=== PATIENT | female | born 1950 | race Caucasian/White ===

== ENCOUNTER → 2018-02-22 10:15 | Outpatient (POV) | payer MEDICARE, BC, SELFPAY | PROVIDERS: Visit Provider Dermatology | DX: Z00.00 Encounter for general adult medical examination without abnormal findings (principal) ==

== ENCOUNTER → 2018-03-22 11:10 | Outpatient (CLI) | payer MEDICARE, BC, SELFPAY ==
--- NOTE | 2018-03-22 11:40 | XR_ITS ---
XR chest 2V HISTORY: ITS.REASON: PRECORDIAL PAIN ORDERING PHYSICIAN: Hernando Garza MD PATIENT AGE: 68 years COMPARISON: None FINDINGS: The cardiomediastinal silhouette and pulmonary vascularity are within normal limits. There is some linear density noted in the right suprahilar region and could be due to an area of atelectasis or fibrosis. There is evidence of old granulomatous disease. The lungs are clear without infiltrates, suspicious nodules, or pleural effusions. No acute bony abnormalities. Mild levoscoliosis IMPRESSION: No acute finding
[2018-03-22 12:21] LABS: CKMB Relative Index 1.7 U/L (0-4.0); Creatine Kinase 59 U/L (26-192); Troponin I < 0.02 ng/ml (0.00-0.06)
== END ==
PROVIDERS: PCP Family Medicine; Visit Provider Family Medicine
DX: R07.2 Precordial pain (principal)
CPT/HCPCS: 36415; 71046; 82550; 82553; 84484; 93005

== ENCOUNTER → 2018-03-27 10:17 | Outpatient (CLI) | payer MEDICARE, BC, SELFPAY ==
--- NOTE | 2018-03-27 10:18 | XR_ITS ---
XR knee LT 4V HISTORY: ITS.REASON: Left knee pain ORDERING PHYSICIAN: Panda Hall MD PATIENT AGE: 68 years COMPARISON: None FINDINGS: There are mild osteoarthritic changes of the medial compartment and patellofemoral joint. No fracture or dislocation. No lytic or blastic change. IMPRESSION: Mild osteoarthritis
--- NOTE | 2018-03-27 10:18 | XR_ITS ---
XR knee RT 4V HISTORY: ITS.REASON: RIGHT knee pain ORDERING PHYSICIAN: Panda Hall MD PATIENT AGE: 68 years COMPARISON: None FINDINGS: Moderate osteoarthritic changes are present at the medial compartment and patellofemoral joint. Small suprapatellar effusion suspected. No fracture or dislocation. No lytic or blastic change. There are several small calcific densities within the soft tissues along the medial and posterior aspect of the tibial region proximally and are questioned clinical significance. They could be due to small calcifications such as synovial osteochondromas within a Machuca's cyst. IMPRESSION: 1. Moderate osteoarthritis. 2. Nonspecific small calcifications over the proximal and medial aspect of the tibia possibly due to synovial osteochondromas within a Machuca cyst
== END ==
PROVIDERS: PCP Family Medicine; Visit Provider Orthopaedic Surgery
DX: M25.561 Pain in right knee (principal); M25.562 Pain in left knee
CPT/HCPCS: 73564

== ENCOUNTER → 2018-05-23 08:25 | Outpatient (CLI) | payer MEDICARE, BC, SELFPAY ==
--- NOTE | 2018-05-23 08:27 | MM_ITS ---
MM Dig screening mamm BI w/CAD CAD Screening COMPARISON: Digital mammograms with CAD 04/28/2017 and 10/28/2016 INDICATION: There is a history of breast cancer in the patient's maternal grandmother TECHNIQUE: Standard CC and MLO images were obtained. R2 CAD reviewed. FINDINGS: Prominent heterogenic fibro glandular densities are seen in the central portions and subareolar regions of both breast. The findings of the lateral and symmetrical. There are benign-appearing calcifications in each breast. There is a stable benign-appearing nodular density outer quadrant right breast. There is no suspicious lesion and no suspicious microcalcifications. IMPRESSION: Moderately dense parenchymal pattern with no suspicious lesion. BI-RADS Category: 2 Benign Finding(s) RECOMMENDED FOLLOW-UP: 1YR - 1 YEAR FOLLOW-UP (A letter has been sent to the patient regarding results of the study.)
== END ==
PROVIDERS: Family Provider Family Medicine; PCP Family Medicine; Visit Provider Obstetrics & Gynecology
DX: Z12.31 Encounter for screening mammogram for malignant neoplasm of breast (principal)
CPT/HCPCS: 77067

== ENCOUNTER → 2019-01-04 11:41 | Outpatient (CLI) | payer MEDICARE, BC, SELFPAY ==
--- NOTE | 2019-01-04 11:47 | NVE_ITS ---
Venous Exam Indications: 729.81 Swelling of limb. IMPRESSIONS 1. There is no evidence of significant Reflux. 2. No evidence of deep or superficial vein thrombosis involving the right lower extremity Right lower extremity venous duplex evaluation. Doppler flow study including spectral analysis, color and padilla scale imaging. Location: Vascular laboratory. Patient status: Outpatient. Tables: Venous flow and imaging: + +-------+ + Location Overall Flow properties + +-------+ + Right common femoral Patent Normal phasicity; spontaneous; normal augmentation; compressible + +-------+ + Right saphenofemoral junction Patent Compressible + +-------+ + Right profunda femoral Patent Compressible + +-------+ + Right femoral Patent Normal phasicity; spontaneous; normal augmentation; compressible + +-------+ + Right greater saphenous Patent Normal phasicity; spontaneous; normal augmentation; compressible + +-------+ + Right popliteal Patent Normal phasicity; spontaneous; normal augmentation; compressible + +-------+ + Right posterior tibial Patent Compressible + +-------+ + Right peroneal Patent Compressible + +-------+ + Right gastrocnemius Patent Compressible + +-------+ + Right soleal Patent Compressible + +-------+ + (Report amended ) Electronically signed by: Edgar Simon [id number]
== END ==
PROVIDERS: PCP Family Medicine; Visit Provider Family Medicine
DX: R60.1 Generalized edema (principal)
CPT/HCPCS: 93971

== ENCOUNTER → 2019-05-28 10:17 | Outpatient (POV) | payer MEDICARE, BC, SELFPAY ==
--- NOTE | 2019-05-28 15:33 | MM_ITS ---
PROCEDURE: MM DIG SCREENING MAMM BI W/CAD CLINICAL INDICATION: screening There is a history of breast cancer in patient's maternal great aunt. COMPARISON: DMDBAV DIG MAMM-DX KINJAL W/AVWS W/CAD from 10/28/2016 DMSB DIG MAMM-SCREEN KINJAL W/CAD from 04/28/2017 [facility] MM Dig screening mamm BI w/CAD from 05/23/2018 TECHNIQUE: Standard CC and MLO images were obtained. R2 CAD reviewed. FINDINGS: There is a diffusely dense and heterogenic parenchymal pattern somewhat lessening the sensitivity of mammography. There is scattered benign-appearing microcalcifications in each breast and there is couple of benign macrocalcifications in each breast as well. There are stable benign appearing small nodular densities outer quadrants of each breast. There is no suspicious lesion and no suspicious microcalcifications. IMPRESSION: Heterogenic dense parenchymal pattern with no suspicious lesions seen BI-RAD Category: 2 Benign Finding(s) FOLLOW-UP: 1YR 1 Year Follow-up (A letter has been sent to the patient regarding results of the study.) Dictated by: Dr. Fran Reed MD 06/02/2019 10:[address] Fran Reed MD in [place] 06/02/2019 10:58
== END ==
PROVIDERS: Visit Provider Dermatology
DX: Z12.31 Encounter for screening mammogram for malignant neoplasm of breast (principal)
CPT/HCPCS: 77067

== ENCOUNTER → 2019-05-28 15:22 | Outpatient (CLI) | payer MEDICARE, BC, SELFPAY | PROVIDERS: PCP Family Medicine; Visit Provider Obstetrics & Gynecology | DX: Z12.31 Encounter for screening mammogram for malignant neoplasm of breast (principal) ==

== ENCOUNTER 2020-04-25 00:40 | Emergency (ER) | payer MEDICARE, BC, SELFPAY ==
--- NOTE | 2020-04-25 00:36 | ECG_ITS ---
APPROVED REPORT Exam: Resting ECG HR:71 bpm ECG Measurements Heart Rate 71 AXES MO 144 P 55 QRSd 74 QRS 76 QT 378 T 66 QTc 410 <Conclusion> Normal sinus rhythm Normal ECG Electronically signed by : Juan Daniel Jules, 04/25/2020 08:25:21
[2020-04-25 00:43] VITALS: BP 154/90; PULSE 77; RESP 18; TEMP 37; O2SAT 96; BMI 24.6
--- NOTE | 2020-04-25 00:51 | XR_ITS ---
PROCEDURE: XR CHEST 2V CLINICAL HISTORY: palpatations COMPARISON: CR CXR2V XR chest 2V from 03/22/2018 FINDINGS: The cardiomediastinal silhouette and pulmonary vascularity are within normal limits. The lungs are clear without infiltrates, suspicious nodules, or pleural effusions. No acute bony abnormalities. IMPRESSION: No acute findings. Dictated b Alek Ballard MD 04/25/2020 07:11 Alek Ballard MD in [place] 04/25/2020 07:11
[2020-04-25 01:02] LABS: Basophils # 0.1 K/mm3 (0-0.2); Basophils % 0.6 % (0.1-2.0); Eosinophils # 0.2 K/mm3 (0.0-0.4); Eosinophils % 1.7 % (0.1-12.0); Hematocrit 42.6 % (37.0-47.0); Hemoglobin 15.1 g/dL (12.2-16.2); Lymphocytes # 2.9 K/mm3 (0.7-4.5); Lymphocytes % 31.8 % (10-50); Mean Corpuscular HGB Conc 35.4 g/dL (31.8-35.4); Mean Corpuscular Hemoglobin 31.6 pg (27.0-31.2); Mean Corpuscular Volume 89.3 fl (81-99); Mean Platelet Volume 8.2 fl (7.4-10.4); Monocytes # 0.4 K/mm3 (0.1-1.0); Monocytes % 4.3 % (1.7-9.3); Neutrophils # 5.7 K/mm3 (1.8-7.8); Neutrophils % 61.6 % (37.0-80.0); Platelet Count 230 K/mm3 (142-424); Red Blood Count 4.77 M/mm3 (4.20-5.40); Red Cell Distribution Width 12.4 % (11.5-17.5); White Blood Count 9.2 K/mm3 (4.8-10.8)
[2020-04-25 01:14] LABS: Anion Gap 13.7 mEq/L (5-15); Blood Urea Nitrogen 20 mg/dl (7-17); Carbon Dioxide 34 mmol/L (22.0-30.0); Chloride 97 mmol/L (98-107); Creatinine Clearance Estimated 55 mL/min (50-200); Estimated Glomerular Filt Rate 83 ml/min (>60); GFR (African American) 100 ML/MIN (>60); Glucose 106 mg/dl (74-100); Potassium 3.7 mmoL/L (3.5-5.1); Sodium 141 mmol/L (136-145)
[2020-04-25 01:29] LABS: Troponin I < 0.01 ng/ml (0.00-0.034)
[2020-04-25 01:33] VITALS: BP 144/83; PULSE 70; O2SAT 94
--- NOTE | 2020-04-25 01:35 | HMH.EDCP ---
ED Disposition Clinical Impression: Palpitations Disposition: Home, Self-Care Condition on Discharge: Good Instructions: DI for Palpitations Additional Instructions: recheck if needed and call pcp for follow up Referrals: PCP,No [Primary Care Provider] - - Critical Care Critical Care Time: No Attestation: On 04/25/20, the high probability of a clinically significant, sudden or life threatening deterioration of the following system(s) required my full and direct attention, intervention and personal management. The time I documented below is in addition to time spent performing reported procedures but includes the following listed in this critical care notation. Medical Decision Making - Medical Records Medical records reviewed: Yes: I reviewed the patient's medical records. - Sylvester Inquiry Pt receiving controlled substance: No Vital Signs: 04/25/20 00:43 04/25/20 01:33 Temperature 98.6 F Temperature Source Oral Pulse Rate [Right] 77 70 Respiratory Rate 18 Blood Pressure [Right Arm] 154/90 H 144/83 H Blood Pressure Mean [Right Arm] 111 103 Blood Pressure Source [Right Arm] Automatic Cuff Blood Pressure Position [Right Arm] Supine 02 Sat by Pulse Oximetry 96 94 L Oxygen Delivery Method Room Air - Lab Data Lab results reviewed: Yes: I reviewed the patient's lab results. Lab Results 04/25/20 00:40: WBC 9.2, RBC 4.77, Hgb 15.1, Hct 42.6, MCV 89.3, MCH 31.6 H, MCHC 35.4, RDW 12.4, Plt Count 230, MPV 8.2, Neut % (Auto) 61.6, Lymph % (Auto) 31.8, [place] % (Auto) 4.3, Eos % (Auto) 1.7, Baso % (Auto) 0.6, Neut # (Auto) 5.7, Lymph # (Auto) 2.9, [place] # (Auto) 0.4, Eos # (Auto) 0.2, Baso # (Auto) 0.1 04/25/20 00:40: Sodium 141, Potassium 3.7, Chloride 97 L, Carbon Dioxide 34 H, Anion Gap 13.7, BUN 20 H, Creatinine 0.70, Estimated Creat Clear 55, Estimated GFR 83, Est GFR ( Amer) 100, Glucose 106 H, Calcium 10.0, Troponin I < 0.01 Result diagrams: 04/25/20 00:40 04/25/20 00:40 Orders (Tests/Meds): ED MEDICATIONS Discontinued Medications Generic Name Dose Route Start Last Admin Trade Name Kristal PRN Reason Stop Dose Admin Sodium Chloride 1,000 mls @ 999 mls/hr 04/25/20 01:00 04/25/20 01:27 Sod Chlor 0.9% 1000ml Bag IV 04/25/20 02:00 Not Given .Q1H1M HIGINIO ORDERS Category Date Time Status XR chest 2V Stat Exams 04/25/20 00:51 Ordered Troponin I Q3H Lab 04/25/20 04:00 Ordered Troponin I Q3H Lab 04/25/20 07:00 Ordered - Radiology Data #1 Image(s): Chest Image Reviewed: Yes I reviewed the patient's radiology image Preliminary Findings: Normal/NAD - ECG Data Tracing #1 Normal Sinus Rhythm: Yes Ischemic changes: non-specific ST-T wave changes Chest Pain HPI - General Chief Complaint: Arrhythmia/Palpitations Stated Complaint: palpitations Time Seen by Provider: 04/25/20 01:00 Mode of Arrival: Ambulatory Source of Information: Patient, Medical Record Limitations: No Limitations Description of Symptoms (Recalled from ER Triage Doc. by RN): Pt states she was woke up this even from palpatations, denies pain or SOA. - History of Present Illness HPI narrative: episodes of inc hr and no def chest pain - hx of mvp complaint: chest pain indicative of cardiac Onset (ago): hour(s) Duration: now resolved Activity at onset: during rest Pain location: substernal Severity: moderate Risk Factors for CAD: Hypertension, Family Hx of CAD Treatments prior to or on arrival for Cardiac Chest Pain: none - LEOLA Score for Non-Stemi Age of Patient: 70-79 years old Heart Rate: 70-89 bpm Systolic Blood Pressure: 140-159 mmHg Serum Creatinine: 0.40-0.79 mg/dl CHF Killip Class: I-No CHF Other Risk Factors: None Non-Stemi Risk Score: 112 - Related Data On Oral Contraceptives: No Home Medications Medication Instructions Recorded Confirmed celecoxib 50 mg capsule 100 mg PO BID 02/23/18 04/25/20 cholecalciferol (vitamin D3) 250 10,000 unit PO ONCE
[2020-04-25 02:08] VITALS: BP 151/93; PULSE 67; RESP 16; TEMP 37; O2SAT 96
== END 2020-04-25 02:11 | disposition home or self-care (01) ==
PROVIDERS: Emergency Provider Emergency Medicine; PCP Family Medicine
DX: R00.2 Palpitations (principal); I34.1 Nonrheumatic mitral (valve) prolapse; I10 Essential (primary) hypertension; Z90.710 Acquired absence of both cervix and uterus; Z79.899 Other long term (current) drug therapy
CPT/HCPCS: 71046; 80048; 84484; 85025; 93005; 99283

== ENCOUNTER → 2020-05-04 15:14 | Outpatient (CLI) | payer MEDICARE, BC, SELFPAY ==
--- NOTE | 2020-05-04 15:18 | CA_ITS ---
APPROVED REPORT EXAM: Comprehensive 2D, Doppler, and color-flow Echocardiogram Client Services Administrator: Soumya Rivas RDCS Ht: 5 ft 5 in Wt: 150lbs BSA: 1.75 BP: 144/83 mmHg Indications: MVP PALPS MR 2D Dimensions LVOT 1.63 cm (M/F) 1.5-2.5 M-Mode Dimensions RVDd 2.77 cm (0.9-2.6) LVDd 4.70 cm (3.5-5.7) LVDs 3.17 cm (3.5-5.7) IVSd 0.72 cm (0.6-1.1) PWd 0.76 cm (0.6-1.1) EF (Teich) 60.90% FS 32.60% EDV (Teich) 102.40 mL ESV (Teich) 40.00 mL LV Diastology E/A Ratio 1.17 Mitral Valve MV A Velocity 73.00 (40-130 cm/s) Left Ventricle Technically difficult study, because of the patient factors and poor acoustic windows. Left atrium is normal size, left ventricle is normal size, visually estimated ejection fraction 55% with no regional wall motion abnormality, diastolic parameters are inconclusive. Right Ventricle Right atrium and right ventricular normal size and contractility. Aortic Valve Aortic valve is minimally thickened and fibrosed, there is no aortic stenosis or aortic insufficiency. Mitral Valve Mitral valve leaflets are minimally thickened, there is no obvious echocardiographic evidence of mitral valve prolapse seen, there is mild to moderate mitral regurgitation seen. Tricuspid Valve Tricuspid valve is grossly normal, there is mild tricuspid regurgitation, tricuspid regurgitation jet velocity is inadequate for calculation of the right ventricular systolic pressure. Pulmonic Valve Pulmonic valve is poorly visualized. Great Vessels Aortic root is normal size. Pericardium No significant pericardial effusion noted. Conclusion 1. Normal left ventricular size, preserved left ventricular systolic function, visually estimated ejection fraction 55% with no regional wall motion abnormality, diastolic parameters are inconclusive. 2. No obvious echocardiographic evidence of mitral valve prolapse seen, there is mild to moderate mitral regurgitation. 3. Mild tricuspid regurgitation. 4. No significant pericardial effusion noted. Electronically signed by : Gordo Banks, 05/04/2020 20:00:25
== END ==
PROVIDERS: PCP Family Medicine; Visit Provider Family Medicine
DX: R00.2 Palpitations (principal); I34.0 Nonrheumatic mitral (valve) insufficiency
CPT/HCPCS: 93306

== ENCOUNTER → 2020-06-01 08:35 | Outpatient (CLI) | payer MEDICARE, BC, SELFPAY ==
--- NOTE | 2020-06-01 08:35 | MM_ITS ---
PROCEDURE: MM DIG SCREENING MAMM BI W/CAD Digital Breast Tomosynthesis Included CLINICAL INDICATION: Routine Screening Mammogram There is a history of breast cancer patient's maternal great aunt. The patient currently is on Premarin and estrogen. COMPARISON: MG DMSB DIG MAMM-SCREEN KINJAL W/CAD from 04/28/2017 [facility] MM Dig screening mamm BI w/CAD from 05/23/2018 MG MM DIG SCREENING MAMM BI W/CAD from 05/28/2019 TECHNIQUE: Standard CC and MLO images and 3D Tomosynthesis was obtained. R2 CAD reviewed. FINDINGS: Prominent diffuse somewhat heterogenic fibroglandular densities are seen throughout both breasts. There are scattered benign-appearing microcalcifications in each breast and there is a stable benign-appearing macro calcification upper-outer quadrant right breast. Small benign-appearing nodular density outer quadrant right breast and there is stable benign-appearing nodular density outer quadrant left breast both lesions best seen on the CC views. There is no suspicious lesion and no suspicious microcalcifications. IMPRESSION: Moderately dense parenchymal pattern with no suspicious lesions seen BI-RAD Category: 2 Benign Finding(s) FOLLOW-UP: 1YR 1 Year Follow-up (A letter has been sent to the patient regarding results of the study.) Dictated by: Dr. Fran Reed MD 06/04/2020 19:26 Dr. Fran Reed MD in [place] 06/04/2020 19:26
== END ==
PROVIDERS: PCP Family Medicine; Visit Provider Obstetrics & Gynecology
DX: Z12.31 Encounter for screening mammogram for malignant neoplasm of breast (principal)
CPT/HCPCS: 77063; 77067

== ENCOUNTER → 2021-05-25 11:01 | Outpatient (POV) | payer MEDICARE, BC, SELFPAY | PROVIDERS: Visit Provider Dermatology | DX: Z00.00 Encounter for general adult medical examination without abnormal findings (principal) ==

== ENCOUNTER → 2021-07-02 07:57 | Outpatient (CLI) | payer MEDICARE, BC, SELFPAY ==
[2021-07-02 08:01] LABS: Microscopic, Urine URINE MICROSCOPIC (MICROSCOPIC)
[2021-07-02 08:22] LABS: Basophils # 0.1 K/mm3 (0-0.2); Basophils % 0.9 % (0.1-2.0); Eosinophils # 0.1 K/mm3 (0.0-0.4); Eosinophils % 1.4 % (0.1-12.0); Hematocrit 42.9 % (37.0-47.0); Hemoglobin 14.4 g/dL (12.2-16.2); Lymphocytes # 2.2 K/mm3 (0.7-4.5); Lymphocytes % 24.1 % (10-50); Mean Corpuscular HGB Conc 33.6 g/dL (31.8-35.4); Mean Corpuscular Hemoglobin 31.1 pg (27.0-31.2); Mean Corpuscular Volume 92.4 fl (81-99); Mean Platelet Volume 8.1 fl (7.4-10.4); Monocytes # 0.4 K/mm3 (0.1-1.0); Monocytes % 4.2 % (1.7-9.3); Neutrophils # 6.5 K/mm3 (1.8-7.8); Neutrophils % 69.5 % (37.0-80.0); Platelet Count 302 K/mm3 (142-424); Red Blood Count 4.64 M/mm3 (4.20-5.40); Red Cell Distribution Width 12.9 % (11.5-17.5); White Blood Count 9.3 K/mm3 (4.8-10.8)
[2021-07-02 08:28] LABS: Appearance,Urine CLEAR (Clear); Bilirubin,Urine Negative (Negative); Blood, Urine TRACE-I (Negative); Color,Urine YELLOW (Yellow); Glucose,Urine (UA) Negative (Negative); Ketones,Urine Negative (Negative); Leukocyte Esterase,Urine Negative (Negative); Nitrate,Urine Negative (Negative); Protein,Urine Negative (Negative); Urobilinogen,Urine 0.2 EU/dl (0.2)
[2021-07-02 08:40] LABS: Hemoglobin A1C 7.1 % (4.0-6.0)
[2021-07-02 08:42] LABS: Activated Partial Thrombo Time 26.2 seconds (22.8-30.6); INR 0.93 (0.9-1.1); Prothrombin Time 10.6 seconds (10.1-12.5)
[2021-07-02 09:25] LABS: Chloride 98 mmol/L (98-107)
[2021-07-02 09:26] LABS: Potassium 4.9 mmoL/L (3.5-5.1); Sodium 139 mmol/L (136-145)
[2021-07-02 09:28] LABS: Alanine Aminotransferase 19 U/L (12-78); Alkaline Phosphatase 75 U/L (38-126); Anion Gap 13.9 mEq/L (5-15); Aspartate Amino Transferase 30 U/L (14-36); Bilirubin,Total 0.4 mg/dl (0.2-1.3); Blood Urea Nitrogen 11 mg/dl (7-17); Carbon Dioxide 32 mmol/L (22.0-30.0); Estimated Glomerular Filt Rate 82 ml/min (>60); GFR (African American) 100 ML/MIN (>60)
[2021-07-02 09:29] LABS: Albumin Level 4.4 g/dl (3.5-5.0); Albumin/Globulin Ratio 1.4 (1.1-1.8); Calcium 9.9 mg/dl (8.4-10.2); Globulin 3.1 g/dL (1.3-3.2); Glucose 92 mg/dl (74-100); Total Protein,Serum 7.5 g/dl (6.3-8.2)
== END ==
PROVIDERS: Visit Provider Family Medicine
DX: Z01.818 Encounter for other preprocedural examination (principal); Z79.899 Other long term (current) drug therapy; Z51.81 Encounter for therapeutic drug level monitoring
CPT/HCPCS: 36415; 80053; 81001; 83036; 85025; 85610; 85730

== ENCOUNTER → 2021-07-19 11:41 | Outpatient (CLI) | payer MEDICARE, BC, SELFPAY ==
--- NOTE | 2021-07-19 11:44 | CA_ITS ---
APPROVED REPORT Left Lower Extremity Venous Study for DVT. Chrome Tanner: Barbara Walker RVT Indications Lower Extremity Pain: Left S/P LT KNEE REPLACEMENT 07/15/21,BRUISING LT THIGH Risk Factors Post OP Medications Aspirin Vein Imaging CFV (L): compressive, spontaneous, phasic, augmentation FEM (L): compressive, spontaneous, phasic, augmentation POP (L): compressive, spontaneous, phasic, augmentation PTV (L): Compressible GSV (L): Compressible Peroneals (L):Compressible GAS (L): Compressible Findings Study suggests no evidence of DVT or SVT of the left lower extremity. Conclusion Study suggests no evidence of DVT or SVT of the left lower extremity. Critical Notification Physician Notified Date: 07/19/2021 Time: 12:09 Physician Name: eDshawn Osuna Electronically signed by : Alek Ballard MD 07/19/2021 16:56:55
== END ==
PROVIDERS: PCP Family Medicine; Visit Provider Family Medicine
DX: M79.605 Pain in left leg (principal)
CPT/HCPCS: 93971

== ENCOUNTER → 2021-08-03 13:24 | Outpatient (POV) | payer MEDICARE, BC, SELFPAY | PROVIDERS: Visit Provider Dermatology | DX: Z00.00 Encounter for general adult medical examination without abnormal findings (principal) ==

== ENCOUNTER → 2022-07-19 08:49 | Outpatient (POV) | payer MEDICARE, BC, SELFPAY | PROVIDERS: Visit Provider Dermatology | DX: Z00.00 Encounter for general adult medical examination without abnormal findings (principal) ==

== ENCOUNTER → 2022-08-04 15:16 | Outpatient (CLI) | payer MEDICARE, BC, SELFPAY ==
--- NOTE | 2022-08-04 15:18 | MM_ITS ---
PROCEDURE INFORMATION: Exam: MG Bilateral Screening 3D Mammography Exam date and time: 08/04/2022 3:24 PM Age: 72 years old Clinical indication: Screening examination TECHNIQUE: Imaging protocol: Bilateral Screening tomosynthesis and 2D mammography including computer-aided detection (CAD) when performed. COMPARISON: 1. MG MM DIG SCREENING MAMM BI W/CAD 06/01/2020 9:05 AM 2. MG MM DIG SCREENING MAMM BI W/CAD 05/28/2019 3:36 PM FINDINGS: MAMMOGRAPHY: Breast composition: The breasts are extremely dense, which lowers the sensitivity of mammography. Mass: None. Architectural distortion: None. Calcifications: No suspicious calcifications. Asymmetric density: None. Skin thickening: None. Axillary adenopathy: None. IMPRESSION: No mammographic evidence of malignancy. Annual screening is recommended unless otherwise clinically indicated. ASSESSMENT: BI-RADS Category 1: Negative
== END ==
PROVIDERS: PCP Family Medicine; Visit Provider Family Medicine
DX: Z12.31 Encounter for screening mammogram for malignant neoplasm of breast (principal)
CPT/HCPCS: 77063; 77067

== ENCOUNTER → 2022-08-17 11:39 | Outpatient (CLI) | payer MEDICARE, BC, SELFPAY ==
--- NOTE | 2022-08-17 11:48 | XR_ITS ---
FINAL REPORT CLINICAL HISTORY: COUGH, COMPARISON: 04/25/2020 FINDINGS: TWO-VIEW CHEST The heart size is normal. The mediastinum is normal. The lungs are clear. There is no pneumothorax. IMPRESSION: No acute cardiopulmonary process. Reviewed, Interpreted and Dictated by Rios Avalos MD Transcribed by Dayanara Cronin Authenticated and [facility]
== END ==
PROVIDERS: PCP Family Medicine; Visit Provider Nurse Practitioner Family
DX: R05.9 Cough, unspecified (principal)
CPT/HCPCS: 71046

== ENCOUNTER → 2022-08-18 11:56 | Outpatient (CLI) | payer MEDICARE, BC, SELFPAY ==
[2022-08-18 12:54] LABS: Coronavirus 19, PCR Not Detected (NotDetected); Influenza B, PCR Not Detected (NotDetected)
[2022-08-18 13:12] LABS: Basophils # 0.1 K/mm3 (0-0.2); Basophils % 1.4 % (0.1-2.0); Eosinophils % 0.2 % (0.1-12.0); Hematocrit 38.5 % (37.0-47.0); Hemoglobin 12.4 g/dL (12.2-16.2); Lymphocytes # 0.9 K/mm3 (0.7-4.5); Lymphocytes % 15.1 % (10-50); Mean Corpuscular HGB Conc 32.3 g/dL (31.8-35.4); Mean Corpuscular Hemoglobin 30.5 pg (27.0-31.2); Mean Corpuscular Volume 94.2 fl (81-99); Mean Platelet Volume 9.4 fl (7.4-10.4); Monocytes # 0.5 K/mm3 (0.1-1.0); Monocytes % 7.9 % (1.7-9.3); Neutrophils # 4.6 K/mm3 (1.8-7.8); Neutrophils % 75.5 % (37.0-80.0); Platelet Count 188 K/mm3 (142-424); Red Blood Count 4.09 M/mm3 (4.20-5.40); Red Cell Distribution Width 12.3 % (11.5-17.5); White Blood Count 6.1 K/mm3 (4.8-10.8)
[2022-08-18 15:33] LABS: Influenza A, PCR Detected (NotDetected)
== END ==
PROVIDERS: PCP Family Medicine; Visit Provider Physician Assistant
DX: Z20.828 Contact with and (suspected) exposure to other viral communicable diseases (principal); J09.X2 Influenza due to identified novel influenza A virus with other respiratory manifestations
CPT/HCPCS: 36415; 85025; C9803; U0003; U0005

== ENCOUNTER → 2023-08-29 09:35 | Outpatient (POV) | payer MEDICARE, BC, SELFPAY | PROVIDERS: PCP Family Medicine; Visit Provider Dermatology | DX: Z00.00 Encounter for general adult medical examination without abnormal findings (principal) ==

== ENCOUNTER 2024-11-19 10:03 | Outpatient (CLI) | payer MEDICARE, BC, SELFPAY ==
--- NOTE | 2024-11-19 10:07 | MM_ITS ---
PROCEDURE INFORMATION: Exam: MG Bilateral Screening 3D Mammography Exam date and time: 11/19/2024 10:08 AM Age: 74 years old Clinical indication: Screening examination TECHNIQUE: Imaging protocol: Bilateral Screening tomosynthesis and 2D mammography including computer-aided detection (CAD) when performed. COMPARISON: 1. MG TROY SCRN MAMMO W/CAD BILAT 08/28/2023 9:54 AM 2. MG MM DIG SCREENING MAMM BI W/CAD 08/04/2022 3:24 PM FINDINGS: MAMMOGRAPHY: Breast composition: The breasts are heterogeneously dense, which may obscure small masses. Mass: None. Architectural distortion: None. Calcifications: No suspicious calcifications. Asymmetric density: None. Skin thickening: None. Axillary adenopathy: None. IMPRESSION: No mammographic evidence of malignancy. Annual screening is recommended unless otherwise clinically indicated. ASSESSMENT: BI-RADS Category 1: Negative.
== END 2024-11-19 23:59 | disposition home or self-care (01) ==
LOC: RAD 10:04
PROVIDERS: PCP Family Medicine; Visit Provider Family Medicine
DX: Z12.31 Encounter for screening mammogram for malignant neoplasm of breast (principal)
CPT/HCPCS: 77063; 77067

== ENCOUNTER 2025-01-08 10:03 | Outpatient (CLI) | payer MEDICARE, BC, SELFPAY ==
--- OUTSIDE RECORDS SUMMARY | 2025-01-08 10:06 | XMS_ITS ---
Author Organization Unknown Allergies, Adverse Reactions and Alerts Date IsAllergic OnsetDate Allergen Reaction Type Severity Raf rgyCode Legacyallergictoid ReactionCode ReactionCodeSystemID 11/28 00:00 :00 1 Lisinopri l cough Side Effec ts [id number] 11/13 00:00 :00 1 Lisinopri l cough Side Effec ts [id number] 11/02 00:00 :00 1 Lisinopri l cough Side Effec ts [id number] 11/01 00:00 :00 1 Lisinopri l cough Side Effec ts [id number] 10/17 00:00 :00 1 Lisinopri l cough Side Effec ts [id number] 10/17 00:00 :00 1 Lisinopri l cough Side Effec ts [id number] 08/30 00:00 :00 1 Lisinopri l cough Side Effec ts [id number] 06/12 00:00 :00 1 Lisinopri l cough Side Effec ts [id number] 05/26 00:00 :00 1 Lisinopri l cough Side Effec ts [id number] 05/25 00:00 :00 1 Lisinopri l cough Side Effec ts [id number] 04/25 00:00 :00 1 Lisinopri l cough Side Effec ts [id number] 04/25 00:00 :00 1 Lisinopri l cough Side Effec ts [id number] 03/27 00:00 :00 1 Lisinopri l cough Side Effec ts [id number] 03/24 00:00 :00 1 Lisinopri l cough Side Effec ts [id number] 02/20 00:00 :00 1 Lisinopri l cough Side Effec ts [id number] 02/18 00:00 :00 1 Lisinopri l cough Side Effec ts [id number] 02/14 00:00 :00 1 lisinopri l cough Side Effec ts [id number] 01/23 00:00 :00 1 lisinopri l cough Side Effec ts [id number] 10/27 00:00 :00 1 lisinopri l cough Side Effec ts [id number] 10/27 00:00 :00 1 lisinopri l cough Side Effec ts [id number] 09/26 00:00 :00 1 lisinopri l cough Side Effec ts [id number] 08/18 00:00 :00 1 lisinopri l cough Side Effec ts [id number] 08/18 00:00 :00 1 lisinopri l cough Side Effec ts [id number] 08/17 00:00 :00 1 lisinopri l cough Side Effec ts [id number] 08/03 00:00 :00 1 lisinopri l cough Side Effec ts [id number] 07/26 00:00 :00 1 lisinopri l cough Side Effec ts [id number] 07/25 00:00 :00 1 lisinopri l cough Side Effec ts [id number] 07/15 00:00 :00 1 lisinopri l cough Side Effec ts [id number] 04/25 00:00 :00 1 lisinopri l cough Side Effec ts [id number] 04/25 00:00 :00 1 lisinopri l cough Side Effec ts [id number] 04/04 00:00 :00 1 lisinopri l cough Side Effec ts [id number] 03/12 00:00 :00 1 lisinopri l cough Side Effec ts [id number] 03/11 00:00 :00 1 lisinopri l cough Side Effec ts [id number] 01/28 00:00 :00 1 lisinopri l cough Side Effec ts [id number]
--- OUTSIDE RECORDS SUMMARY | 2025-01-08 10:06 | XMS_ITS ---
Author Organization [facility] Address [address] [place] [address] Phone Care Team Providers Care Color Artist Name Role Phone Edgardo FALCON, Geo Unavailable [phone] KENNETH REYES Primary Care Provider [phone] Reason for Referral Date Encounter Description Provider Reason for Referral 09/01/21 Post Op Kwame Wilson PA-C Refer ral To Physician - see pcp for bp 07/28/21 Post Op Geo Reynoso MD Referral To Physician - see pcp for bp 07/01/21 Follow Up Geo Reynoso MD Referral To Physician - see pcp for bp 05/27/21 Post Op Geo Reynoso MD Referral To Physician - see pcp for bp 04/28/21 Post Op Geo Reynoso MD Referral To Physician - see pcp for bp 01/26/21 Follow Up Geo Reynoso MD Referral To Physician - see pcp for bp 01/12/21 Follow Up Geo Reynoso MD Referral To Physician - see pcp for bp 01/07/21 Follow Up Geo Reynoso MD Referral To Physician - SEE PCP FOR BP Problems Includes: Active, inactive, and resolved Problems All Visits Onset Date Resolved Date Provider Condition S tatus Joint Pain in Both Knees 02/20/2020 Geo albarado MD Active Last Documented On 0 2:12PM ; [facility] Plan of Treatment Pending Tests Order Diagnosis Results Due Ordering P rovider Radiology - CT Scan Knee 01/21/21 Homer Reynoso MD Last Documented On 1 5:39PM ; [facility], [facility] Radiology - CT Scan Knee 02/09/21 Homer Reynoso MD Last Documented On 1 9:32AM ; [facility] Instructions to patient Instructions for patient SEE PCP FOR BP ANDWT Last Documented On 1 9:05AM ; [facility] Instructions for patient SEE PCP FOR BP ANDWT Last Documented On 1 9:59AM ; [facility] Instructions for patient SEE PCP FOR BP ANDWT Last Documented On 1 9:38AM ; [facility] Instructions for patient SEE PCP FOR BP ANDWT Last Documented On 1 3:16PM ; [facility] Instructions for patient SEE PCP FOR BP ANDWT Last Documented On 0 12:57PM ; [facility] Instructions for patient SEE PCP FOR BP ANDWT Last Documented On 0 2:34PM ; [facility] Assessments Includes: Assessments for all patient encounters No Assessments Recorded Instructions Includes: Instructions for all patient encounters Instructions to patient Instructions for patient SEE PCP FOR BP ANDWT Last Documented On 1 9:05AM ; [facility] Instructions for patient SEE PCP FOR BP ANDWT Last Documented On 1 9:59AM ; [facility] Instructions for patient SEE PCP FOR BP ANDWT Last Documented On 1 9:38AM ; [facility] Instructions for patient SEE PCP FOR BP ANDWT Last Documented On 1 3:16PM ; [facility] Instructions for patient SEE PCP FOR BP ANDWT Last Documented On 0 12:57PM ; [facility] Instructions for patient SEE PCP FOR BP ANDWT Last Documented On 0 2:34PM ; [facility] Medical Equipment - Implanted Devices Includes: Current and historical Devices No Medical Equipment Recorded Medications Includes: Current and historical Medications Current Medications (continue as prescribed) hydroCHLOROthiazide 12.5 MG Oral Tablet 10/24/2022 Sheila oseguerader: Diagnosis: Last Documented On 3 9:33AM By Neeru Kennedy ; [facility] Vitamin D3 25 MCG (1000 UT) Oral Tablet Chewable 0 10/24/2022 Provider: Diagnosis: Last Documented On 3 9:33AM By Neeru Kennedy ; [facility] Past Medications on file Premarin 0.3 MG Oral Tablet 10/24/2022 - 01/22/2023 Pr ovider: Diagnosis: Last Documented On 3 9:32AM By Neeru Kennedy ; [facility] Losartan Potassium 50 MG Oral Tablet 10/24/2022 - 01/22/2023 Provider: TIMI SALAZAR MD Diagnosis: Last Documented On 3 9:32AM By Neeru Kennedy ; [facility] Famotidine 40 MG Oral Tablet 10/24/2022 - 01/22/2023 Sheila mckeon: KENNETH REYES Diagnosis: Last Documented On 3 9:32AM By Neeru Kennedy ; [facility] Rosuvastatin Calcium 10 MG O ral Tablet 10/24/2022 - 01/22/2023 Provider: KENNETH REYES Diagnosis: Last Documented On 3 9:32AM By Neeru Kennedy ; [facility] Diclofenac Sodium 1% External Gel 10/24/2022 - 023 Provider: KENNETH REYES Diagnosis: Last Documented On 3 9:32AM By Neeru Kennedy ; [facility], [facility] Vitamin D3 25 MCG (1000 UT) Oral Tablet Chewable 01/13/2022 - 10/24/2022 Provider: Diagnosis: Last Documented On 3 9:33AM By Neeru Kennedy ; [facility] hydroCHLOROthiazide 12.5 MG Oral Tablet 01/13/2022 - 0 10/24/2022 Provider: Diagnosis: Last Documented On 3 9:33AM By Neeru Kennedy ; [facility] Diclofenac Sodium 1% External Gel 01/07/2022 - 023 Provider: KENNETH REYES Diagnosis: Last Documented On 3 9:32AM By Neeru Kennedy ; [facility] Rosuvastatin Calcium 10 MG O ral Tablet 12/09/2021 - 10/24/2022 Provider: KENNETH REYES Diagnosis: Last Documented On 3 9:32AM By Neeru Kennedy ; [facility] Famotidine 40 MG Oral Tablet 12/07/2021 - 10/24/2022 Sheila mckeon: KENNETH REYES Diagnosis: Last Documented On 3 9:32AM By Neeru Kennedy ; [facility] Premarin 0.3 MG Oral Tablet 10/18/2021 - 10/24/2022 Pr ovider: Diagnosis: Last Documented On 3 9:32AM By Neeru Kennedy ; [facility] Losartan Potassium 50 MG Oral Tablet 10/18/2021 - 10/24/2022 Provider: TIMI SALAZAR MD Diagnosis: Last Documented On 3 9:32AM By Neeru Kennedy ; [facility] Losartan Potassium 100 MG Oral Tablet 09/01/2021 - Provider: Diagnosis: Last Documented On 2 10:45AM By Danette Wilson ; [facility] Premarin 0.3 MG Oral Tablet 09/01/2021 - 01/13/2022 Pr ovider: Diagnosis: Last Documented On 2 10:45AM By Danette Wilson ; [facility] hydroCHLOROthiazide 12.5 MG Oral Tablet 09/01/2021 - 0 01/13/2022 Provider: Diagnosis: Last Documented On 2 10:45AM By Danette Wilson ; [facility] Ultram 50 MG Oral Tablet 07/14/2021 - 08/13/2021 Provi cezar: Geo Reynoso MD Diagnosis: 1-2 p o q 6-8h take 1-2 tabl ets every 6-8 hours for breakthrough post op pain Last Documented On 1 10:24AM By Geo Reynoos ; [facility] Acetaminophen 500 MG Oral Tablet 07/14/2021 - 08/13/20 Provider: Geo Reynoso MD Diagnosis: take 2 tablets 3 times daily, AFTER SURGERY Last Documented On 1 10:25AM By Geo Reynoso ; [facility] oxyCODONE HCl 5 MG Oral Tablet 07/14/2021 - 07/19/2021 Provider: Geo Reynoso MD Diagnosis: take 1-2 tablets every 4-6hrs for post op pain Last Documented On 1 10:40AM By Geo King [facility] Zofran 4 MG Oral Tablet 07/14/2021 - 08/13/2021 Provid er: Geo Reynoso MD Diagnosis: 1 po q 6 to 8 hrs prn pain t naveed 1 tablet every 6-8hrs for nausea, AFTER SURGERY Last Documented On 1 10:26AM By Geo King [facility] Aspirin Adult Low Strength 8 1 MG Oral Tablet Delayed Release 07/14/2021 - 08/28/2021 Provider: Geo Reynoso MD Diagnosis: twice a day Last Documented On 10:26AM By Geo King [facility] Cefadroxil 500 MG Oral Capsule 07/14/2021 - 07/17/2021 Provider: Geo Reynoso MD Diagnosis: twice a day Last Documented On 1 10:26AM By Geo King [facility] Mobic 15 MG Oral Tablet 07/14/2021 - 08/13/2021 Provid er: Geo Reynoso MD Diagnosis: once a day 1 tablet daily Last Documented On 1 10:25AM By Geo King [facility] Colace 100 MG Oral Capsule 07/14/2021 - 08/13/2021 Pro vider: Geo Reynoso MD Diagnosis: 1-2 tablets daily, as needed, AFTER SURGERY Last Documented On 1 10:25AM By Geo King [facility] Ultram 50 MG Oral Tablet 04/23/2021 - 05/03/2021 Provi cezar: Geo Reynoso MD Diagnosis: 1 every 6 hours Last Documented On 1 10:02AM By Geo Reynoso ; [facility] oxyCODONE HCl 5 MG Oral Tablet 04/23/2021 - 05/23/2021 Provider: Geo Reynoso MD Diagnosis: 1-2 po q 4-6h take 1-2 table ts every 4-6hrs for post op pain Last Documented On 1 10:02AM By Geo Reynoso ; [facility] oxyCODONE HCl 5 MG Oral Tablet 04/23/2021 - 04/28/2021 Provider: Geo Reynoso MD Diagnosis: 1 every 6 hours Last Documented On 1 10:04AM By Gela Baker ; [facility] Aspirin Adult Low Strength 8 1 MG Oral Tablet Delayed Release 04/13/2021 - 05/28/2021 Provider: Geo Reynoso MD Diagnosis: twice a day Last Documented On 1 9:34AM By Geo Reynoso ; [facility] Acetaminophen 500 MG Oral Tablet 04/13/2021 - 05/13/20 Provider: Geo Reynoso MD Diagnosis: 2 three times a day take 2 t ablets 3 times daily, AFTER SURGERY Last Documented On 1 9:33AM By Geo Reynoso ; [facility] Mobic 15 MG Oral Tablet 04/13/2021 - 05/13/2021 Provid er: Geo Reynoso MD Diagnosis: once a day 1 tablet daily Last Documented On 1 9:35AM By Geo Reynoso ; [facility] oxyCODONE HCl 5 MG Oral Tablet 04/13/2021 - 04/28/2021 Provider: Geo Reynoso MD Diagnosis: 1-2 po q 4-6h take 1-2 table ts every 4-6hrs for post op pain Last Documented On 1 10:04AM By Gela Baker ; [facility] Cefadroxil 500 MG Oral Capsule 04/13/2021 - 04/28/2021 Provider: Geo Reynoso MD Diagnosis: twice a day Last Documented On 1 10:04AM By Gela Baker ; [facility] Colace 100 MG Oral Capsule 04/13/2021 - 04/28/2021 Pro vider: Geo Reynoso MD Diagnosis: 1-2 tabs daily 1-2 tablets daily, as needed, AFT ER SURGERY Last Documented On 1 10:04AM By Gela Baker ; [facility] Ultram 50 MG Oral Tablet 04/13/2021 - 04/28/2021 Provi cezar: Geo Reynoso MD Diagnosis: 1-2 p o q 6-8h take 1-2 tabl ets every 6-8 hours for breakthrough post op pain Last Documented On 1 10:04AM By Gela Baker ; [facility] Zofran 4 MG Oral Tablet 04/13/2021 - 04/28/2021 Provid er: Geo Reynoso MD Diagnosis: take 1 tablet every 6-8hrs for nausea, AFTER PRATIK IVANA Last Documented On 1 10:04AM By Gela Baker ; [facility] Mupirocin 2% External Ointment 01/13/2021 - 09/01/2021 Provider: Geo Reynoso MD Diagnosis: twice a day - apply under ea ch nostril 2 x day 5days prior to surgery with a q-tip Last Documented On 1 1:08PM By Sharon Acuña ; [facility] Premarin 0.625 MG Oral Tablet 01/07/2021 - 09/01/2021 Provider: Diagnosis: Last Documented On 1 1:07PM By Sharon Acuña ; [facility] Valtrex 1 GM Oral Tablet 01/07/2021 - 01/13/2022 Provi cezar: Diagnosis: Last Documented On 2 10:45AM By Danette Wilson ; [facility] Losartan Potassium 50 MG Oral Tablet 01/07/2021 - 08/18 Provider: Diagnosis: Last Documented On 1 1:05PM By Sharon Acuña ; [facility] Diclofenac 3% Gel Topical 01/07/2021 - 09/01/2021 Prov ider: Diagnosis: Last Documented On 1 1:08PM By Sharon Acuña ; [facility] Doxycycline Hyclate 50 MG Oral Tablet 01/07/2021 - Provider: Diagnosis: Last Documented On 1 1:07PM By Sharon Acuña ; [facility] Crestor 10 MG Oral Tablet 01/07/2021 - 01/13/2022 Prov ider: Diagnosis: Last Documented On 2 10:45AM By Danette Wilson ; [facility] Medrol 4 MG Oral Tablet Ther apy Pack 09/29/2020 - 04/28/2021 Provider: Geo Reynoso MD Diagnosis: take as directed Last Documented On 10:03AM By Gela Baker ; [facility] Losartan Potassium 50 MG Oral Tablet 02/20/2020 - 12/18 Provider: Diagnosis: Last Documented On 9:41AM By Sofia Panchal ; [facility] Doxycycline Hyclate 50 MG Oral Tablet 02/20/2020 - Provider: Diagnosis: Last Documented On 9:41AM By Sofia Panchal ; [facility] Crestor 10 MG Oral Tablet 02/20/2020 - 01/07/2021 Prov ider: Diagnosis: Last Documented On 9:41AM By Sofia Panchal ; [facility] Premarin 0.9 MG Oral Tablet 02/20/2020 - 01/07/2021 Pr ovider: Diagnosis: Last Documented On 1 9:42AM By Sofia Panchal ; [facility] CeleBREX 200 MG Oral Capsule 02/20/2020 - 01/07/2021 P rovider: Diagnosis: Last Documented On 9:41AM By Sofia Panchal ; [facility] Diclofenac 3% Gel Topical 02/20/2020 - 01/07/2021 Prov ider: Diagnosis: Last Documented On 9:41AM By Sofia Panchal ; [facility] Triamcinolone (oint)-Silicon e 0.1% External Therapy Pack 02/20/2020 - 01/07/2021 Provider: Diagnosis: Last Documented On 9:42AM By Sofia Panchal ; [facility] Valtrex 1 GM Oral Tablet 02/20/2020 - 01/07/2021 Provi cezar: Diagnosis: Last Documented On 9:42AM By Sofia Panchal ; [facility] Medications Administered Includes: Administered Medications in patient's chart No Administered Medications Recorded Results Includes: Results from 01/09/2024 through 01/08/2025 No Results Recorded For Specified Dates History of Present Illness History of Present Illness not supported for this document type No History of Present Illness Recorded Social History Description Last Updated Tobacco non-user 10/24/2022 Last Documented On 3 11:28AM ; [facility] No recent change in diet 10/24/2022 Last Documented On 3 11:28AM ; [facility] Not a current smoker. 10/24/2022 Last Documented On 3 11:28AM ; [facility] Exercising regularly 10/24/2022 Last Documented On 3 11:28AM ; [facility] Non-smoker 04/28/2021 Last Documented On 2 10:57AM ; [facility] Caffeine use 02/20/2020 Last Documented On 0 3:04PM ; [facility] No tobacco use 02/20/2020 Last Documented On 0 3:04PM ; [facility] Smoking status : Never smoker 02/20/2020 Last Documented On 0 3:04PM ; [facility] No recent change in diet 02/20/2020 Last Documented On 0 3:04PM ; [facility] Not a current smoker 02/20/2020 Last Documented On 0 3:04PM ; [facility] Not using alcohol 02/20/2020 Last Documented On 0 3:04PM ; [facility] Not using drugs 02/20/2020 Last Documented On 0 3:04PM ; [facility] Procedures and Surgical History Surgical History Last Updated History of hysterectomy 02/20/2020 Last Documented On 0 3:04PM ; [facility] History of total knee arthroplasty 02/19 Last Documented On 0 3:04PM ; [facility] Medical History Includes: Medical History in patient's chart Description Last Updated History of Heartburn / Acid Reflux 10/24 Last Documented On 3 11:28AM ; [facility] History of Irregular Heartbeat 3 Last Documented On 3 11:28AM ; [facility] No recent immunization for pneumococcal pneumonia 01/13/2022 Last Documented On 2 6:49AM ; [facility] Recent immunization for flu 05/19/2021 Last Documented On 2 6:49AM ; [facility] PVC's/ Mitral valve regurgation 05/27/20 21 Last Documented On 2 2:57PM ; [facility] Arthritis 05/27/2021 Last Documented On 2 2:57PM ; [facility] Hypertension 05/27/2021 Last Documented On 2 2:57PM ; [facility] Hysterectomy 05/27/2021 Last Documented On 2 2:57PM ; [facility] Total knee arthroplasty 05/27/2021 Last Documented On 2 2:57PM ; [facility] A previous fracture (R) wrist 02/20/2020 Last Documented On 0 3:04PM ; [facility] Arthritic joint problems 02/20/2020 Last Documented On 0 3:04PM ; [facility] A recent injection 02/20/2020 Last Documented On 0 3:04PM ; [facility] Family History Includes: Family History in patient's chart Description Last Updated Diabetes mellitus 05/27/2021 Last Documented On 2 2:57PM ; [facility] Stroke / Seizures 05/27/2021 Last Documented On 2 2:57PM ; [facility] Family history of cancer 02/20/2020 Last Documented On 0 3:04PM ; [facility] Family history of diabetes mellitus 12/2019 Last Documented On 0 3:04PM ; [facility] Family history of heart disease 02/20/20 20 Last Documented On 0 3:04PM ; [facility] Family history of hypertension 0 Last Documented On 0 3:04PM ; [facility] Family history of osteoporosis 0 Last Documented On 0 3:04PM ; [facility] Family history of rheumatoid arthritis 0 02/20/2020 Last Documented On 0 3:04PM ; [facility] Review of Systems Review of Systems not supported for this document type No Review of Systems Recorded Mental Status No Mental Status Recorded Functional Status No Functional Status Recorded Physical Exam Physical Exam not supported for this document type No Physical Exam Recorded Immunizations Includes: Immunizations in patient's chart Vaccine Dose # Date Site Reaction(s) Status Source Influenza 1 06/30/2020 Complete (Reported) Patient Last Documented On 1 9:44AM ; [facility], [facility] Influenza 2 05/19/2021 Complete (Reported) Patient Last Documented On 2 10:47AM ; [facility] PCV (Pneumovax 23) 1 01/07/2021 Complete (Refused - Patient objection) [facility] Last Documented On 1 9:44AM ; [facility], [facility] Td 1 01/07/2021 Complete (Refused - Patient objection) [facility] Last Documented On 1 9:44AM ; [facility], [facility] Allergies Includes: Active, inactive, and resolved Allergies No Known Allergies Insurance Includes: Active Insurance Policies Plan Name Member ID Group # Subscriber Relationship Effect lawson Dates 1 - Medicare Part B [facility] [id number] Megan White Self 01/16/2015 - Unknown 2 - [employer] [id number] Megan Ramirez 09/18/2015 - Unknown Clinical Notes Includes: Signed Clinical Notes starting from 09/01/2022 No Clinical Notes Recorded
--- OUTSIDE RECORDS SUMMARY | 2025-01-08 10:06 | XMS_ITS | Clinical Summary ---
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 Name Role Phone Edgardo FALCON, Geo Unavailable [phone] KENNETH REYES Primary Care Provider [phone] Reason for Referral Date Encounter Description Provider Reason for Referral 07/28/21 Post Op Geo Reynoso MD Referral To Physician - see pcp for bp Reason for Visit and Chief Complaint The Chief Complaint is: right knee pain Problems Includes: Problems addressed during this encounter and other active Problems All Visits Onset Date Resolved Date Provider Condition S tatus Joint Pain in Both Knees 02/20/2020 Geo albarado MD Active Last Documented On 0 2:12PM ; [facility] Plan of Treatment Patient will continue physical therapy exercises including completing her exercises at home. She will see us back to clinic in 4-6 weeks. - Last Documented On 09/16/2021 2:49PM ; [facility] Pending Tests Order Diagnosis Results Due Ordering P rovider Radiology - CT Scan Knee 01/21/21 Homer Reynoso MD Last Documented On 1 5:39PM ; [facility] Radiology - CT Scan Knee 02/09/21 Homer Reynoso MD Last Documented On 1 9:32AM ; [facility] Assessments Includes: Assessments from this encounter Findings Status post left TKA - Last Documented On 09/16/2021 2:49PM ; [facility] Medical Equipment - Implanted Devices Includes: Current Devices No Medical Equipment Recorded Medications Includes: Medications discussed during this encounter and other current Medications Current Medications (continue as prescribed) hydroCHLOROthiazide 12.5 MG Oral Tablet 10/24/2022 P rovider: Diagnosis: Last Documented On 3 9:33AM By Neeru Kennedy ; [facility], [facility] Vitamin D3 25 MCG (1000 UT) Oral Tablet Chewable 0 10/24/2022 Provider: Diagnosis: Last Documented On 3 9:33AM By Neeru Kennedy ; [facility], [facility] Past Medications on file Premarin 0.3 MG Oral Tablet 10/24/2022 - 01/22/2023 Pr ovider: Diagnosis: Last Documented On 3 9:32AM By Neeru Kennedy ; [facility] Losartan Potassium 50 MG Oral Tablet 10/24/2022 - 01/22/2023 Provider: TIMI SALAZAR MD Diagnosis: Last Documented On 3 9:32AM By Neeru Kennedy ; [facility] Famotidine 40 MG Oral Tablet 10/24/2022 - 01/22/2023 P rovider: KENNETH REYES Diagnosis: Last Documented On 3 9:32AM By Neeru Kennedy ; [facility], [facility] Rosuvastatin Calcium 10 MG O ral Tablet 10/24/2022 - 01/22/2023 Provider: KENNETH REYES Diagnosis: Last Documented On 3 9:32AM By Neeru Kennedy ; [facility], [facility] Diclofenac Sodium 1% External Gel 10/24/2022 - 023 Provider: KENNETH REYES Diagnosis: Last Documented On 3 9:32AM By Neeru Kennedy ; [facility], [facility] Ultram 50 MG Oral Tablet 07/14/2021 - 08/13/2021 Provi cezar: Geo Reynoso MD Diagnosis: 1-2 p o q 6-8h take 1-2 tabl ets every 6-8 hours for breakthrough post op pain Last Documented On 1 10:24AM By Geo Reynoso ; [facility] Acetaminophen 500 MG Oral Tablet 07/14/2021 - 08/13/20 Provider: Geo Reynoso MD Diagnosis: take 2 tablets 3 times daily, AFTER SURGERY Last Documented On 10:25AM By Geo Reynoso ; [facility], [facility] oxyCODONE HCl 5 MG Oral Tablet 07/14/2021 - 07/19/2021 Provider: Geo Reynoso MD Diagnosis: take 1-2 tablets every 4-6hrs for post op pain Last Documented On 10:40AM By Geo Reynoso ; [facility], [facility] Zofran 4 MG Oral Tablet 07/14/2021 - 08/13/2021 Provid er: Geo Reynoso MD Diagnosis: 1 po q 6 to 8 hrs prn pain t naveed 1 tablet every 6-8hrs for nausea, AFTER SURGERY Last Documented On 10:26AM By Geo Reynoso ; [facility] Aspirin Adult Low Strength 8 1 MG Oral Tablet Delayed Release 07/14/2021 - 08/28/2021 Provider: Geo Reynoso MD Diagnosis: twice a day Last Documented On 10:26AM By Geo Reynoso ; [facility] Cefadroxil 500 MG Oral Capsule 07/14/2021 - 07/17/2021 Provider: Geo Reynoso MD Diagnosis: twice a day Last Documented On 10:26AM By Geo Reynoso ; [facility] Mobic 15 MG Oral Tablet 07/14/2021 - 08/13/2021 Provid er: Geo Reynoso MD Diagnosis: once a day 1 tablet daily Last Documented On 10:25AM By Geo Reynoso ; [facility] Colace 100 MG Oral Capsule 07/14/2021 - 08/13/2021 Pro vider: Geo Reynoso MD Diagnosis: 1-2 tablets daily, as needed, AFTER SURGERY Last Documented On 10:25AM By Geo Reynoso ; [facility] Ultram 50 MG Oral Tablet 04/23/2021 - 05/03/2021 Provi cezar: Geo Reynoso MD Diagnosis: 1 every 6 hours Last Documented On 10:02AM By Geo Reynoso ; [facility], [facility] oxyCODONE HCl 5 MG Oral Tablet 04/23/2021 - 05/23/2021 Provider: Geo Reynoso MD Diagnosis: 1-2 po q 4-6h take 1-2 table ts every 4-6hrs for post op pain Last Documented On 10:02AM By Geo CARLOS, [facility] Aspirin Adult Low Strength 8 1 MG Oral Tablet Delayed Release 04/13/2021 - 05/28/2021 Provider: Geo Reynoso MD Diagnosis: twice a day Last Documented On 9:34AM By Geo CARLOS, [facility] Acetaminophen 500 MG Oral Tablet 04/13/2021 - 05/13/20 21 Provider: Geo Reynoso MD Diagnosis: 2 three times a day take 2 t ablets 3 times daily, AFTER SURGERY Last Documented On 9:33AM By Geo CARLOS, [facility] Mobic 15 MG Oral Tablet 04/13/2021 - 05/13/2021 Provid er: Geo Reynoso MD Diagnosis: once a day 1 tablet daily Last Documented On 9:35AM By Geo CARLOS, [facility] Medications Administered Includes: Administered Medications from this encounter No Administered Medications Recorded Vital Signs Includes: Vital Signs from this encounter Vital Name 07/28/2021 09:07A Blood Pressure Sitting (mmHg) 150/85 Pulse Rate-Sitting (bpm) 81 Height (in) 64.5 Weight (lb) 149 Body Mass Index (kg/m2) 25.2 Body Surface Area (m2) 1.7 Note: [facility] Last Documented: On 07/28/2021 9:17AM ; KERRI CARLOS, [facility] Results Includes: Results discussed during this encounter No Results Recorded For Specified Dates History of Present Illness Includes: History of Present Illness from this encounter HPI Megan White is a 71 year old female. - Allergy list reviewed - Problem list reviewed - Medication reconciliation performed Patient is seen for first postop status post left TKA. She is doing well at this time. She does complain of slight pain on the medial aspect of her knee with numbness on the lateral aspect. She states she had her right total knee done previously and says she is doing much better with this knee. She is progressing well in physical therapy. She denies any fever, dehiscence of the wound, drainage from the wound. Social History Description Last Updated Not exercising regularly 10/24/2022 Last Documented On 1 9:07AM ; [facility] Non-smoker 04/28/2021 Last Documented On 1 9:07AM ; [facility] Caffeine use 02/20/2020 Last Documented On 1 9:07AM ; [facility], [facility] No tobacco use 02/20/2020 Last Documented On 1 9:07AM ; [facility], [facility] Smoking status : Never smoker 02/20/2020 Last Documented On 1 9:07AM ; [facility], [facility] No recent change in diet 02/20/2020 Last Documented On 1 9:07AM ; [facility], [facility] Not a current smoker 02/20/2020 Last Documented On 1 9:07AM ; [facility], [facility] Not using alcohol 02/20/2020 Last Documented On 1 9:07AM ; [facility], [facility] Not using drugs 02/20/2020 Last Documented On 1 9:07AM ; [facility], [facility] Procedures and Surgical History Includes: Procedures from this encounter Procedures Code Diagnosis Performing Provider Service L ocation Service Date use of tobacco assessment performed 1000F Last Documented On 1 9:07AM ; [facility], [facility] referral to physician see pcp for bp Last Documented On 1 9:07AM ; [facility], [facility] Pt received screening for fall risk G8270 Last Documented On 1 9:07AM ; [facility] an X-ray was performed 02191 Last Documented On 1 9:07AM ; [facility] a CT scan was performed 41969 Last Documented On 1 9:07AM ; [facility], [facility] Surgical History Last Updated History of hysterectomy 02/20/2020 Last Documented On 1 9:07AM ; [facility] History of total knee arthroplasty 02/19 Last Documented On 1 9:07AM ; [facility], [facility] Medical History Includes: Medical History addressed during this encounter Description Last Updated No recent immunization for pneumococcal pneumonia 01/13/2022 Last Documented On 1 9:07AM ; [facility], [facility] No recent immunization for flu 2 Last Documented On 1 9:07AM ; [facility], [facility] PVC's/ Mitral valve regurgation 05/27/20 21 Last Documented On 1 9:07AM ; [facility], [facility] Arthritis 05/27/2021 Last Documented On 1 9:07AM ; [facility], [facility] Hypertension 05/27/2021 Last Documented On 1 9:07AM ; [facility], [facility] Hysterectomy 05/27/2021 Last Documented On 1 9:07AM ; [facility], [facility] Total knee arthroplasty 05/27/2021 Last Documented On 1 9:07AM ; [facility], [facility] A previous fracture (R) wrist 02/20/2020 Last Documented On 1 9:07AM ; [facility], [facility] Arthritic joint problems 02/20/2020 Last Documented On 1 9:07AM ; [facility], [facility] A recent injection 02/20/2020 Last Documented On 1 9:07AM ; [facility], [facility] Family History Includes: Family History addressed during this encounter Description Last Updated Diabetes mellitus 05/27/2021 Last Documented On 1 9:07AM ; [facility], [facility] Stroke / Seizures 05/27/2021 Last Documented On 1 9:07AM ; [facility], [facility] Family history of cancer 02/20/2020 Last Documented On 1 9:07AM ; [facility], [facility] Family history of diabetes mellitus 12/2019 Last Documented On 1 9:07AM ; [facility], [facility] Family history of heart disease 02/20/20 20 Last Documented On 1 9:07AM ; [facility], [facility] Family history of hypertension 0 Last Documented On 1 9:07AM ; [facility], [facility] Family history of osteoporosis 0 Last Documented On 1 9:07AM ; [facility] Family history of rheumatoid arthritis 0 02/20/2020 Last Documented On 1 9:07AM ; [facility] Review of Systems Includes: Review of Systems from this encounter Systemic: Not feeling tired, no recent weight loss, and no recent weight gain. Head: No headache and no sinus pain. Eyes: No vision problems and no Cataracts. Glasses/Contacts. No Glaucoma. Otolaryngeal: No hearing loss and no tinnitus. Cardiovascular: No chest pain or discomfort. Palpitations and Hypertension. No High Cholesterol. Pulmonary: No daytime asthma symptoms and no chronic cough. No wheezing. Gastrointestinal: Heartburn. No abdominal pain. No Indigestion, no Acid Reflux, no Peptic Ulcer, no GI Stomach Bleed, and no Ulcers. Endocrine: Hot flashes. No muscle weakness, no Diabetes, no Hypothyroid, and no Hyperthyroid. Hematologic: No easy bleeding, no tendency for easy bruising, and no Anemia. Musculoskeletal: Arthritis. No lower back pain. No soft tissue swelling. Pain localized to one or more joints. Neurological: No dizziness, no convulsions, and no numbness. Psychological: No anxiety, no emotional lability, no depression, and no insomnia. Not crying for no reason. Skin: No dry skin. No Ulcers, no Scars, and no rash. Allergic and Immunologic: No complaint of seasonal allergic reaction. Mental Status Includes: Mental Status from this encounter Description No anxiety Functional Status Includes: Functional Status from this encounter No Functional Status Recorded Physical Exam Includes: Physical Exam from this encounter Allergies Includes: Active Allergies No Known Allergies Encounters Encounter Provider Location Date Check-In Time Check- Out Time Diagnosis Post Op Geo Reynoso MD [facility] 1 9:07AM 10:11AM Insurance Includes: Active Insurance Policies Plan Name Member ID Group # Subscriber Relationship Effect lawson Dates 1 - Medicare Part B [facility] [id number] Megan White Self 01/16/2015 - Unknown 2 - [employer] [id number] Megan Ramirez 09/18/2015 - Unknown Clinical Notes Includes: Clinical Notes from this encounter No Clinical Notes Recorded
--- OUTSIDE RECORDS SUMMARY | 2025-01-08 10:06 | XMS_ITS ---
Care Plan - [facility], [facility] Created on: January 08, 2025 Megan White : 1950 Sex: Female Author Organization [facility] , [facility] Address [address] [place] [address] Phone Care Team Providers Care Gun Synchronizer Name Role Phone Edgardo FALCON, Geo Unavailable [phone] KENNETH REYES Primary Care Provider [phone]
--- OUTSIDE RECORDS SUMMARY | 2025-01-08 10:06 | XMS_ITS | Clinical Summary ---
Author Organization [facility] , [facility] Address [address] [place] [address] Phone Care Team Providers Care Gusset Ripper Name Role Phone Edgardo FALCON, Geo Unavailable [phone] KENNETH REYES Primary Care Provider [phone] Reason for Visit and Chief Complaint The Chief Complaint is: bilateral knee pain Problems Includes: Problems addressed during this encounter and other active Problems All Visits Onset Date Resolved Date Provider Condition S tatus Joint Pain in Both Knees 02/20/2020 Geo albarado MD Active Last Documented On 0 2:12PM ; [facility] Plan of Treatment Fall Risk Assessment: This patient has been identified as a fall risk. Balance/gait along with postural blood pressure, vision and home fall hazards have been assessed. Medications have been reviewed, and recommendations made with regard to contributing factors for future falls. Plan of care: Consideration of vitamin D supplementation along with balance and strength training with consideration for formal physical therapy has been discussed with the patient. - Last Documented On 01/17/2022 6:49AM ; [facility], [facility] Follow-up for x-rays both knees in 6 months for her 1 year check right knee - Last Documented On 01/17/2022 6:49AM ; [facility] Pending Tests Order Diagnosis Results Due Ordering P rovider Radiology - CT Scan Knee 01/21/21 Homer Reynoso MD Last Documented On 1 5:39PM ; [facility] Radiology - CT Scan Knee 02/09/21 Homer Reynoso MD Last Documented On 1 9:32AM ; [facility], [facility] Assessments Includes: Assessments from this encounter Findings Right and left total knee replacement doing well - Last Documented On 01/17/2022 6:49AM ; [facility] Medical Equipment - Implanted Devices Includes: Current Devices No Medical Equipment Recorded Medications Includes: Medications discussed during this encounter and other current Medications Discontinued / Stopped on this date on 09/01/2021 Losartan Potassium 100 MG Oral Tablet Pro vider: Diagnosis: Last Documented On 2 10:45AM By Danette Wilson ; [facility], [facility] Premarin 0.3 MG Oral Tablet Provider: Diagnosis: Last Documented On 2 10:45AM By Danette Wilson ; [facility], [facility] Valtrex 1 GM Oral Tablet Provider: Diagnosis: Last Documented On 2 10:45AM By Danette Wilson ; [facility], [facility] Crestor 10 MG Oral Tablet Provider: Diagnosis: Last Documented On 2 10:45AM By Danette Wilson ; [facility], [facility] Current Medications (continue as prescribed) hydroCHLOROthiazide 12.5 MG Oral Tablet 10/24/2022 P rovider: Diagnosis: Last Documented On 3 9:33AM By Neeru Kennedy ; [facility], [facility] CVS Vitamin D3 25 MCG (1000 UT) Oral Tablet Chewable 0 10/24/2022 Provider: Diagnosis: Last Documented On 3 9:33AM By Neeru Kennedy ; [facility], [facility] Past Medications on file Premarin 0.3 MG Oral Tablet 10/24/2022 - 01/22/2023 Pr ovider: Diagnosis: Last Documented On 3 9:32AM By Neeru Kennedy ; [facility], [facility] Losartan Potassium 50 MG Oral Tablet 10/24/2022 - 01/22/2023 Provider: TIMI SALAZAR MD Diagnosis: Last Documented On 3 9:32AM By Neeru Kennedy ; [facility], [facility] Famotidine 40 MG Oral Tablet 10/24/2022 - 01/22/2023 P rovider: KENNETH REYES Diagnosis: Last Documented On 3 9:32AM By Neeru Kennedy ; [facility], [facility] Rosuvastatin Calcium 10 MG O ral Tablet 10/24/2022 - 01/22/2023 Provider: KENNETH REYES Diagnosis: Last Documented On 3 9:32AM By Neeru Kennedy ; [facility], [facility] Diclofenac Sodium 1% External Gel 10/24/2022 - 023 Provider: KENNETH REYES Diagnosis: Last Documented On 3 9:32AM By Neeru Kennedy ; [facility], [facility] Ultram 50 MG Oral Tablet 07/14/2021 - 08/13/2021 Provi cezar: Geo Reynoso MD Diagnosis: 1-2 p o q 6-8h take 1-2 tabl ets every 6-8 hours for breakthrough post op pain Last Documented On 10:24AM By Geo Reynoso ; [facility], [facility] Acetaminophen 500 MG Oral Tablet 07/14/2021 - 08/13/20 21 Provider: Geo Reynoso MD Diagnosis: take 2 tablets 3 times daily, AFTER SURGERY Last Documented On 1 10:25AM By Geo Reynoso ; [facility], [facility] oxyCODONE HCl 5 MG Oral Tablet 07/14/2021 - 07/19/2021 Provider: Geo Reynoso MD Diagnosis: take 1-2 tablets every 4-6hrs for post op pain Last Documented On 1 10:40AM By Geo Reynoso ; [facility], [facility] Zofran 4 MG Oral Tablet 07/14/2021 - 08/13/2021 Provid er: Geo Reynoso MD Diagnosis: 1 po q 6 to 8 hrs prn pain t naveed 1 tablet every 6-8hrs for nausea, AFTER SURGERY Last Documented On 10:26AM By Geo Reynoso ; [facility], [facility] Aspirin Adult Low Strength 8 1 MG Oral Tablet Delayed Release 07/14/2021 - 08/28/2021 Provider: Geo Reynoso MD Diagnosis: twice a day Last Documented On 1 10:26AM By Geo Reynoso ; [facility], [facility] Cefadroxil 500 MG Oral Capsule 07/14/2021 - 07/17/2021 Provider: Geo Reynoso MD Diagnosis: twice a day Last Documented On 10/27/202 1 10:26AM By Geo King [facility], [facility] Mobic 15 MG Oral Tablet 07/14/2021 - 08/13/2021 Provid er: Geo Reynoso MD Diagnosis: once a day 1 tablet daily Last Documented On 1 10:25AM By Geo [facility] Colace 100 MG Oral Capsule 07/14/2021 - 08/13/2021 Pro vider: Geo Reynoso MD Diagnosis: 1-2 tablets daily, as needed, AFTER SURGERY Last Documented On 1 10:25AM By Geo Reynoso ; [facility], [facility] Ultram 50 MG Oral Tablet 04/23/2021 - 05/03/2021 Provi cezar: Geo Reynoso MD Diagnosis: 1 every 6 hours Last Documented On 1 10:02AM By Geo King [facility], [facility] oxyCODONE HCl 5 MG Oral Tablet 04/23/2021 - 05/23/2021 Provider: Geo Reynoso MD Diagnosis: 1-2 po q 4-6h take 1-2 table ts every 4-6hrs for post op pain Last Documented On 1 10:02AM [facility] Aspirin Adult Low Strength 8 1 MG Oral Tablet Delayed Release 04/13/2021 - 05/28/2021 Provider: Geo Reynoso MD Diagnosis: twice a day Last Documented On 1 9:34AM By Geo [facility] Acetaminophen 500 MG Oral Tablet 04/13/2021 - 05/13/20 21 Provider: Geo Reynoso MD Diagnosis: 2 three times a day take 2 t ablets 3 times daily, AFTER SURGERY Last Documented On 1 9:33AM By Geo King [facility], [facility] Mobic 15 MG Oral Tablet 04/13/2021 - 05/13/2021 Provid er: Geo Reynoso MD Diagnosis: once a day 1 tablet daily Last Documented On 1 9:35AM By Geo [facility] Medications Administered Includes: Administered Medications from this encounter No Administered Medications Recorded Vital Signs Includes: Vital Signs from this encounter Vital Name 01/13/2022 10:46A Blood Pressure Sitting (mmHg) 113/71 Pulse Rate-Sitting (bpm) 70 Height (in) 64.5 Weight (lb) 143 Body Mass Index (kg/m2) 24.2 Body Surface Area (m2) 1.7 Note: [facility] [place] Last Documented: On 01/13/2022 10:48A M ; [facility], [facility] Results Includes: Results discussed during this encounter No Results Recorded For Specified Dates History of Present Illness Includes: History of Present Illness from this encounter HPI Megan White is a 71 year old female. - Allergy list reviewed - Problem list reviewed - Medication reconciliation performed - Medication list reviewed - Medication list reviewed with patient Patient presents after total knee replacement bilateral most recent on the right she is doing well at 6 month point no complaints Social History Description Last Updated Not exercising regularly 10/24/2022 Last Documented On 2 10:29AM ; [facility] Non-smoker 04/28/2021 Last Documented On 2 10:29AM ; [facility], [facility] Caffeine use 02/20/2020 Last Documented On 2 10:29AM ; [facility], [facility] No tobacco use 02/20/2020 Last Documented On 2 10:29AM ; [facility], [facility] Smoking status : Never smoker 02/20/2020 Last Documented On 2 10:29AM ; [facility], [facility] No recent change in diet 02/20/2020 Last Documented On 2 10:29AM ; [facility] Not a current smoker 02/20/2020 Last Documented On 2 10:29AM ; [facility], [facility] Not using alcohol 02/20/2020 Last Documented On 2 10:29AM ; [facility], [facility] Not using drugs 02/20/2020 Last Documented On 2 10:29AM ; [facility], [facility] Procedures and Surgical History Includes: Procedures from this encounter Procedures Code Diagnosis Performing Provider Service L ocation Service Date use of tobacco assessment performed 1000F Last Documented On 2 10:29AM ; [facility] patient screened for future fall risk 3288F Last Documented On 2 10:29AM ; [facility], [facility] an X-ray was performed 70770 Last Documented On 2 10:29AM ; [facility] a CT scan was performed 55589 Last Documented On 2 10:29AM ; [facility], [facility] Surgical History Last Updated History of hysterectomy 02/20/2020 Last Documented On 2 10:29AM ; [facility], [facility] Medical History Includes: Medical History addressed during this encounter Description Last Updated No recent immunization for pneumococcal pneumonia 01/13/2022 Last Documented On 2 6:49AM ; [facility], [facility] Recent immunization for flu 05/19/2021 Last Documented On 2 6:49AM ; [facility], [facility] PVC's/ Mitral valve regurgation 05/27/20 21 Last Documented On 2 10:29AM ; [facility], [facility] Arthritis 05/27/2021 Last Documented On 2 10:29AM ; [facility], [facility] Hypertension 05/27/2021 Last Documented On 2 10:29AM ; [facility], [facility] Total knee arthroplasty 05/27/2021 Last Documented On 2 10:29AM ; [facility], [facility] A previous fracture (R) wrist 02/20/2020 Last Documented On 2 10:29AM ; [facility], [facility] Arthritic joint problems 02/20/2020 Last Documented On 2 10:29AM ; [facility], [facility] A recent injection 02/20/2020 Last Documented On 2 10:29AM ; [facility], [facility] Family History Includes: Family History addressed during this encounter Description Last Updated Diabetes mellitus 05/27/2021 Last Documented On 2 10:29AM ; [facility], [facility] Stroke / Seizures 05/27/2021 Last Documented On 2 10:29AM ; [facility], [facility] Family history of cancer 02/20/2020 Last Documented On 2 10:29AM ; [facility], [facility] Family history of diabetes mellitus 12/2019 Last Documented On 2 10:29AM ; [facility] Family history of heart disease 02/20/20 20 Last Documented On 2 10:29AM ; [facility] Family history of hypertension 0 Last Documented On 2 10:29AM ; [facility] Family history of osteoporosis 0 Last Documented On 2 10:29AM ; [facility] Family history of rheumatoid arthritis 0 02/20/2020 Last Documented On 2 10:29AM ; [facility] Review of Systems Includes: Review of Systems [...] Exam Includes: Physical Exam from this encounter Immunizations Includes: Immunizations addressed during this encounter Vaccine Dose # Date Site Reaction(s) Status Source Influenza 2 05/19/2021 Complete (Reported) Patient Last Documented On 2 10:47AM ; [facility] Allergies Includes: Active Allergies No Known Allergies Encounters Encounter Provider Location Date Check-In Time Check- Out Time Diagnosis Follow Up [facility] 10:52[facility] Insurance Includes: Active Insurance Policies Plan Name Member ID Group # Subscriber Relationship Effect lawson Dates 1 - Medicare Part B [facility] [id number] Megan White Self 01/16/2015 - Unknown 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
--- OUTSIDE RECORDS SUMMARY | 2025-01-08 10:06 | XMS_ITS | Clinical Summary ---
Author Organization [facility] Address [address] [place] [address] Phone Care Team Providers Care Mate Fourth Name Role Phone Edgardo FALCON, Geo Unavailable [phone] KENNETH REYES Primary Care Provider [phone] Reason for Referral Date Encounter Description Provider Reason for Referral 09/01/21 Post Op Kwame Wilson PA-C Refer ral To Physician - see pcp for bp Reason for Visit and Chief Complaint The Chief Complaint is: Left knee pain Problems Includes: Problems addressed during this encounter and other active Problems All Visits Onset Date Resolved Date Provider Condition S tatus Joint Pain in Both Knees 02/20/2020 Geo albarado MD Active Last Documented On 0 2:12PM ; KERRI CARLOS [facility] Plan of Treatment No Plan of Treatment Recorded Assessments Includes: Assessments from this encounter No Assessments Recorded Medical Equipment - Implanted Devices Includes: Current Devices No Medical Equipment Recorded Medications Includes: Medications discussed during this encounter and other current Medications Discontinued / Stopped on this date Geo Reynoso MD on 01/13/2021 Mupirocin 2% External Ointment Provider: Geo Reynoso MD Diagnosis: Last Documented On 1 1:08PM By Sharon CARLOS [facility] Premarin 0.625 MG Oral Tablet Provider: Diagnosis: Last Documented On 1 1:07PM By Sharon CARLOS [facility] Losartan Potassium 50 MG Oral Tablet Prov ider: Diagnosis: Last Documented On 1 1:05PM By Sharon CARLOS [facility] Diclofenac 3% Gel Topical Provider: Diagnosis: Last Documented On 1 1:08PM By Sharon Acuña ; [facility], [facility] Doxycycline Hyclate 50 MG Oral Tablet Pro vider: Diagnosis: Last Documented On 1 1:07PM By Sharon Acuña ; [facility], [facility] Current Medications (continue as prescribed) hydroCHLOROthiazide 12.5 MG Oral Tablet 10/24/2022 P rovider: Diagnosis: Last Documented On 3 9:33AM By Neeru Kennedy ; [facility], [facility] Vitamin D3 25 MCG (1000 UT) Oral Tablet Chewable 0 10/24/2022 Provider: Diagnosis: Last Documented On 3 9:33AM By Neeru Kennedy ; [facility], [facility] Past Medications on file Premarin 0.3 MG Oral Tablet 10/24/2022 - 01/22/2023 Pr ovider: Diagnosis: Last Documented On 3 9:32AM By Neeru Kennedy ; [facility], [facility] Losartan Potassium 50 MG Oral Tablet 10/24/2022 - 01/22/2023 Provider: TIMI SALAZAR MD Diagnosis: Last Documented On 3 9:32AM By Neeru Kennedy ; [facility], [facility] Famotidine 40 MG Oral Tablet 10/24/2022 - 01/22/2023 P rovider: KENNETH REYES Diagnosis: Last Documented On 3 9:32AM By Neeru Kennedy ; [facility], [facility] Rosuvastatin Calcium 10 MG O ral Tablet 10/24/2022 - 01/22/2023 Provider: KENNETH REYES Diagnosis: Last Documented On 3 9:32AM By Neeru Kennedy ; [facility], [facility] Diclofenac Sodium 1% External Gel 10/24/2022 - 023 Provider: KENNETH REYES Diagnosis: Last Documented On 3 9:32AM By Neeru Kennedy ; [facility] Ultram 50 MG Oral Tablet 07/14/2021 - 08/13/2021 Provi cezar: Geo Reynoso MD Diagnosis: 1-2 p o q 6-8h take 1-2 tabl ets every 6-8 hours for breakthrough post op pain Last Documented On 10:24AM By Geo King [facility] Acetaminophen 500 MG Oral Tablet 07/14/2021 - 08/13/20 Provider: Geo Reynoso MD Diagnosis: take 2 tablets 3 times daily, AFTER SURGERY Last Documented On 10:25AM By Geo Reynoso ; [facility] oxyCODONE HCl 5 MG Oral Tablet 07/14/2021 - 07/19/2021 Provider: Geo Reynoso MD Diagnosis: take 1-2 tablets every 4-6hrs for post op pain Last Documented On 10:40AM By Geo King [facility] Zofran 4 MG Oral Tablet 07/14/2021 - 08/13/2021 Provid er: Geo Reynoso MD Diagnosis: 1 po q 6 to 8 hrs prn pain t naveed 1 tablet every 6-8hrs for nausea, AFTER SURGERY Last Documented On 10:26AM By Geo King [facility] Aspirin Adult Low Strength 8 1 MG Oral Tablet Delayed Release 07/14/2021 - 08/28/2021 Provider: Geo Reynoso MD Diagnosis: twice a day Last Documented On 10:26AM By Geo King [facility] Cefadroxil 500 MG Oral Capsule 07/14/2021 - 07/17/2021 Provider: Geo Reynoso MD Diagnosis: twice a day Last Documented On 10:26AM By Geo King [facility] Mobic 15 MG Oral Tablet 07/14/2021 - 08/13/2021 Provid er: Geo Reynoso MD Diagnosis: once a day 1 tablet daily Last Documented On 10:25AM By Geo Reynoso ; [facility] Colace 100 MG Oral Capsule 07/14/2021 - 08/13/2021 Pro vider: Geo Reynoso MD Diagnosis: 1-2 tablets daily, as needed, AFTER SURGERY Last Documented On 10:25AM By Geo King [facility] Ultram 50 MG Oral Tablet 04/23/2021 - 05/03/2021 Provi cezar: Geo Reynoso MD Diagnosis: 1 every 6 hours Last Documented On 1 10:02AM By Geo CARLOS, [facility] oxyCODONE HCl 5 MG Oral Tablet 04/23/2021 - 05/23/2021 Provider: Geo Reynoso MD Diagnosis: 1-2 po q 4-6h take 1-2 table ts every 4-6hrs for post op pain Last Documented On 1 10:02AM By Geo CARLOS [facility] Aspirin Adult Low Strength 8 1 MG Oral Tablet Delayed Release 04/13/2021 - 05/28/2021 Provider: Geo Reynoso MD Diagnosis: twice a day Last Documented On 1 9:34AM By Geo CARLOS [facility] Acetaminophen 500 MG Oral Tablet 04/13/2021 - 05/13/20 21 Provider: Geo Reynoso MD Diagnosis: 2 three times a day take 2 t ablets 3 times daily, AFTER SURGERY Last Documented On 1 9:33AM By Geo CARLOS, [facility] Mobic 15 MG Oral Tablet 04/13/2021 - 05/13/2021 Provid er: Geo Reynoso MD Diagnosis: once a day 1 tablet daily Last Documented On 1 9:35AM By Geo CARLOS, [facility] Medications Administered Includes: Administered Medications from this encounter No Administered Medications Recorded Vital Signs Includes: Vital Signs from this encounter Vital Name 09/01/2021 01:02P Blood Pressure Sitting (mmHg) 131/87 Pulse Rate-Sitting (bpm) 83 Height (in) 64.5 Weight (lb) 138 Body Mass Index (kg/m2) 23.3 Body Surface Area (m2) 1.7 Note: aek Last Documented: On 09/01/2021 1:05PM ; KERRI CARLOS [facility] Results Includes: Results discussed during this encounter No Results Recorded For Specified Dates History of Present Illness Includes: History of Present Illness from this encounter ROBERT White is a 71 year old female. - Allergy list reviewed - Problem list reviewed - Medication reconciliation performed - Medication list reviewed with patient Social History Description Last Updated Not exercising regularly 10/24/2022 Last Documented On 1 1:02PM ; [facility] Non-smoker 04/28/2021 Last Documented On 1 1:02PM ; [facility] Caffeine use 02/20/2020 Last Documented On 1 1:02PM ; [facility] No tobacco use 02/20/2020 Last Documented On 1 1:02PM ; [facility] Smoking status : Never smoker 02/20/2020 Last Documented On 1 1:02PM ; [facility] No recent change in diet 02/20/2020 Last Documented On 1 1:02PM ; [facility] Not a current smoker 02/20/2020 Last Documented On 1 1:02PM ; [facility] Not using alcohol 02/20/2020 Last Documented On 1 1:02PM ; [facility] Not using drugs 02/20/2020 Last Documented On 1 1:02PM ; [facility] Procedures and Surgical History Includes: Procedures from this encounter Procedures Code Diagnosis Performing Provider Service L ocation Service Date use of tobacco assessment performed 1000F Last Documented On 1 1:02PM ; [facility] referral to physician see pcp for bp Last Documented On 1 1:02PM ; [facility] Pt received screening for fall risk G8270 Last Documented On 1 1:02PM ; [facility] an X-ray was performed 13354 Last Documented On 1 1:02PM ; [facility] a CT scan was performed 19508 Last Documented On 1 1:02PM ; [facility] Surgical History Last Updated History of hysterectomy 02/20/2020 Last Documented On 1 1:02PM ; [facility] History of total knee arthroplasty 02/19 Last Documented On 1 1:02PM ; [facility] Medical History Includes: Medical History addressed during this encounter Description Last Updated No recent immunization for pneumococcal pneumonia 01/13/2022 Last Documented On 1 1:02PM ; [facility] No recent immunization for flu 2 Last Documented On 1 1:02PM ; [facility] PVC's/ Mitral valve regurgation 05/27/20 21 Last Documented On 1 1:02PM ; [facility] Arthritis 05/27/2021 Last Documented On 1 1:02PM ; [facility] Hypertension 05/27/2021 Last Documented On 1 1:02PM ; [facility] Hysterectomy 05/27/2021 Last Documented On 1 1:02PM ; [facility] Total knee arthroplasty 05/27/2021 Last Documented On 1 1:02PM ; [facility] A previous fracture (R) wrist 02/20/2020 Last Documented On 1 1:02PM ; [facility] Arthritic joint problems 02/20/2020 Last Documented On 1 1:02PM ; [facility] A recent injection 02/20/2020 Last Documented On 1 1:02PM ; [facility] Family History Includes: Family History addressed during this encounter Description Last Updated Diabetes mellitus 05/27/2021 Last Documented On 1 1:02PM ; [facility] Stroke / Seizures 05/27/2021 Last Documented On 1 1:02PM ; [facility] Family history of cancer 02/20/2020 Last Documented On 1 1:02PM ; [facility] Family history of diabetes mellitus /0 12/2019 Last Documented On 1 1:02PM ; [facility] Family history of heart disease 02/20/20 20 Last Documented On 1 1:02PM ; [facility] Family history of hypertension 0 Last Documented On 1 1:02PM ; [facility] Family history of osteoporosis 0 Last Documented On 1 1:02PM ; [facility] Family history of rheumatoid arthritis 0 02/20/2020 Last Documented On 1 1:02PM ; [facility] Review of Systems Includes: Review of Systems [...] Encounters Encounter Provider Location Date Check-In Time Check-Out Time Diagnosis Post Op Kwame Wilson PA-C [facility] 1 12:54PM 1:28PM Insurance Includes: Active Insurance Policies Plan Name Member ID Group # Subscriber Relationship Effect lawson Dates 1 - Medicare Part B [facility] [id number] Megan Ramirez 01/16/2015 - Unknown 2 - [employer] [id number] Megan Ramirez 09/18/2015 - Unknown Clinical Notes Includes: Clinical Notes from this encounter No Clinical Notes Recorded
--- OUTSIDE RECORDS SUMMARY | 2025-01-08 10:06 | XMS_ITS | Clinical Summary ---
Author Organization [facility] , [facility] Address [address] [place] [address] Phone Care Team Providers Care Meat Supervisor Name Role Phone Edgardo FALCON, Geo Unavailable [phone] KENNETH REYES Primary Care Provider [phone] Reason for Visit and Chief Complaint The Chief Complaint is: bilateral knee pain Problems Includes: Problems addressed during this encounter and other active Problems All Visits Onset Date Resolved Date Provider Condition S tatus Joint Pain in Both Knees 02/20/2020 Geo albarado MD Active Last Documented On 0 2:12PM ; [facility] Plan of Treatment Fall Risk Assessment: This [...] with the patient. - Last Documented On 10/24/2022 11:28AM ; [facility], [facility] Physical exam and radiograph findings were discussed with the patient. At this time her knee replacements are doing very well. We discussed in regards to the patellar instability on the left knee, she is given a home exercise program to begin working on quad, hamstring strengthening. 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 Plan to follow-up on an as-needed basis. - Last Documented On 10/24/2022 11:28AM ; [facility], [facility] Pending Tests Order Diagnosis Results Due Ordering P rovider Therapy - Physical Therapy Knee 10/24/22 Diane Perry PA-C Last Documented On 3 10:11AM ; [facility], [facility] Assessments Includes: Assessments from this encounter Findings Bilateral TKA's - Last Documented On 10/24/2022 11:28AM ; [facility], [facility] Left knee patellar instability - Last Documented On 10/24/2022 11:28AM ; [facility], [facility] Medical Equipment - Implanted Devices Includes: Current Devices No Medical Equipment Recorded Medications Includes: Medications discussed during this encounter and other current Medications Current Medications (continue as prescribed) hydroCHLOROthiazide 12.5 MG Oral Tablet 10/24/2022 P rovider: Diagnosis: Last Documented On 3 9:33AM By Neeru Kennedy ; [facility], [facility] Vitamin D3 25 MCG (1000 UT) Oral Tablet Chewable 0 10/24/2022 Provider: Diagnosis: Last Documented On 3 9:33AM By Neeru Kennedy ; [facility], [facility] Past Medications on file Premarin 0.3 MG Oral Tablet 10/24/2022 - 01/22/2023 Pr ovider: Diagnosis: Last Documented On 3 9:32AM By Neeru Kennedy ; [facility], [facility] Losartan Potassium 50 MG Oral Tablet 10/24/2022 - 01/22/2023 Provider: TIMI SALAZAR MD Diagnosis: Last Documented On 3 9:32AM By Neeru Kennedy ; [facility], [facility] Famotidine 40 MG Oral Tablet 10/24/2022 - 01/22/2023 P rovider: KENNETH REYES Diagnosis: Last Documented On 3 9:32AM By Neeru Kennedy ; [facility], [facility] Rosuvastatin Calcium 10 MG O ral Tablet 10/24/2022 - 01/22/2023 Provider: KENNETH REYES Diagnosis: Last Documented On 3 9:32AM By Neeru Kennedy ; [facility], [facility] Diclofenac Sodium 1% External Gel 10/24/2022 - 023 Provider: KENNETH REYES Diagnosis: Last Documented On 3 9:32AM By Neeru Kennedy ; [facility], [facility] Ultram 50 MG Oral Tablet 07/14/2021 - 08/13/2021 Provi cezar: Geo Reynoso MD Diagnosis: 1-2 p o q 6-8h take 1-2 tabl ets every 6-8 hours for breakthrough post op pain Last Documented On 10:24AM By Geo Reynoso ; [facility], [facility] Acetaminophen 500 MG Oral Tablet 07/14/2021 - 08/13/20 21 Provider: Geo Reynoso MD Diagnosis: take 2 tablets 3 times daily, AFTER SURGERY Last Documented On 10:25AM By Geo Reynoso ; [facility], [facility] oxyCODONE HCl 5 MG Oral Tablet 07/14/2021 - 07/19/2021 Provider: Geo Reynoso MD Diagnosis: take 1-2 tablets every 4-6hrs for post op pain Last Documented On 10:40AM By Geo Reynoso ; [facility], [facility] Zofran 4 MG Oral Tablet 07/14/2021 - 08/13/2021 Provid er: Geo Reynoso MD Diagnosis: 1 po q 6 to 8 hrs prn pain t naveed 1 tablet every 6-8hrs for nausea, AFTER SURGERY Last Documented On 10:26AM By Geo Reynoso ; [facility], [facility] Aspirin Adult Low Strength 8 1 MG Oral Tablet Delayed Release 07/14/2021 - 08/28/2021 Provider: Geo Reynoso MD Diagnosis: twice a day Last Documented On 1 10:26AM By Geo Reynoso ; [facility], [facility] Cefadroxil 500 MG Oral Capsule 07/14/2021 - 07/17/2021 Provider: Geo Reynoso MD Diagnosis: twice a day Last Documented On 10:26AM By Geo Reynoso ; [facility], [facility] Mobic 15 MG Oral Tablet 07/14/2021 - 08/13/2021 Provid er: Geo Reynoso MD Diagnosis: once a day 1 tablet daily Last Documented On 10:25AM By Guardadostevie [facility] Colace 100 MG Oral Capsule 07/14/2021 - 08/13/2021 Pro vider: Geo Reynoso MD Diagnosis: 1-2 tablets daily, as needed, AFTER SURGERY Last Documented On 1 10:25AM By Geo [facility] Ultram 50 MG Oral Tablet 04/23/2021 - 05/03/2021 Provi cezar: Geo Reynoso MD Diagnosis: 1 every 6 hours Last Documented On 1 10:02AM By Geo [facility] oxyCODONE HCl 5 MG Oral Tablet 04/23/2021 - 05/23/2021 Provider: Geo Reynoso MD Diagnosis: 1-2 po q 4-6h take 1-2 table ts every 4-6hrs for post op pain Last Documented On 1 10:02AM By Geo [facility] Aspirin Adult Low Strength 8 1 MG Oral Tablet Delayed Release 04/13/2021 - 05/28/2021 Provider: Geo Reynoso MD Diagnosis: twice a day Last Documented On 1 9:34AM By [facility] Acetaminophen 500 MG Oral Tablet 04/13/2021 - 05/13/20 21 Provider: Geo Reynoso MD Diagnosis: 2 three times a day take 2 t ablets 3 times daily, AFTER SURGERY Last Documented On 1 9:33AM By Geo King [facility] Mobic 15 MG Oral Tablet 04/13/2021 - 05/13/2021 Provid er: Geo Reynoso MD Diagnosis: once a day 1 tablet daily Last Documented On 1 9:35AM By Geo [facility] Medications Administered Includes: Administered Medications from this encounter No Administered Medications Recorded Vital Signs Includes: Vital Signs from this encounter Vital Name 10/24/2022 09:33A Height (in) 64.5 Weight (lb) 148 Body Mass Index 25 Body Surface Area 1.7 Note: ba Last Documented: On 10/24/2022 9:33AM ; [facility] Results Includes: Results discussed during this encounter No Results Recorded For Specified Dates History of Present Illness Includes: History of Present Illness from this encounter HPI Megan White is a 72 year old female. - Symptoms popping, tightness. - Allergy list reviewed - Problem list reviewed - Medication list reviewed - Previous history of new onset pain Injury is not work related or an automotive accident. 1 year follow up - Pain is throbbing sometimes - Pain is dull, aching - Patient pain level from 1-10: 3 left knee only - No previous treatment. Patient presents today for a follow-up of bilateral knee replacements. Overall she is doing very well. She is able to ambulate comfortably and does have full range of motion on both knees. Patient does complain of mild patellar instability on the left knee. She states she feels as if her patella subluxes laterally on occasion. Denies any specific activity that causes the instability. States this has been ongoing for several weeks now. Denies any specific injury. She does complain of pain throughout the medial aspect of the left knee. States pain is worse with flexion. She currently doing any home exercises. She does ice and take anti-inflammatories as needed. Social History Description Last Updated Tobacco non-user 10/24/2022 Last Documented On 3 11:28AM ; [facility], [facility] No recent change in diet 10/24/2022 Last Documented On 3 11:28AM ; [facility], [facility] Not a current smoker. 10/24/2022 Last Documented On 3 11:28AM ; [facility], [facility] Exercising regularly 10/24/2022 Last Documented On 3 11:28AM ; [facility], [facility] Caffeine use 02/20/2020 Last Documented On 3 9:26AM ; [facility], [facility] Not using alcohol 02/20/2020 Last Documented On 3 9:26AM ; [facility], [facility] Not using drugs 02/20/2020 Last Documented On 3 9:26AM ; [facility], [facility] Smoking Status Unknown Procedures and Surgical History Includes: Procedures from this encounter Procedures Code Diagnosis Performing Provider Service L ocation Service Date use of tobacco assessment performed 1000F Last Documented On 3 9:26AM ; [facility], [facility] patient screened for future fall risk 3288F Last Documented On 3 9:26AM ; [facility] patient screened for future fall risk: documentation of any fall with injury in past year 1100F Last Documented On 3 9:33AM ; [facility] an X-ray was performed 40426 Last Documented On 3 9:26AM ; [facility] a CT scan was performed 16455 Last Documented On 3 9:26AM ; [facility] Medical History Includes: Medical History addressed during this encounter Description Last Updated History of Heartburn / Acid Reflux 10/24 Last Documented On 3 11:28AM ; [facility] History of Irregular Heartbeat 3 Last Documented On 3 11:28AM ; [facility] No recent immunization for pneumococcal pneumonia 01/13/2022 Last Documented On 3 9:26AM ; [facility] Recent immunization for flu 05/19/2021 Last Documented On 3 9:26AM ; [facility] PVC's/ Mitral valve regurgation 05/27/20 21 Last Documented On 3 9:26AM ; [facility] Arthritis 05/27/2021 Last Documented On 3 9:26AM ; [facility] Hypertension 05/27/2021 Last Documented On 3 9:26AM ; [facility] Hysterectomy 05/27/2021 Last Documented On 3 9:26AM ; [facility] Total knee arthroplasty 05/27/2021 Last Documented On 3 9:26AM ; [facility] A previous fracture (R) wrist 02/20/2020 Last Documented On 3 9:26AM ; [facility] Arthritic joint problems 02/20/2020 Last Documented On 3 9:26AM ; [facility] A recent injection 02/20/2020 Last Documented On 3 9:26AM ; [facility] Family History Includes: Family History addressed during this encounter Description Last Updated Diabetes mellitus 05/27/2021 Last Documented On 3 9:26AM ; [facility] Family history of diabetes mellitus 12/2019 Last Documented On 3 9:26AM ; [facility] Family history of hypertension 0 Last Documented On 3 9:26AM ; [facility] Family history of osteoporosis 0 Last Documented On 3 9:26AM ; [facility] Family history of rheumatoid arthritis 0 02/20/2020 Last Documented On 3 9:26AM ; [facility] Review of Systems Includes: Review of Systems from this encounter Systemic: Not feeling tired, no recent weight loss, and no recent weight gain. Head: No headache and no sinus pain. Eyes: No vision problems and no Cataracts. Glasses/Contacts. No Glaucoma. Otolaryngeal: No hearing loss. Tinnitus. Cardiovascular: No chest pain or discomfort. Palpitations and Hypertension. No High Cholesterol. Pulmonary: No daytime asthma symptoms and no chronic cough. No wheezing. Gastrointestinal: Heartburn. No abdominal pain. No Indigestion. Acid Reflux. No Peptic Ulcer, no GI Stomach Bleed, and no Ulcers. Endocrine: No hot flashes, no muscle weakness, no Diabetes, no Hypothyroid, and no Hyperthyroid. Hematologic: No easy bleeding. A tendency for easy bruising. No Anemia. Musculoskeletal: No Arthritis and no lower back pain. No soft tissue swelling and no localized joint pain. Neurological: No dizziness, no convulsions, and no [...] Time Check- Out Time Diagnosis Follow Up Diane Perry PA-C [facility] B 3 9:24AM 10:14AM Insurance Includes: Active Insurance Policies Plan Name Member ID Group # Subscriber Relationship Effect lawson Dates 1 - Medicare Part B [facility] [id number] Megan White Self 01/16/2015 - Unknown 2 - [employer] [id number] Megan White Self 09/18/2015 - Unknown Clinical Notes Includes: Clinical Notes from this encounter * Progress note Date Encounter Last Documented by 10/24/2022 Follow Up Last documented on 10/24/2022; 11:28 AM, Diane Perry PA-C; [facility], [facility] Active Problems & Conditions - Joint Pain in Both Knees Chief Complaint The Chief Complaint is: Bilateral knee pain. Referred Here Referred by pcp. History of Present Illness Megan White is a 72 year old female. - Symptoms popping, tightness. - Allergy list reviewed - Problem list reviewed - Medication list reviewed - Previous history of new onset pain Injury is not work related or an automotive accident. 1 year follow up - Pain is throbbing sometimes - Pain is dull, aching - Patient pain level from 1-10: 3 left knee only - No previous treatment. Patient presents today for a follow-up of bilateral knee replacements. Overall she is doing very well. She is able to ambulate comfortably and does have full range of motion on both knees. Patient does complain of mild patellar instability on the left knee. She states she feels as if her patella subluxes laterally on occasion. Denies any specific activity that causes the instability. States this has been ongoing for several weeks now. Denies any specific injury. She does complain of pain throughout the medial aspect of the left knee. States pain is worse with flexion. She currently doing any home exercises. She does ice and take anti-inflammatories as needed. Current Medication - [facility] Vitamin D3 25 MCG (1000 UT) Oral Tablet Chewable use as directed 0 days, 0 refills - Diclofenac Sodium 1% External Gel 30 days, 0 refills - Famotidine 40 MG Oral Tablet 90 days, 0 refills - hydroCHLOROthiazide 12.5 MG Oral Tablet take as directed 0 days, 0 refills - Losartan Potassium 50 MG Oral Tablet 90 days, 0 refills - Premarin 0.3 MG Oral Tablet 90 days, 0 refills - Rosuvastatin Calcium 10 MG Oral Tablet 90 days, 0 refills Past Medical/Surgical History Reported: Medical: Arthritic joint problems and a fracture (R) wrist. Medications: A recent injection. Immunization History: Recent immunization for flu 05/19/2021. No recent immunization for pneumococcal pneumonia. Diagnoses: Irregular Heartbeat Heartburn / Acid Reflux. Hypertension. Arthritis PVC's/ Mitral valve regurgation. Surgical: - Hysterectomy - Total knee arthroplasty Social History Not a current smoker. Current diet: No recent change in diet. Caffeine use: Caffeine use. Tobacco use: Tobacco non-user. Alcohol: Not using alcohol. Drug Use: Not using drugs. Habits: Exercising regularly. Allergies - No Known Allergies Family History Diabetes mellitus Systemic hypertension Osteoporosis Diabetes mellitus Rheumatoid arthritis Review Of Systems Systemic: Not feeling tired, no recent weight loss, and no recent weight gain. Head: No headache and no sinus pain. Eyes: No vision problems and no Cataracts. Glasses/Contacts. No Glaucoma. Otolaryngeal: No hearing loss. Tinnitus. Cardiovascular: No chest pain or discomfort. Palpitations and Hypertension. No High Cholesterol. Pulmonary: No daytime asthma symptoms and no chronic cough. No wheezing. Gastrointestinal: Heartburn. No abdominal pain. No Indigestion. Acid Reflux. No Peptic Ulcer, no GI Stomach Bleed, and no Ulcers. Endocrine: No hot flashes, no muscle weakness, no Diabetes, no Hypothyroid, and no Hyperthyroid. Hematologic: No easy bleeding. A tendency for easy bruising. No Anemia. Musculoskeletal: No Arthritis and no lower back pain. No soft tissue swelling and no localized joint pain. Neurological: No dizziness, no convulsions, and no numbness. Psychological: No anxiety, no emotional lability, no depression, and no insomnia. Not crying for no reason. Skin: No dry skin. No Ulcers, no Scars, and no rash. Allergic and Immunologic: No complaint of seasonal allergic reaction. Physical Findings - Vitals taken 10/24/2022 09:33 am ba Height 64.5 in Weight 148 lbs Body Mass Index 25 kg/m2 Body Surface Area 1.7 m2 Patient is alert and oriented ? 3 . No cough, wheezing or shortness of breath. Normal gait and station. Right knee: No deformity. No discoloration. No atrophy. No tenderness to palpation. No crepitus. No effusion. Active range of motion: Extension 0-, flexion 135-. Passive range of motion: Not limited. Strength: 4/5 quadriceps, 4/5 hamstrings. Negative patella mobility. Negative patella apprehension. Left knee: No deformity. No discoloration. No atrophy. Tender medial joint line. No crepitus. No effusion. Active range of motion: Extension 0-, flexion 135-. Passive range of motion: Not limited. Strength: 4/5 quadriceps, 4/5 hamstrings. Increased lateral patella mobility. Negative patella apprehension. Tests Three view radiographs AP, lateral and sunrise right knee reveal good placement of the implant, no evidence of loosening Three view radiographs AP, lateral and sunrise left knee reveal good placement of the implant, no evidence of loosening, mild lateral tracking of the patella Assessment Bilateral TKA's Left knee patellar instability Previous Tests Imaging: X-Ray: An X-ray was performed. CT Scan: A CT scan was performed. Plan StartCited - Other Therapy/Physical Therapy: Knee Instructions: See PT order attached EndCited Fall Risk Assessment: This patient has been [...] therapy has been discussed with the patient. Physical exam and radiograph findings were discussed with the patient. At this time her knee replacements are doing very well. We discussed in regards to the patellar instability on the left knee, she is given a home exercise program to begin working on quad, hamstring strengthening. 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 Plan to follow-up on an as-needed basis. Notes This dictation was done with voice recognition software and may contain errors and omissions. Practice Management Use of tobacco assessment performed and patient screened for future fall risk documentation of any fall with injury in past year. Care Team - KENNETH REYES - PACKAGING CLERK
--- OUTSIDE RECORDS SUMMARY | 2025-01-08 10:07 | XMS_ITS | Clinical Summary ---
Author Organization [facility] , [facility] Address [address] [address] Phone Care Team Providers Care Sales And Marketing Executive Name Role Phone Edgardo FALCON, Geo Unavailable [phone] KENNETH REYES Primary Care Provider [phone] Reason for Visit and Chief Complaint [Patient Encounter] Problems Includes: Problems addressed during this encounter and other active Problems All Visits Onset Date Resolved Date Provider Condition S tatus Joint Pain in Both Knees 02/20/2020 Geo albarado MD Active Last Documented On 0 2:12PM ; [facility] Plan of Treatment Pending Tests Order Diagnosis Results Due Ordering Sheila mckeon Radiology - CT Scan Knee 01/21/21 Homer Reynoso MD Last Documented On 1 5:39PM ; [facility] - CT Scan Knee 02/09/21 Homer Reynoso MD Last Documented On 1 9:32AM ; [facility] Assessments Includes: Assessments from this encounter No Assessments Recorded Medical Equipment - Implanted Devices Includes: Current Devices No Medical Equipment Recorded Medications Includes: Medications discussed during this encounter and other current Medications Current Medications (continue as prescribed) hydroCHLOROthiazide 12.5 MG Oral Tablet 10/24/2022 P ana rosader: Diagnosis: Last Documented On 3 9:33AM By Neeru Kennedy ; [facility] Vitamin D3 25 MCG (1000 UT) Oral Tablet Chewable 0 10/24/2022 Provider: Diagnosis: Last Documented On 3 9:33AM By Neeru Kennedy ; [facility] Medications Administered Includes: Administered Medications from this encounter No Administered Medications Recorded Results Includes: Results discussed during this encounter No Results Recorded For Specified Dates History of Present Illness Includes: History of Present Illness from this encounter No History of Present Illness Recorded Social History No Social History Recorded - Smoking Status Unknown Medical History Includes: Medical History addressed during this encounter No Medical History Recorded Family History Includes: Family History addressed during this encounter No Family History Recorded Review of Systems Includes: Review of Systems from this encounter No Review of Systems Recorded Mental Status Includes: Mental Status from this encounter No Mental Status Recorded Functional Status Includes: Functional Status from this encounter No Functional Status Recorded Physical Exam Includes: Physical Exam from this encounter No Physical Exam Recorded Allergies Includes: Active Allergies No Known Allergies Encounters Encounter Provider Location Date Check-In Time Check-Out Time Diagnosis [Patient Encounter] Geo Reynoso MD 03/01/2023 11:07AM 11:59PM Insurance Includes: Active Insurance Policies Plan Name Member ID Group # Subscriber Relationship Effect lawson Dates 1 - Medicare Part B [facility] [id number] Megan Ramirez 01/16/2015 - Unknown 2 - [employer] [id number] Megan Ramirez 09/18/2015 - Unknown Clinical Notes Includes: Clinical Notes from this encounter No Clinical Notes Recorded
--- NOTE | 2025-01-08 10:16 | US_ITS ---
FINAL REPORT CLINICAL HISTORY: NEOPLASM SOFT TISSUES OF BUTTOCK FINDINGS: Limited sonographic images were obtained of the soft tissues of the left lateral buttock at the area of palpable abnormality. There is a hyperechoic ovoid mass at the area of interest measuring 2.6 x 1.3 cm. This is of slightly greater echogenicity than adjacent subcutaneous fat. There appears to be some internal blood flow. The remainder of the soft tissues are without acute abnormality. 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 Reviewed, Interpreted and Dictated by Ping Ramirez MD Transcribed by Virginia Amaarl Authenticated and [facility]
== END 2025-01-08 23:59 | disposition home or self-care (01) ==
LOC: RAD 10:04
PROVIDERS: PCP Family Medicine; Visit Provider Family Medicine
DX: D48.19 Other specified neoplasm of uncertain behavior of connective and other soft tissue (principal)
CPT/HCPCS: 76604

== ENCOUNTER 2025-06-10 10:03 | Outpatient (CLI) | payer MEDICARE, BC, SELFPAY ==
--- OUTSIDE RECORDS SUMMARY | 2024-11-19 05:30 | XMS_ITS ---
[facility] [address] [facility] [address] [place] [id number] Care Team Providers Care Pheresis Nurse Name Role Phone Justin Penn Primary Care Provider [phone] Darlin Tate Unavailable [phone] Aleksander Osuna Unavailable [phone] Allergies Allergen (clinical drug ingredient) Drug/Non Drug Allergy documented on EMR Reaction Allergy Type Onset Date Status lisinopril Lisinopril cough Drug Allergy Activ e Results Component Value Reference Range Notes CBC Fingerstick (in house) Reviewed date:11/19/2024 10:11:35 AM Interpretation: Performing Lab: Notes/Report: wbc 8.3 3.5 - 10 lym 26.6% 15 - 50 mid 6.0% 2 - 15 gran 67.4% 35 - 80 rbc 4.83 3.5 - 5.5 hgb 14.8 11.5 - 16.5 hct 43.6 35 - 55 mcv 90.2 75 - 100 mch 30.7 25 - 35 mchc 34.0 31 - 38 plat 190 100 - 400 REASON FOR VISIT swollen gland behind her ear Medications Medication SIG (Take, Route, Frequency, Duration) Notes Start Date End Date Status Famotidine 40 MG 1 tab(s) orally once a day (at bedtime); Duration: 90 days Active Doxycycline Hyclate 20 MG 1 tab(s) orall y once a day; Duration: 90 days Active Premarin 0.3 MG 1 tab(s) orally once a day; Duration: 90 days Active Losartan Potassium 50 MG TAKE 1 TABLET B Y MOUTH TWICE A DAY FOR 30 DAYS; Duration: 90 days Active Triamterene-HCTZ 37.5-25 MG TAKE 1 TABLE T BY MOUTH EVERY DAY FOR 30 DAYS; Duration: 90 days Active Acetaminophen 500 MG 2 tab(s) orally bonilla ry 6 hours Active Rosuvastatin Calcium 10 MG 1 tablet Oral ly once daily; Duration: 90 days Active Vitamin D3 25 MCG (1000 UT) 2 cap(s) ora lly once a day 09/08/2020 Active Vital Signs Weight 146.4 lbs 11/19/2024 Blood pressure systolic 110 mm Hg 11/20/19 25 Blood pressure diastolic 72 mm Hg 025 Heart Rate 98 /min 11/19/2024 Height 63.50 in 11/19/2024 BMI 25.52 kg/m2 11/19/2024 Encounters Encounter Location Date Provider Diagnosis [facility] [address] [place], [place] [id number] 11/19/2024 Aleksander Osuna LAD (lymphadenopathy ), cervical R59.0 Assessments Encounter Date Diagnosis (ICD Code) Assessment Notes Treatment Notes Treatment Clinical Notes Section Notes 11/19/2024 LAD (lymphadenopat hy), cervical (ICD-10 - R59.0) Clinically resolved Plan Of Treatment Treatment Notes Assessment Notes LAD (lymphadenopathy), cervical Clinical ly resolved Next Appt Details Follow Up: via phone to repo rt progress, Reason: Progress Notes * IRIS OCONNELLDARIELAB:1950 ( 75 yo F)Acc No.[id number]:11/19/2024 Progress Notes Patient: ANTONIA RIVERO Provider: Vasile Osuna M.D. :1950 A ge:74 Y S ex:Female Date:11/19/2024 Address:[address], [id number] Pcp:Justin Penn Subjective: * Chief Complaints: * 1 . Swollen gland behind her ear. * HPI: E NT/respiratory: 74 year old female presents with c/o nasal congestion P t complains of nasal congestion that started this morning. Pt states that she has had swollen lymphnodes on rt side of neck for about 3 weeks but that is starting to improve. * ROS: C ARDIOLOGY: no D izziness. n o C hest pain. G ASTROENTEROLOGY: no N ausea. n o V omiting. U ROLOGY: no D ifficulty urinating. n o B lood in urine. 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 * Surgical History: T otal Hysterectomy , Tonsillectomy , Bladder Repair, Dr. Unger 09/25/2007, RT Knee Replacement 04/14/2021, Melonoma 08/2023, Spot Removal From Head- Squamous Cell 02/2024. * Hospitalization/Major Diagno stic Procedure: D enies Past Hospitalization. * Family History: F ather: alive, heart arrhythmia, high cholesterol. M other: alive, fibromyalgia, rhuematiod arthritis, HBP. * Social History: C URRENT TOBACCO USE S moking Status: Patient does NOT smoke. C affeine: yes, frequency: 1 cup of coffee daily. Past smoking status: no, Smoking status: Does not smoke. * Medications: T aking Vitamin D3 25 MCG (1000 UT) Capsule 2 cap(s) orally once a day , Taking Acetaminophen 500 MG Tablet 2 tab(s) orally every 6 hours , Taking Famotidine 40 MG Tablet 1 tab(s) orally once a day (at bedtime) , Taking Premarin 0.3 MG Tablet 1 tab(s) orally once a day , Taking Doxycycline Hyclate 20 MG Tablet 1 tab(s) orally once a day , Taking Losartan Potassium 50 MG Tablet TAKE 1 TABLET BY MOUTH TWICE A DAY FOR 30 DAYS , Taking Triamterene-HCTZ 37.5-25 MG Tablet TAKE 1 TABLET BY MOUTH EVERY DAY FOR 30 DAYS , Taking Rosuvastatin Calcium 10 MG Tablet 1 tablet Orally once daily , Medication List reviewed and reconciled with the patient * Allergies: L isinopril: cough - Side Effects. Objective: * Vitals: W t:146.4, Temp:97.8, BP:110/72, HR:98, Nurse:kk, Ht: 63.50, BMI:25.52. * Examination: E NT/Respiratory: General Appearance: N AD. E yes: P ERRLA, sclera clear. E ars: a uditory canals normal bilaterally, TM's WNL. O ral cavity : n o erythema or exudate seen on pharynx. N alyssia : n o cervical lymphadenopathy. H eart : R RR, normal S1 S2. L ungs: c lear to auscultation bilaterally. Assessment: * Assessment: 1. L AD (lymphadenopathy), cervical - R59.0 (Primary) Plan: * Treatment: Value Reference Range w bc 8.3 3.5 - 10 * l ym 26.6% 15 - 50 * m id 6.0% 2 - 15 * g ran 67.4% 35 - 80 * r bc 4.83 3.5 - 5.5 * h gb 14.8 11.5 - 16.5 * h ct 43.6 35 - 55 * m cv 90.2 75 - 100 * m ch 30.7 25 - 35 * m chc 34.0 31 - 38 * p lat 190 100 - 400 * Shauna Cramer 11/19/2024 10:11:28 AM > , Provider reviewed results while patient in office. Notes: Clinically resolved?? * Procedure Codes: G 2211 Complex e/[place], [address] CAPILLARY BLOOD DRAW, 90985 CBC WITH AUTO DIFF, 3074F SYST BP LT 130 MM HG, 3078F DIAST BP < 80 MM HG * Follow Up: v ia phone to report progress * Images: Billing Information: * Visit Code: 98710 Office Visit, Est Pt., Level 3. * Procedure Codes: G2211 Complex e/[place] [address] CAPILLARY BLOOD DRAW. 64062 CBC WITH AUTO DIFF. 3074F SYST BP LT 130 MM HG. 3078F DIAST BP < 80 MM HG. * Electronic signature of Billie Osuna MD on 06/10/2025 at 10:16 AM EDT Sign off status: Pending * Provider: Vasile Osuna M.D. Date: 0 11/19/2024 Generated for Balaji bear/Adithya/eTransmitting on: 0 06/10/2025 10:16 AM EDT History and Physical Notes * HPI (History of Present Illness) Category Sub-Category Detail Notes Category Not es ENT/respiratory nasal congestion Pt complains of nasal congestion that started this morning. Pt states that she has had swollen lymphnodes on rt side of neck for about 3 weeks but that is starting to improve Examination Category Sub-Category Detail Notes Category Not es ENT/Respiratory Oral cavity : no erythema or exudate s een on pharynx Ears: auditory canals norm al bilaterally, TM's WNL Neck : no cervical lymphade nopathy Heart : RRR, normal S1 S2 Lungs: clear to auscultatio n bilaterally General Appearance: NAD Eyes: PERRLA, sclera clear
--- OUTSIDE RECORDS SUMMARY | 2025-05-13 05:45 | XMS_ITS ---
Author Organization [facility] Address [address] [facility] [address] [place] [id number] Care Team Providers Care Rectifier Operator Name Role Phone Justin Penn Primary Care Provider Darlin Tate Unavailable [phone] Aleksander Osuna Unavailable [phone] Allergies Allergen (clinical drug ingredient) Drug/Non Drug Allergy documented on EMR Reaction Allergy Type Onset Date Status lisinopril Lisinopril cough Drug Allergy Activ e Results Component Value Reference Range Notes Glucose (In-House) Reviewed date:05/14/2025 08:40:45 AM Interpretation:82 Normal Performing Lab: Notes/Report: 82 Normal blood glucose 82 74 - 106 mg/dL Glycohemoglobin A1c (in hous e) Reviewed date:05/14/2025 08:40:45 AM Interpretation:5.3 Normal Performing Lab: Notes/Report: 5.3 Normal glycohemoglobin 5.3% 5 - 6.5 % P-Comprehensive Metabolic Pa leo (CMP) Reviewed date:05/14/2025 08:40:44 AM Interpretation:Normal Performing Lab: Notes/Report: Test performed by [facility], [employer] [address] [place] [address] , [address], [place] [address] Jared Cantor MD, Spring Clipper CLIA: [id number] Sodium 139 135-145 mmol/L Potassium 4.1 3.5-5.3 mmol/L Chloride 99 97-108 mmol/L CO2 28 20-32 mmol/L Glucose 92 65-99 mg/dL BUN 22 8-23 mg/dL Creatinine 0.97 0.50-1.00 mg/dL Calcium 10.2 8.6-10.4 mg/dL eGFR by Creatinine 61 >59 mL/min/1.73m2 Protein 7.5 6.0-8.3 g/dL Albumin 4.7 3.5-5.3 g/dL Alkaline Phosphatase 75 35-121 IU/L ALT (SGPT) 21 <5-47 IU/L AST (SGOT) 21 <5-40 IU/L Bilirubin, Total 0.4 <0.2-1.2 mg/dL A/G Ratio 1.7 1.1-2.5 P-Lipid Panel Reviewed date:05/14/2025 08:40:44 AM Interpretation:chol 201, non-hdl 134 Performing Lab: Notes/Report: Test performed by [facility], [address] , [facility], [place] [address] Jared Cantor MD, Spring Clipper CLIA: [id number] Cholesterol 201 <200 mg/dL Triglycerides 133 <150 mg/dL HDL Cholesterol 67 >39 mg/dL Cholesterol / HDL Ratio 3.00 0.00-4.44 Ratio Non-HDL Cholesterol 134 <130 mg/dL LDL Cholesterol (Calculation) 107 <130 mg/dL LDL Cholesterol Levels* Less than 100 mg/dL Optimal 100 to 129 mg/dL Near Optimal/ Above Optimal 130 to 159 mg/dL Borderline High 160 to 189 mg/dL High 190 mg/dL and above Very High * Categories as recommended by the 2004 ATPIII guidelines LDL/HDL Ratio 1.6 <3.3 Ratio LDL Cholesterol Patient History Test Date: 05/07/2024 LDL Results: 188 Units: mg/dL % Change: - Test Date: 09/04/2024 LDL Results: 124 Units: mg/dL % Change: -34% Test Date: 05/13/2025 LDL Results: 107 Units: mg/dL % Change: -13% P-Vitamin D 25-Hydroxy Reviewed date:05/14/2025 08:40:44 AM Interpretation:47.1 Performing Lab: Notes/Report: Test performed by [facility], [facility] , [facility], [place] [address] Jared Cantor MD, Spring Clipper CLIA: [id number] Vitamin D 25-Hydroxy 47.1 30.0-100.0 ng/mL Interpretation of Vitamin D 25 OH: < 20 ng/mL - Deficiency 20 - 29 ng/mL - Insufficiency 30 - 100 ng/mL - Sufficiency > 100 ng/mL - Super-therapeutic- toxicity may occur above this level. Clinical correlation required. 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) Referral Organization [facility] Referring Provider First Name Aleksander Referring Provider Last Name Thao Referring Provider Speciality Family Pra ctice Referred Provider MALACHI CORRALES Referred Provider Specialty General Surg treasure General Notes Keaton Jaureguinn 2024 09:38:15 AM > consult scheduled for 05/20/2025 at 09:30am; patient informed Referral Priority Routine REASON FOR VISIT check up with fasting labs Medications Medication SIG (Take, Route, Frequency, Duration) Notes Start Date End Date Status Irbesartan-hydroCHLOROthiazi de 300-12.5 MG 1 tablet Orally Once a day; Duration: 90 days 05/13/2025 Active Doxycycline Hyclate 20 MG 1 tablet orall y once a day; Duration: 90 days Active Premarin 0.3 MG Take 1 tablet by deborah once daily; Duration: 90 Active valACYclovir HCl 1 GM 2 tablet Orally tw o times a day as needed 08/30/2023 Active Rosuvastatin Calcium 10 MG 1 tablet Oral ly Once a day; Duration: 30 days Active Famotidine 40 MG 1 tab(s) orally once a day (at bedtime); Duration: 90 days Active Vitamin D3 25 MCG (1000 UT) 2 cap(s) ora lly once a day 09/08/2020 Active Acetaminophen 500 MG 2 tab(s) orally bonilla ry 6 hours Active Problems Problem Type SNOMED Code ICD Code Onset Dates Problem Status W/U Status Risk Notes Problem Chronic kidney disease stage 3A (disorder) ([id number]) Chronic kidney disease, stage 3a (N18.31) Active confirmed Vital Signs Weight 143.8 lbs 05/13/2025 Blood pressure systolic 114 mm Hg 05/13/20 25 Blood pressure diastolic 68 mm Hg 025 Heart Rate 70 /min 05/13/2025 Height 63.50 in 05/13/2025 BMI 25.07 kg/m2 05/13/2025 Encounters Encounter Location Date Provider Diagnosis [facility] [address] [place], [place] [phone] 05/13/2025 Aleksander Osuna Essential hypertensi on I10 ; Mixed hyperlipidemia E78.2 ; Hypertriglyceridemia E78.1 ; Impaired fasting glucose R73.01 ; Vitamin D deficiency E55.9 ; Osteoporosis screening Z13.820 ; Colon cancer screening Z12.11 ; 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 ; Chronic kidney disease, stage 3a N18.31 and BMI 25.0-25.9,adult Z68.25 Assessments Encounter Date Diagnosis (ICD Code) Assessment Notes Treatment Notes Treatment Clinical Notes Section Notes 05/13/2025 Essential hypertensi on (ICD-10 - I10) Blood pressure journal 05/13/2025 Mixed hyperlipidemia (ICD-10 - E78.2) 05/13/2025 Hypertriglyceridemia (ICD-10 - E78.1) 05/13/2025 Impaired fasting glu cose (ICD-10 - R73.01) 05/13/2025 Vitamin D deficiency (ICD-10 - E55.9) 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) 05/13/2025 Chronic kidney disea se, stage 3a (ICD-10 - N18.31) 05/13/2025 BMI 25.0-25.9,adult (ICD-10 - Z68.25) Plan Of Treatment Medication Medication Name Sig Start Date Stop Date Notes Losartan Potassium 50 MG TAKE 1 TABLET B Y MOUTH TWICE A DAY FOR 30 DAYS Triamterene-HCTZ 37.5-25 MG TAKE 1 TABLE T BY MOUTH EVERY DAY Irbesartan-hydroCHLOROthiazi de 300-12.5 MG 1 tablet Orally Once a day; Duration: 90 days 05/13/2025 Pending Test Test Name Order Date colonoscopy 05/13/2025 DEXA Hip and Spine 05/13/2025 Referrals Referral Date Details 05/13/2025 05/13/2025, First 2 weeks of 2024, MALACHI CORRALES Next Appt Details Follow Up: 6 Months, Reason: Progress Notes * GLORIA OCONNELL:1950 ( 75 yo F)Acc No.[id number]:05/13/2025 Progress Notes Patient: ANTONIA RIVERO Provider: Vasile Osuna M.D. :1950 A ge:75 Y S ex:Female Date:05/13/2025 Address:[address], [id number] Pcp:Justin Penn Subjective: * Chief Complaints: * 1 . Check up with fasting labs. * HPI: C ardiology: 75 year old female presents with c/o Blood Pressure Elevated?Pt here to check up on hypertension. Pt states she is doing well and does not have any concerns.? c/o Hyperlipidemia P t is fasting today. * ROS: D ERMATOLOGY: no R derrick. n o H ludy. G ASTROENTEROLOGY: no N ausea. n o V omiting. U ROLOGY: no D ifficulty urinating. n o B lood in urine. 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 * Surgical History: T otal Hysterectomy , Tonsillectomy , Bladder Repair, Dr. Unger 09/25/2007, RT Knee Replacement 04/14/2021, Melonoma 08/2023, Spot Removal From Head- Squamous Cell 02/2024, colonoscopy 2009. * Hospitalization/Major Diagno stic Procedure: D enies Past Hospitalization. * Family History: F ather: alive, heart arrhythmia, high cholesterol. M other: alive, fibromyalgia, rhuematiod arthritis, HBP. * Social History: C URRENT TOBACCO USE: No S moking Status: Patient does NOT smoke. C affeine: yes, frequency: 1 cup of coffee daily. Past smoking status: no, Smoking status: Does not smoke. * Medications: T aking Vitamin D3 25 MCG (1000 UT) Capsule 2 cap(s) orally once a day , Taking Acetaminophen 500 MG Tablet 2 tab(s) orally every 6 hours , Taking Losartan Potassium 50 MG Tablet TAKE 1 TABLET BY MOUTH TWICE A DAY FOR 30 DAYS , Taking valACYclovir HCl 1 GM Tablet 2 tablet Orally two times a day as needed , Taking Triamterene-HCTZ 37.5-25 MG Tablet TAKE 1 TABLET BY MOUTH EVERY DAY , Taking Rosuvastatin Calcium 10 MG Tablet 1 tablet Orally Once a day , Taking Famotidine 40 MG Tablet 1 tab(s) orally once a day (at bedtime) , Taking Doxycycline Hyclate 20 MG Tablet 1 tablet orally once a day , Taking Premarin 0.3 MG Tablet Take 1 tablet by mouth once daily , Medication List reviewed and reconciled with the patient * Allergies: L isinopril: cough - Side Effects. Objective: * Vitals: W t: 143.8, Temp: 97.9, BP: 114/68, HR: 70, Nurse: DALLIN, Ht: 63.50, BMI:25.07. * Examination: C ardiology: General Appearance: p leasant, NAD. H EENT: u nremarkable. H eart sounds: R RR, normal S1, S2. L ungs: c lear, no rales or wheezes.?Extremities: n o leg edema, most inferior portion of left lower buttocks with a 3 cm soft, moveable subcutaneous mass, non tender. Assessment: * Assessment: 1. E ssential hypertension - I10 (Primary) 2 . M ixed hyperlipidemia - E78.2 3 . H ypertriglyceridemia - E78.1 4 . I mpaired fasting glucose - R73.01 5 . V itamin D deficiency - E55.9 6 . O steoporosis screening - Z13.820 7 . C olon cancer screening - Z12.11 8 . 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 C hronic kidney disease, stage 3a - N18.31 1 0. B KS 25.0-25.9,adult - Z68.25? Plan: * Treatment: Value Reference Range A /G Ratio 1.7 1.1-2.5 - * A lbumin 4.7 3.5-5.3 - g/dL * A lkaline Phosphatase 75 35-121 - IU/L * A LT (SGPT) 21 <5-47 - IU/L * A ST (SGOT) 21 <5-40 - IU/L * B ilirubin, Total 0.4 <0.2-1.2 - mg/dL * B UN 22 8-23 - mg/dL * C alcium 10.2 8.6-10.4 - mg/dL * C hloride 99 97-108 - mmol/L * C O2 28 20-32 - mmol/L * C reatinine 0.97 0.50-1.00 - mg/dL * G lucose 92 65-99 - mg/dL * P otassium 4.1 3.5-5.3 - mmol/L * S odium 139 135-145 - mmol/L * P rotein 7.5 6.0-8.3 - g/dL * e GFR by Creatinine 61 >59 - mL/min/1.73m2 * Yara Salas 05/14/2025 08:4 0:35 AM EDT > See phone encounter Clinical Notes: Blood pressure journal??2.?Mixed hyperlipidemia?LAB: P-Comprehensive Metabolic Panel (CMP) (Collection Date & Time - 05/13/2025 09:27 AM)?Normal* Value Reference Range A /G Ratio 1.7 1.1-2.5 - * A lbumin 4.7 3.5-5.3 - g/dL * A lkaline Phosphatase 75 35-121 - IU/L * A LT (SGPT) 21 <5-47 - IU/L * A ST (SGOT) 21 <5-40 - IU/L * B ilirubin, Total 0.4 <0.2-1.2 - mg/dL * B UN 22 8-23 - mg/dL * C alcium 10.2 8.6-10.4 - mg/dL * C hloride 99 97-108 - mmol/L * C O2 28 20-32 - mmol/L * C reatinine 0.97 0.50-1.00 - mg/dL * G lucose 92 65-99 - mg/dL * P otassium 4.1 3.5-5.3 - mmol/L * S odium 139 135-145 - mmol/L * P rotein 7.5 6.0-8.3 - g/dL * e GFR by Creatinine 61 >59 - mL/min/1.73m2 * Yara Salas 05/14/2025 08:4 0:35 AM EDT > See phone encounter ?LAB: P-Lipid Panel (Collection Date & Time - 05/13/2025 09:27 AM)?chol 201, non-hdl 134* Value Reference Range C holesterol / HDL Ratio 3.00 0.00-4.44 - Ratio * C holesterol 201 H <200 - mg/dL * H DL Cholesterol 67 >39 - mg/dL * L DL Cholesterol (Calculation) 107 <130 - mg/d L * L DL/HDL Ratio 1.6 <3.3 - Ratio * N on-HDL Cholesterol 134 H <130 - mg/dL * T riglycerides 133 <150 - mg/dL * Yara Salas 05/14/2025 08:4 0:35 AM EDT > See phone encounter 3.?Impaired fasting glucose?LAB: Glucose (In-House) (Collection Date & Time - 05/13/2025)?82 Normal* Value Reference Range b lood glucose 82 74 - 106 mg/dL * King Shauna 05/13/2025 11:49: 52 AM EDT > Yara Salas 05/14/2025 08:40:35 AM EDT > See phone encounter ?LAB: Glycohemoglobin A1c (in house) (Collection Date & Time - 05/13/2025)? 5.3 Normal* Value Reference Range g lycohemoglobin 5.3% 5 - 6.5 % * Shoaib Shauna 05/13/2025 12:03: 48 PM EDT > Yara Salas 05/14/2025 08:40:35 AM EDT > See phone encounter 4.?Vitamin D deficiency?LAB: P-Vitamin D 25-Hydroxy (Collection Date & Time - 05/13/2025 09:27 AM)? 47.1* Value Reference Range V itamin D 25-Hydroxy 47.1 30.0-100.0 - ng/mL * Yara Salas 05/14/2025 08:4 0:35 AM EDT > See phone encounter 5.?Osteoporosis screening?Imaging: DEXA Hip and Spine* Keyonna Jauregui 05/27/2025 01:43 :07 PM EDT > faxed to [facility] Scheduling 6.?Colon cancer screening?Imaging: colonoscopy* Dr. Gonsalez - First 2 weeks of 2024Keyonna Jauregui 05/13/2025 10:47:38 AM EDT > faxed to Dr. 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 Referral To:MALACHI CORRALES??General Surgery ?Reason:First 2 weeks of 2024 * Procedure Codes: G 2211 Complex e/[place], [address] GLUCOSE TEST, 71846 GLYCATED HEMOGLOBIN TEST, Modifiers: QW , 3044F HG A1C LEVEL LT 7.0%, G8420 BMI<30 AND >=22 CALC & DOCU, G8950 PREHTN/HTN BP DOC INDCD F/U DOC, G8752 MOST RECENT SYSTOLIC BP < 140MM HG, G8754 MOST RECENT DIASTOLIC BP < 90MM HG, 1036F TOBACCO NON-USER * Follow Up: 6 Months * Images: Drawin05/13/25 [facility] Billing Information: * Visit Code: 79510 Office Visit, Est Pt., Level 4. * Procedure Codes: G2211 Complex e/[place]. [address] GLUCOSE TEST. 23510 GLYCATED HEMOGLOBIN TEST. Modifiers: QW 3044F HG A1C LEVEL LT 7.0%. G8420 BMI<30 AND >=22 CALC & DOCU. G8950 PREHTN/HTN BP DOC INDCD F/U DOC. G8752 MOST RECENT SYSTOLIC BP < 140MM HG. G8754 MOST RECENT DIASTOLIC BP < 90MM HG. 1036F TOBACCO NON-USER. * Electronic signature of Billie Osuna MD on 06/10/2025 at 10:17 AM EDT Sign off status: Pending * Provider: Vasile Osuna M.D. Date: 0 05/13/2025 Generated for Balaji bear/Adithya/Vishsmitting on: 0 06/10/2025 10:17 AM EDT History and Physical Notes * HPI (History of Present Illness) Category Sub-Category Detail Notes Category Not es Cardiology Blood Pressure Elevated Pt here to check up on hypertension. Pt states she is doing well and does not have any concerns Hyperlipidemia Pt is fasting today Examination Category Sub-Category Detail Notes Category Not es Cardiology Lungs: clear, no rales or wheezes HEENT: unremarkable Heart sounds: RRR, normal S1, S2 Extremities: no leg edema, most i nferior portion of left lower buttocks with a 3 cm soft, moveable subcutaneous mass, non tender General Appearance: pleasant, NAD Consultation Request Notes Referral Date Referring Provider Referred Provider Not es 05/13/2025 Aleksander Osuna CHARLES First 2 w mary of 2024
--- OUTSIDE RECORDS SUMMARY | 2025-05-24 06:00 | XMS_ITS ---
Author Organization [facility] Address [address] [facility] [address] [place] [phone] Care Team Providers Care Certified Scrum Master Name Role Phone Justin Penn Primary Care Provider Darlin Tate Unavailable [phone] Aleksander Osuna Unavailable [phone] Allergies Allergen (clinical drug ingredient) Drug/Non Drug Allergy documented on EMR Reaction Allergy Type Onset Date Status lisinopril Lisinopril cough Drug Allergy Activ e Results Component Value Reference Range Notes Urinalysis - Inhouse Reviewed date:05/28/2025 04:07:35 PM Interpretation:see duplicate order Performing Lab: Notes/Report: see duplicate order P-Basic Metabolic Panel (BMP ) Reviewed date:06/02/2025 05:35:20 PM Interpretation:Normal Performing Lab: Notes/Report: Test performed by [facility], [facility] [address] [place] [address] , [address], [place] [address] Jared Cantor MD, Extruder Tender CLIA: [id number] Sodium 139 135-145 mmol/L Potassium 4.1 3.5-5.3 mmol/L Chloride 101 97-108 mmol/L CO2 27 20-32 mmol/L Glucose 91 65-99 mg/dL BUN 20 8-23 mg/dL Creatinine 0.96 0.50-1.00 mg/dL Calcium 9.5 8.6-10.4 mg/dL eGFR by Creatinine 62 >59 mL/min/1.73m2 REASON FOR VISIT Leg swelling Medications Medication SIG (Take, Route, Frequency, Duration) Notes Start Date End Date Status Rosuvastatin Calcium 10 MG Take 1 tablet by mouth once daily; Duration: 90 Active Famotidine 40 MG 1 tab(s) orally once a day (at bedtime); Duration: 90 days Active Doxycycline Hyclate 20 MG 1 tablet orall y once a day; Duration: 90 days Active Premarin 0.3 MG Take 1 tablet by deborah th once daily; Duration: 90 Active Irbesartan-hydroCHLOROthiazi de 300-12.5 MG 1 tablet Orally Once a day; Duration: 90 days 05/13/2025 Active valACYclovir HCl 1 GM 2 tablet Orally tw o times a day as needed 08/30/2023 Active Vitamin D3 25 MCG (1000 UT) 2 cap(s) ora lly once a day 09/08/2020 Active Acetaminophen 500 MG 2 tab(s) orally bonilla ry 6 hours Active Vital Signs Weight 146.6 lbs 05/24/2025 Blood pressure systolic 110 mm Hg 05/24/20 25 Blood pressure diastolic 70 mm Hg 025 Heart Rate 64 /min 05/24/2025 Height 63.50 in 05/24/2025 BMI 25.56 kg/m2 05/24/2025 Encounters Encounter Location Date Provider Diagnosis [facility] [address] [place] [phone] 05/24/2025 Aleksander Osuna Frequent urination R 35.0 and Essential hypertension I10 Assessments Encounter Date Diagnosis (ICD Code) Assessment Notes Treatment Notes Treatment Clinical Notes Section Notes 05/24/2025 Frequent urination (ICD-10 - R35.0) 05/24/2025 Essential hypertension (ICD-10 - I10) Plan Of Treatment Next Appt Details Follow Up: via phone to repo rt test results, Reason: Progress Notes * CINDY CHELB:1950 ( 75 yo F)Acc No.[id number]:05/24/2025 Progress Notes Patient: ANTONIA RIVERO Provider: Vasile Osuna M.D. :1950 A ge:75 Y S ex:Female Date:05/24/2025 Address:On license of [facility] [address], [id number] Pcp:Justin Penn Subjective: * Chief Complaints: * 1 . Leg swelling. * HPI: C ardiology: 75 year old female presents with c/o Leg Edema P t complains of bilateral leg swelling for about a week. Pt states swelling has improved as of this morning but pt would like to discuss medication that may be causing the swelling. U rology: c/o frequent urination P t complains of frequent urination for a couple days. Pt states she does not have any other symptoms at this time. * ROS: G ASTROENTEROLOGY: no N ausea. n o V omiting. N EUROLOGY: no H eadache. n o D izziness. U ROLOGY: no D ifficulty urinating. n o B lood in urine. 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, Knee Pain, RT Knee [...] tab(s) orally every 6 hours , Taking valACYclovir HCl 1 GM Tablet 2 tablet Orally two times a day as needed , Taking Famotidine 40 MG Tablet 1 tab(s) orally once a day (at bedtime) , Taking Doxycycline Hyclate 20 MG Tablet 1 tablet orally once a day , Taking Premarin 0.3 MG Tablet Take 1 tablet by mouth once daily , Taking Irbesartan-hydroCHLOROthiazide 300-12.5 MG Tablet 1 tablet Orally Once a day , Taking Rosuvastatin Calcium 10 MG Tablet Take 1 tablet by mouth once daily , Medication List reviewed and reconciled with the patient * Allergies: L isinopril: cough - Side Effects. Objective: * Vitals: W t: 146.6, Temp: 97.9, BP: 110/70, HR: 64, Nurse: ai, Ht: 63.50, BMI:25.56. * Examination: G eneral Examination: General Appearance: N AD. H eart: R SR. L ungs:?clear to auscultation. P eripheral pulses: n ormal (2+) bilaterally. B ack: n o CVA tenderness. E xtremities: n o leg edema. Assessment: * Assessment: 1. F requent urination - R35.0 (Primary) 2 . E ssential hypertension - I10? Plan: * Treatment: Value Reference Range B UN 20 8-23 - mg/dL * C alcium 9.5 8.6-10.4 - mg/dL * C hloride 101 97-108 - mmol/L * C O2 27 20-32 - mmol/L * C reatinine 0.96 0.50-1.00 - mg/dL * G lucose 91 65-99 - mg/dL * P otassium 4.1 3.5-5.3 - mmol/L * S odium 139 135-145 - mmol/L * e GFR by Creatinine 62 >59 - mL/min/1.73m2 * Shauna Cramer 05/27/2025 11:17:3 7 AM EDT > LM for pt to return Shauna Rajput 06/02/2025 05:35:10 PM EDT > Pt notified ?LAB: Urinalysis - Inhouse (Collection Date & Time - 05/28/2025)?see duplicate order2.?Essential hypertension?LAB: P-Basic Metabolic Panel (BMP) (Collection Date & Time - 05/24/2025 09:23 AM)?Normal* Value Reference Range B UN 20 8-23 - mg/dL * C alcium 9.5 8.6-10.4 - mg/dL * C hloride 101 97-108 - mmol/L * C O2 27 20-32 - mmol/L * C reatinine 0.96 0.50-1.00 - mg/dL * G lucose 91 65-99 - mg/dL * P otassium 4.1 3.5-5.3 - mmol/L * S odium 139 135-145 - mmol/L * e GFR by Creatinine 62 >59 - mL/min/1.73m2 * Jesse Cramerira 05/27/2025 11:17:3 7 AM EDT > LM for pt to return Jesse Rajputira 06/02/2025 05:35:10 PM EDT > Pt notified * Procedure Codes: G 2211 Complex e/m visit add on, 1036F TOBACCO NON-USER, 3074F SYST BP LT 130 MM HG, 3078F DIAST BP < 80 MM HG * Follow Up: v ia phone to report test results * Images: Billing Information: * Visit Code: 20953 Office Visit, Est Pt., Level 3. * Procedure Codes: G2211 Complex e/m visit add on. 1036F TOBACCO NON-USER. 3074F SYST BP LT 130 MM HG. 3078F DIAST BP < 80 MM HG. * Electronic signature of Billie Osuna MD on 06/10/2025 at 10:18 AM EDT Sign off status: Pending * Provider: Vasile Osuna M.D. Date: 05/24/2025 Generated for Balaji bear/Adithya/Zaidaitting on: 06/10/2025 10:18 AM EDT History and Physical Notes * HPI (History of Present Illness) Category Sub-Category Detail Notes Category Not es Cardiology Leg Edema Pt complains of bilateral leg swelling for about a week. Pt states swelling has improved as of this morning but pt would like to discuss medication that may be causing the swelling Urology frequent urination Pt complains of frequent urination for a couple days. Pt states she does not have any other symptoms at this time Examination Category Sub-Category Detail Notes Category Not es General Examination Heart: RSR Lungs: clear to auscultatio n Extremities: no leg edema General Appearance: NAD Peripheral pulses: normal (2+) bilatera lly Back: no CVA tenderness
--- OUTSIDE RECORDS SUMMARY | 2025-05-26 06:00 | XMS_ITS ---
Author Organization Nadine Address [address] [facility] [address] [place] [id number] Care Team Providers Care It Security Consultant Name Role Phone Justin Penn Primary Care Provider [phone] Darlin Tate Unavailable [phone] Aleksander Osuna Unavailable [phone] Results Component Value Reference Range Notes Urinalysis - Inhouse Reviewed date:05/27/2025 11:41:46 AM Interpretation:Normal Performing Lab: Notes/Report: Normal Color/Clarity yellow/clear Leuk Neg Nitrite Neg Urobili 3.2 Protein Neg pH 5.5 Blood Neg Sp. Gr. <=1.005 Ketone Neg Bili Neg Gluc Neg REASON FOR VISIT urine sample Encounters Encounter Location Date Provider Diagnosis Nadine [address] [facility] [address] [place] [id number] 05/26/2025 Aleksander Osuna Frequent urination R35.0 Assessments Encounter Date Diagnosis (ICD Code) Assessment Notes Treatment Notes Treatment Clinical Notes Section Notes 05/26/2025 Frequent urination (ICD-10 - R35.0) Plan Of Treatment No Information Progress Notes * GLORIA WHITE:1950 ( 75 yo F)Acc No.[id number]:05/26/2025 Patient: ANTONIA RIVERO Provider: Vasile Osuna M.D. :1950 A ge:75 Y S ex:Female Date:05/26/2025 Address:[address], [place], [id number] Pcp:Justin Penn Subjective: * Chief Complaints: * 1 . Urine sample. * Medical History: Objective: * Vitals: Assessment: * Assessment: 1. F requent urination - R35.0 (Primary) Plan: * Treatment: Value Reference Range C olor/Clarity yellow/clear * L euk Neg * N itrite Neg * U robili 3.2 * P rotein Neg * p H 5.5 * B lood Neg * S p. Gr. <=1.005 * K etone Neg * B marcos Neg * G misha Neg * Shauna Cramer 05/26/2025 11:09:1 9 AM EDT > Shauna Cramer 05/27/2025 11:17:37 AM EDT > LM for pt to return Lynette Talaveraney 05/27/2025 11:41:38 AM EDT >pt informed * Procedure Codes: 8 1002 Urinalysis, no micro * Images: Billing Information: * Visit Code: * Procedure Codes: 56620 Urinalysis, no micro. * Electronic signature of Billie Osuna MD on 06/10/2025 at 10:16 AM EDT Sign off status: Pending * Provider: Vasile Osuna M.D. Date: 05/26/2025 Generated for Balaji bear/Adithya/eTransmitting on: 06/10/2025 10:16 AM EDT
[2025-06-10 08:46] VITALS: BMI 25.4
--- OUTSIDE RECORDS SUMMARY | 2025-06-10 10:16 | XMS_ITS | Encounter Summary ---
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 Assembly Inspector Name Role Phone Unavailable Primary Care Provider Unavailabl e Encounter Details Date Type Department Care Team (Late st Contact Info) Description 07/14/2021 Transcribed Document [facility] [place] Medicine [address] [place] [address] ProviderMicky MD [address] [place], [place] [id number] Social History Tobacco Use Types Packs/Day Years Used Date Smoking Tobacco: Never Assessed Comments Unknown Sex and Gender Information Value Date Recorded Sex Assigned at Female 03/15/2022 8:51 PM CDT Legal Sex Female 8:51 PM CDT Gender Identity Female 03/15/2022 8:51 PM CDT Sexual Orientation Not on file documented as of this encounter Miscellaneous Notes * Cerner Conversion Note - Historical ProviderMD - 07/14/2021 7:45 AM CDT PAT Adult Entered On: 07/14/2021 7:48 EDT Performed On: 07/14/2021 7:45 EDT by AMINTA HALL, ROSSANA Vital Measurements Temperature Source : Temporal artery scanning Temperature Mode : Fahrenheit Temperature, Fahrenheit : 98.0 Deg F Clinical Temperature, C : 36.7 Deg C Peripheral Pulse Rate : 65 bpm Pulse Rhythm : Regular Respiratory Rate : 16 Breaths/Min Systolic Blood Pressure : 144 mmHg (HI) Diastolic Blood Pressure : 70 mmHg Oxygen Saturation : 100 % Oxygen Therapy Mode : Room air AMINTA HALL RN - 07/14/2021 7:45 EDT Pain Assessment Pain Assessment : Initial assessment Pain Scale Used : 0-10 Scale Location : Knee, left AMINTA HALL RN - 07/14/2021 7:45 EDT Height and Weight, Clinical Dosing Height Source : Stated Height Entry Format : [place] Height, Feet : 5 ft(Converted to: 152 cm, 60 Inch) Height, Inches : 3.5 Inch(Converted to: 0 ft 4 Inch, 8.89 cm) Clinical Height : 161.29 cm Weight Source : Standing scale Weight Entry Format : [place] Clinical Dosing Weight : 64.09 kg Weight, Pounds : 141 lb Body Surface Area (BSA) : 1.68 m2 Body Mass Index : 24.6 kg/m2 (HI) [place] Body Weight : 53 kg AMINTA HALL RN - 07/14/2021 7:45 EDT Health Histories Smoking Status : Never (less than 100 in lifetime; none in last 30 days) Smokeless Tobacco Status : Never AMINTA HALL RN - 07/14/2021 7:45 EDT Social History (As Of: 07/14/2021 07:48:06 EDT) Tobacco: Never (less than 100 in lifetime) Smoking Status. Never Smokeless Tobacco Status. (Last Updated: 04/01/2021 11:33:40 EDT by Olimpia Tapia Rn) Alcohol: Alcohol Use History Yes. Use in Last 12 Months: No. (Last Updated: 04/01/2021 11:33:51 EDT by Olimpia Tapia Rn) Substance Abuse: Drug Use Hx: No. Use in Last 12 Months: No. (Last Updated: 04/01/2021 11:33:57 EDT by Olimpia Tapia Rn) Infectious Disease History Does patient have symptoms of COVID-19? : No Has the Patient Been Tested for COVID-19 in the last 14 days? : No, Patient stated Does the Patient state known exposure to a COVID-19 positive case in the last 14 days? : No Patient Vaccinated for COVID-19 : Fully vaccinated AMINTA HALL RN - 07/14/2021 7:45 EDT Infectious Disease Risk Screening Grid Cough < 2 wks of unknown origin : NO Cough > 2 weeks : NO Blood in Sputum : NO Fever or self-reported Fever : NO Rash of unknown origin : NO Headache : NO Stiff neck : NO Night Sweats : NO Unexplained Weight Loss : NO Diarrhea (3 episode per day) : NO AMINTA HALL RN - 07/14/2021 7:45 EDT Physical contact outside [place] in the last 30 days : No Hospitalized in Foreign Country : No Infectious Disease History : Chicken pox/Shingles, Influenza, Measles, Mumps, Rubella, Scarlet fever INF Disease TB Screening Calc : 0 INF Disease Recent Travel Calc : 0 AMINTA HALL RN - 07/14/2021 7:45 EDT COVID19 PreProcedure Screening Is this an Emergent or Add on Procedure? : No Date PreProcedure COVID-19 test known? : Yes Date of PreProcedure COVID-19 : 07/12/2021 EDT Has patient been isolated since the test : Yes Exposed to COVID19 symptoms since test? : No AMINTA HALL RN - 07/14/2021 7:45 EDT Anesthesia/Transfusion History Family History of Anesthesia Reaction : No prior transfusion(s) Blood Transfusion Acceptable to Patient : Yes Transfusion History : Prior anesthesia without reaction Family History of Anesthesia Reaction : Other: mother hard to wake up AMINTA HALL RN - 07/14/2021 7:45 EDT Functional Assessment Functional ADL Evaluation Index EBN Bathing : Independent (2) Dressing : Independent (2) Toileting : Independent (2) Transferring Bed or Chair : Independent (2) Continence : Independent (2) Feeding : Independent (2) AMINTA HALL RN - 07/14/2021 7:45 EDT ADL Index Score : 12 AMINTA HALL RN - 07/14/2021 7:45 EDT Advance Directive Patient has Advance Directive *Q : No, patient refuses Advance Directive information AMINTA HALL RN - 07/14/2021 7:45 EDT Spiritual/Cultural Needs Any Spiritual/Cultural Needs or Requests : No AMINTA HALL RN - 07/14/2021 7:45 EDT [place] Suicide Severity Rating Scale (C-SSRS) CSSRS Past Month Wish to be : No CSSRS Past Month Suicidal Thoughts : No CSSRS Lifetime Suicide Behavior : No Suicide Severity Rating Score : 0 Suicide Severity Rating : No Additional Care Required at this time AMINTA HALL RN - 07/14/2021 7:45 EDT Psychosocial History Do You Have a History of the Following? : Patient denies history Currently in Unsafe Situation : No AMINTA HALL RN - 07/14/2021 7:45 EDT Teaching/Learning Assessment Barriers To Learning : None evident Individuals Taught : Patient Readiness to Learn : Cooperative Readiness to Learn : Explanation AMINTA HALL RN - 07/14/2021 7:45 EDT Education Topics, Periop Preadmission Perioperative Education Grid IV's : Verbalizes understanding NPO Status/Directions : Verbalizes understanding Preprocedure Preparations : Verbalizes understanding Preprocedure Tests/Labs : Verbalizes understanding Responsible Adult : Verbalizes understanding AMINTA HALL RN - 07/14/2021 7:45 EDT General Info Preferred Name : Megan Legal Guardian : Chiara Want Family/Rep/Phys Notified of Admit : No Emergency Contact #1 : Junior Emergency Contact #1 Emergency Contact #1 Relationship : spouse Emergency Contact #2 : - Emergency Contact #2 Phone Number : - Emergency Contact #2 Relationship : - Primary Language : Comoran Preferred Communication Mode : Verbal Communication Barrier : None Ecotherapist Needed : No AMINTA HALL RN - 07/14/2021 7:45 EDT Aaron Scale Aaron Sensory Perception : No impairment Aaron Moisture : Rarely moist Aaron Activity : Walks frequently Aaron Mobility : No limitation Aaron Nutrition : Excellent Aaron Friction and Shear : No apparent problem Aaron Score : 23 AMINTA HALL RN - 07/14/2021 7:45 EDT Sleep Apnea Risk Assmt Hx of Obstructive Sleep Apnea Diagnosis : No Snore Loudly : No Tired, Fatigued, or Sleepy During Day : No Observed Stopping Breathing During Sleep : No Have/Are Being Treated for Hypertension : Yes BMI Greater Than 35 kg/m2 : No Age over 50 Years Old : Yes Neck Circumference Greater Than 40 cm : No Gender Male : No STOP-BANG Sleep Apnea Risk Level Score : 2 AMINTA HALL RN - 07/14/2021 7:45 EDT Pain Scale Intensity : 3 AMINTA HALL RN - 07/14/2021 7:45 EDT Image 4 - Images currently included in the form version of this document have not been included in the text rendition version of the form. Electronically signed by Verenice [facility] Conversion Autographer Cerner at 01/03/2023 9:31 PM CDT documented in this encounter Plan of Treatment Not on file documented as of this encounter Visit Diagnoses Not on filedocumented in this encounter
--- OUTSIDE RECORDS SUMMARY | 2025-06-10 10:16 | XMS_ITS | Encounter Summary ---
Author Organization [employer] ([place], [place], [place], [place]) Address [address] [place] [address] Care Team Providers Care Vascular Neurologist Name Role Phone Unavailable Primary Care Provider Unavailabl e Encounter Details Date Type Department Care Team (Late st Contact Info) Description 07/14/2021 Transcribed Document [facility] [place] Family Medicine [facility], [facility] [place] [address] ProviderMicky MD [address] [place] [phone] Social History Tobacco Use Types Packs/Day Years [...] Conversion Note - Historical ProviderMD - 07/14/2021 2:15 PM CDT On Going Discharge Planning Entered On: 07/14/2021 14:16 EDT Performed On: 07/14/2021 14:15 EDT by AMADO MELISSA RN Care Management Progress Note Discharge Arrangements : Patient Post-Acute Information Patient Name: ANTONIA OCONNELL SAUL Gender: Female : [birth year] Age: 71 Years No Post-Acute Placement(s) Listed No Post-Acute Service(s) Listed No [place] Referral(s) Listed Discharge Options Discussed with Patient : Discharge transportation, DME, Home Health Barriers to Discharge Identified : None identified Barriers to Discharge Unresolved : All resolved Patient Discharge Goal : Home health care Patient Offered Choice/Affiliations Explained : Yes Designation of Choice Signed : Yes List/Info Provided Pt/Fam/Support Person : Home care Were Referrals Sent to Post Acute Providers : Yes [facility] Quality Web Info Shared w Pt/Fam : Yes Does the Patient have a Floor to SNF Benefit? : No Is the Patient Meeting Medical Necessity : Yes Physician Agreeable to Move Forward with D/C Plan? : Yes Did you Attend Multidisciplinary Rounds? : No AMADO MELISSA RN - 07/14/2021 14:15 EDT Narrative Progress Note Narrative Progress Note : 71 y/o female s/p LTK per Dr. Reynoso. Met with patient at bedside to discuss discharge needs and to verify demographics and pcp. RRS: LOW STATUS: patient lives with her and is iADLS PLAN: home with outpatient PT and choose [facility] DME: patient has a front rolling walker and bedside commode at home CM: no further CM needs identified TRANS: will transport patient home DOC: Designation of choice signed and placed in chart. AMADO MELISSA RN - 07/14/2021 14:15 EDT documented in this encounter Plan of Treatment Not on file documented as of this encounter Visit Diagnoses Not on filedocumented in this encounter
--- OUTSIDE RECORDS SUMMARY | 2025-06-10 10:16 | XMS_ITS | Encounter Summary ---
Author Organization [employer] ([place], [place], [place], [place]) Address [address] [place] [address] Care Team Providers Care Erisa Attorney Name Role Phone Unavailable Primary Care Provider Unavailabl e Encounter Details Date Type Department Care Team (Late st Contact Info) Description 07/14/2021 Transcribed Document [facility] [place] [facility] [address] [place] [address] ProviderMicky MD [address] [place] [address] Social History Tobacco Use Types Packs/Day Years Used Date Smoking Tobacco: Never Assessed Comments Unknown Sex and Gender Information Value Date Recorded Sex Assigned at Female 03/15/2022 8:51 PM CDT Legal Sex Female 8:51 PM CDT Gender Identity Female 03/15/2022 8:51 PM CDT Sexual Orientation Not on file documented as of this encounter Miscellaneous Notes * Cerner Conversion Note - Micky ProviderMD - 07/14/2021 5:22 [place] [address] ANTONIA OCONNELL SAUL :1950 Visit Time:07/14/2021 What to do next Your Diagnosis At risk for sleep apnea GERD (gastroesophageal reflux disease) High cholesterol Hypertension Left knee pain Mitral valve regurgitation PVC's (premature ventricular contractions) occasionally Status post total knee replacement, left Unilateral primary osteoarthritis, left knee, Unilateral primary osteoarthritis, left knee, Unilateral primary osteoarthritis, left knee Vitamin D deficiency Instructions From Your Care Team Refer to handouts provided to you by physical therapy and occupational therapy Must walk with walker x 2 weeks minimum, then PT will direct you Elevate affected lower extremity on 2-3 pillows while sleeping x 6-[address] a pillow under operative thigh to keep hip flexed while sleeping. Keep foot elevated at all times in blue foam pillow (zero knee) unless walking, showering, or eating dinner. May shower on MONDAY, but keep incision covered with Glad Press and Seal. Dressing may be removed on the day after surgery. MONDAY post op day 1. Monitor for signs of infection. If you have drainage after day 10 notify MD who performed surgery. You will be on blood thinners x 45 days. Do not stop unless told to by MD. Use the UCT Coatings care (blue ice box) continuously for 48 hours and then several times per day 20 minutes on and 40 minutes off. REMOVE THE ICE 1 HOUR PRIOR TO EXERCISING BLUE FOAM PILLOW EXERCISE: Elevate operative side foot in pillow without any support behind the knee and out of immobilizer a minimum 30 minutes 3 times per day. More is better! Sleep in knee immobilizer x 10 nights you have an On-Q pump (infusion ball) that will deliver local anesthetic for approx 40 hours. the ball will deflate as it empties. After deflation, follow the instructions on the on-Q removal sheet for specific instructions You will receive the following meds at discharge: Acetaminophen 500mg ??? take 2 tablets every 8 hours x 30 days. next dose is due at 6pm Colace 100mg ??? 1-2 capsules daily for constipation Tramadol 50mg ??? 1-2 tablets every 4-6 hours for pain. Oxycodone 5mg ??? 1- 2 tablets every 4-6 hours for pain Aspirin 81mg ??? take 1 tablet 2 times daily x 45 days Mobic 15mg daily Keflex 500mg - 1 tablet every 6 hours x 3 days Zofran 4mg- 1-2 tablets every 4-6 hours as needed. next dose may be taken at 730pm Community Services: [facility] Medical Equipment for Home Use: patient has a front rolling walker and bedside commode at home Transportation: to transport Follow-Up Appointments Follow Up with MARGO MAZA JR, JR, MD-ORT When 07/28/2021 09:30 AM EST Where: [address] [facility] [address] [place] [address]- Medications What How Much When Instructions Next Dose ascorbic acid (Vitamin C) 1,000 Milligram(s) Oral Every Day cholecalciferol (Vitamin D3) 2,000 Milligram(s) Oral Every Day diclofenac topical (diclofenac 1% topical gel) 2 Gram(s) Topical Four Times A Day doxycycline 40 Milligram(s) Oral Every Day as needed for Arthritis famotidine 40 Milligram(s) Oral Every Day losartan (losartan 50 mg oral tablet) 1 Tablet(s) Oral Every Day metroNIDAZOLE topical (metroNIDAZOLE 0.75% topical cream) 1 Application(s) Topical Two Times A Day as needed for Arthritis multivitamin (Vitamin B Complex 100) 1 Tablet(s) Oral Every Day multivitamin with minerals (Calcium, Magnesium and Zinc oral tablet) 1 Tablet(s) Oral Every Day rosuvastatin 10 Milligram(s) Oral Every Day ubiquinone (CoQ10) 300 Milligram(s) Oral Every Day Take your medications faithfully. Do NOT skip medication. Do NOT stop taking medications without the direction of a physician. Carry a list of your medications with you at all times, and take this medication list with you to your first follow up visit. Report any side effects. Avoid herbal remedies unless discussed with your physician. As part of your treatment plan, your physician may have prescribed a limited course of a controlled substance. This medication may be given to help people with moderate or severe pain or for other medical conditions, but there are risks involved with treatment. Common side effects may include nausea, constipation, drowsiness, sweating, itching, dry mouth, and rash. More serious side effects may include cognitive and motor impairment, like problems with thinking, concentrating, alertness, and movement (e.g. slowed reflexes), and driving and operating heavy machinery can be dangerous. It is important for you to talk to your physician if you have these side effects or questions. These controlled substances can produce physical dependence and be habit-forming if taken for an extended period of time, which means that the body has gotten used to them and may experience withdrawal symptoms if they are abruptly stopped. Withdrawal symptoms can include runny nose, sweating, goose bumps, diarrhea, abdominal cramping, rapid heartbeat, difficulty sleeping, and nervousness. Please dispose of unused and medications per pharmacy guidance. Education Materials What to expect after the Procedure: After the procedure, it is common to have: ??? Pain and swelling. ??? A small amount of blood or clear fluid coming from your incision for up to 7 days. Diet: ??? Resume usual diet ??? No alcoholic beverages while taking pain medication ??? Drink 8-10 glasses of water a day to prevent constipation from pain medication ??? Increase fiber to help prevent constipation. Straining can cause increased pressure and pain in your incision area ??? Increase protein to promote healing Driving: ??? Do not drive until your health care provider approves. Ask your health care provider when it is safe to drive if you have an immobilizer on your knee. ??? Do not drive or operate heavy machinery while taking prescription pain medicine. ??? Do not drive for 24 hours if you received a sedative. Activity: ??? Do not lift anything that is heavier than 10 lb (4.5 kg) until your health care provider approves. ??? No strenuous activity ??? Avoid high-impact activities, including running, jumping rope, and jumping jacks. ??? Avoid sitting for a long time without moving. Get up and move around at least every few hours. ??? Keep legs elevated while seated and place surgery leg on 2-3 pillows, this will decrease swelling ??? Continue doing blue foam and padilla basin ???tub time?? 3 times a day for 30 minutes at a time. More often is better. ??? Continue using walker until cleared by physical therapy Bathing: ??? Do not take baths, swim, or use a hot tub for one month after surgery. ??? May shower on the third day after surgery by covering incision with Glad Brand Press and Seal saran wrap. After showering, dry off completely BEFORE removing saran wrap. ??? Use Press and Seal saran wrap to shower for one month after surgery ??? You must be seated to shower until you are no longer using the walker Other: ??? Use ice therapy CONTINUOUSLY X 48 HOURS, THEN USE for 20-30 minutes at a time and leave off for 20-30 minutes at a time. Always keep a towel or cloth between the ice pack and your skin ??? Continue to use Incentive Spirometer 10 times an hour while awake for one month to help prevent pneumonia ??? Leave Mepilex on 14 DAYS. ??? ASA 81mg twice a day for 45 days. Contact a health care provider if: ??? You have more redness, swelling, or pain around your incision. ??? You have more fluid or blood coming from your incision. ??? Your incision or drain site feels warm to the touch. ??? You have pus or a bad smell coming from your incision. ??? You have a fever. ??? Your incision breaks open after your health care provider removes your sutures, skin glue, or adhesive tape. ??? Your prosthesis feels loose. ??? You have knee pain that does not go away Get help right away if you have: ??? Pain or swelling in your calf or thigh ??? shortness of breath or difficulty breathing ??? chest pain DVT: Blood Clot Blood clots are a common risk after an orthopedic surgery Symptoms: ??? Swelling of your leg or arm, especially if one side is much worse. ??? Warmth and redness of your leg or arm, especially if one side is much worse. ??? Pain in your arm or leg. If the clot is in your leg, symptoms may be more noticeable or worse when you stand or walk. ??? A feeling of pins and needles, if the clot is in the arm. The symptoms of a DVT that has traveled to the lungs (pulmonary embolism, PE) usually start suddenly and include: ??? Shortness of breath while active or at rest. ??? Coughing or coughing up blood or blood-tinged mucus. ??? Chest pain that is often worse with deep breaths. ??? Rapid or irregular heartbeat. ??? Feeling light-headed or dizzy. ??? Fainting. ??? Feeling anxious. ??? Sweating. There may also be pain and swelling in a leg if that is where the blood clot started. How is this prevented? Exercise regularly. For at least 30 minutes every day, engage in: ? Activity that involves moving your arms and legs. ? Activity that encourages good blood flow through your body by increasing your heart rate. ??? Exercise your arms and legs every hour during long-distance travel (over 4 hours). ??? Drink plenty of water and avoid drinking alcohol while traveling. ??? Avoid sitting or lying in bed for long periods of time without moving your legs. ??? Maintain a weight that is appropriate for your height. Ask your health care provider what weight is healthy for you. ??? If you are a woman who is over 35 years of age, avoid unnecessary use of medicines that contain estrogen. These include control pills. ??? Do not smoke, especially if you take estrogen medicines. If you need help quitting, ask your health care provider. ??? Wear compression stockings (if told by your health care provider) to help prevent blood clots from forming. High Fiber/High Protein Diet High fiber foods: To prevent constipation ??? Grains Whole-grain breads. Multigrain cereal. Oats and oatmeal. Brown rice. Barley. Bulgur wheat. Millet. Bran muffins. Popcorn. [place] wafer crackers. ??? Vegetables Sweet potatoes. Spinach. Kale. Artichokes. Cabbage. Broccoli. Green peas. Carrots. Squash. ??? Fruits Berries. Pears. Apples. Oranges. Avocados. Prunes and raisins. Dried figs. ??? Meats and Other Protein Sources Sultana, kidney, hallman, and soy beans. Split peas. Lentils. Nuts and seeds. ??? Dairy Fiber-fortified yogurt. ??? Beverages Fiber-fortified soy milk. Fiber-fortified orange juice. ??? Other Fiber bars. High-protein foods: To promote healing High-protein foods contain 4 grams (4 g) or more of protein per serving. They include: ??? Beef, ground sirloin (cooked) ??? 3 oz have 24 g of protein. ??? Cheese (hard) ??? 1 oz has 7 g of protein. ??? Chicken breast, boneless and skinless (cooked) ??? 3 oz have 13.4 g of protein. ??? Cottage cheese ??? 1/2 cup has 13.4 g of protein. ??? Egg ??? 1 egg has 6 g of protein. ??? Fish, filet (cooked) ??? 1 oz has 6???7 g of protein. ??? Garbanzo beans (canned or cooked) ??? 1/2 cup has 6???7 g of protein. ??? Kidney beans (canned or cooked) ??? 1/2 cup has 6???7 g of protein. ??? Loco (cooked) ??? 3 oz has 24 g of protein. ??? Milk ??? 1 cup (8 oz) has 8 g of protein. ??? Nuts (peanuts, pistachios, almonds) ??? 1 oz has 6 g of protein. ??? Peanut butter ??? 1 oz has 7???8 g of protein. ??? Pork tenderloin (cooked) ??? 3 oz has 18.4 g of protein. ??? Pumpkin seeds ??? 1 oz has 8.5 g of protein. ??? Soybeans (roasted) ??? 1 oz has 8 g of protein. ??? Soybeans (cooked) ??? 1/2 cup has 11 g of protein. ??? Soy milk ??? 1 cup (8 oz) has 5???10 g of protein. ??? Soy or vegetable pollo ??? 1 pollo has 11 g of protein. ??? [place] seeds ??? 1 oz has 5.5 g of protein. ??? Tofu (firm) ??? 1/2 cup has 20 g of protein. ??? Tuna (canned in water) ??? 3 oz has 20 g of protein. ??? Yogurt ??? 6 oz has 8 g of protein. Fall Prevention ??? Use night lights. ??? Install grab bars by the toilet and in the tub and shower. Do not use towel bars as grab bars. ??? Use non-skid mats or decals on the floor of the tub or shower. ??? If you need to sit down while you are in the shower, use a plastic, non-slip stool. ??? Keep the floor dry. Immediately clean up any water that spills on the floor. ??? Remove soap buildup in the tub or shower on a regular basis. ??? Remove throw rugs and other tripping hazards from the floor. ??? Place frequently used items in vfsv-ex-pmrwa places ??? Keep electrical cables out of the way. ??? Do not leave any items on the stairs. ??? Make sure that there are handrails on both sides of the stairs. Fix handrails that are broken or loose. Make sure that handrails are as long as the stairways. ??? Check any carpeting to make sure that it is firmly attached to the stairs. Fix any carpet that is loose or worn. ??? Avoid having throw rugs at the top or bottom of stairways, or secure the rugs with carpet tape to prevent them from moving. ??? Wear closed-toe shoes that fit well and support your feet. Wear shoes that have rubber soles or low heels. ??? Use mobility aids as needed, such as canes, walkers, scooters, and crutches. ??? Turn on lights if it is dark. Replace any light bulbs that burn out. ??? Set up furniture so that there are clear paths. Keep the furniture in the same spot. ??? Be aware of any and all pets. ??? Review your medicines with your healthcare provider. Some medicines can cause dizziness or changes in blood pressure, which increase your risk of falling. Hand Washing You should wash your hands whenever you think they are dirty. You should also wash your hands: ??? After: ? Working or playing outside. ? Touching an animal or its toys or leash. ? Handling livestock. ? Using the bathroom. ? Using household maintenance worker house trailer or toxic chemicals. ? Touching or taking out the garbage. ? Touching anything dirty around your home. ? Handling soiled clothes or rags. ? Taking care of a sick child. This includes touching used tissues, toys, and clothes. ? Sneezing, coughing, or blowing your nose. ? Using public transportation. ? Shaking hands. ? Using a phone, including your mobile phone. ? Touching money. ??? Before and after: ? Preparing food. ? Feeding a baby or young child. ? Eating. ? Visiting or taking care of someone who is sick. ? Changing a diaper. ? Changing a bandage (dressing) or taking care of an injury or wound. ? Giving or taking medicine. If soap and clean water are not available, use an alcohol-based wipe, spray, or hand gel. Use a hand-sanitizing agent that contains at least 60% alcohol. If you are preparing food, hand sanitizers are not recommended as a substitute for hand washing. Walker Use To Walk With a Front-Wheeled Walker: 1. Slide your front-wheeled walker one step-length in front of you. Your toes should be farther forward than the back legs of your walker. 2. Hold on to the walker for support, and step your weaker (surgery) leg into the middle of the walker. 3. Step your stronger leg forward to land next to your weaker leg. 4. Repeat the process for each step. ??? Always keep both feet within the width of the walker's legs or wheels. ??? When using your walker, you should not feel like you need to lean forward or to the side to keep your hands on the handgrips. ??? Make sure you are following any weight-bearing instructions that your health care provider has given you. ??? Be careful not to let the walker get too far ahead of you as you walk. ??? If your walker does not glide well over carpet, consider cutting an X into two tennis balls and placing the balls over the back legs of your walker. To Use a Walker to Step Up: 1. Put all four legs of the walker on the curb or step. 2. Get your feet as close to the curb or step as you can. 3. Test the steadiness of the walker by pressing down on the handgrips. 4. If the walker is steady, press down on it with your hands as you step up with your stronger leg. 5. Step up with your weaker leg. To Use a Walker to Step Down: 1. Put all four legs of the walker on the surface that is lower than the curb or step. 2. Get your feet as close to the curb or step as you can. 3. Test the steadiness of the walker by pressing down on the handgrips. 4. If the walker is steady, press down on it with your hands as you step down with your weaker leg. 5. Step down with your stronger leg. Knee Immobilizer Brace: ??? Adjust the brace as often as needed while wearing it. It should be firm but not tight. Signs that the brace is too tight include: ? Puffiness (swelling). ? Numbness. ? Color change in your foot or ankle. ? Increased pain. Peripheral Nerve Block Peripheral nerve block is an injection of numbing medicine (regional anesthetic) near a nerve. The regional anesthetic numbs everything below the injection site. This provides pain relief during and after a medical procedure. Generally, you will be awake while a peripheral nerve block is performed. You also may receive medicines to help you feel relaxed and comfortable during the procedure (sedatives). When you have a peripheral nerve block, you are not exposed to the risks associated with medicine that makes you fall asleep (general anesthetic). You may also: ??? Need less pain medicine after your procedure. ??? Have a lower risk of blood clots. ??? Recover sooner. Tell a health care provider about: ??? Any allergies you have. ??? All medicines you are taking, including vitamins, herbs, eye drops, creams, and zhim-wwf-lurnols medicines. ??? Any problems you or family members have had with anesthetic medicines. ??? Any blood disorders you have. ??? Any surgeries you have. ??? Any medical conditions you have. ??? Whether you are or may be . What are the risks? Generally, this is a safe procedure. However, problems may occur, including: ??? Infection. ??? Bleeding. ??? Allergic reactions to medicines. ??? Damage to other structures or organs, such as temporary or permanent nerve damage. What happens before the procedure? Staying hydrated Follow instructions from your health care provider about hydration, which may include: ??? Up to 2 hours before the procedure ??? you may continue to drink clear liquids, such as water, clear fruit juice, black coffee, and plain tea. Eating and drinking restrictions Follow instructions from your health care provider about eating and drinking, which may include: ??? 8 hours before the procedure ??? stop eating heavy meals or foods such as meat, fried foods, or fatty foods. ??? 6 hours before the procedure ??? stop eating light meals or foods, such as toast or cereal. ??? 6 hours before the procedure ??? stop drinking milk or drinks that contain milk. ??? 2 hours before the procedure ??? stop drinking clear liquids. General instructions ??? Ask your health care provider about: ? Changing or stopping your regular medicines. This is especially important if you are taking diabetes medicines or blood thinners. ? Taking medicines such as aspirin and ibuprofen. These medicines can thin your blood. Do not take these medicines unless your health care provider tells you to take them. ? Taking paby-frs-nceftka medicines, vitamins, herbs, and supplements. ??? Plan to have someone take you home from the hospital or clinic. ??? Plan to have a responsible adult care for you for at least 24 hours after you leave the hospital or clinic. This is important. What happens during the procedure? An IV will be inserted into one of your veins. ??? You may be given a sedative. ??? Your nerve may be located by using: ? Sound waves that create images of the area (ultrasound). ? A device that activates the nerve and causes your muscles to twitch (nerve stimulator). ??? The skin around your injection site will be cleaned with a germ-killing solution. ??? Medicine to numb your injection site (local anesthetic) may be injected into the tissue above your nerve. ??? Regional anesthetic will be injected into the area near your nerve. ? The medicine will be injected around the nerve, not into it. ? You should not feel any pain. The area of your peripheral nerve block will begin to feel warm and numb. ??? A thin, flexible tube (catheter) may be inserted near your nerve. The catheter may remain there to continue delivering the regional anesthetic during and after your medical procedure. ??? When the area of your peripheral nerve block is completely numb, the medical procedure can be performed. ??? Your injection site may be covered with a bandage (dressing) when your medical procedure is done. The procedure may vary among health care providers and hospitals. What can I expect after the procedure? If you do not have a catheter, you may continue to be numb for up to 36 hours. The length of this time depends on how much anesthetic was injected. ??? If you have a catheter, you will continue to be numb until the catheter is removed. ??? To reduce your risk of injury: ? Do not expose the numb area to heat or cold. ? Do not stand up or try to walk without help if you have a nerve block in one or both legs. Get help and limit your activity as told by your health care provider. ??? As the medicine wears off, you will have a gradual return of feeling in the area that is supplied by the nerve. ??? Your blood pressure, heart rate, breathing rate, and blood oxygen level will be monitored until the medicines you were given have worn off. Follow these instructions at home: Activity ??? Do not drive or use heavy machinery until your health care provider approves. ??? Do not lift anything that is heavier than 10 lb (4.5 kg), or the limit that you are told, until your health care provider says that it is safe. Injection site care ??? If you have a dressing, remove it 24 hours after your procedure, or as told by your health care provider. ??? Check your injection site every day for signs of infection. Check for: ? Redness, swelling, or pain. ? Warmth. ? Fluid or blood. ? Pus or a bad smell. General instructions ??? Take gdvb-egp-sswpyuv and prescription medicines only as told by your health care provider. ??? Do not take showers or baths, swim, or use a hot tub until your health care provider approves. ??? Keep all follow-up visits as told by your health care provider. This is important. Contact a health care provider if: ??? You continue to have numbness, weakness, or tingling after your medicine has worn off. ??? You have a fever. ??? You have redness, swelling, or pain around your injection site. Get help right away if: ??? You have trouble breathing. Summary ??? Peripheral nerve block is an injection of numbing medicine (regional anesthetic) near a nerve. This provides pain relief during and after a medical procedure. ??? Feeling will gradually return to the area that is supplied by the nerve. ??? A catheter may be inserted to continue to provide medicine for up to several days. This information is not intended to replace advice given to you by your health care provider. Make sure you discuss any questions you have with your health care provider. Document Revised: 10/21/2019 Document Reviewed: 06/27/2018 [employer] Patient Education ?? 2020 [employer] General Anesthesia, Adult, Care After This sheet gives you information about how to care for yourself after your procedure. Your health care provider may also give you more specific instructions. If you have problems or questions, contact your health care provider. What can I expect after the procedure? After the procedure, the following side effects are common: ??? Pain or discomfort at the IV site. ??? Nausea. ??? Vomiting. ??? Sore throat. ??? Trouble concentrating. ??? Feeling cold or chills. ??? Weak or tired. ??? Sleepiness and fatigue. ??? Soreness and body aches. These side effects can affect parts of the body that were not involved in surgery. Follow these instructions at home: For at least 24 hours after the procedure: ??? Have a responsible adult stay with you. It is important to have someone help care for you until you are awake and alert. ??? Rest as needed. ??? Do not: ? Participate in activities in which you could fall or become injured. ? Drive. ? Use heavy machinery. ? Drink alcohol. ? Take sleeping pills or medicines that cause drowsiness. ? Make important decisions or sign legal documents. ? Take care of children on your own. Eating and drinking ??? Follow any instructions from your health care provider about eating or drinking restrictions. ??? When you feel hungry, start by eating small amounts of foods that are soft and easy to digest (bland), such as toast. Gradually return to your regular diet. ??? Drink enough fluid to keep your urine pale yellow. ??? If you vomit, rehydrate by drinking water, juice, or clear broth. General instructions ??? If you have sleep apnea, surgery and certain medicines can increase your risk for breathing problems. Follow instructions from your health care provider about wearing your sleep device: ? Anytime you are sleeping, including during daytime naps. ? While taking prescription pain medicines, sleeping medicines, or medicines that make you drowsy. ??? Return to your normal activities as told by your health care provider. Ask your health care provider what activities are safe for you. ??? Take vovy-foa-bwwdlrj and prescription medicines only as told by your health care provider. ??? If you smoke, do not smoke without supervision. ??? Keep all follow-up visits as told by your health care provider. This is important. Contact a health care provider if: ??? You have nausea or vomiting that does not get better with medicine. ??? You cannot eat or drink without vomiting. ??? You have pain that does not get better with medicine. ??? You are unable to pass urine. ??? You develop a skin rash. ??? You have a fever. ??? You have redness around your IV site that gets worse. Get help right away if: ??? You have difficulty breathing. ??? You have chest pain. ??? You have blood in your urine or stool, or you vomit blood. Summary ??? After the procedure, it is common to have a sore throat or nausea. It is also common to feel tired. ??? Have a responsible adult stay with you for the first 24 hours after general anesthesia. It is important to have someone help care for you until you are awake and alert. ??? When you feel hungry, start by eating small amounts of foods that are soft and easy to digest (bland), such as toast. Gradually return to your regular diet. ??? Drink enough fluid to keep your urine pale yellow. ??? Return to your normal activities as told by your health care provider. Ask your health care provider what activities are safe for you. This information is not intended to replace advice given to you by your health care provider. Make sure you discuss any questions you have with your health care provider. Document Revised: 09/07/2018 Document Reviewed: 04/20/2018 [employer] Patient Education ?? 2020 [employer] Emergency Awareness and Preventative Care STROKE is an EMERGENCY Every Minute Counts Act FAST and Check for these signs: FACE Does the face look uneven? ARM Does one arm drift down? SPEECH Does their speech sound strange? TIME Call at any sign of stroke Stroke Risk Factors Atrial Fibrillation (irregular heartbeat) Diabetes Family history of stroke Heart Disease Heavy alcohol use High Blood Pressure High Cholesterol Physical inactivity and obesity Smoking Cigarette Smoking The facts are clear, cigarette smoking will shorten your life. Smoking can cause many illnesses along the way. As a healthcare provider, we recommend that you stop smoking. Assistance with quitting is available by contacting 3-353-QPOY-NOW. This is a free resource providing counseling, support, and referral. Or you may contact your personal physician. National Suicide Prevention Lifeline: The National Suicide Prevention Lifeline is a national network of local crisis centers that provides free and confidential emotional support to people in suicidal crisis or emotional distress 24 hours a day, 7 days a week. Don't Wait! Stop a Heart Attack Before it Starts What is a heart attack? A heart attack is damage or to a part of the heart from severely decreased or lack of blood flow to the heart. Over time, arteries can become narrow from the buildup of fat and cholesterol, which is called plaque. The plaque can rupture causing a blood clot to form. When the blood clot forms, the artery can become severely narrowed or completely blocked, causing a heart attack. Heart attack is the leading cause of in the [place]. 85% of muscle damage occurs within the first 2 hours. Delay in the recognition of heart attack symptoms increases the chances of . Know the early symptoms of a heart attack: Nausea Feeling of fullness in chest Jaw Pain Pain that travels down one or both arms Fatigue/being tired Anxiety Back Pain Chest pressure, squeezing, or discomfort Shortness of breath Sweating, or a cold sweat Feeling of impending doom There are unusual signs of a heart attack, too! Women, the elderly, and diabetics may present with atypical symptoms: Fainting/dizziness Weakness Confusion Risk Factors for a Heart Attack Some heart disease risk factors, such as age and family history, cannot be changed. Others, like smoking and lack of exercise, can be changed. Smoking High Cholesterol High Blood Pressure Family History Obesity Age Gender (Males are at higher risk) Lack of Exercise Diabetes Diet Stress Excessive Alcohol Intake If you or someone you know is experiencing the signs and symptoms of a heart attack, DON???T DELAY. Call immediately and seek help. If someone collapses, perform CPR! Do not attempt to drive if you are having symptoms of heart attack. Hands-Only CPR Why Hands-Only CPR? Hands-Only CPR has been shown to be as effective as conventional CPR for cardiac arrests that occur outside of a hospital. Survival depends on immediately receiving CPR from someone nearby. How do you perform Hands-Only CPR? There are two easy steps: Call if you see a teen or adult collapse Push hard and fast in the center of the chest at a beat of 100 beats per minute. Save a life! 4 WAYS TO GET AHEAD OF SEPSIS SEPSIS is a MEDICAL EMERGENCY. Time matters! Infections put you and your family at risk for a life-threatening condition called sepsis. Sepsis is the body's extreme response to an infection. It is life-threatening, and without timely treatment, sepsis can rapidly lead to tissue damage, organ failure, and . Sepsis happens when an infection you already have-in your skin, lungs, urinary tract or somewhere else-triggers a chain reaction throughout your body. 1 PREVENT INFECTIONS Take good care of chronic conditions. Talk to your doctor about getting the recommended vaccines. 2 PRACTICE GOOD HYGIENE Wash your hands frequently. Keep cuts or open sores clean and covered until they are healed. 3 KNOW THE SYMPTOMS Confusion or disorientation Shortness of breath High heart rate Fever, shivering, or feeling very cold Extreme pain or discomfort Clammy or sweaty skin 4 ACT FAST Get medical care IMMEDIATELY if you suspect sepsis or if you have an infection that is not getting better or is getting worse. To learn more about sepsis and how to prevent infections, visit www.cdc.gov/sepsis. Test Results Laboratory or Other Results This Visit (last charted value for your 07/14/2021 visit) Hematology 06/25/2021 2:34 PM WBC: 8.8 K/uL -- Normal range between ( 3.9 and 10.0 ) RBC: 4.56 Million/uL -- Normal range between ( 3.93 and 5.22 ) Hct: 41.8 % -- Normal range between ( 34.1 and 44.9 ) Hgb: 14.0 Gram/dL -- Normal range between ( 11.2 and 15.7 ) Platelet Count: 280 K/uL -- Normal range between ( 163 and 369 ) MCH: 30.7 pg -- Normal range between ( 25.6 and 32.2 ) MCHC: 33.5 Gram/dL -- Normal range between ( 32.3 and 36.5 ) MCV: 91.7 fL -- Normal range between ( 79.0 and 94.8 ) Slide Review: No Eos %: 1.4 % -- Normal range between ( 1.0 and 7.0 ) [place] #: 0.43 K/uL -- Normal range between ( 0.24 and 0.82 ) Eos #: 0.12 K/uL -- Normal range between ( 0.04 and 0.54 ) [place] %: 4.9 % -- Normal range between ( 4.7 and 12.5 ) Baso %: 0.6 % -- Normal range between ( 0.0 and 1.0 ) Baso #: 0.05 K/uL -- Normal range between ( 0.01 and 0.08 ) RDW: 11.6 % -- Normal range between ( 11.6 and 14.4 ) Neut %: 71.0 % -- Normal range between ( 34.0 and 71.0 ) Neut #: 6.28 K/uL -- Normal range between ( 1.56 and 6.13 ) Lymph %: 21.9 % -- Normal range between ( 19.3 and 53.0 ) Lymph #: 1.93 K/uL -- Normal range between ( 1.18 and 3.74 ) MPV: 10.3 fL -- Normal range between ( 9.4 and 12.4 ) IG#: 0 x10(3)/uL IG%: 0 % -- Normal range between ( 0 and 1 ) Urinalysis 07/01/2021 10:45 AM Urine Nitrite: Negative Urine Leukocyte Esterase: Negative Urine Appearance: Clear Urine Glucose Dipstick: Negative Urine Blood Dipstick: Negative Urine Urobilinogen Dipstick: 0.2 EU/dL -- Normal range between ( 0.2 and 1.0 ) Urine Protein Dipstick: Negative Urine Color: Yellow Urine Ketones Dipstick: Negative Urine pH Dipstick: 5.5 -- Normal range between ( 6.0 and 8.0 ) Urine Bilirubin Dipstick: Negative Urine Specific [place]: 1.009 -- Normal range between ( 1.005 and 1.030 ) Urine Type.: U CleanCatch Urine Culture if Indicated: Not Indicated Microbiology 07/12/2021 1:53 PM SARS-CoV-2 (COVID19 PCR): Negative General Chemistry 06/25/2021 2:34 PM Creatinine Level: 1.01 mg/dL -- Normal range between ( 0.55 and 1.02 ) Sodium Level: 139 mmol/L -- Normal range between ( 136 and 146 ) Potassium Level: 5.1 mmol/L -- Normal range between ( 3.5 and 5.1 ) Chloride Level: 102 mmol/L -- Normal range between ( 102 and 112 ) Carbon Dioxide Level: 32 mmol/L -- Normal range between ( 21 and 32 ) Anion Gap: 10 -- Normal range between ( 9 and 20 ) Bilirubin Total: 0.2 mg/dL -- Normal range between ( 0.2 and 1.3 ) Hgb A1C: 5.30 % -- Normal range between ( 4.20 and 6.30 ) A/G Ratio: 0.9 -- Normal range between ( 1.1 and 2.5 ) ALT: 24 Units/Liter -- Normal range between ( 12 and 78 ) AST: 18 Units/Liter -- Normal range between ( 5 and 37 ) Globulin: 4.1 Gram/dL -- Normal range between ( 1.5 and 4.5 ) Alk Phos: 74 Units/Liter -- Normal range between ( 27 and 136 ) eAVG Glucose: 105 mg/dL Bun/Creatinine: 13.9 -- Normal range between ( 8.0 and 20.0 ) Calcium Level: 9.6 mg/dL -- Normal range between ( 8.5 and 10.1 ) eGFR : >60 mL/min/1.73m2 eGFR NonAfrican: 54 mL/min/1.73m2 Glucose Level: 127 mg/dL -- Normal range between ( 74 and 106 ) Blood Urea Nitrogen: 14 mg/dL -- Normal range between ( 7 and 22 ) Protein Total: 7.8 Gram/dL -- Normal range between ( 6.4 and 8.2 ) Albumin Level: 3.7 Gram/dL -- Normal range between ( 3.4 and 5.0 ) Patient Name:ANTONIA OCONNELL I have received this information and was given the opportunity to ask questions. Patient/Motor Tester Name: Patient/Motor Tester Signature: Relationship to Patient: Clinician/Hospital Motor Tester Signature: Date: Electronically signed by Verenice, [facility] Conversion Quality Analyst Darion at 01/03/2023 9:21 PM CDT documented in this encounter Plan of Treatment Not on file documented as of this encounter Visit Diagnoses Not on filedocumented in this encounter
--- OUTSIDE RECORDS SUMMARY | 2025-06-10 10:16 | XMS_ITS | Encounter Summary ---
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 Name Role Phone Unavailable Primary Care Provider Unavailabl e Encounter Details Date Type Department Care Team (Late st Contact Info) Description 04/01/2021 Transcribed Document [facility] [place] [facility] [place] [address] ProviderMicky MD [address] [place] [address] [phone] Social History Tobacco Use Types Packs/Day Years Used Date Smoking Tobacco: Never Assessed Comments Unknown Sex and Gender Information Value Date Recorded Sex Assigned at Female 03/15/2022 8:51 PM CDT Legal Sex Female 8:51 PM CDT Gender Identity Female 03/15/2022 8:51 PM CDT Sexual Orientation Not on file documented as of this encounter Miscellaneous Notes * Cerner Conversion Note - Historical ProviderMD - 04/01/2021 11:00 AM CDT Patient: ANTONIA OCONNELL Age: 71 Years Sex: Female : 1950 Chief Complaint Right Knee Pain Primary Care Provider ESTELA, NOT LISTED History of Present Illness This patient is a pleasant 71 yo WF who presents with right knee pain. The pain has been going on for 5 years but has gotten progressively worse. She describes it as a sharp pain. It is now to the point that it is affecting her ADLs. She has tried NSAIDs and injections without relief of her pain. She has fallen. She has not used an assistive device. She was seen at Dr Reynsoo's office and evaluated and it was determined that she has severe DJD affecting the right knee. Pt was offered a Right Total Knee Arthroplasty and agreed to the procedure. Pt denies a h/o DVT/PE. No trouble with anesthesia in the past. No respiratory conditions including COPD/PETAR/asthma. Review of Systems Constitutional: Neg for fevers or chills. Eyes: Neg for blurry vision or change in vision. ENT: Neg for sore throat, ear pain, or dizziness. Cardiac: Neg for chest pain or dyspnea on exertion. Respiratory: Neg for shortness of breath. Gastrointestinal: Neg for nausea, vomiting, diarrhea, or constipation. Musculoskeletal: Pos for right knee pain. Neurologic: Neg for headaches or seizures. Psychiatric: Neg for anxiety and depression. Integumentary: Neg for rash. Vital Signs T: 36.7 ??C HR: 70(Peripheral) RR: 16 BP: 170/80 SpO2: 97% HT: 162.56 cm WT: 65.91 kg BMI: 24.9 Oxygen Settings (Last) Oxygen Therapy Mode: Room air (04/01/21 11:34:00) Physical Exam Constitutional: This is a pleasant 71 yo WF in no acute distress. HEENT: Normocephalic, atraumatic. PEERLA. Extraocular muscles intact. Conjunctiva pink without exudate. Oropharynx pink and moist. Neck supple. No JVD. Cardiac: SI, S2. RRR. No M/R/G. Respiratory: Lungs CTA bilaterally. No wheezes, rales, or rhonchi. Abdomen: Soft, nontender, nondistended. Active bowel sounds. No visible masses. Musculoskeletal: Bilateral LE without clubbing, cyanosis or edema. Integumentary: Skin is pink, warm and dry. No rashes. Neurologic: CN II-XII grossly intact. Psychiatric: Judgment and affect appropriate. Assessment/Plan 1. Preoperative Evaluation- Pt underwent preoperative laboratory workup and diagnostic studies. 2. Right Knee Pain secondary to DJD- Proceed with surgery as scheduled with Dr Reynoso on 04/14/2021. 3. Hypertension- Continue Losartan. 4. Hyperlipidemia- Continue Rosuvastatin. 5. HRT- Pt advised to hold HRT 7 days prior to surgery. 6. GERD- Continue Famotidine. BASED ON THIS INFORMATION, I FEEL THAT THIS PATIENT SHOULD REQUIRE OUTPATIENT HOSPITALIZATION UNLESS DEEMED OTHERWISE APPROPRIATE BY THE ORTHOPEDIC SURGEON GIVEN THE COMPLEXITY OF THE OPERATION. THIS PATIENT WILL BE A GREAT FAST TRACK CANDIDATE. Problem List/Past Medical History Ongoing At risk for sleep apnea GERD (gastroesophageal reflux disease) High cholesterol Hormone replacement therapy Hypertension Mitral valve regurgitation Osteoarthritis Psoriasis PVC's (premature ventricular contractions) occasionally Rosacea Vitamin D deficiency Procedure/Surgical History bladder repair, Colonoscopy, Hysterectomy, Tonsillectomy, Tubal ligation. Home Medications (14) Active Calcium, Magnesium and Zinc oral tablet 1 Tab, Oral, Daily celecoxib 200 mg, Oral, Daily CoQ10 300 mg, Oral, Daily diclofenac sodium 1% topical cream 1 Application, Topical, Daily doxycycline 40 mg, Oral, Daily famotidine 40 mg, Oral, Daily losartan 50 mg, Oral, Daily metroNIDAZOLE 0.75% topical cream 1 Application, Topical, BID Premarin 0.625 mg, Oral, Daily rosuvastatin 10 mg, Oral, Daily triamcinolone 0.1% topical cream 1 Application, Topical, BID Vitamin B Complex 100 1 Tab, Oral, Daily Vitamin C 1,000 mg, Oral, Daily Vitamin D3 2,000 mg, Oral, Daily Allergies Mangos No Known Medication Allergies Social History Alcohol Alcohol Use History Yes. Use in Last 12 Months: No. Substance Abuse Drug Use Hx: No. Use in Last 12 Months: No. Tobacco Never (less than 100 in lifetime) Smoking Status. Never Smokeless Tobacco Status. Family History Pt mother is alive with a h/o RA. Pt father is alive with Pancreatic Cancer. Diagnostic Results EKG- NSR, 67 CXR- NAD Lab Results Test Name Test Result Date/Time Sodium Level 140 mmol/L 04/01/2021 11:26 EDT Potassium Level 4.0 mmol/L 04/01/2021 11:26 EDT Chloride Level 104 mmol/L 04/01/2021 11:26 EDT Carbon Dioxide Level 28 mmol/L 04/01/2021 11:26 EDT Anion Gap 12 04/01/2021 11:26 EDT Glucose Level 91 mg/dL 04/01/2021 11:26 EDT Blood Urea Nitrogen 13 mg/dL 04/01/2021 11:26 EDT Creatinine Level 0.69 mg/dL 04/01/2021 11:26 EDT eGFR >60 mL/min/1.73m2 04/01/2021 11:26 EDT eGFR NonAfrican >60 mL/min/1.73m2 04/01/2021 11:26 EDT Bun/Creatinine 18.8 04/01/2021 11:26 EDT Calcium Level 9.2 mg/dL 04/01/2021 11:26 EDT Protein Total 7.5 Gram/dL 04/01/2021 11:26 EDT Albumin Level 4.0 Gram/dL 04/01/2021 11:26 EDT Globulin 3.5 Gram/dL 04/01/2021 11:26 EDT A/G Ratio 1.1 04/01/2021 11:26 EDT Bilirubin Total 0.4 mg/dL 04/01/2021 11:26 EDT Alk Phos 64 Units/Liter 04/01/2021 11:26 EDT AST 12 Units/Liter 04/01/2021 11:26 EDT ALT 26 Units/Liter 04/01/2021 11:26 EDT WBC 8.3 K/uL 04/01/2021 11:26 EDT RBC 4.53 Million/uL 04/01/2021 11:26 EDT Hgb 14.0 Gram/dL 04/01/2021 11:26 EDT Hct 41.6 % 04/01/2021 11:26 EDT MCV 91.8 fL 04/01/2021 11:26 EDT MCH 30.9 pg 04/01/2021 11:26 EDT MCHC 33.7 Gram/dL 04/01/2021 11:26 EDT Platelet Count 251 K/uL 04/01/2021 11:26 EDT MPV 10.4 fL 04/01/2021 11:26 EDT RDW 11.8 % 04/01/2021 11:26 EDT Neut % 72.5 % (High) 04/01/2021 11:26 EDT Neut # 6.00 K/uL 04/01/2021 11:26 EDT Lymph % 20.1 % 04/01/2021 11:26 EDT Lymph # 1.66 K/uL 04/01/2021 11:26 EDT [place] % 5.6 % 04/01/2021 11:26 EDT [place] # 0.46 K/uL 04/01/2021 11:26 EDT Eos % 0.8 % (Low) 04/01/2021 11:26 EDT Eos # 0.07 K/uL 04/01/2021 11:26 EDT Baso % 0.6 % 04/01/2021 11:26 EDT Baso # 0.05 K/uL 04/01/2021 11:26 EDT Slide Review No 04/01/2021 11:26 EDT IG# 0 x10(3)/uL 04/01/2021 11:26 EDT IG% 0 % 04/01/2021 11:26 EDT Urine Type. U CleanCatch 04/01/2021 11:26 EDT Urine Color YELLOW2 04/01/2021 11:26 EDT Urine Appearance CLOUDY2 (Abnormal) 04/01/2021 11:26 EDT Urine Specific [place] 1.023 04/01/2021 11:26 EDT Urine pH Dipstick 5.5 (Low) 04/01/2021 11:26 EDT Urine Leukocyte Esterase TRACE2 (Abnormal) 04/01/2021 11:26 EDT Urine Nitrite NEGATIVE2 04/01/2021 11:26 EDT Urine Protein Dipstick NEGATIVE2 04/01/2021 11:26 EDT Urine Glucose Dipstick NEGATIVE2 04/01/2021 11:26 EDT Urine Ketones Dipstick NEGATIVE2 04/01/2021 11:26 EDT Urine Urobilinogen Dipstick 0.2 04/01/2021 11:26 EDT Urine Bilirubin Dipstick NEGATIVE2 04/01/2021 11:26 EDT Urine Blood Dipstick TRACE2 (Abnormal) 04/01/2021 11:26 EDT Ur RBC 0-2 (Abnormal) 04/01/2021 11:26 EDT Ur WBC 5-10 (Abnormal) 04/01/2021 11:26 EDT Ur Bacteria 1+ (Abnormal) 04/01/2021 11:26 EDT Ur Squamous Epithelial Cells 10-20 (Abnormal) 04/01/2021 11:26 EDT Urine Culture if Indicated Not Indicated 04/01/2021 11:26 EDT A1C- 5.5 documented in this encounter Plan of Treatment Not on file documented as of this encounter Visit Diagnoses Not on filedocumented in this encounter
--- OUTSIDE RECORDS SUMMARY | 2025-06-10 10:16 | XMS_ITS | Encounter Summary ---
Author Organization [employer] ([place], [place], [place], [place]) Address [address] [facility] [place] [place] [address] Care Team Providers Care Hearing Impaired Itinerant Teacher Name Role Phone Unavailable Primary Care Provider Unavailabl e Encounter Details Date Type Department Care Team (Late st Contact Info) Description 04/01/2021 Transcribed Document [facility] [place] Medicine [facility] [place] [address] ProviderMicky MD [address] [place] [phone] Social History Tobacco Use Types Packs/Day Years [...] Conversion Note - Historical ProviderMD - 04/01/2021 11:34 AM CDT PAT Adult Entered On: 04/01/2021 11:38 EDT Performed On: 04/01/2021 11:34 EDT by Olimpia Tapia Rn Vital Measurements Temperature Source : Temporal artery scanning Temperature Mode : Fahrenheit Temperature, Fahrenheit : 98.1 Deg F Clinical Temperature, C : 36.7 Deg C Peripheral Pulse Rate : 70 bpm Respiratory Rate : 16 Breaths/Min Systolic Blood Pressure : 170 mmHg (HI) Diastolic Blood Pressure : 80 mmHg Oxygen Saturation : 97 % Oxygen Therapy Mode : Room air Olimpia Tapia Rn - 04/01/2021 11:34 EDT Height and Weight, Clinical Dosing Height Source : Stated Height Entry Format : Mayes Height, Feet : 5 ft(Converted to: 152 cm, 60 Inch) Height, Inches : 4 Inch(Converted to: 0 ft 4 Inch, 10.16 cm) Clinical Height : 162.56 cm Weight Source : Standing scale Weight Entry Format : Mayes Clinical Dosing Weight : 65.91 kg Weight, Pounds : 145 lb Body Surface Area (BSA) : 1.71 m2 Body Mass Index : 24.9 kg/m2 (HI) [place] Body Weight : 54 kg Olimpia Tapia Rn - 04/01/2021 11:34 EDT Health Histories Smoking Status : Never (less than 100 in lifetime; none in last 30 days) Smokeless Tobacco Status : Never Olimpia Tapia Rn - 04/01/2021 11:34 EDT Social History (As Of: 04/01/2021 11:38:35 EDT) Tobacco: Never (less than 100 in lifetime) Smoking Status. Never Smokeless Tobacco Status. (Last Updated: 04/01/2021 11:33:40 EDT by Olimpia Tapia Rn) Alcohol: Alcohol Use History Yes. Use in Last 12 Months: No. (Last Updated: 04/01/2021 11:33:51 EDT by Olimpia Tapia Rn) Substance Abuse: Drug Use Hx: No. Use in Last 12 Months: No. (Last Updated: 04/01/2021 11:33:57 EDT by Olimpia Tapia, Rn) Infectious Disease History Has the patient ever been tested for COVID-19? : Yes, Patient stated results Negative Date of COVID-19 test known? : No Does patient have symptoms of COVID-19? : No COVID19 Screening : No Experiencing Infectious Disease Symptoms : No symptoms Physical contact outside [place] in the last 30 days : No Infectious Disease History : Chicken pox/Shingles, Herpes, Influenza, Measles, Mumps, Rubella, Scarlet fever Tuberculosis Symptoms : None Olimpia Tapia Rn - 04/01/2021 11:34 EDT COVID19 PreProcedure Screening Is this an Emergent or Add on Procedure? : No Date PreProcedure COVID-19 test known? : No Has patient been isolated since the test : N/A - PreProcedure, in-person visit Exposed to COVID19 symptoms since test? : N/A - PreProcedure, in-person visit Olimpia Tapia Rn - 04/01/2021 11:34 EDT Anesthesia/Transfusion History Family History of Anesthesia Reaction : No prior transfusion(s) Transfusion History : Prior anesthesia without reaction Family History of Anesthesia Reaction : Other: mother hard to wake up Olimpia Tapia Rn - 04/01/2021 11:34 EDT Advance Directive Patient has Advance Directive *Q : Yes, Advance Directive not with the patient Advance Directive Type : Living will Copy Advance Directive Verified/on Chart : No Olimpia Tapia Rn - 04/01/2021 11:34 EDT [place] Suicide Severity Rating Scale (C-SSRS) CSSRS Past Month Wish to be : No CSSRS Past Month Suicidal Thoughts : No CSSRS Lifetime Suicide Behavior : No Suicide Severity Rating Score : 0 Suicide Severity Rating : No Additional Care Required at this time Olimpia Tapia Rn - 04/01/2021 11:34 EDT Psychosocial History Do You Have a History of the Following? : Patient denies history Currently in Unsafe Situation : No Olimpia Tapia Rn - 04/01/2021 11:34 EDT Teaching/Learning Assessment Barriers To Learning : None evident Individuals Taught : Patient Readiness to Learn : Cooperative Readiness to Learn : Explanation, Printed materials Learning Style Preferences Patient : Printed materials, Verbal explanation Olimpia Tapia Rn - 04/01/2021 11:34 EDT Education Topics, Periop Preadmission Perioperative Education Grid Arrival Time/Place : Verbalizes understanding CHG Preoperative Bathing/Cloths : Verbalizes understanding NPO Status/Directions : Verbalizes understanding Preprocedure Preparations : Verbalizes understanding Preprocedure Tests/Labs : Verbalizes understanding Responsible Adult : Verbalizes understanding Take/Hold Medications Pre-Procedure : Verbalizes understanding Olimpia Tapia Rn - 04/01/2021 11:34 EDT General Info Arrived From : Home Mode of Arrival on Unit : Ambulatory Legal Guardian : Unaccompanied Want Family/Rep/Phys Notified of Admit : No Emergency Contact #1 : Junior Emergency Contact #1 Emergency Contact #1 Relationship : Emergency Contact #2 : . Emergency Contact #2 Phone Number : . Emergency Contact #2 Relationship : . Information Obtained From : Patient Primary Language : Gibraltarian Preferred Communication Mode : Verbal Communication Barrier : None Medical Biller/Coder Needed : No Olimpia Tapia Rn - 04/01/2021 11:34 EDT Aaron Scale Aaron Sensory Perception : No impairment Aaron Moisture : Rarely moist Aaron Activity : Walks frequently Aaron Mobility : Slightly limited Aaron Nutrition : Adequate Aaron Friction and Shear : No apparent problem Aaron Score : 21 Olimpia Tapia Rn - 04/01/2021 11:34 EDT Sleep Apnea Risk Assmt Hx of [...] Sleep Apnea Risk Level Score : 2 Olimpia Tapia Rn - 04/01/2021 11:34 EDT documented in this encounter Plan of Treatment Not on file documented as of this encounter Visit Diagnoses Not on filedocumented in this encounter
--- OUTSIDE RECORDS SUMMARY | 2025-06-10 10:16 | XMS_ITS | Encounter Summary ---
Author Organization [employer] ([place], [place], [place], [place]) Address [address] [place] [address] Care Team Providers Care Custom Feed Corn Operator Name Role Phone Unavailable Primary Care Provider Unavailabl e Encounter Details Date Type Department Care Team (Late st Contact Info) Description 07/14/2021 Transcribed Document [facility] [place] [address] [place] [address] ProviderMicky MD [address] [place], [place] [phone] Social History Tobacco Use Types Packs/Day Years [...] Conversion Note - Historical ProviderMD - 07/14/2021 9:35 AM CDT [facility] Main OR PreOp Summary Primary Physician: MARGO MAZA JR, JR, MD-ORT Finalized Date/Time: 07/14/21 10:15:32 Pt. Name: ANTONIA OCONNELL /Sex: 1950 Female Med Rec #: [id number] Physician: MARGO MAZA JR, JR, MD-ORT Financial #: [id number] Pt. Type: O Room/Bed: Admit/Disch: 07/14/21 04:19:00 - [place] [facility] [place] Case Times Entry 1 In Preop 07/14/21 07:00:00 Ready for Holding n/a Room Patient Ready for 07/14/21 08:03:00 Surgery Patient Out of Preop 07/14/21 09:51:00 Patient Out of 07/14/21 09:51:00 Holding Room Last Modified By: AMINTA HALL RN 07/14/21 10:15:30 [facility] PreOp Case Times Audit 07/14/21 10:15:30 Roguer: NEFTALI Modifier: NEFTALI <+> 1 Patient Out of Preop <+> 1 Patient Out of Holding Room Finalized By: AMINTA HALL, RN Document Signatures Signed By: AMINTA HALL RN 07/14/21 10:15 documented in this encounter Plan of Treatment Not on file documented as of this encounter Visit Diagnoses Not on filedocumented in this encounter
--- OUTSIDE RECORDS SUMMARY | 2025-06-10 10:16 | XMS_ITS | Encounter Summary ---
Author Organization [employer] ([place], [place], [place], [place]) Address [address] [place] [address] Care Team Providers Care Animal Scientist Name Role Phone Unavailable Primary Care Provider Unavailabl e Encounter Details Date Type Department Care Team (Late st Contact Info) Description 04/01/2021 Transcribed Document [facility] [place] Family Medicine [address] [place] [address] ProviderMicky MD [address] [place], [place] [id number] Social History Tobacco Use Types Packs/Day Years [...] Conversion Note - Historical ProviderMD - 04/01/2021 11:14 AM CDT Meds to Bed Enrollment Entered On: 04/01/2021 11:14 EDT Performed On: 04/01/2021 11:14 EDT by Olimpia Tapia Rn Meds to Bed Enrollment Patient Enrollment Decision: : Yes/enroll in meds to bed program Olimpia Tapia Rn - 04/01/2021 11:14 EDT Electronically signed by Delmis Caldera Conversion Administrative Services Specialist Darion at 01/03/2023 9:21 PM CDT documented in this encounter Plan of Treatment Not on file documented as of this encounter Visit Diagnoses Not on filedocumented in this encounter
--- OUTSIDE RECORDS SUMMARY | 2025-06-10 10:16 | XMS_ITS | Encounter Summary ---
Author Organization [employer] ([place], [place], [place], [place]) Address [address] [place] [address] Care Team Providers Care Boiler Cleaner Name Role Phone Unavailable Primary Care Provider Unavailabl e Encounter Details Date Type Department Care Team (Late st Contact Info) Description 07/14/2021 Transcribed Document [facility] [place] Family Medicine [address] [place] [address] ProviderMicky MD [address] [place], [place] [phone] Social History Tobacco Use Types Packs/Day Years [...] Conversion Note - Historical ProviderMD - 07/14/2021 5:17 PM CDT Event Note Entered On: 07/14/2021 17:18 EDT Performed On: 07/14/2021 17:17 EDT by Emeli Ibarra RN Event Note Event Date/Time : 07/14/2021 17:17 EDT Description of Event : pt ambualting and was able to void Emeli Ibarra RN - 07/14/2021 17:17 EDT documented in this encounter Plan of Treatment Not on file documented as of this encounter Visit Diagnoses Not on filedocumented in this encounter
--- OUTSIDE RECORDS SUMMARY | 2025-06-10 10:16 | XMS_ITS | Clinical Summary ---
Author Organization [employer] ([place], [place], [place], [place]) Address [address] [place] [address] Care Team Providers Care Jet Man Name Role Phone Unavailable Primary Care Provider Unavailabl e Social History Tobacco Use Types Packs/Day Years Used Date Smoking Tobacco: Never Assessed Comments Unknown Sex and Gender Information Value Date Recorded Sex Assigned at Female 03/15/2022 8:51 PM CDT Legal Sex Female 8:51 PM CDT Gender Identity Female 03/15/2022 8:51 PM CDT Sexual Orientation Not on file Plan of Treatment Not on file
--- OUTSIDE RECORDS SUMMARY | 2025-06-10 10:16 | XMS_ITS | Encounter Summary ---
Author Organization [employer] ([place], [place], [place], [place]) Address [address] [place] [address] Care Team Providers Care Online Merchandising Coordinator Name Role Phone Unavailable Primary Care Provider Unavailabl e Encounter Details Date Type Department Care Team (Late st Contact Info) Description 07/14/2021 Transcribed Document [facility] [place] Medicine [facility] [place] [address] ProviderMicky MD [address] [place] [phone] Social History Tobacco Use Types Packs/Day Years [...] Conversion Note - Micky ProviderMD - 07/14/2021 9:00 AM CDT Time Out Documentation Entered On: 07/14/2021 9:02 EDT Performed On: 07/14/2021 9:00 EDT by AMINTA HALL RN Time Out Documentation Procedure to be Performed : left adductor canal block with catheter Time Out Pause Time : 07/14/2021 9:02 EDT All Activity Suspended : Yes Team Verbally Confirms Information : Correct patient identity, Correct side and site are marked, Consent form is present and accurate, Agreement on the procedure to be done, Correct patient position, Confirm the skin prep has dried, Performed in location of procedure after prepped/draped AMINTA HALL RN - 07/14/2021 9:00 EDT Electronically signed by [facility] Conversion Fashion Intern Cerner at 01/03/2023 9:19 PM CDT documented in this encounter Plan of Treatment Not on file documented as of this encounter Visit Diagnoses Not on filedocumented in this encounter
--- OUTSIDE RECORDS SUMMARY | 2025-06-10 10:16 | XMS_ITS | Encounter Summary ---
Author Organization [employer] ([place], [place], [place], [place]) Address [address] [place] [address] Care Team Providers Care Robot Operator Name Role Phone Unavailable Primary Care Provider Unavailabl e Encounter Details Date Type Department Care Team (Late st Contact Info) Description 07/14/2021 Transcribed Document [facility] [place] Family Medicine [facility] [place] [address] ProviderMicky MD [address] [place], [place] [phone] Social History Tobacco Use Types Packs/Day Years [...] Conversion Note - Micky ProviderMD - 07/14/2021 1:19 PM CDT Patient Education Materials Follows: What to expect after the Procedure: After the procedure, it is common to have: ?? Pain and swelling. ?? A small amount of blood or clear fluid coming from your incision for up to 7 days. Diet: ?? Resume usual diet ?? No alcoholic beverages while taking pain medication ?? Drink 8-10 glasses of water a day to prevent constipation from pain medication ?? Increase fiber to help prevent constipation. Straining can cause increased pressure and pain in your incision area ?? Increase protein to promote healing Driving: ?? Do not drive until your health care provider approves. Ask your health care provider when it is safe to drive if you have an immobilizer on your knee. ?? Do not drive or operate heavy machinery while taking prescription pain medicine. ?? Do not drive for 24 hours if you received a sedative. Activity: ?? Do not lift anything that is heavier than 10 lb (4.5 kg) until your health care provider approves. ?? No strenuous activity ?? Avoid high-impact activities, including running, jumping rope, and jumping jacks. ?? Avoid sitting for a long time without moving. Get up and move around at least every few hours. ?? Keep legs elevated while seated and place surgery leg on 2-3 pillows, this will decrease swelling ?? Continue doing blue foam and padilla basin ???tub time?? 3 times a day for 30 minutes at a time. More often is better. ?? Continue using walker until cleared by physical therapy Bathing: ?? Do not take baths, swim, or use a hot tub for one month after surgery. ?? May shower on the third day after surgery by covering incision with Glad Brand Press and Seal saran wrap. After showering, dry off completely BEFORE removing saran wrap. ?? Use Press and Seal saran wrap to shower for one month after surgery ?? You must be seated to shower until you are no longer using the walker Other: ?? Use ice therapy CONTINUOUSLY X 48 HOURS, THEN USE for 20-30 minutes at a time and leave off for 20-30 minutes at a time. Always keep a towel or cloth between the ice pack and your skin ?? Continue to use Incentive Spirometer 10 times an hour while awake for one month to help prevent pneumonia ?? Leave Mepilex on 14 DAYS. ?? ASA 81mg twice a day for 45 days. Contact a health care provider if: ?? You have more redness, swelling, or pain around your incision. ?? You have more fluid or blood coming from your incision. ?? Your incision or drain site feels warm to the touch. ?? You have pus or a bad smell coming from your incision. ?? You have a fever. ?? Your incision breaks open after your health care provider removes your sutures, skin glue, or adhesive tape. ?? Your prosthesis feels loose. ?? You have knee pain that does not go away Get help right away if you have: ?? Pain or swelling in your calf or thigh ?? shortness of breath or difficulty breathing ?? chest pain DVT: Blood Clot Blood clots are a common risk after an orthopedic surgery Symptoms: ?? Swelling of your leg or arm, especially if one side is much worse. ?? Warmth and redness of your leg or arm, especially if one side is much worse. ?? Pain in your arm or leg. If the clot is in your leg, symptoms may be more noticeable or worse when you stand or walk. ?? A feeling of pins and needles, if the clot is in the arm. The symptoms of a DVT that has traveled to the lungs (pulmonary embolism, PE) usually start suddenly and include: ?? Shortness of breath while active or at rest. ?? Coughing or coughing up blood or blood-tinged mucus. ?? Chest pain that is often worse with deep breaths. ?? Rapid or irregular heartbeat. ?? Feeling light-headed or dizzy. ?? Fainting. ?? Feeling anxious. ?? Sweating. There may also be pain and swelling in a leg if that is where the blood clot started. How is this prevented? ?? Exercise regularly. For at least 30 minutes every day, engage in: ? Activity that involves moving your arms and legs. ? Activity that encourages good blood flow through your body by increasing your heart rate. ?? Exercise your arms and legs every hour during long-distance travel (over 4 hours). ?? Drink plenty of water and avoid drinking alcohol while traveling. ?? Avoid sitting or lying in bed for long periods of time without moving your legs. ?? Maintain a weight that is appropriate for your height. Ask your health care provider what weight is healthy for you. ?? If you are a woman who is over 35 years of age, avoid unnecessary use of medicines that contain estrogen. These include control pills. ?? Do not smoke, especially if you take estrogen medicines. If you need help quitting, ask your health care provider. ?? Wear compression stockings (if told by your health care provider) to help prevent blood clots from forming. High Fiber/High Protein Diet High fiber foods: To prevent constipation ?? Grains Whole-grain breads. Multigrain cereal. Oats and oatmeal. Brown rice. Barley. Bulgur wheat. Millet. Bran muffins. Popcorn. [place]ometown wafer crackers. ?? Vegetables Sweet potatoes. Spinach. Kale. Artichokes. Cabbage. Broccoli. Green peas. Carrots. Squash. ?? Fruits Berries. Pears. Apples. Oranges. Avocados. Prunes and raisins. Dried figs. ?? Meats and Other Protein Sources [place], kidney, hallman, and soy beans. Split peas. Lentils. Nuts and seeds. ?? Dairy Fiber-fortified yogurt. ?? Beverages Fiber-fortified soy milk. Fiber-fortified orange juice. ?? Other Fiber bars. High-protein foods: To promote healing High-protein foods contain 4 grams (4 g) or more of protein per serving. They include: ?? Beef, ground sirloin (cooked) ??? 3 oz have 24 g of protein. ?? Cheese (hard) ??? 1 oz has 7 g of protein. ?? Chicken breast, boneless and skinless (cooked) ??? 3 oz have 13.4 g of protein. ?? Cottage cheese ??? 1/2 cup has 13.4 g of protein. ?? Egg ??? 1 egg has 6 g of protein. ?? Fish, filet (cooked) ??? 1 oz has 6???7 g of protein. ?? Garbanzo beans (canned or cooked) ??? 1/2 cup has 6???7 g of protein. ?? Kidney beans (canned or cooked) ??? 1/2 cup has 6???7 g of protein. ?? Loco (cooked) ??? 3 oz has 24 g of protein. ?? Milk ??? 1 cup (8 oz) has 8 g of protein. ?? Nuts (peanuts, pistachios, almonds) ??? 1 oz has 6 g of protein. ?? Peanut butter ??? 1 oz has 7???8 g of protein. ?? Pork tenderloin (cooked) ??? 3 oz has 18.4 g of protein. ?? Pumpkin seeds ??? 1 oz has 8.5 g of protein. ?? Soybeans (roasted) ??? 1 oz has 8 g of protein. ?? Soybeans (cooked) ??? 1/2 cup has 11 g of protein. ?? Soy milk ??? 1 cup (8 oz) has 5???10 g of protein. ?? Soy or vegetable pollo ??? 1 pollo has 11 g of protein. ?? [place] seeds ??? 1 oz has 5.5 g of protein. ?? Tofu (firm) ??? 1/2 cup has 20 g of protein. ?? Tuna (canned in water) ??? 3 oz has 20 g of protein. ?? Yogurt ??? 6 oz has 8 g of protein. Fall Prevention ?? Use night lights. ?? Install grab bars by the toilet and in the tub and shower. Do not use towel bars as grab bars. ?? Use non-skid mats or decals on the floor of the tub or shower. ?? If you need to sit down while you are in the shower, use a plastic, non-slip stool. ?? Keep the floor dry. Immediately clean up any water that spills on the floor. ?? Remove soap buildup in the tub or shower on a regular basis. ?? Remove throw rugs and other tripping hazards from the floor. ?? Place frequently used items in vxcl-kz-zrqhh places ?? Keep electrical cables out of the way. ?? Do not leave any items on the stairs. ?? Make sure that there are handrails on both sides of the stairs. Fix handrails that are broken or loose. Make sure that handrails are as long as the stairways. ?? Check any carpeting to make sure that it is firmly attached to the stairs. Fix any carpet that is loose or worn. ?? Avoid having throw rugs at the top or bottom of stairways, or secure the rugs with carpet tape to prevent them from moving. ?? Wear closed-toe shoes that fit well and support your feet. Wear shoes that have rubber soles or low heels. ?? Use mobility aids as needed, such as canes, walkers, scooters, and crutches. ?? Turn on lights if it is dark. Replace any light bulbs that burn out. ?? Set up furniture so that there are clear paths. Keep the furniture in the same spot. ?? Be aware of any and all pets. ?? Review your medicines with your healthcare provider. Some medicines can cause dizziness or changes in blood pressure, which increase your risk of falling. Hand Washing You should wash your hands whenever you think they are dirty. You should also wash your hands: ?? After: ? Working or playing outside. ? Touching an animal or its toys or leash. ? Handling livestock. ? Using the bathroom. ? Using household area forester or toxic chemicals. ? Touching or taking out the garbage. ? Touching anything dirty around your home. ? Handling soiled clothes or rags. ? Taking care of a sick child. This includes touching used tissues, toys, and clothes. ? Sneezing, coughing, or blowing your nose. ? Using public transportation. ? Shaking hands. ? Using a phone, including your mobile phone. ? Touching money. ?? Before and after: ? Preparing food. ? [...] 4. Repeat the process for each step. ?? Always keep both feet within the width of the walker's legs or wheels. ?? When using your walker, you should not feel like you need to lean forward or to the side to keep your hands on the handgrips. ?? Make sure you are following any weight-bearing instructions that your health care provider has given you. ?? Be careful not to let the walker get too far ahead of you as you walk. ?? If your walker does not glide well [...] with your stronger leg. Knee Immobilizer Brace: ?? Adjust the brace as often as needed while wearing it. It should be firm but not tight. Signs that the brace is too tight include: ? Puffiness (swelling). ? Numbness. ? Color change in your foot or ankle. ? Increased pain. Pharmacology Peripheral Nerve Block Peripheral nerve block is [...] including vitamins, herbs, eye drops, creams, and zfij-raw-tldslva medicines. ??? Any problems you or family [...] Up to 2 hours before the procedure ? you may continue to drink clear liquids, such as water, clear fruit juice, black coffee, and plain tea. Eating and drinking restrictions Follow instructions from your health care provider about eating and drinking, which may include: ??? 8 hours before the procedure ? stop eating heavy meals or foods such as meat, fried foods, or fatty foods. ??? 6 hours before the procedure ? stop eating light meals or foods, such as toast or cereal. ??? 6 hours before the procedure ? stop drinking milk or drinks that contain milk. ??? 2 hours before the procedure ? stop drinking clear liquids. General instructions ??? [...] tells you to take them. ? Taking kidd-nns-oaypgmo medicines, vitamins, herbs, and supplements. ??? Plan [...] a bad smell. General instructions ??? Take ezjb-sff-iteglne and prescription medicines only as told by [...] provider. Document Revised: 10/21/2019 Document Reviewed: 06/27/2018 [employer] Patient Education ? 2020 [employer]. General Anesthesia, Adult, Care After This sheet [...] activities are safe for you. ??? Take imlt-tzt-zqegihf and prescription medicines only as told by [...] provider. Document Revised: 09/07/2018 Document Reviewed: 04/20/2018 [employer] Patient Education ? 2020 [employer]. documented in this encounter Plan of Treatment Not on file documented as of this encounter Visit Diagnoses Not on filedocumented in this encounter
--- OUTSIDE RECORDS SUMMARY | 2025-06-10 10:16 | XMS_ITS | Encounter Summary ---
Author Organization [employer] ([place], [place], [place], [place]) Address [address] [place] [address] Care Team Providers Care Osteopathic Medicine Teacher Name Role Phone Unavailable Primary Care Provider Unavailabl e Encounter Details Date Type Department Care Team (Late st Contact Info) Description 07/14/2021 Transcribed Document [facility] [place] [address] ProviderMicky MD [address] [place] [phone] Social History Tobacco Use Types Packs/Day Years [...] Conversion Note - Micky ProviderMD - 07/14/2021 12:52 PM CDT DATE OF PROCEDURE: 07/14/2021 SURGEON: Geo Reynoso Jr, MD PREOPERATIVE DIAGNOSIS: Osteoarthritis, left knee. POSTOPERATIVE DIAGNOSIS: Osteoarthritis, left knee. PROCEDURE PERFORMED: Left total knee replacement. ANESTHESIA: General plus regional plus local. COMPLICATIONS: None. BLOOD LOSS: Minimal. TOURNIQUET TIME: 30 minutes. COMPONENTS USED: CR patient-specific femur and tibia ConforMIS CR knee with a 6A tibial poly and a 32 patella. All components cemented. DESCRIPTION OF PROCEDURE: The patient was taken to the operating room, placed in supine position under adequate general anesthesia, sterile prep and drape, time-out observed, IV antibiotics given after regional block and tourniquet elevated to 250 with time-out, administration of IV antibiotics and 1 g TXA. Anteromedial incision 6 inches in length and mid vastus arthrotomy performed with subperiosteal dissection back to the posteromedial corner of the tibia. Menisci and ACL removed. PCL retained. Patient-specific guides were used to cut the femur and tibia after resecting 9 mm from the patella and placing a 32, 3-peg jig on the superior medial portion of the cut surface. We then trialed after removing all osteophytes and showed full extension and flexion with good stability with a 6A tibial poly. We did make a -2 cut on the tibial side at the patient's habematolel slope. We then completed the keel prep with the punch for the tibia, irrigated the bony surfaces, dried them carefully, cemented the final components in place. Excess cement was carefully removed. Knee placed in extension for curing of the cement. Once the cement hardened, we released the tourniquet and controlled all bleeding points, placed local anesthetic into periarticular soft tissue and then closed in layered fashion, placed sterile dressing and transferred the patient to the recovery room in good condition at the end of the procedure. Status post left total knee replacement, final condition improved. /[id number] MD DAE Nguyễn Jr/EPI / DAE / MODL /[id number] documented in this encounter Plan of Treatment Not on file documented as of this encounter Visit Diagnoses Not on filedocumented in this encounter
--- OUTSIDE RECORDS SUMMARY | 2025-06-10 10:16 | XMS_ITS | Encounter Summary ---
Author Organization [employer] ([place], [place], [place], [place]) Address [address] [place] [address] Care Team Providers Care [address] Superintendent Name Role Phone Unavailable Primary Care Provider Unavailabl e Encounter Details Date Type Department Care Team (Late st Contact Info) Description 07/14/2021 Transcribed Document [facility] [place] [address] [place] [address] ProviderMicky MD [address] [place], [place] [phone] Social History Tobacco Use Types Packs/Day Years [...] PM CDT Event Note Entered On: 07/14/2021 17:17 EDT Performed On: 07/14/2021 17:17 EDT by Emeli Ibarra RN Event Note Event Date/Time : 07/14/2021 16:15 EDT Description of Event : pt ambulating Emeli Ibarra RN - 07/14/2021 17:17 EDT Electronically signed by Delmis Caldera Conversion Quill Cleaning Machine Operator Darion at 01/03/2023 9:13 PM CDT documented in this encounter Plan of Treatment Not on file documented as of this encounter Visit Diagnoses Not on filedocumented in this encounter
--- OUTSIDE RECORDS SUMMARY | 2025-06-10 10:16 | XMS_ITS | Referral Summary ---
Author Organization [employer] ([place], [place], [place], [place]) Address [address] [place] [address] Care Team Providers Care Tin Cutter Name Role Phone Unavailable Primary Care Provider [...]
--- OUTSIDE RECORDS SUMMARY | 2025-06-10 10:16 | XMS_ITS | Encounter Summary ---
Author Organization [employer] ([place], [place], [place], [place]) Address [address] [place] [address] Care Team Providers Care Egg Breaking Machine Operator Name Role Phone Unavailable Primary Care Provider Unavailabl e Encounter Details Date Type Department Care Team (Late st Contact Info) Description 07/14/2021 Transcribed Document [facility] [place] Family [place] [facility] [place] [address] ProviderMicky MD [address] [place], [place] [phone] Social History Tobacco Use Types Packs/Day Years [...] Conversion Note - Historical ProviderMD - 07/14/2021 5:27 PM CDT GUILLERMO Entered On: 07/14/2021 17:27 EDT Performed On: 07/14/2021 17:27 EDT by TENNILLE ANTHONY MD-INT GUILLERMO Indication of use for OOCS : Acute Illness OOCS Misuse Suspected : Other Was GUILLERMO queried : Other Patient Advised to seek OOCS Treatment : Other Treatment to Include Limited Supply of OOCS : Other GUILLERMO Result : Other GUILLERMO Other Notes : As per Dr. Vasquez office records Patient cancelled on OOCS : Other GUILLERMO : . TENNILLE ANTHONY MD-INT - 07/14/2021 17:27 EDT Electronically signed by Verenice Freeman [facility] Conversion Microgrinder Operator Cerner at 01/03/2023 9:13 PM CDT documented in this encounter Plan of Treatment Not on file documented as of this encounter Visit Diagnoses Not on filedocumented in this encounter
--- OUTSIDE RECORDS SUMMARY | 2025-06-10 10:16 | XMS_ITS | Encounter Summary ---
Author Organization [facility] ([place], [place], [place], [place]) Address [address] [place] [address] Care Team Providers Care Floor Manager Name Role Phone Unavailable Primary Care Provider Unavailabl e Encounter Details Date Type Department Care Team (Late st Contact Info) Description 07/14/2021 Transcribed Document [facility] [place] [facility] [address] [place] [address] ProviderMicky MD [address] [place], [place] [id number] Social History Tobacco Use Types Packs/Day Years [...] Conversion Note - Historical ProviderMD - 07/14/2021 10:17 AM CDT [facility] Main OR IntraOp Summary Primary Physician: MARGO MAZA JR, JR, MD-ORT Finalized Date/Time: 07/14/21 11:45:37 Pt. Name: ANTONIA OCONNELL /Sex: 1950 Female Med Rec #: [id number] Physician: MARGO MAZA JR, JR, MD-ORT Financial #: [id number] Pt. Type: O Room/Bed: Admit/Disch: 07/14/21 04:19:00 - Institution: [facility] [place] IntraOp Case Attendance Entry 1 Entry 2 Entry 3 Case Attendee MARGO MAZA JR, JR, KINLAW, JUAN DANIEL, EULOGIO,MACHINE STACKER TRISH FRANKLIN, ROSSANA FALCON-ORT Role Performed Surgeon/Proceduralist, MACHINE STACKER/Nurse Library Customer Service Clerk Organizational Development Director, First First Time In 07/14/21 09:53:00 07/14/21 09:53:00 07/14/21 09:53:00 Time Out 07/14/21 11:34:00 07/14/21 11:34:00 07/14/21 11:34:00 Procedure Knee Total Joint Knee Total Joint Knee Total Joint Replacement Replacement Replacement Other Attendee Superficial Wound Closed By: Last Modified By: TRISH FRANKLIN, TRISH BLOOM, TRISH BLOOM, ROSSANA 07/14/21 11:34:41 07/14/21 11:34:41 07/14/21 11:34:41 Entry 4 Entry 5 Entry 6 Case Attendee Juan Daniel Pennington, Reema Jones, HEAD UP OPERATOR HELPER Alyson Almodovar, ADDIS Role Performed VEHICLE BODY BUILDER Scrub, First Scrub, Second Time In 07/14/21 09:53:00 07/14/21 09:53:00 07/14/21 09:53:00 Time Out 07/14/21 11:34:00 07/14/21 11:34:00 07/14/21 11:34:00 Procedure Knee Total Joint Knee Total Joint Knee Total Joint Replacement Replacement Replacement Other Attendee Superficial Wound Closed By: Last Modified By: TRISH FRANKLIN, TRISH BLOOM, TRISH BLOOM, ROSSANA 07/14/21 11:34:41 07/14/21 11:34:41 07/14/21 11:34:41 Entry 7 Entry 8 Entry 9 Case Attendee OTHER, ATTENDEE #1 OTHER, ATTENDEE #2 AMINTA CREWS, ROSSANA Role Performed Vendor Student Organizational Development Director, Second Time In 07/14/21 09:53:00 07/14/21 09:53:00 07/14/21 10:23:00 Time Out 07/14/21 11:34:00 07/14/21 11:34:00 07/14/21 10:35:00 Procedure Knee Total Joint Knee Total Joint Knee Total Joint Replacement Replacement Replacement Other Attendee AUGUSTO TOLBERT Superficial Wound Closed By: Last Modified By: TRISH FRANKLIN, TRISH BLOOM, TRISH BLOOM, ROSSANA 07/14/21 11:34:41 07/14/21 11:34:41 07/14/21 11:34:41 Entry 10 Entry 11 Entry 12 Case Attendee LUIS ANGEL CONLEY APRN, OTHER, ATTENDEE #3 OTHER, ATTENDEE #4 MACHINE STACKER-ANS Role Performed MACHINE STACKER/Nurse Library Customer Service Clerk Vendor Vendor Time In 07/14/21 10:27:00 07/14/21 09:53:00 07/14/21 09:53:00 Time Out 07/14/21 10:45:00 07/14/21 11:34:00 07/14/21 11:34:00 Procedure Knee Total Joint Knee Total Joint Knee Total Joint Replacement Replacement Replacement Other Attendee MACHINE STACKER BREAK ROSSI DELATORRE Superficial Wound Closed By: Last Modified By: TRISH FRANKLIN RN LONGSWORTH, GARY, TRISH BLOOM RN 07/14/21 11:34:41 07/14/21 11:34:41 07/14/21 11:34:41 Entry 13 Case Attendee NOAH GARCIA CRNA Role Performed MACHINE STACKER/Nurse Library Customer Service Clerk Time In 07/14/21 11:25:00 Time Out 07/14/21 11:34:00 Procedure Knee Total Joint Replacement Other Attendee MACHINE STACKER BREAK Superficial Wound Closed By: Last Modified By: TRISH FRANKLIN RN 07/14/21 11:34:41 [facility] IntraOp Case Attendance Audit 07/14/21 11:34:41 Director Energy: GOLDIE Modifier: GOLDIE 1 <+> Time Out 1 <*> Procedure Knee Total Joint Replacement 2 <+> Time Out 2 <*> Procedure Knee Total Joint Replacement 3 <+> Time Out 3 <*> Procedure Knee Total Joint Replacement 4 <+> Time Out 4 <*> Procedure Knee Total Joint Replacement 5 <+> Time Out 5 <*> Procedure Knee Total Joint Replacement 6 <+> Time Out 6 <*> Procedure Knee Total Joint Replacement 7 <+> Time Out 7 <*> Procedure Knee Total Joint Replacement 8 <+> Time Out 8 <*> Procedure Knee Total Joint Replacement 9 <*> Procedure Knee Total Joint Replacement 10 <*> Procedure Knee Total Joint Replacement 11 <+> Time Out 11 <*> Procedure Knee Total Joint Replacement 12 <+> Time Out 12 <*> Procedure Knee Total Joint Replacement 13 <+> Time Out 13 <*> Procedure Knee Total Joint Replacement 07/14/21 11:26:37 Director Energy: LONGGA Modifier: LONGGA 10 <+> Time Out 10 <*> Procedure Knee Total Joint Replacement <+> 11 Case Attendee <+> 11 Role Performed <+> 11 Time In <+> 11 Procedure <+> 11 Other Attendee <+> 12 Case Attendee <+> 12 Role Performed <+> 12 Time In <+> 12 Procedure <+> 12 Other Attendee <+> 13 Case Attendee <+> 13 Role Performed <+> 13 Time In <+> 13 Procedure <+> 13 Other Attendee 07/14/21 10:43:20 Director Energy: LONGGA Modifier: LONGGA 9 <+> Time Out 9 <*> Procedure Knee Total Joint Replacement 07/14/21 10:29:15 Director Energy: LONGGA Modifier: LONGGA 1 <*> Case Attendee MARGO MAZA JR, JR, MD-ORT 1 <*> Role Performed Surgeon/Proceduralist, First 1 <*> Time In 07/14/21 09:53:00 1 <*> Procedure Knee Total Joint Replacement 2 <*> Case Attendee JUAN DANIEL FUNK, MEDIA RELATIONS ASSOCIATE,MACHINE STACKER 2 <*> Role Performed MACHINE STACKER/Nurse Library Customer Service Clerk 2 <*> Time In 07/14/21 09:53:00 2 <*> Procedure Knee Total Joint Replacement 3 <*> Case Attendee TRISH FRANKLIN, RN 3 <*> Role Performed Organizational Development Director, First 3 <*> Time In 07/14/21 09:53:00 3 <*> Procedure Knee Total Joint Replacement 4 <*> Case Attendee Juan Daniel Pennington, VEHICLE BODY BUILDER 4 <*> Role Performed VEHICLE BODY BUILDER 4 <*> Time In 07/14/21 09:53:00 4 <*> Procedure Knee Total Joint Replacement 5 <*> Case Attendee Reema Batres, HEAD UP OPERATOR HELPER 5 <*> Role Performed Scrub, First 5 <*> Time In 07/14/21 09:53:00 5 <*> Procedure Knee Total Joint Replacement 6 <*> Case Attendee Alyson Almodovar, HEAD UP OPERATOR HELPER 6 <*> Role Performed Scrub, Second 6 <*> Time In 07/14/21 09:53:00 6 <*> Procedure Knee Total Joint Replacement 7 <*> Case Attendee OTHER, ATTENDEE #1 7 <*> Role Performed Vendor 7 <*> Time In 07/14/21 09:53:00 7 <*> Procedure Knee Total Joint Replacement 7 <*> Other Attendee AUGUSTO RODLEOPOLDO 8 <*> Case Attendee OTHER, ATTENDEE #2 8 <*> Role Performed Student 8 <*> Time In 07/14/21 09:53:00 8 <*> Procedure Knee Total Joint Replacement 8 <*> Other Attendee CLEVE TOLBERT 9 <*> Case Attendee AMINTA CREWS, ROSSANA 9 <*> Role Performed Organizational Development Director, Second 9 <*> Time In 07/14/21 10:23:00 9 <*> Procedure Knee Total Joint Replacement <+> 10 Case Attendee <+> 10 Role Performed <+> 10 Time In <+> 10 Procedure <+> 10 Other Attendee 07/14/21 10:27:11 Director Energy: LONGGA Modifier: LONGGA <+> 9 Case Attendee <+> 9 Role Performed <+> 9 Time In <+> 9 Procedure 07/14/21 10:20:45 Director Energy: LONGGA Modifier: LONGGA <+> 1 Procedure 2 <*> Procedure Knee Total Joint Replacement 3 <*> Procedure Knee Total Joint Replacement 4 <*> Procedure Knee Total Joint Replacement 5 <*> Procedure Knee Total Joint Replacement 6 <*> Procedure Knee Total Joint Replacement 7 <+> Time In 7 <*> Procedure Knee Total Joint Replacement 8 <*> Procedure Knee Total Joint Replacement [facility] IntraOp Case Times Entry 1 Patient In Room Time 07/14/21 09:53:00 Out Room Time 07/14/21 11:34:00 Anesthesia Start Time 07/14/21 09:53:00 Stop Time 07/14/21 11:34:00 Anesthesia Ready 07/14/21 09:53:00 Surgery / Procedure Times Start Time 07/14/21 10:17:00 Stop Time 07/14/21 11:33:00 Last Modified By: TRISH FRANKLIN, ROSSANA 07/14/21 11:34:40 [facility] IntraOp Case Times Audit 07/14/21 11:34:40 Director Energy: LONGGA Modifier: LONGGA <+> 1 Out Room Time <+> 1 Stop Time <+> 1 Stop Time 07/14/21 10:20:27 Director Energy: LONGGA Modifier: LONGGA <+> 1 Start Time [facility] IntraOp Cautery Entry 1 ESU Identification Cautery Type Monopolar ESU ID Number [id number] ID Type Hospital Number Cautery Settings Cut Setting 70 Coag Setting 70 ESU Grounding Pad Ground Pad Type Adult Grounding Pad Site Left Lower Abdomen Grounding Pad TRISH FRANKLIN RN Applied By Grounding Pad Site Intact Skin Condition Before Cautery Grounding Pad Site Unchanged Skin Condition After Cautery Last Modified By: TRISH FRANKLIN RN 07/14/21 10:51:45 [facility] IntraOp Communication Entry 1 Communication To Family/Significant other Communication By AMINTA CREWS RN Date and Time 07/14/21 10:26:00 Last Modified By: TRISH FRANKLIN RN 07/14/21 10:27:23 [facility] IntraOp Counts Verification Entry 1 Entry 2 Procedure Knee Total Joint Knee Total Joint Replacement Replacement Count Info Count Type Sponge, Sharps Sponge, Sharps Counts Verification Baseline/pre-procedure Before wound closure Sequence Count Results Correct, surgeon Correct, surgeon notified notified If Incorrect or Waived complete the Counts Action Taken form: If Intentional Retention, complete the Intential Retention form: Counts Performed By Count Performed By Reema Batres, Reema Tang, ADDIS (Scrub) Count Performed By TRISH FRANKLIN, TRISH BLOOM, RN (RN) Last Modified By: TRISH FRANKLIN RN LONGSWORTH, GARY, RN 07/14/21 10:00:09 07/14/21 10:56:49 [facility] IntraOp Counts Verification Audit 07/14/21 10:56:49 Director Energy: LONGGA Modifier: LONGGA <+> 2 Procedure <+> 2 Count Type <+> 2 Counts Verification Sequence <+> 2 Count Results <+> 2 Count Performed By (Scrub) <+> 2 Count Performed By (RN) [facility] IntraOp Counts Final Entry 1 Procedure Knee Total Joint Replacement Final Count Info Count Type Sponge, Sharps Counts Verification Skin Closure/end of Sequence procedure Count Results Correct, surgeon notified Counts Performed By Count Performed By Reema Batres CST (Scrub) Count Performed By TRISH FRANKLIN RN (RN) Last Modified By: TRISH FRANKLIN RN 07/14/21 11:05:01 [facility] IntraOp Cultures and Spec Summary Entry 1 Cultrures and Specimens Specimen Ordered: Yes Test(s) Routine/Path-Lab Requested/Final Disposition Last Modified By: TRISH FRANKLIN RN 07/14/21 09:59:56 [facility] IntraOp Departure from OR Entry 1 Integumentary Assessment Integumentary WDL Assessment WDL Skin Description Dry (WDL with exeptions) Transfer/Handoff Transfer to PACU Phase I Handoff Method Bedside/Face to face Post-op Transport Bed (including Via specialty) Patient Transport TRISH FRANKLIN RN, Accompanied by NOAH GARCIA CRNA Last Modified By: TRISH FRANKLIN RN 07/14/21 11:26:49 [facility] IntraOp Departure from OR Audit 07/14/21 11:26:49 Director Energy: GOLDIE Modifier: GOLDIE 1 <*> Patient Transport Accompanied by JUAN DANIEL FUNK APRN, CRNA [facility] IntraOp Dressing and Packing Entry 1 Type Dressing Location LEFT KNEE Wound Dressing Item Terrance, Skin Closure Glue Supplemental Limb immobilizer, Cold Applications pack Applied By Juan Daniel Pennington RNFA Other Comments DERMABOND PRINEO, MEPILEX DRESSING, TERRANCE WRAP Last Modified By: TRISH FRANKLIN RN 07/14/21 10:52:27 [facility] IntraOp Fire Risk Assessment Entry 1 Fire Info Surgical Site or 0- No Incision Above the Xyphoid Open O2 Source 0- No (Mask or Cannula) Available Ignition 1- Yes (ESU, Laser, Light Source) Fire Risk 1 Assessment Score Fire Score Fire Risk Yes Assessment Complete Fire Risk TRISH FRANKLIN RN Assessment Verified By Fire Risk 07/14/21 10:00:00 Assessment Verified Date/Time Fire Risk High Risk Protocol Yes Implemented Standard Fire Yes Safety Precautions Followed Last Modified By: TRISH FRANKLIN RN 07/14/21 10:00:17 [facility] IntraOp General Case Manager Technical Sales 1 Case Information OR OR 05 SJE Case Level 1 Room Verified Yes Wound Class 1 - Clean Specialty Orthopedic Anesthesia Type General ASA Class 3 Diagnosis Preop Diagnosis DEGENERATIVE JOINT DISEASE, LEFT KNEE Postop Same As Preop Yes Postop Diagnosis DEGENERATIVE JOINT DISEASE, LEFT KNEE Wound Class Definitions Last Modified By: TRISH FRANKLIN RN 07/14/21 10:01:29 [facility] IntraOp General Case Data Audit 07/14/21 10:01:29 Director Energy: GOLDIE Modifier: LONGGA 1 <*> OR OR 07 SJE 1 <+> ASA Class 1 <+> Wound Class 1 <+> Anesthesia Type 1 <+> Postop Same As Preop 1 <+> Preop Diagnosis 1 <+> Postop Diagnosis 1 <+> Room Verified [facility] IntraOp Implant Log Entry 1 Entry 2 Entry 3 Type Implant (Synthetic) Implant (Synthetic) Implant (Synthetic) Implant Log Implant Type Bone Cement Bone Cement Hardware Tissue Implant Type Implant CEMENT BONE SURG SMPLX CEMENT BONE SURG SMPLX JIGS CR ITOTAL ID Identification P [id number] Description Implant Quantity 1 1 1 Implant Site LEFT KNEE LEFT KNEE LEFT KNEE Implant Identification Model Number Implant [id number] Identification Serial Number Implant [id number] Identification Lot Number Implant Ivon:Enterprise Ivon:Enterprise Conformis Identification Orthopaedics Orthopaedics Assistant Auditor Name: Implant [id number] Identification Catalog Number Implant Size Implant Has an Yes Expiration Date Implant Expiration 07/18/22 08/17/23 07/18/22 Date Wasted Radioactive Material Time Implanted Tissue Implant Continue for Tissue Implant Documentation Tissue Identification Number Graft Prep Per Assistant Auditor Instructions: Tissue Preparation Method: Reconstitution Solution: Reconstitution Solution Lot Number Reconstitution Solution Expiration Date: Thawing Solution Thawing Solution Lot Number Thawing Solution Expiration Date Preparation Materials, Other Preparation Materials, Other Lot Number Preparation Materials, Other Expiration Date Tissue Prepared/Processed By Assistant Auditor Paperwork Completed Implant Type Comment Last Modified By: TRISH FRANKLIN RN LONGSWORTH, GARY, RN LONGSWORTH, GARY, RN 07/14/21 10:30:23 07/14/21 10:33:43 07/14/21 10:44:36 Entry 4 Entry 5 Entry 6 Type Implant (Synthetic) Implant (Synthetic) Implant (Synthetic) Implant Log Implant Type Hardware Hardware Hardware Tissue Implant Type Implant IMP CR FEM ITOTAL ID TY CR TIB ITOTAL ID KT CR FULL ITOTAL ID Identification [id number] [id number] Description Implant Quantity 1 1 1 Implant Site LEFT KNEE LEFT KNEE LEFT KNEE Implant Identification Model Number Implant [id number] Identification Serial Number Implant Identification Lot Number Implant Conformis Conformis Conformis Identification Assistant Auditor Name: Implant [id number] Identification Catalog Number Implant Size Implant Has an Yes Yes Yes Expiration Date Implant Expiration 07/18/22 07/18/22 07/18/22 Date Wasted Radioactive Material Time Implanted Tissue Implant Continue for Tissue Implant Documentation Tissue Identification Number Graft Prep Per Assistant Auditor Instructions: Tissue Preparation Method: Reconstitution Solution: Reconstitution Solution Lot Number Reconstitution Solution Expiration Date: Thawing Solution Thawing Solution Lot Number Thawing Solution Expiration Date Preparation Materials, Other Preparation Materials, Other Lot Number Preparation Materials, Other Expiration Date Tissue Prepared/Processed By Assistant Auditor Paperwork Completed Implant Type Comment Last Modified By: TRISH FRANKLIN RN LONGSWORTH, GARY, RN LONGSWORTH, GARY, RN 07/14/21 10:45:39 07/14/21 10:46:33 07/14/21 10:47:24 Entry 7 Type Implant (Synthetic) Implant Log Implant Type Hardware Tissue Implant Type Implant IMP PATELLA ITOTAL Identification [id number] Description Implant Quantity 1 Implant Site LEFT KNEE Implant Identification Model Number Implant Identification Serial Number Implant [id number] Identification Lot Number Implant Conformis Identification Assistant Auditor Name: Implant [id number] Identification Catalog Number Implant Size Implant Has an Yes Expiration Date Implant Expiration 03/17/23 Date Wasted Radioactive Material Time Implanted Tissue Implant Continue for Tissue Implant Documentation Tissue Identification Number Graft Prep Per Assistant Auditor Instructions: Tissue Preparation Method: Reconstitution Solution: Reconstitution Solution Lot Number Reconstitution Solution Expiration Date: Thawing Solution Thawing Solution Lot Number Thawing Solution Expiration Date Preparation Materials, Other Preparation Materials, Other Lot Number Preparation Materials, Other Expiration Date Tissue Prepared/Processed By Assistant Auditor Paperwork Completed Implant Type Comment Last Modified By: TRISH FRANKLIN RN 07/14/21 10:48:24 [facility] IntraOp Implant Log Audit 07/14/21 10:48:24 Director Energy: GOLDIE Modifier: GOLDIE <+> 7 Implant Identification Description <+> 7 Implant Identification Lot Number <+> 7 Implant Identification Assistant Auditor Name: <+> 7 Implant Expiration Date <+> 7 Implant Site <+> 7 Implant Quantity <+> 7 Implant Identification Catalog Number <+> 7 Implant Type <+> 7 Implant Has an Expiration Date <+> 7 Type 07/14/21 10:47:24 Director Energy: LONGGA Modifier: LONGGA <+> 6 Implant Identification Description <+> 6 Implant Identification Serial Number <+> 6 Implant Identification Assistant Auditor Name: <+> 6 Implant Expiration Date <+> 6 Implant Site <+> 6 Implant Quantity <+> 6 Implant Identification Catalog Number <+> 6 Implant Type <+> 6 Implant Has an Expiration Date <+> 6 Type 07/14/21 10:46:33 Director Energy: LONGGA Modifier: LONGGA <+> 5 Implant Identification Description <+> 5 Implant Identification Serial Number <+> 5 Implant Identification Assistant Auditor Name: <+> 5 Implant Expiration Date <+> 5 Implant Site <+> 5 Implant Quantity <+> 5 Implant Identification Catalog Number <+> 5 Implant Type <+> 5 Implant Has an Expiration Date <+> 5 Type 07/14/21 10:45:39 Director Energy: LONGGA Modifier: LONGGA <+> 4 Implant Identification Description <+> 4 Implant Identification Serial Number <+> 4 Implant Identification Assistant Auditor Name: <+> 4 Implant Expiration Date <+> 4 Implant Site <+> 4 Implant Quantity <+> 4 Implant Identification Catalog Number <+> 4 Implant Type <+> 4 Implant Has an Expiration Date <+> 4 Type 07/14/21 10:44:36 Director Energy: LONGGA Modifier: LONGGA <+> 3 Implant Identification Description <+> 3 Implant Identification Serial Number <+> 3 Implant Identification Assistant Auditor Name: <+> 3 Implant Expiration Date <+> 3 Implant Site <+> 3 Implant Quantity <+> 3 Implant Identification Catalog Number <+> 3 Implant Type <+> 3 Implant Has an Expiration Date <+> 3 Type 07/14/21 10:33:43 Director Energy: LONGGA Modifier: LONGGA <+> 2 Implant Identification Description <+> 2 Implant Identification Lot Number <+> 2 Implant Identification Assistant Auditor Name: <+> 2 Implant Expiration Date <+> 2 Implant Site <+> 2 Implant Quantity <+> 2 Implant Identification Catalog Number <+> 2 Implant Type <+> 2 Type [facility] IntraOp Intraoperative Assessment Entry 1 Handoff Method Bedside/Face to face Valid History / Yes Physical in Chart Preoperative Yes Checklist Reviewed/Evaluated Allergies Reviewed Yes Patient is Latex No Sensitive Isolation Not applicable Precautions Noted Level of WDL Consciousness (WDL = Alert, Oriented to Person, Place, and Time) Skin Assessment Yes Verified Present Upon IVs Arrival to OR Prosthetic/Assistive Prosthetics Devices Last Modified By: TRISH FRANKLIN RN 07/14/21 10:00:28 [facility] IntraOp Intraoperative Equipment Entry 1 Type Equipment Equipment Equipment Lit Suction System ID Number [id number] Setting HIGH Intraop Monitoring Antiembolic Devices Antiembolic Devices Foot pumps Antiembolic Device Right Location Antiembolic Device 5865 ID Number Scopes Photo/Video Documentation Last Modified By: TRISH FRANKLIN RN 07/14/21 10:53:06 [facility] IntraOp Medication Admin Entry 1 Entry 2 Entry 3 Medication/Irrigant clonidine 1ml Ketorolac 30mg/ml vial ROPIVICAINE 5% Combo Med List 1 - Combo Med 2 - Combo Med 3 - Combo Med Time Administered Route of INJECTION INJECTION INJECTION Administration Dose Dose 0.16 30 25 Unit of Measure ml ml ml Volume Administered By MARGO MAZA JR, JR, HUFF JR, WALLACE JR, HUFF JR, WALLACE JR, MD-ORT HARDYORT -ORT Procedure Irrigation Irrigant Volume In Irrigant Volume Out Last Modified By: TRISH FRANKLIN RN LONGSWORTH, GARY, RN LONGSWORTH, GARY, RN 07/14/21 10:54:41 07/14/21 10:54:41 07/14/21 10:54:41 Entry 4 Entry 5 Entry 6 Medication/Irrigant lidocaine 1% w/ hydrogen peroxide 3% - SEALR AQUAMANTYS BIPLR epinephrine 1:100,000 [id number] 20ml vial - [id number] Combo Med List 4 - Combo Med Time Administered Route of INJECTION. IRRIGANT FILLING MACHINE OPERATOR Administration Dose Dose 23.84 Unit of Measure ml Volume QS Administered By MARGO MAZA JR, JR, HUFF JR, WALLACE JR, HUFF JR, WALLACE JR, MD-ORT HARDYORT -ORT Procedure Irrigation Irrigant Volume In Irrigant Volume Out Last Modified By: TRISH FRANKLIN RN LONGSWORTH, GARY, RN LONGSWORTH, GARY, RN 07/14/21 10:54:41 07/14/21 10:54:41 07/14/21 10:54:41 [facility] IntraOp Patient Positioning Entry 1 Procedure Knee Total Joint Replacement Body Position Supine Left Arm Position Secured on padded arm board Right Arm Position Secured on padded arm board Left Leg Position Held on field Right Leg Position Uncrossed, parallel Feet Uncrossed Yes Pressure Points Yes Checked Positioning Devices Arm Board, Safety Strap, Chest, Foot Rest Device Position LATERAL POST FOR LEFT THIGH, FOOT PROPS X2 FOR LEFT FOOT Positioned By MARGO MAZA JR, JR, MD-SERGIO, JUAN DANIEL FUNK, EULOGIO,MACHINE STACKER, TRISH FRANKLIN, RN, Juan Daniel Pennington, VEHICLE BODY BUILDER Position Verified Positioning Yes Verified by Anesthesia Positioning Yes Verified by Surgeon Last Modified By: TRISH FRANKLIN RN 07/14/21 10:58:13 [facility] IntraOp Sign In Entry 1 Patient, Site, Yes Procedure Identified Surgical Consent Yes Confirmed Relevant Surgical Yes Documents Available Surgical Site Yes Marked by person performing procedure Anesthesia Machine Yes Check Completed Medication Checks Yes Completed Allergies No Airway Difficult Yes Airway/Aspiration Risk Difficult Yes Airway/Aspiration Intervention Equipment Available Blood Loss Risk Yes Blood Loss Yes Intervention Equipment Prepared and Ready Blood Identifiers Yes Verified Per Policy Hypothermia Risk Yes Warming Measures Yes Taken Last Modified By: TRISH FRANKLIN RN 07/14/21 10:58:33 [facility] Intra Op Sign Out Entry 1 RN Confirmation Surgical Yes Procedure(s) Identified Instrument, Sponge Yes and Sharps Counts Correct/Documented Equipment Problems N/A Documented Specimen Labeled Yes Correctly Urinary Catheter N/A Documented in IView Wound Yes classification reviewed, verified and updated post case in both the General Case Data and Procedure segments Verma Patient Yes Recovery Concerns Reviewed with Anesthesia Provider, Surgeon and RN Verma Patient Yes Management Concerns Reviewed with Anesthesia Provider, Surgeon and RN Safety Checklist Yes Elements Complete? RN Sign Out TRISH FRANKLIN RN Signature RN Sign Out 07/14/21 11:13:00 Signature Date/Time Plan of Care Outcome - Fire Risk OUTCOME STATEMENT: Goal met Patient is free from injury related to surgical fire Plan of Care Outcome - Pt Positioning OUTCOME STATEMENT: Goal met Absence of signs and symptoms of positioning injury. Plan of Care Outcome - Skin Prep OUTCOME STATEMENT: Goal met Intraoperative care is consistent with measures to prevent infection Plan of Care Outcome - Xray/Images OUTCOME STATEMENT: N/A Absence of observable signs or symptoms of radiation injury Plan of Care Outcome - Counts OUTCOME STATEMENT: Goal met Absence of signs and symptoms of injury related to extraneous objects Last Modified By: TRISH FRANKLIN RN 07/14/21 11:13:35 [facility] IntraOp Skin Prep Entry 1 Procedure Knee Total Joint Replacement Prescribed Yes Pre-Surgical Prep Completed Prep Area LEFT LEG AND FOOT Intraop Prep Integumentary WDL Assessment WDL Prep Agents Chloraprep Prep by TRISH FRANKLIN RN Hair Removal Methods No hair removal performed Last Modified By: TRISH FRANKLIN RN 07/14/21 10:58:57 [facility] IntraOp Surgical Procedures Entry 1 Procedure Knee Total Joint Replacement Additional LEFT TOTAL KNEE Procedure REPLACEMENT Description Primary Procedure Yes Primary Surgeon MARGO MAZA JR, JR, MD-ORT Start 07/14/21 10:17:00 Stop 07/14/21 11:33:00 Anesthesia Type General Specialty Orthopedic Wound Class 1 - Clean Last Modified By: TRISH FRANKLIN RN 07/14/21 11:31:37 [facility] IntraOp Surgical Procedures Audit 07/14/21 11:31:37 Director Energy: LONGDARRELL Modifier: LONGGA 1 <*> Procedure Knee Total Joint Replacement 1 <+> Stop [facility] IntraOp Temp Regulation Devices Entry 1 Temp Regulation Temperature Warm blankets Regulation Device Temperature Upper body Regulation Site Temperature JUAN DANIEL FUNK APRN,EDUARD Regulation Device Applied by Last Modified By: TRISH FRANKLIN RN 07/14/21 10:59:10 [facility] IntraOp Time Out Entry 1 Procedure to be Knee Total Joint Performed Replacement Time Out Time Out Pause Time 07/14/21 10:17:00 All activity Yes suspended (unless life threatening emergency) Team Verbally Correct patient Confirms Information identity, Correct side and site are marked, Consent form is present and accurate, Agreement on the procedure to be done, Correct patient position, Relevant images/results properly labeled/appropriately displayed, Confirm antibiotics have been administered, Confirm the skin prep has dried, Confirm prosthesis/implant/devic e is present, Performed in location of procedure after prepped/draped, Performed before each procedure if multiple procedures Antibiotic Yes Prophylaxis Administered Or In Progress Within the Last 60 Minutes Beta Santosh N/A Administered Venous Yes Thromboembolism Prophylaxis Required Anticipated Critical Events Surgeon None expected Anesthesia Provider Patient specific concerns Nursing Assures Sterility of instruments, Equipment concerns or issues, Implant Availability Essential Imaging Yes Labeled and Displayed Last Modified By: TRISH FRANKLIN RN 07/14/21 10:19:45 [facility] IntraOp Tourniquet Entry 1 Type Pneumatic Setting 250 mmHg Pheumatic Yes Tourniquet Checked Per Protocol Size 34 inches Placement Thigh, left upper Skin Protection - Yes Padded Under Cuff Applied By Juan Daniel Pennington RNFA Removed By Juan Daniel Pennington RNFA Times Start Time 07/14/21 10:17:00 Stop Time 07/14/21 11:00:00 Last Modified By: TRISH FRANKLIN RN 07/14/21 11:05:38 [facility] IntraOp Tourniquet Audit 07/14/21 11:05:38 Director Energy: GOLDIE Modifier: GOLDIE <+> 1 Removed By <+> 1 Stop Time Case Comments <None> Finalized By: TRISH FRANKLIN RN Document Signatures Signed By: TRISH FRANKLIN RN 07/14/21 11:38 TRISH FRANKLIN RN 07/14/21 11:45 Unfinalized History Date/Time Username Reason for Unfinalizing Freetext Reason for Unfinalizing 07/14/21 11:45 GOLDIE Correct Documentation Electronically signed by Verenice [facility] Conversion Primary Counselor Cerner at 01/03/2023 9:14 PM CDT documented in this encounter Plan of Treatment Not on file documented as of this encounter Visit Diagnoses Not on filedocumented in this encounter
--- OUTSIDE RECORDS SUMMARY | 2025-06-10 10:16 | XMS_ITS | Encounter Summary ---
Author Organization [employer] ([place], [place], [place], [place]) Address [address] [place] [address] Care Team Providers Care Social Media Designer Name Role Phone Unavailable Primary Care Provider Unavailabl e Encounter Details Date Type Department Care Team (Late st Contact Info) Description 07/14/2021 Transcribed Document [facility] [place] Family Medicine [address] [place] [address] ProviderMicky MD [address] [place], [place] [phone] Social History Tobacco Use Types Packs/Day Years [...] Conversion Note - Micky ProviderMD - 07/14/2021 10:17 AM CDT [facility] OR PACU Summary Primary Physician: MARGO MAZA JR, JR, MD-ORT Finalized Date/Time: 07/14/21 12:59:12 Pt. Name: ANTONIA OCONNELL /Sex: 1950 Female Med Rec #: [id number] Physician: MARGO MAZA JR, JR, MD-ORT Financial #: [id number] Pt. Type: O Room/Bed: Admit/Disch: 07/14/21 04:19:00 - Institution: [facility] OR PACU Case Times Entry 1 In PACU I 07/14/21 11:36:00 Ready for PACU 07/14/21 12:52:00 Discharge Discharge from PACU 07/14/21 12:52:00 I Last Modified By: MIRYAM Iverson 07/14/21 12:59:02 [facility] OR PACU Case Times Audit 07/14/21 12:59:02 Program Coordinator Executive Education: KLEBER Modifier: KLEBER <+> 1 Ready for PACU Discharge <+> 1 Discharge from PACU I Finalized By: MIRYAM Iverson Document Signatures Signed By: MIRYAM Iverson 07/14/21 12:59 documented in this encounter Plan of Treatment Not on file documented as of this encounter Visit Diagnoses Not on filedocumented in this encounter
--- OUTSIDE RECORDS SUMMARY | 2025-06-10 10:16 | XMS_ITS | Encounter Summary ---
Author Organization [employer] ([place], [place], [place], [place]) Address [address] [place] [address] Care Team Providers Care Messenger Office Name Role Phone Unavailable Primary Care Provider Unavailabl e Encounter Details Date Type Department Care Team (Late st Contact Info) Description 07/14/2021 Transcribed Document [facility] [place] Medicine [facility] [place] [address] ProviderMicky MD [address] [place] [address] Social History Tobacco Use Types [...] Conversion Note - Micky ProviderMD - 07/14/2021 5:20 [place] [address] ANTONIA OCONNELL SAUL :1950 Visit Time:07/14/2021 What [...] unless told to by MD. Use the Padlet care (blue ice box) continuously for 48 [...] Sleep in knee immobilizer x 10 nights You will receive the following meds at [...] may be taken at 730pm Community Services: [facility] Medical Equipment for Home Use: patient has a front rolling walker and bedside commode at home Transportation: to transport Follow-Up Appointments Follow Up with MARGO MAZA JR, JR, MD-ORT When 07/28/2021 09:30 AM EST Where: [address] [facility] [address] [place] [address]- Medications What How Much When Instructions Next [...] Barley. Bulgur wheat. Millet. Bran muffins. Popcorn. [place] wafer crackers. ??? Vegetables Sweet potatoes. Spinach. Kale. Artichokes. Cabbage. Broccoli. Green peas. Carrots. Squash. ??? Fruits Berries. Pears. Apples. Oranges. Avocados. Prunes and raisins. Dried figs. ??? Meats and Other Protein Sources Penrose, kidney, hallman, and soy beans. Split peas. [...] pollo has 11 g of protein. ??? Mohave seeds ??? 1 oz has 5.5 g [...] floor. ??? Place frequently used items in yofg-su-lvnia places ??? Keep electrical cables out of [...] ? Using the bathroom. ? Using household plush brusher or toxic chemicals. ? Touching or taking [...] including vitamins, herbs, eye drops, creams, and joos-als-xfwtdri medicines. ??? Any problems you or family [...] tells you to take them. ? Taking xqhg-brg-tyjxbam medicines, vitamins, herbs, and supplements. ??? Plan [...] a bad smell. General instructions ??? Take uept-rda-pgfxlop and prescription medicines only as told by [...] activities are safe for you. ??? Take vjsk-vkt-vzysoga and prescription medicines only as told by [...] provider. Document Revised: 09/07/2018 Document Reviewed: 04/20/2018 [employer] Patient Education ?? 2020 [employer] Emergency Awareness and Preventative Care STROKE [...] Assistance with quitting is available by contacting 5-011-XCURNOW. This is a free resource providing counseling, [...] range between ( 1.0 and 7.0 ) [place] #: 0.43 K/uL -- Normal range between ( 0.24 and 0.82 ) Eos #: 0.12 K/uL -- Normal range between ( 0.04 and 0.54 ) [place] %: 4.9 % -- Normal range between [...] ) Urine Bilirubin Dipstick: Negative Urine Specific [place]: 1.009 -- Normal range between ( 1.005 [...] was given the opportunity to ask questions. Patient/Rodding Anode Worker Name: Patient/Rodding Anode Worker Signature: Relationship to Patient: Clinician/Hospital Rodding Anode Worker Signature: Date: Electronically signed by Verenice, [facility] Conversion Pile Driving Supervisor Cerner at 01/03/2023 9:16 PM CDT documented in this encounter Plan of Treatment Not on file documented as of this encounter Visit Diagnoses Not on filedocumented in this encounter
--- OUTSIDE RECORDS SUMMARY | 2025-06-10 10:16 | XMS_ITS | Encounter Summary ---
Author Organization [employer] ([place], [place], [place], [place]) Address [address] [place] [address] Care Team Providers Care Configuration Analyst Name Role Phone Unavailable Primary Care Provider Unavailabl e Encounter Details Date Type Department Care Team (Late st Contact Info) Description 07/14/2021 Transcribed Document [facility] [place] Family Medicine [address] [place] [address] ProviderMicky MD [address] [place] [phone] Social History Tobacco Use Types Packs/Day Years [...] 07/14/2021 10:17 AM CDT [facility] OR PostOp Summary Primary Physician: MARGO MAZA JR, JR, MD-ORT Finalized Date/Time: 08/11/21 09:07:09 Pt. Name: ANTONIA OCONNELL /Sex: 1950 Female Med Rec #: [id number] Physician: MARGO MAZA JR, JR, MD-ORT Financial #: [id number] Pt. Type: O Room/Bed: Admit/Disch: 07/14/21 04:19:00 - 07/14/21 17:47:00 Institution: [facility] OR PostOp Case Times Entry 1 In PACU II 07/14/21 12:53:00 Ready for PACU II 07/14/21 17:47:00 Discharge Discharge from PACU 07/14/21 17:47:00 II Last Modified By: Emeli Ibrara RN 07/14/21 17:51:10 [facility] OR PostOp Case Times Audit 07/14/21 17:51:10 Organic Lab Worker: COCKREH Modifier: COCKREH <+> 1 Ready for PACU II Discharge <+> 1 Discharge from PACU II Finalized By: JAMES GUERRA, RN Document Signatures Signed By: Emeli Ibarra RN 07/14/21 17:51 JAMES GUERRA, RN 08/11/21 09:07 Unfinalized History Date/Time Username Reason for Unfinalizing Freetext Reason for Unfinalizing 08/11/21 09:07 HARDGEORGIAA Chart Audit documented in this encounter Plan of Treatment Not on file documented as of this encounter Visit Diagnoses Not on filedocumented in this encounter
--- OUTSIDE RECORDS SUMMARY | 2025-06-10 10:16 | XMS_ITS | Encounter Summary ---
Author Organization [employer] ([place], [place], [place], [place]) Address [address] [place] [address] Care Team Providers Care Warp Doffer Name Role Phone Unavailable Primary Care Provider Unavailabl e Encounter Details Date Type Department Care Team (Late st Contact Info) Description 07/14/2021 Transcribed Document [facility] [place] Family Medicine [address] [place] [address] ProviderMicky MD [address] [place], [place] [phone] Social History Tobacco Use Types Packs/Day Years [...] Conversion Note - Historical ProviderMD - 07/14/2021 2:09 PM CDT Initial Discharge Planning Entered On: 07/14/2021 14:15 EDT Performed On: 07/14/2021 14:09 EDT by AMADO MELISSA RN Initial Assessment I Previously Documented Living Environment : No qualifying data available. Living Situation : Home Patient Lives With : Spouse Is the Patient a Caregiver at Home? : No Emergency Contact #1 : Junior Emergency Contact #1 Emergency Contact #1 Relationship : spouse Emergency Contact #2 : na Emergency Contact #2 Phone Number : na- Emergency Contact #2 Relationship : na- Enter Doctors Name : Aleksander Osuna Does Patient have PCP Listed? : Yes Legal Guardian : No AMADO MELISSA RN - 07/14/2021 14:09 EDT Initial Assessment II Sensory and Motor Deficits : None Current Home Treatments and Equipment : Bedside commode, Walker Services and Community Resources : Other: na Does the Patient have a Floor to SNF Benefit? : No AMADO MELISSA RN - 07/14/2021 14:09 EDT Discharge Needs I Anticipated Discharge Date : 07/14/2021 EDT Anticipated Discharge To, CM : Home with home health Current Home Treatment/Equipment : Current Home Treatment/Equipment No qualifying data available. Post Acute/Home Treatments : Bedside commode, Walker Documentation Status Complete : Yes AMADO MELISSA RN - 07/14/2021 14:09 EDT Discharge Needs II Professional Skilled Services : Professional Skilled Services No qualifying data available. Services and Community Resources : Home Health Needs Assistance with Transportation : No Discharge Options Discussed with Patient : Discharge transportation, DME, Home Health Patient Discharge Goal : Home health care AMADO MELISSA RN - 07/14/2021 14:09 EDT Narrative Note Narrative Note : 71 y/o female s/p LTK [...] in chart. AMADO MELISSA RN - 07/14/2021 14:09 EDT documented in this encounter Plan of Treatment Not on file documented as of this encounter Visit Diagnoses Not on filedocumented in this encounter
--- OUTSIDE RECORDS SUMMARY | 2025-06-10 10:17 | XMS_ITS | Encounter Summary ---
Author Organization [employer] ([place], [place], [place], [place]) Address [address] [place] [address] Care Team Providers Care Toe Former Name Role Phone Unavailable Primary Care Provider Unavailabl e Encounter Details Date Type Department Care Team (Late st Contact Info) Description 04/14/2021 Transcribed Document [facility] [place] [facility] [place] [address] ProviderMicky MD [address] [place] [phone] Social History Tobacco Use Types Packs/Day Years Used Date Smoking Tobacco: Never Assessed Comments Unknown Sex and Gender Information Value Date Recorded Sex Assigned at Female 03/15/2022 8:51 PM CDT Legal Sex Female 8:51 PM CDT Gender Identity Female 03/15/2022 8:51 PM CDT Sexual Orientation Not on file documented as of this encounter Miscellaneous Notes * Cerner Conversion Note - Micky ProviderMD - 04/14/2021 12:57 PM CDT [facility] OR PostOp Summary Primary Physician: MARGO MAZA JR, JR, MD-ORT Finalized Date/Time: 04/14/21 18:28:22 Pt. Name: ANTONIA OCONNELL /Sex: 1950 Female Med Rec #: [id number] Physician: MARGO MAZA JR, JR, MD-ORT Financial #: [id number] Pt. Type: O Room/Bed: [facility]/1 Admit/Disch: 04/14/21 05:08:00 - Institution: [facility] OR PostOp Case Times Entry 1 In PACU II 04/14/21 15:45:00 Ready for PACU II 04/14/21 18:15:00 Discharge Discharge from PACU 04/14/21 18:15:00 II Last Modified By: KENTON BAILEY, RN 04/14/21 18:28:16 Finalized By: KENTON BAILEY, RN Document Signatures Signed By: KENTON BAILEY RN 04/14/21 18:28 Electronically signed by Verenice [facility] Conversion Clinical Data Coordinator Cerner at 01/03/2023 9:19 PM CDT documented in this encounter Plan of Treatment Not on file documented as of this encounter Visit Diagnoses Not on filedocumented in this encounter
--- OUTSIDE RECORDS SUMMARY | 2025-06-10 10:17 | XMS_ITS | Encounter Summary ---
Author Organization [employer] ([place], [place], [place], [place]) Address [address] [place] [address] Care Team Providers Care Terminal Carman Name Role Phone Unavailable Primary Care Provider Unavailabl e Encounter Details Date Type Department Care Team (Late st Contact Info) Description 04/14/2021 Transcribed Document [facility] [place] Family Medicine [address] [place] [address] ProviderMicky MD [address] [place] [phone] Social History Tobacco Use Types Packs/Day Years Used Date Smoking Tobacco: Never Assessed Comments Unknown Sex and Gender Information Value Date Recorded Sex Assigned at Female 03/15/2022 8:51 PM CDT Legal Sex Female 8:51 PM CDT Gender Identity Female 03/15/2022 8:51 PM CDT Sexual Orientation Not on file documented as of this encounter Miscellaneous Notes * Cerner Conversion Note - Historical ProviderMD - 04/14/2021 2:57 PM CDT Consult Phone Call Documentation Entered On: 04/14/2021 18:45 EDT Performed On: 04/14/2021 14:57 EDT by LEE GOLDMAN Phone Call for Consults Physician Requesting Consult : MARGO MAZA JR, JR, MD-ORT Physician Requested for Consult : TENNILLE ANTHONY MD-INT Physician Covering for Consult : TENNILLE ANTHONY MD-INT Date and Time Call Returned : 04/14/2021 18:45 EDT LEE GOLDMAN - 04/14/2021 18:44 EDT Electronically signed by Verenice [facility] Conversion Certified Energy Manager Cerner at 01/03/2023 9:24 PM CDT documented in this encounter Plan of Treatment Not on file documented as of this encounter Visit Diagnoses Not on filedocumented in this encounter
--- OUTSIDE RECORDS SUMMARY | 2025-06-10 10:17 | XMS_ITS | Encounter Summary ---
Author Organization [employer] ([place], [place], [place], [place]) Address [address] [place] [address] Care Team Providers Care Facilities Technician Name Role Phone Unavailable Primary Care Provider Unavailabl e Encounter Details Date Type Department Care Team (Late st Contact Info) Description 04/14/2021 Transcribed Document [facility] [place] [address] [place] [address] ProviderMicky MD [address] [place] [phone] Social History Tobacco Use Types Packs/Day Years [...] Conversion Note - Micky ProviderMD - 04/14/2021 11:45 AM CDT Peripheral Nerve Block Entered On: 04/14/2021 11:52 EDT Performed On: 04/14/2021 11:45 EDT by Galilea Hein RN Peripheral Nerve Block Peripheral Nerve Block Start Date/Time : 04/14/2021 11:45 EDT Verbally Confirm Pt, Site, and Procedure : Yes Time Out Pause Time : 04/14/2021 11:36 EDT Site Marked and Visible : Yes Site Preparation : Chlorhexidine (Hibiclens) Peripheral Nerve Block : Adductor Canal Laterality : Right Peripheral Nerve Block Performed by : YUSEF LONGORIA MD Medication Delivery Method : Continuous Peripheral Nerve Block Assisted by : Geni Agudelo RN Peripheral Nerve Block Assisted by 2 : Galilea Hein RN Ultra sound used during insertion : Yes Catheter Dressing : Occlusive Continuous Catheter Secured with : Tape Nerve Block Activity, Patient Tolerance : Good Peripheral Nerve Block End Date/Time : 04/14/2021 11:50 EDT Galilea Hein RN - 04/14/2021 11:42 EDT Electronically signed by [facility] Conversion Twisting Frame Operator Cerner at 01/03/2023 9:21 PM CDT documented in this encounter Plan of Treatment Not on file documented as of this encounter Visit Diagnoses Not on filedocumented in this encounter
--- OUTSIDE RECORDS SUMMARY | 2025-06-10 10:17 | XMS_ITS | Encounter Summary ---
Author Organization [employer] ([place], [place], [place], [place]) Address [address] [place] [address] Care Team Providers Care Ground Instructor Basic Name Role Phone Unavailable Primary Care Provider Unavailabl e Encounter Details Date Type Department Care Team (Late st Contact Info) Description 04/14/2021 Transcribed Document [facility] [place] [facility] [place] [facility] [place] [address] ProviderMicky MD [address] [place] [phone] Social History Tobacco Use Types Packs/Day Years [...] 04/14/2021 12:57 PM CDT [facility] PACU Summary Primary Physician: MARGO MAZA JR, JR, MD-ORT Finalized Date/Time: 04/14/21 15:47:48 Pt. Name: ANTONIA WHITE /Sex: 1950 Female Med Rec #: [id number] Physician: MARGO MAZA JR, JR, MD-ORT Financial #: [id number] Pt. Type: O Room/Bed: [facility]/ Admit/Disch: 04/14/21 05:08:00 - Institution: [facility] OR PACU Case Times Entry 1 In PACU I 04/14/21 14:15:00 Ready for PACU 04/14/21 15:36:00 Discharge Discharge from PACU 04/14/21 15:36:00 I Last Modified By: MIRYAM Iverson 04/14/21 15:47:36 Finalized By: MIRYAM Iverson Document Signatures Signed By: MIRYAM Iverson 04/14/21 15:47 Electronically signed by [facility] Conversion Paper Sheeter Cerner at 01/03/2023 9:26 PM CDT documented in this encounter Plan of Treatment Not on file documented as of this encounter Visit Diagnoses Not on filedocumented in this encounter
--- OUTSIDE RECORDS SUMMARY | 2025-06-10 10:17 | XMS_ITS | Encounter Summary ---
Author Organization [employer] ([place], [place], [place], [place]) Address [address] [place] [address] Care Team Providers Care Siderographer Name Role Phone Unavailable Primary Care Provider Unavailabl e Encounter Details Date Type Department Care Team (Late st Contact Info) Description 07/14/2021 Transcribed Document [facility] [place] [facility] [place] [address] ProviderMicky MD [address] [place] [address] [phone] Social History Tobacco Use Types Packs/Day Years [...] Conversion Note - Micky ProviderMD - 07/14/2021 2:17 PM CDT Patient: OCONNELLIRISYonas HUGHES Age: 71 years Sex: Female : 1950 Associated Diagnoses: Unilateral primary osteoarthritis, left knee; Status post total knee replacement, left; Left knee pain; PVC's (premature ventricular contractions) occasionally; Hypertension; High cholesterol; GERD (gastroesophageal reflux disease); At risk for sleep apnea; Mitral valve regurgitation; Vitamin D deficiency Author: TENNILLE HUGHES MD-INT Date of admission 07/14/2021 Date of consult 07/14/2021 12:27 p.m. PCP Aleksander Bansal MD Orthopedic surgeon, Geo Vasquez MD Hospitalist medicine consult, internal medicine, Tennille Hughes MD Reason for the consult, postoperative medical management Surgery See operative report dictated by Dr. Vasquez Admitting diagnosis 1???unilateral primary osteoarthritis left knee 2???s/p left TKA 3???left knee pain 4???PVCs 5???MPR 6???HTN 7???HLP 8???GERD 9???at risk for PETAR 10???vitamin D deficiency History of present illness A pleasant 71 years old white female with a history of MVR, PVCs, HTN, HLP, GERD, PETAR, vitamin D deficiency in addition to left knee pain from osteoarthritis who is after medical clearance by her PCP she underwent left total knee arthroplasty by Dr. Vasquez.. Patient had surgery and is recovering well is awake alert cooperative responsive under no acute distress and is answering questions appropriately. Currently patient is on femoral nerve block in addition to oral pain medications as per Dr. Vasquez recommendations and the pain is under control. Patient is on DVT prophylaxis as per Dr. Vasquez protocol. Patient did no urinated yet. Patient is on scheduled bowel regimen. Patient did not started on oral nutrition yet. Patient denies any chest pain, shortness of breath, diaphoresis nausea or vomiting. PT/OT on board. Review of Systems Constitutional: No fever, No chills. Eye: No visual disturbances. Ear/Nose/Mouth/Throat: No nasal congestion, No sore throat. Respiratory: No shortness of breath, No cough. Cardiovascular: No chest pain, No tachycardia. Gastrointestinal: No nausea, No vomiting, No abdominal pain. Genitourinary: No change in urine stream. Hematology/Lymphatics: No bleeding tendency. Endocrine: No polyuria, No cold intolerance, No heat intolerance. Immunologic: Negative. Musculoskeletal: Negative. Integumentary: No rash, No pruritus. Neurologic: No confusion, No numbness, No tingling, No headache. Psychiatric: No anxiety, No depression. All other systems are negative Health Status Allergies: Allergies (2) Active Reaction Mangos None Documented No Known Medication Allergies None Documented Current medications: (Selected) Inpatient Medications Ordered Benadryl: 12.5 mg, Oral, Tab, At Bedtime, PRN for Insomnia, Routine, Start 07/14/21 11:50:00 EDT, 07/14/21 11:50:00 EDT Benadryl: 25 mg, Oral, Tab, On-CALL, PRN for Other (See Comment), Routine, Start 07/14/21 13:15:00 EDT, 07/14/21 13:15:00 EDT Chloraseptic Menthol 1.4% topical spray: 5 [employer], Oral, [employer], Q2H, PRN for Sore Throat, Routine, Start 07/14/21 13:15:00 EDT Dulcolax Laxative: 10 mg, Rectal, Supp, Daily, PRN for Constipation, Routine, Start 07/14/21 13:15:00 EDT, 07/14/21 13:15:00 EDT DuoNeb 0.5 mg-2.5 mg/3 mL inhalation solution: 3 mL, Nebulized Inhalation, Inh, Q4H, PRN for Wheezing, Routine, Start 07/14/21 13:15:00 EDT Flexeril: 5 mg, Oral, Tab, TID, PRN for Muscle Spasms, Start 07/14/21 12:49:00 EDT HYDROmorphone: 0.5 mg, IV Push, Inj, Q10Min, PRN for Pain (Severe 7-10), Routine, Start 07/14/21 8:31:00 EDT, 07/14/21 8:31:00 EDT Milk of Magnesia 8% oral suspension: 15 mL, Oral, Liquid, Q6H, PRN for Constipation, Routine, Start 07/14/21 13:15:00 EDT Mylanta: 30 mL, Oral, Liquid, Q6H, PRN for Indigestion, Routine, Start 07/14/21 13:15:00 EDT Percocet 5/325 oral tablet: 1 Tab, Oral, Tab, 1-Time, PRN for Pain, Routine, Start 07/14/21 8:31:00 EDT Phenergan: 12.5 mg, IV Push, Inj, Q6H, PRN for Nausea, Routine, Start 07/14/21 13:15:00 EDT, 07/14/21 13:15:00 EDT Phenergan: 12.5 mg, Oral, Tab, Q6H, PRN for Nausea, Routine, Start 07/14/21 13:15:00 EDT, 07/14/21 13:15:00 EDT Sodium Chloride 0.9% intravenous solution 1,000 mL: 1,000 mL, Bag Volume (mL) = 1,000, IntraVENous, Rate = 100 mL/Hr, start date 07/14/21 11:50:00 EDT, Routine, X 8 Hour(s), Stop 07/14/21 19:49:00 EDT, 1.69, m2 Sodium Chloride 0.9% intravenous solution 1,000 mL: 1,000 mL, Bag Volume (mL) = 1,000, IntraVENous, Rate = 50 mL/Hr, start date 07/14/21 19:20:00 EDT, Routine, 1.69, m2 Sublimaze: 25 mcg, IV Push, Inj, Q5Min, PRN for Pain, Routine, Start 07/14/21 8:31:00 EDT, 07/14/21 8:31:00 EDT Sublimaze: 50 mcg, IV Push, Inj, Q5Min, PRN for Pain (Moderate 4-6), Routine, Start 07/14/21 8:31:00 EDT, 07/14/21 8:31:00 EDT Tylenol: 1,000 mg, Oral, Tab, Q8HInt, Routine, Start 07/14/21 12:00:00 EDT, 07/14/21 11:50:00 EDT Vitamin C: 1,000 mg, Oral, Tab, Daily, Routine, Start 07/14/21 13:16:00 EDT, 07/14/21 13:16:00 EDT Vitamin D3: 2,000 mg, Oral, Daily, Routine, Start 07/14/21 13:16:00 EDT, 07/14/21 13:16:00 EDT Zofran: 4 mg, IV Push, Inj, Q4H, PRN for Nausea, Routine, Start 07/14/21 13:15:00 EDT, 07/14/21 13:15:00 EDT Zofran: 4 mg, IV Push, Inj, Q8H, order duration: 3 Time(s), PRN for Nausea, Routine, Start 07/14/21 11:50:00 EDT, Stop Limited # of times, 07/14/21 11:50:00 EDT aspirin: 81 mg, Oral, EC Tab, BID, Routine, Start 07/14/21 11:50:00 EDT, 07/14/21 11:50:00 EDT ceFAZolin: 1 Gram, IV Piggyback, Inj, 1-Time, infuse over 30 Minute(s), Routine, Start 07/14/21 12:00:00 EDT, Stop 07/14/21 12:00:00 EDT, 100 mL/Hr, Indication: Surgical Prophylaxis docusate calcium: 240 mg, Oral, Cap, Daily, PRN for Constipation, Routine, Start 07/14/21 13:15:00 EDT, 07/14/21 13:15:00 EDT famotidine: 40 mg, Oral, Tab, Daily, Routine, Start 07/14/21 13:16:00 EDT, 07/14/21 13:16:00 EDT gabapentin: 300 mg, Oral, Cap, At Bedtime, Routine, Start 07/14/21 21:00:00 EDT, 07/14/21 11:50:00 EDT haloperidol: 1 mg, IV Push, Inj, 1-Time, PRN for Nausea/Vomiting, Routine, Start 07/14/21 8:31:00 EDT, 07/14/21 8:31:00 EDT ketorolac: IntraLesional, Inj, 1-Time, Start 07/14/21 9:35:00 EDT, Stop 07/14/21 9:35:00 EDT, 1569.6 mL/Hr, Infuse Over: 1 Minute(s) losartan: 50 mg, Oral, Tab, Daily, Routine, Start 07/14/21 13:16:00 EDT, 07/14/21 13:16:00 EDT metoclopramide: 5 mg, IV Push, Inj, Q4H, PRN for Nausea/Vomiting, Routine, Start 07/14/21 11:50:00 EDT, 07/14/21 11:50:00 EDT naloxone: 0.1 mg, IV Push, Inj, Q5Min, PRN for Oversedation, Routine, Start 07/14/21 11:50:00 EDT, 07/14/21 11:50:00 EDT oxyCODONE: 10 mg, Oral, Tab, Q4H, PRN for Pain (Severe 7-10), Routine, Start 07/14/21 11:50:00 EDT, 07/14/21 11:50:00 EDT oxyCODONE: 5 mg, Oral, Tab, Q4H, PRN for Pain (Moderate 4-6), Routine, Start 07/14/21 11:50:00 EDT, 07/14/21 11:50:00 EDT rosuvastatin: 10 mg, Oral, Tab, Daily, Routine, Start 07/14/21 13:16:00 EDT, 07/14/21 13:16:00 EDT traMADol: 50 mg, Oral, Tab, Q6H, Routine, Start 07/14/21 12:00:00 EDT, 07/14/21 11:50:00 EDT traZODone: 50 mg, Oral, Tab, At Bedtime, PRN for Insomnia, Routine, Start 07/14/21 13:15:00 EDT, 07/14/21 13:15:00 EDT Incomplete Calcium, Magnesium and Zinc oral tablet: 1 Tab, Oral, Tab, Daily, Routine, Start 07/14/21 13:16:00 EDT CoQ10: 300 mg, Oral, Daily, Routine, Start 07/14/21 13:16:00 EDT, 07/14/21 13:16:00 EDT Vitamin B Complex 100: 1 Tab, Oral, Daily, Routine, Start 07/14/21 13:16:00 EDT metroNIDAZOLE 0.75% topical cream: 1 Application, Topical, Cream, BID, PRN for Arthritis, Routine, Start 07/14/21 13:16:00 EDT Documented Medications Documented Calcium, Magnesium and Zinc oral tablet: 1 Tab, Oral, Tab, Daily, # 30 Tab, 0 Refill(s) CoQ10: 300 mg, Oral, Daily, 0 Refill(s) Vitamin B Complex 100: 1 Tab, Oral, Daily, 0 Refill(s) Vitamin C: 1,000 mg, Oral, Daily, 0 Refill(s) Vitamin D3: 2,000 mg, Oral, Daily, 0 Refill(s) diclofenac 1% topical gel: 2 Gram, Topical, Gel, QID, # 100 Gram, 0 Refill(s) doxycycline: 40 mg, Oral, Daily, PRN Arthritis, 0 Refill(s) famotidine: 40 mg, Oral, Daily, 0 Refill(s) losartan 50 mg oral tablet: 1 Tab, Oral, Daily, 0 Refill(s) metroNIDAZOLE 0.75% topical cream: 1 Application, Topical, Cream, BID, PRN Arthritis, # 45 Gram, 0 Refill(s) rosuvastatin: 10 mg, Oral, Daily, 0 Refill(s), Home Medications (11) Active Calcium, Magnesium and Zinc oral tablet 1 Tab, Oral, Daily CoQ10 300 mg, Oral, Daily diclofenac 1% topical gel 2 Gram, Topical, QID doxycycline 40 mg, PRN, Oral, Daily famotidine 40 mg, Oral, Daily losartan 50 mg oral tablet 50 mg = 1 Tab, Oral, Daily metroNIDAZOLE 0.75% topical cream 1 Application, PRN, Topical, BID rosuvastatin 10 mg, Oral, Daily Vitamin B Complex 100 1 Tab, Oral, Daily Vitamin C 1,000 mg, Oral, Daily Vitamin D3 2,000 mg, Oral, Daily , Medications (36) Active Scheduled: (11) acetaminophen 500 mg tab 1,000 mg 2 Tab, Oral, Q8HInt ascorbic acid 500 mg tab 1,000 mg 2 Tab, Oral, Daily aspirin EC 81 mg tab 81 mg 1 Tab, Oral, BID ceFAZolin 1 Gram, IV Piggyback, 1-Time cholecalciferol 2,000 mg, Oral, Daily famotidine 20 mg tab 40 mg 2 Tab, Oral, Daily gabapentin 300 mg cap 300 mg 1 Cap, Oral, At Bedtime ketorolac 30 mg 1 mL, IntraLesional, 1-Time losartan 50 mg tab 50 mg 1 Tab, Oral, Daily rosuvastatin 10 mg tab 10 mg 1 Tab, Oral, Daily traMADol 50 mg tab 50 mg 1 Tab, Oral, Q6H Continuous: (2) NaCl 0.9% 1,000 mL 1,000 mL, IntraVENous, 100 mL/Hr NaCl 0.9% 1,000 mL 1,000 mL, IntraVENous, 50 mL/Hr PRN: (23) acetaminophen/oxyCODONE 325/5 mg tab 1 Tab, Oral, 1-Time al hydrox/mag hydrox/simeth 30 mL liq 30 mL, Oral, Q6H albuterol-ipratropium inh 3 mL 3 mL, Nebulized Inhalation, Q4H bisacodyl 10 mg supp 10 mg 1 Supp, Rectal, Daily cyclobenzaprine 10 mg tab 5 mg 0.5 Tab, Oral, TID diphenhydrAMINE 25 mg tab 12.5 mg 0.5 Tab, Oral, At Bedtime diphenhydrAMINE 25 mg tab 25 mg 1 Tab, Oral, On-CALL docusate calcium 240 mg cap 240 mg 1 Cap, Oral, Daily fentaNYL 100 mcg/2 mL inj 25 mcg 0.5 mL, IV Push, Q5Min fentaNYL 100 mcg/2 mL inj 50 mcg 1 mL, IV Push, Q5Min haloperidol 5 mg/1 mL inj 1 mg 0.2 mL, IV Push, 1-Time HYDROmorphone 1 mg/1 mL inj 0.5 mg 0.5 mL, IV Push, Q10Min magnesium hydroxide 8% liq 30 mL 15 mL, Oral, Q6H metoclopramide 10 mg/2 mL inj 5 mg 1 mL, IV Push, Q4H naloxone 0.4 mg/1 mL inj 0.1 mg 0.25 mL, IV Push, Q5Min ondansetron 4 mg/2 mL inj 4 mg 2 mL, IV Push, Q8H ondansetron 4 mg/2 mL inj 4 mg 2 mL, IV Push, Q4H oxyCODONE 5 mg tab 5 mg 1 Tab, Oral, Q4H oxyCODONE 5 mg tab 10 mg 2 Tab, Oral, Q4H phenol 1.4% throat spray 5 [employer], Oral, Q2H promethazine 25 mg tab 12.5 mg 0.5 Tab, Oral, Q6H promethazine 25 mg/1 mL inj 12.5 mg 0.5 mL, IV Push, Q6H traZODone 50 mg tab 50 mg 1 Tab, Oral, At Bedtime Problem list: Active Problems (11) At risk for sleep apnea GERD (gastroesophageal reflux disease) High cholesterol Hormone replacement therapy Hypertension Mitral valve regurgitation Osteoarthritis Psoriasis PVC's (premature ventricular contractions) occasionally Rosacea Vitamin D deficiency Histories Family History: Family history is significant for DM, HTN, and cancer Procedure history: Hysterectomy (121998640). bladder repair. Tonsillectomy ([id number]). Tubal ligation ([id number]). Colonoscopy ([id number]). right total knee replacment. Social History Patient is and has 2 children, there is no history of smoking but drinking alcohol occasionally. Physical Examination VS/Measurements Vital Signs/Vital Measures 07/14/2021 12:53 EDT Systolic Blood Pressure 159 mmHg HI Diastolic Blood Pressure 73 mmHg Temperature Source Temporal artery scanning Temperature Mode Fahrenheit Temperature, Fahrenheit 97 Deg F Clinical Temperature, C 36.1 Deg C Pulse Rhythm Regular Heart Rate Monitored 75 bpm Respiratory Rate 18 Breaths/Min Oxygen Saturation 97 % Oxygen Therapy Mode Room air 07/14/2021 12:30 EDT Heart Rate Monitored 80 bpm Oxygen Saturation 97 % 07/14/2021 12:25 EDT Systolic Blood Pressure 161 mmHg HI Diastolic Blood Pressure 77 mmHg Mean Arterial Pressure (MAP)-BMDI 110 Heart Rate Monitored 80 bpm Oxygen Saturation 100 % 07/14/2021 12:20 EDT Systolic Blood Pressure 162 mmHg HI Diastolic Blood Pressure 74 mmHg Mean Arterial Pressure (MAP)-BMDI 108 Heart Rate Monitored 89 bpm Oxygen Saturation 100 % 07/14/2021 12:15 EDT Systolic Blood Pressure 166 mmHg HI Diastolic Blood Pressure 84 mmHg Mean Arterial Pressure (MAP)-BMDI 114 Heart Rate Monitored 92 bpm Oxygen Saturation 100 % 07/14/2021 12:10 EDT Systolic Blood Pressure 166 mmHg HI Diastolic Blood Pressure 84 mmHg Mean Arterial Pressure (MAP)-BMDI 114 Heart Rate Monitored 85 bpm Oxygen Saturation 100 % 07/14/2021 12:05 EDT Systolic Blood Pressure 151 mmHg HI Diastolic Blood Pressure 70 mmHg Mean Arterial Pressure (MAP)-BMDI 104 Heart Rate Monitored 85 bpm Oxygen Saturation 93 % LOW 07/14/2021 12:00 EDT Systolic Blood Pressure 154 mmHg HI Diastolic Blood Pressure 74 mmHg Mean Arterial Pressure (MAP)-BMDI 107 Heart Rate Monitored 87 bpm Oxygen Saturation 96 % Oxygen Therapy Mode Room air 07/14/2021 11:55 EDT Systolic Blood Pressure 153 mmHg HI Diastolic Blood Pressure 63 mmHg Mean Arterial Pressure (MAP)-BMDI 102 Heart Rate Monitored 83 bpm Oxygen Saturation 95 % 07/14/2021 11:50 EDT Systolic Blood Pressure 162 mmHg HI Diastolic Blood Pressure 73 mmHg Mean Arterial Pressure (MAP)-BMDI 98 Heart Rate Monitored 88 bpm Oxygen Saturation 100 % 07/14/2021 11:45 EDT Systolic Blood Pressure 148 mmHg HI Diastolic Blood Pressure 68 mmHg Mean Arterial Pressure (MAP)-BMDI 102 Heart Rate Monitored 95 bpm Oxygen Saturation 99 % 07/14/2021 11:40 EDT Systolic Blood Pressure 161 mmHg HI Diastolic Blood Pressure 73 mmHg Mean Arterial Pressure (MAP)-BMDI 101 Heart Rate Monitored 102 bpm HI Oxygen Saturation 98 % 07/14/2021 11:36 EDT Systolic Blood Pressure 161 mmHg HI Diastolic Blood Pressure 89 mmHg Mean Arterial Pressure (MAP)-BMDI 129 Temperature Source Temporal artery scanning Temperature Mode Fahrenheit Temperature, Fahrenheit 98.2 Deg F Clinical Temperature, C 36.8 Deg C Heart Rate Monitored 79 bpm Oxygen Saturation 94 % Oxygen Therapy Mode Nasal cannula Oxygen Flow Rate 2 Liter/Min 07/14/2021 9:14 EDT Systolic Blood Pressure 112 mmHg Diastolic Blood Pressure 58 mmHg LOW Heart Rate Monitored 57 bpm LOW Oxygen Saturation 99 % Oxygen Therapy Mode Nasal cannula Oxygen Flow Rate 2 Liter/Min 07/14/2021 7:45 EDT Systolic Blood Pressure 144 mmHg HI Diastolic Blood Pressure 70 mmHg Temperature Source Temporal artery scanning Temperature Mode Fahrenheit Temperature, Fahrenheit 98.0 Deg F Clinical Temperature, C 36.7 Deg C Pulse Rhythm Regular Peripheral Pulse Rate 65 bpm Respiratory Rate 16 Breaths/Min Oxygen Saturation 100 % Oxygen Therapy Mode Room air General: Alert and oriented, No acute distress. Eye: Pupils are equal, round and reactive to light, Normal conjunctiva, Vision unchanged. HENT: Normocephalic, Tympanic membranes are clear, Normal hearing, Oral mucosa is moist, No pharyngeal erythema, No sinus tenderness. Neck: Supple, Non-tender, No carotid bruit, No jugular venous distention, No lymphadenopathy, No thyromegaly. Respiratory: Lungs are clear to auscultation, Respirations are non-labored, Breath sounds are equal, Symmetrical chest wall expansion, No chest wall tenderness. Cardiovascular: Normal rate, Regular rhythm, No murmur, No gallop, Good pulses equal in all extremities, Normal peripheral perfusion, No edema. Gastrointestinal: Soft, Non-tender, Non-distended, Normal bowel sounds, No organomegaly. Genitourinary: No costovertebral angle tenderness, No inguinal tenderness, No urethral discharge, No lesions. Lymphatics: No lymphadenopathy neck, axilla, groin. Musculoskeletal: Normal range of motion, Normal strength, No tenderness, No swelling, No deformity, Normal gait. Integumentary: Warm, [place], Intact, No pallor, No rash, WOUND STABLE. Neurologic: Alert, Oriented, Normal sensory, Normal motor function, No focal deficits, Cranial Nerves II-XII are grossly intact, Normal deep tendon reflexes. Psychiatric: Cooperative, Appropriate mood & affect, Normal judgment, Non-suicidal. Review / Management Results review Impression and Plan Diagnosis Unilateral primary osteoarthritis, left knee - Admitting, Medical. Status post total knee replacement, left - Admitting, Medical. Left knee pain - Admitting, Medical. PVC's (premature ventricular contractions) occasionally - Discharge, Medical. Hypertension - Discharge, Medical. High cholesterol - Discharge, Medical. GERD (gastroesophageal reflux disease) - Discharge, Medical. At risk for sleep apnea - Discharge, Medical. Mitral valve regurgitation - Discharge, Medical. Vitamin D deficiency - Discharge, Medical. Course: Plan/Respirex @ BS and encourage patient to use. Sleep apnea precautions if needed. C-pap at night if needed. Hold all BP meds if BSP < 130 MMHg. If SBP < 90 mmHg, you may give 500 ml NS IVF over one hour. ACT: CONSULT PT/OT as per Dr. morgan rec. For urinary retention use bladder scanner, you may anchor FC. If no or low UOP you may give 250 mL NS IV over one hour. AM Labs BMP & Hgb/HCT. If pt. spikes fever > 101* F, encourage pt to use Respirex first, then you may give Tylenol 650 mg PO/NC x 1. If no response in 2 hours, you may get blood cx. x2, chest x-ray, sputum CX, S, gram stain x3, UA, C&S. Patient may have chloroseptic spray or throat lozenges for soar throat. DVT prophylaxis. If at any time the HGB is less than 8 type and cross then transfuse 2 units of PRBCs. Premedicate with Tylenol 650 mg PO and Benadryl 25mg PO. Electrolytes Replacement Protocol. Pain control. Close monitoring fluid and electrolytes. Fall risk precautions. Sleep apnea precautions. Stress ulcer prophylaxis. Date 06/24/2021 Time 1728 p.m. Hospitalist medicine consult addendum, internal medicine, Tennille Hughes MD -Seen and reexamined -Awake alert cooperative responsive under no acute distress -Pain well controlled -High spirit -No chest pain or trouble breathing -Participating well with PT/OT -No headache or dizziness when patient got up with PT/OT -No soreness after PT/OT -Released by PT/OT to go home -Tolerating well oral p.o. intake -No nausea or vomiting -No BM but passing gas -I had some difficulty urination at the beginning. Bladder scan revealed over 400. I recommended patient to get up and move around more and now patient is urinating on her own. -Urine output is adequate -Vitals reviewed -Released by Dr Amaya to go home -Discharge medications seen, reviewed and reconciled -DVT prophylaxis and anticoagulation as per Dr. Vasquez protocol -Patient is medically stable -Patient's wants and excited to go home [place] [address] patient seen and examined and reexamined, medical record reviewed, vitals reviewed, medications seen reviewed and reconciled, discussed with Pharm.D., discussed with the patient and with the staff, discussed with PT/OT, discharge orders placed, consult note dictated . Orders Order Profile (Selected) Prescriptions Prescribed acetaminophen 500 mg oral tablet: 2 Tab, Oral, TID, X 10 Day(s), # 60 Tab, 2 Refill(s), other reason (Rx) aspirin 81 mg oral delayed release tablet: 1 Tab, Oral, Tab, BID, To help prevent blood clots., # 90 Tab, 0 Refill(s), other reason (Rx) cefadroxil 500 mg oral capsule: 1 Cap, Oral, Q12H, To help prevent post-op infection, X 3 Day(s), # 6 Cap, 0 Refill(s), other reason (Rx) docusate sodium 100 mg oral capsule: See Instructions, Cap, Take 1-2 capsules daily as needed for constipation, # 60 Cap, 0 Refill(s), other reason (Rx) meloxicam 15 mg oral tablet: 1 Tab, Oral, Daily, DO NOT take other NSAIDs (i.e. ibuprofen, naproxen, diclofenac) while taking meloxicam., # 30 Tab, 0 Refill(s), other reason (Rx) ondansetron 4 mg oral tablet: See Instructions, Take 1 tablet every 4-6 hours as needed for nausea., # 30 Tab, 0 Refill(s), other reason (Rx) oxyCODONE 5 mg oral tablet: See Instructions, Take 1-2 tablets every 4-6 hours as needed for moderate to severe pain., # 50 Tab, 0 Refill(s), other reason (Rx) traMADol 50 mg oral tablet: See Instructions, Take 1-2 tablets every 6 hours as needed for mild pain., # 60 Tab, 0 Refill(s), other reason (Rx) Documented Medications Documented Calcium, Magnesium and Zinc oral tablet: 1 Tab, Oral, Tab, Daily, # 30 Tab, 0 Refill(s) CoQ10: 300 mg, Oral, Daily, 0 Refill(s) Vitamin B Complex 100: 1 Tab, Oral, Daily, 0 Refill(s) Vitamin C: 1,000 mg, Oral, Daily, 0 Refill(s) Vitamin D3: 2,000 mg, Oral, Daily, 0 Refill(s) doxycycline: 40 mg, Oral, Daily, PRN Arthritis, 0 Refill(s) famotidine: 40 mg, Oral, Daily, 0 Refill(s) losartan 50 mg oral tablet: 1 Tab, Oral, Daily, 0 Refill(s) metroNIDAZOLE 0.75% topical cream: 1 Application, Topical, Cream, BID, PRN Arthritis, # 45 Gram, 0 Refill(s) rosuvastatin: 10 mg, Oral, Daily, 0 Refill(s). documented in this encounter Plan of Treatment Not on file documented as of this encounter Visit Diagnoses Not on filedocumented in this encounter
--- OUTSIDE RECORDS SUMMARY | 2025-06-10 10:17 | XMS_ITS | Encounter Summary ---
Author Organization [employer] ([place], [place], [place], [place]) Address [address] [place] [address] Care Team Providers Care Warehouse Processor Name Role Phone Unavailable Primary Care Provider Unavailabl e Encounter Details Date Type Department Care Team (Late st Contact Info) Description 04/14/2021 Transcribed Document [facility] [place] [facility] [place] [address] ProviderMicky MD [address] [place] [address] [phone] Social History Tobacco Use Types Packs/Day Years [...] Conversion Note - Historical ProviderMD - 04/14/2021 12:57 PM CDT [facility] [place] Summary Primary Physician: MARGO MAZA JR, JR, MD-ORT Finalized Date/Time: 04/20/21 14:46:21 Pt. Name: ANTONIA OCONNELL /Sex: 1950 Female Med Rec #: [id number] Physician: MARGO MAZA JR, JR, MD-ORT Financial #: [id number] Pt. Type: O Room/Bed: [facility]/1 Admit/Disch: 04/14/21 05:08:00 - 04/15/21 13:44:00 Institution: [facility] [place] PreOp Case Times Entry 1 In Preop 04/14/21 08:45:00 Ready for Holding n/a Room Patient Ready for 04/14/21 09:50:00 Surgery Patient Out of Preop 04/14/21 12:30:00 Patient Out of n/a Holding Room Last Modified By: Galilea Hein RN 04/20/21 14:46:11 [facility] PreOp Case Times Audit 04/20/21 14:46:11 Drywall Professional: [id number] Modifier: [id number] <*> Patient Out of Preop 04/20/21 12:30:00 04/20/21 09:35:24 Drywall Professional: [id number] Modifier: [id number] <+> 1 Patient Out of Preop Finalized By: Galilea Hein RN Document Signatures Signed By: Molly Gómez RN 04/20/21 09:35 Galilea Hein RN 04/20/21 14:46 Unfinalized History Date/Time Username Reason for Unfinalizing Freetext Reason for Unfinalizing 04/20/21 14:46 [id number] Documented in Error Electronically signed by Delmis Caldera Conversion [employer] Cerner at 01/03/2023 9:22 PM CDT documented in this encounter Plan of Treatment Not on file documented as of this encounter Visit Diagnoses Not on filedocumented in this encounter
--- OUTSIDE RECORDS SUMMARY | 2025-06-10 10:17 | XMS_ITS | Encounter Summary ---
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 Name Role Phone Unavailable Primary Care Provider Unavailabl e Encounter Details Date Type Department Care Team (Late st Contact Info) Description 04/14/2021 Transcribed Document [facility] [place] [address] [place] [id number] ProviderMicky MD [address] [place] [address] [phone] Social History Tobacco Use Types Packs/Day Years [...] Conversion Note - Micky ProviderMD - 04/14/2021 5:50 PM CDT Patient: IRSI OCONNELLYonas HUGHES Age: 71 years Sex: Female : 1950 Associated Diagnoses: Unilateral primary osteoarthritis, right knee; Status post total knee replacement, right; Right knee pain; Dizziness, postop; Unsteadiness; High fall risk; Mitral valve regurgitation; Hypertension; High cholesterol; GERD (gastroesophageal reflux disease); At risk for sleep apnea Author: TENNILLE HUGHES MD-INT Date of admission 04/13/2021 Date of consult 04/13/[address] Pereyra, in [place] Orthopedic surgeon Dr. Vasquez Hospitalist medicine consult, internal medicine, Tennille Hughes MD Reason for the consult, postoperative medical management Surgery See operative report dictated by Dr. Vasquez Admitting diagnosis 1???unilateral primary osteoarthritis right knee 2???s/p R TKA 3???right knee pain 4???dizziness, postop 5???unsteadiness 6???high fall risk 7???MVR 8???HTN 9???HLP 10???GERD 11???at risk for PETAR History of present illness A pleasant 71 years old white female with a history of HTN, MVR, HLP, GERD, PETAR, in addition to right knee pain from osteoarthritis who is after medical clearance by her PCP she underwent right total knee arthroplasty by Dr. Vasquez. Patient had surgery and she was very groggy. She is on femoral nerve block and oral pain medication as recommended by Dr. Vasquez. She was trying to get up with PT/OT but unfortunately she was dizzy unsteady with a high fall risk. She did not start on oral nutrition yet but she denies any chest pain, shortness of breath, diaphoresis nausea or vomiting. She is on scheduled bowel regimen. She is on DVT prophylaxis per Dr. Vasquez protocol. She did not urinated yet. Review of Systems Constitutional: No fever, No [...] Inpatient Medications Ordered Benadryl: 12.5 mg, Oral, Liquid, At Bedtime, PRN for Insomnia, Routine, Start 04/14/21 15:27:00 EDT, 04/14/21 15:27:00 EDT Benadryl: 25 mg, Oral, Tab, On-CALL, PRN for Other (See Comment), Routine, Start 04/14/21 18:16:00 EDT, 04/14/21 18:16:00 EDT Chloraseptic Menthol 1.4% topical spray: 5 [place], Oral, [place], Q2H, PRN for Sore Throat, Routine, Start 04/14/21 18:16:00 EDT Dulcolax Laxative: 10 mg, Rectal, Supp, Daily, PRN for Constipation, Routine, Start 04/14/21 18:16:00 EDT, 04/14/21 18:16:00 EDT DuoNeb 0.5 mg-2.5 mg/3 mL inhalation solution: 3 mL, Nebulized Inhalation, Inh, Q4H, PRN for Wheezing, Routine, Start 04/14/21 18:16:00 EDT HYDROmorphone: 0.5 mg, IV Push, Inj, Q10Min, PRN for Pain (Severe 7-10), Routine, Start 04/14/21 14:37:00 EDT, 04/14/21 14:37:00 EDT Lactated Ringers Injection intravenous solution 1,000 mL: 1,000 mL, Bag Volume (mL) = 1,000, IntraVENous, Rate = 20 mL/Hr, start date 04/14/21 9:56:00 EDT, Routine, 1.73, m2 Milk of Magnesia 8% oral suspension: 15 mL, Oral, Liquid, Q6H, PRN for Constipation, Routine, Start 04/14/21 18:16:00 EDT Mylanta: 30 mL, Oral, Liquid, Q6H, PRN for Indigestion, Routine, Start 04/14/21 18:16:00 EDT Percocet 5/325 oral tablet: 1 Tab, Oral, Tab, 1-Time, PRN for Pain (Moderate 4-6), Routine, Start 04/14/21 14:37:00 EDT Phenergan: 12.5 mg, IV Push, Inj, Q6H, PRN for Nausea, Routine, Start 04/14/21 18:16:00 EDT, 04/14/21 18:16:00 EDT Phenergan: 12.5 mg, Oral, Tab, Q6H, PRN for Nausea, Routine, Start 04/14/21 18:16:00 EDT, 04/14/21 18:16:00 EDT Skelaxin: 800 mg, Oral, Tab, TID, PRN for Muscle Spasms, Routine, Start 04/14/21 18:16:00 EDT, 04/14/21 18:16:00 EDT Sodium Chloride 0.9% intravenous solution 1,000 mL: 1,000 mL, Bag Volume (mL) = 1,000, IntraVENous, Rate = 100 mL/Hr, start date 04/14/21 15:27:00 EDT, Routine, X 8 Hour(s), Stop 04/14/21 23:26:00 EDT, 1.73, m2 Sodium Chloride 0.9% intravenous solution 1,000 mL: 1,000 mL, Bag Volume (mL) = 1,000, IntraVENous, Rate = 50 mL/Hr, start date 04/14/21 22:57:00 EDT, Routine, 1.73, m2 Sublimaze: 25 mcg, IV Push, Inj, Q5Min, PRN for Pain (Mild 1-3), Routine, Start 04/14/21 14:37:00 EDT, 04/14/21 14:37:00 EDT Sublimaze: 50 mcg, IV Push, Inj, Q5Min, PRN for Pain (Moderate 4-6), Routine, Start 04/14/21 14:37:00 EDT, 04/14/21 14:37:00 EDT Tylenol: 1,000 mg, Oral, Tab, Q8HInt, Routine, Start 04/14/21 16:00:00 EDT, 04/14/21 15:27:00 EDT Vitamin C: 1,000 mg, Oral, Tab, Daily, Routine, Start 04/15/21 9:00:00 EDT, 04/14/21 18:18:00 EDT Vitamin D3: 2,000 mg, Oral, Daily, Routine, Start 04/15/21 9:00:00 EDT, 04/14/21 18:18:00 EDT Zofran: 4 mg, IV Push, Inj, Q4H, PRN for Nausea, Routine, Start 04/14/21 18:16:00 EDT, 04/14/21 18:16:00 EDT Zofran: 4 mg, IV Push, Inj, Q8H, order duration: 3 Time(s), PRN for Nausea, Routine, Start 04/14/21 15:27:00 EDT, Stop Limited # of times, 04/14/21 15:27:00 EDT aspirin: 81 mg, Oral, EC Tab, BID, Routine, Start 04/14/21 21:00:00 EDT, 04/14/21 15:27:00 EDT docusate calcium: 240 mg, Oral, Cap, Daily, PRN for Constipation, Routine, Start 04/14/21 18:16:00 EDT, 04/14/21 18:16:00 EDT doxycycline: 40 mg, Oral, Daily, Routine, Start 04/15/21 9:00:00 EDT, Indication: Other-See Comment famotidine: 20 mg, Oral, Tab, PREOP, PRN for Other (See Comment), Routine, Start 04/14/21 9:56:00 EDT, 04/14/21 9:56:00 EDT gabapentin: 300 mg, Oral, Cap, At Bedtime, Routine, Start 04/14/21 21:00:00 EDT, 04/14/21 15:27:00 EDT haloperidol: 1 mg, IV Push, Inj, 1-Time, PRN for Nausea/Vomiting, Routine, Start 04/14/21 14:37:00 EDT, 04/14/21 14:37:00 EDT ketorolac: IntraLesional, Soln, 1-Time, Start 04/14/21 14:00:00 EDT, Stop 04/14/21 14:00:00 EDT, 3000 mL/Hr, Infuse Over: 1 Minute(s) losartan: 50 mg, Oral, Tab, Daily, STAT, Start 04/14/21 14:45:00 EDT, 04/14/21 14:45:00 EDT metoclopramide: 5 mg, IV Push, Inj, Q4H, PRN for Nausea/Vomiting, Routine, Start 04/14/21 15:27:00 EDT, 04/14/21 15:27:00 EDT naloxone: 0.1 mg, IV Push, Inj, Q5Min, PRN for Oversedation, Routine, Start 04/14/21 15:27:00 EDT, 04/14/21 15:27:00 EDT oxyCODONE: 10 mg, Oral, Tab, Q4H, PRN for Pain (Severe 7-10), Routine, Start 04/14/21 15:27:00 EDT, 04/14/21 15:27:00 EDT oxyCODONE: 5 mg, Oral, Tab, Q4H, PRN for Pain (Moderate 4-6), Routine, Start 04/14/21 15:27:00 EDT, 04/14/21 15:27:00 EDT rosuvastatin: 10 mg, Oral, Tab, Daily, Routine, Start 04/15/21 9:00:00 EDT, 04/14/21 18:18:00 EDT traMADol: 50 mg, Oral, Tab, Q6H, Routine, Start 04/14/21 18:00:00 EDT, 04/14/21 15:27:00 EDT traZODone: 50 mg, Oral, Tab, At Bedtime, PRN for Insomnia, Routine, Start 04/14/21 18:16:00 EDT, 04/14/21 18:16:00 EDT Incomplete Calcium, Magnesium and Zinc oral tablet: 1 Tab, Oral, Tab, Daily, Routine, Start 04/15/21 9:00:00 EDT CoQ10: 300 mg, Oral, Daily, Routine, Start 04/15/21 9:00:00 EDT, 04/14/21 18:18:00 EDT Vitamin B Complex 100: 1 Tab, Oral, Daily, Routine, Start 04/15/21 9:00:00 EDT metroNIDAZOLE 0.75% topical cream: 1 Application, Topical, Cream, BID, Routine, Start 04/14/21 21:00:00 EDT Pending Complete tranexamic acid + Dextrose 5% in Water intravenous solution 100 mL: 1,000 mg 10 mL, IV Piggyback, Inj, Q2HInt, order duration: 2 Time(s), Start 04/14/21 10:00:00 EDT, Stop 04/14/21 13:59:00 EDT, 220 mL/Hr, Infuse Over: 30 Minute(s) Prescriptions Prescribed Mobic 15 mg oral tablet: 1 Tab, Oral, Daily, # 30 Tab, 0 Refill(s), called to pharmacy (Rx) acetaminophen 500 mg oral tablet: 2 Tab, Oral, TID, X 30 Day(s), # 180 Tab, 2 Refill(s), called to pharmacy (Rx) aspirin 81 mg oral delayed release tablet: 1 Tab, Oral, Tab, BID, # 90 Tab, 0 Refill(s), called to pharmacy (Rx) cefadroxil 500 mg oral capsule: 1 Cap, Oral, Cap, Q12H, X 3 Day(s), # 6 Cap, 0 Refill(s), called to pharmacy (Rx) docusate sodium 100 mg oral tablet: 1 Tab, Oral, Tab, BID, PRN for constipation, # 60 Tab, 0 Refill(s), Pharmacy: [id number], 162.56, cm, 04/14/21 9:42:00 EDT, CLINICALHEIGHT, 65.91, kg, 04/14/21 9:42:00 EDT, CLINICALWEIGHT ondansetron 4 mg oral tablet: 1 Tab, Oral, Tab, Q8H, # 30 Tab, 0 Refill(s), called to pharmacy (Rx) oxyCODONE 5 mg oral tablet: See Instructions, Take 1-2 tablets by mouth every 4-6 hours as needed for severe pain, # 20 Tab, 0 Refill(s), called to pharmacy (Rx) traMADol 50 mg oral tablet: See Instructions, Take 1-2 tablets by mouth every 6 hours as needed for moderate pain, # 60 Tab, 0 Refill(s), called to pharmacy (Rx) Documented Medications Documented Calcium, Magnesium and Zinc oral tablet: 1 Tab, Oral, Tab, Daily, # 30 Tab, 0 Refill(s) CoQ10: 300 mg, Oral, Daily, 0 Refill(s) Vitamin B Complex 100: 1 Tab, Oral, Daily, 0 Refill(s) Vitamin C: 1,000 mg, Oral, Daily, 0 Refill(s) Vitamin D3: 2,000 mg, Oral, Daily, 0 Refill(s) doxycycline: 40 mg, Oral, Daily, 0 Refill(s) metroNIDAZOLE 0.75% topical cream: 1 Application, Topical, Cream, BID, # 45 Gram, 0 Refill(s) rosuvastatin: 10 mg, Oral, Daily, 0 Refill(s), Home Medications (16) Active acetaminophen 500 mg oral tablet 1,000 mg = 2 Tab, Oral, TID aspirin 81 mg oral delayed release tablet 81 mg = 1 Tab, Oral, BID Calcium, Magnesium and Zinc oral tablet 1 Tab, Oral, Daily cefadroxil 500 mg oral capsule 500 mg = 1 Cap, Oral, Q12H CoQ10 300 mg, Oral, Daily docusate sodium 100 mg oral tablet 100 mg = 1 Tab, PRN, Oral, BID doxycycline 40 mg, Oral, Daily metroNIDAZOLE 0.75% topical cream 1 Application, Topical, BID Mobic 15 mg oral tablet 15 mg = 1 Tab, Oral, Daily ondansetron 4 mg oral tablet 4 mg = 1 Tab, Oral, Q8H oxyCODONE 5 mg oral tablet See Instructions rosuvastatin 10 mg, Oral, Daily traMADol 50 mg oral tablet See Instructions Vitamin B Complex 100 1 Tab, Oral, Daily Vitamin C 1,000 mg, Oral, Daily Vitamin D3 2,000 mg, Oral, Daily , Medications (37) Active Scheduled: (10) acetaminophen 500 mg tab 1,000 mg 2 Tab, Oral, Q8HInt ascorbic acid 500 mg tab 1,000 mg 2 Tab, Oral, Daily aspirin EC 81 mg tab 81 mg 1 Tab, Oral, BID cholecalciferol 2,000 mg, Oral, Daily doxycycline 40 mg, Oral, Daily gabapentin 300 mg cap 300 mg 1 Cap, Oral, At Bedtime ketorolac 30 mg 1 mL, IntraLesional, 1-Time losartan 50 mg tab 50 mg 1 Tab, Oral, Daily rosuvastatin 10 mg tab 10 mg 1 Tab, Oral, Daily traMADol 50 mg tab 50 mg 1 Tab, Oral, Q6H Continuous: (3) lactated ringers 1,000 mL 1,000 mL, IntraVENous, 20 mL/Hr NaCl 0.9% 1,000 mL 1,000 mL, IntraVENous, 100 mL/Hr NaCl 0.9% 1,000 mL 1,000 mL, IntraVENous, 50 mL/Hr PRN: (24) acetaminophen/oxyCODONE 325/5 mg tab 1 Tab, Oral, 1-Time al hydrox/mag hydrox/simeth 30 mL liq 30 mL, Oral, Q6H albuterol-ipratropium inh 3 mL 3 mL, Nebulized Inhalation, Q4H bisacodyl 10 mg supp 10 mg 1 Supp, Rectal, Daily diphenhydrAMINE 12.5 mg/5 mL liq 5 mL 12.5 mg 5 mL, Oral, At Bedtime diphenhydrAMINE 25 mg tab 25 mg 1 Tab, Oral, On-CALL docusate calcium 240 mg cap 240 mg 1 Cap, Oral, Daily famotidine 20 mg tab 20 mg 1 Tab, Oral, PREOP fentaNYL 100 mcg/2 mL inj 25 mcg 0.5 mL, IV Push, Q5Min fentaNYL 100 mcg/2 mL inj 50 mcg 1 mL, IV Push, Q5Min haloperidol 5 mg/1 mL inj 1 mg 0.2 mL, IV Push, 1-Time HYDROmorphone 1 mg/1 mL inj 0.5 mg 0.5 mL, IV Push, Q10Min magnesium hydroxide 8% liq 30 mL 15 mL, Oral, Q6H metaxalone 800 mg tab 800 mg 1 Tab, Oral, TID metoclopramide 10 mg/2 mL inj 5 mg [...] Oral, Q4H phenol 1.4% throat spray 5 [place], Oral, Q2H promethazine 25 mg tab 12.5 [...] DM, HTN, and cancer Procedure history: Hysterectomy (771035262). bladder repair. Tonsillectomy (719438210). Tubal ligation ([id number]). Colonoscopy (910919129). Social History Patient is and has 3 children, there is no history of smoking but drinks alcohol occasionally. Physical Examination VS/Measurements Vital Signs/Vital Measures 04/14/2021 17:10 EDT Systolic Blood Pressure 142 mmHg HI Diastolic Blood Pressure 72 mmHg Heart Rate Monitored 62 bpm Respiratory Rate 16 Breaths/Min Oxygen Saturation 96 % Oxygen Therapy Mode Nasal cannula Oxygen Flow Rate 2 Liter/Min 04/14/2021 16:24 EDT Systolic Blood Pressure 162 mmHg HI Diastolic Blood Pressure 72 mmHg Mean Arterial Pressure (MAP)-BMDI 51 Oxygen Saturation 96 % Oxygen Therapy Mode Room air 04/14/2021 15:45 EDT Systolic Blood Pressure 164 mmHg HI Diastolic Blood Pressure 77 mmHg Mean Arterial Pressure (MAP)-BMDI 111 Heart Rate Monitored 66 bpm Respiratory Rate 16 Breaths/Min Oxygen Saturation 95 % (Modified) Oxygen Therapy Mode Room air 04/14/2021 15:30 EDT Systolic Blood Pressure 164 mmHg HI Diastolic Blood Pressure 77 mmHg Mean Arterial Pressure (MAP)-BMDI 111 Heart Rate Monitored 74 bpm Oxygen Saturation 95 % 04/14/2021 15:25 EDT Systolic Blood Pressure 162 mmHg HI Diastolic Blood Pressure 76 mmHg Mean Arterial Pressure (MAP)-BMDI 109 Heart Rate Monitored 70 bpm Oxygen Saturation 92 % LOW Oxygen Therapy Mode Room air 04/14/2021 15:15 EDT Systolic Blood Pressure 154 mmHg HI Diastolic Blood Pressure 67 mmHg Mean Arterial Pressure (MAP)-BMDI 105 Heart Rate Monitored 64 bpm Oxygen Saturation 96 % Oxygen Therapy Mode Nasal cannula Oxygen Flow Rate 2 Liter/Min 04/14/2021 15:10 EDT Heart Rate Monitored 63 bpm Oxygen Saturation In Error % (In Error) 04/14/2021 15:05 EDT Systolic Blood Pressure 164 mmHg HI Diastolic Blood Pressure 71 mmHg Mean Arterial Pressure (MAP)-BMDI 112 Heart Rate Monitored 75 bpm Oxygen Saturation 96 % 04/14/2021 14:55 EDT Systolic Blood Pressure 152 mmHg HI Diastolic Blood Pressure 75 mmHg Mean Arterial Pressure (MAP)-BMDI 108 Heart Rate Monitored 65 bpm Oxygen Saturation 99 % Oxygen Therapy Mode Room air 04/14/2021 14:50 EDT Systolic Blood Pressure 168 mmHg HI Diastolic Blood Pressure 83 mmHg Mean Arterial Pressure (MAP)-BMDI 117 Heart Rate Monitored 67 bpm Oxygen Saturation 99 % 04/14/2021 14:45 EDT Systolic Blood Pressure 169 mmHg HI Diastolic Blood Pressure 82 mmHg Mean Arterial Pressure (MAP)-BMDI 118 Heart Rate Monitored 77 bpm Oxygen Saturation 100 % 04/14/2021 14:40 EDT Systolic Blood Pressure 188 mmHg HI Diastolic Blood Pressure 84 mmHg Mean Arterial Pressure (MAP)-BMDI 123 Heart Rate Monitored 61 bpm Oxygen Saturation 100 % 04/14/2021 14:35 EDT Systolic Blood Pressure 166 mmHg HI Diastolic Blood Pressure 77 mmHg Mean Arterial Pressure (MAP)-BMDI 110 Heart Rate Monitored 62 bpm Oxygen Saturation 99 % 04/14/2021 14:30 EDT Systolic Blood Pressure 165 mmHg HI Diastolic Blood Pressure 73 mmHg Mean Arterial Pressure (MAP)-BMDI 105 Heart Rate Monitored 65 bpm Oxygen Saturation 90 % LOW Oxygen Therapy Mode Nasal cannula Oxygen Flow Rate 2 Liter/Min 04/14/2021 14:25 EDT Systolic Blood Pressure 185 mmHg HI Diastolic Blood Pressure 83 mmHg Mean Arterial Pressure (MAP)-BMDI 119 Heart Rate Monitored 90 bpm Oxygen Saturation 96 % 04/14/2021 14:20 EDT Systolic Blood Pressure 187 mmHg HI Diastolic Blood Pressure 79 mmHg Mean Arterial Pressure (MAP)-BMDI 114 Heart Rate Monitored 90 bpm Oxygen Saturation 95 % 04/14/2021 14:15 EDT Systolic Blood Pressure 190 mmHg HI Diastolic Blood Pressure 101 mmHg HI Mean Arterial Pressure (MAP)-BMDI 132 Temperature Source Temporal artery scanning Temperature Mode Fahrenheit Temperature, Fahrenheit 97.0 Deg F Clinical Temperature, C 36.1 Deg C Heart Rate Monitored 93 bpm Oxygen Saturation 95 % Oxygen Therapy Mode Room air 04/14/2021 12:00 EDT Blood Pressure Position Supine Systolic Blood Pressure 123 mmHg Diastolic Blood Pressure 60 mmHg Peripheral Pulse Rate 57 bpm LOW Respiratory Rate 16 Breaths/Min Oxygen Saturation 100 % Oxygen Therapy Mode Room air 04/14/2021 11:55 EDT Systolic Blood Pressure 107 mmHg Diastolic Blood Pressure 51 mmHg LOW Peripheral Pulse Rate 64 bpm Respiratory Rate 14 Breaths/Min Oxygen Saturation 99 % Oxygen Therapy Mode Nasal cannula Oxygen Flow Rate 2 Liter/Min 04/14/2021 11:50 EDT Systolic Blood Pressure 106 mmHg Diastolic Blood Pressure 57 mmHg LOW Peripheral Pulse Rate 55 bpm LOW Respiratory Rate 16 Breaths/Min Oxygen Saturation 99 % Oxygen Therapy Mode Nasal cannula Oxygen Flow Rate 2 Liter/Min 04/14/2021 9:42 EDT Blood Pressure Location Arm, left upper Blood Pressure Source Non-Invasive BP Device Blood Pressure Position Sitting Systolic Blood Pressure 167 mmHg HI Diastolic Blood Pressure 83 mmHg Temperature Source Temporal artery scanning Temperature Mode Fahrenheit Temperature, Fahrenheit 97.6 Deg F Clinical Temperature, C 36.4 Deg C Pulse Method Pulse Oximetry Pulse Rhythm Regular Peripheral Pulse Rate 70 bpm Respiratory Rate 16 Breaths/Min Oxygen Saturation 98 % Oxygen Therapy Mode Room air General: [...] swelling, No deformity, Normal gait. Integumentary: Warm, [place], Intact, No pallor, No rash, WOUND STABLE. Neurologic: Alert, Oriented, Normal sensory, Normal motor function, No focal deficits, Cranial Nerves II-XII are grossly intact, Normal deep tendon reflexes. Psychiatric: Cooperative, Appropriate mood & affect, Normal judgment, Non-suicidal. Review / Management Results review Impression and Plan Diagnosis Unilateral primary osteoarthritis, right knee - Admitting, Medical. Status post total knee replacement, right - Admitting, Medical. Right knee pain - Admitting, Medical. Dizziness, postop - Admitting, Medical. Unsteadiness - Admitting, Medical. High fall risk - Admitting, Medical. Mitral valve regurgitation - Discharge, Medical. Hypertension - Discharge, Medical. High cholesterol - Discharge, Medical. GERD (gastroesophageal reflux disease) - Discharge, Medical. At risk for sleep apnea - Discharge, Medical. Course: Plan/Respirex @ BS [...] then you may give Tylenol 650 mg PO/ND x 1. If no response in 2 [...] precautions. Sleep apnea precautions. Stress ulcer prophylaxis. TWT 73 mn patient seen and examined and reexamined, medical record reviewed, vitals reviewed, medications seen reviewed and reconciled, discussed with Pharm.D., discussed with the patient and with the staff, discussed with PT/OT, orders placed, consult note dictated . Electronically signed by Delmis Caldera Conversion Security Control Center Operator Cerner at 01/03/2023 9:12 PM CDT documented in this encounter Plan of Treatment Not on file documented as of this encounter Visit Diagnoses Not on filedocumented in this encounter
--- OUTSIDE RECORDS SUMMARY | 2025-06-10 10:17 | XMS_ITS | Encounter Summary ---
Author Organization [employer] ([place], [place], [place], [place]) Address [address] [place] [address] Care Team Providers Care Dermatologist And Dermatopathologist Name Role Phone Unavailable Primary Care Provider Unavailabl e Encounter Details Date Type Department Care Team (Late st Contact Info) Description 04/14/2021 Transcribed Document [facility] [place] [facility] [place] [address] ProviderMicky MD [address] [place] [address] [phone] Social History Tobacco Use Types Packs/Day Years [...] Conversion Note - Micky ProviderMD - 04/14/2021 4:31 PM CDT On Going Discharge Planning Entered On: 04/14/2021 16:32 EDT Performed On: 04/14/2021 16:31 EDT by AMADO MELISSA RN Care Management Progress Note Discharge Arrangements : Patient Post-Acute Information Patient Name: ANTONIA OCONNELL SAUL Gender: Female : [birth year] Age: 71 Years [place] Referral(s): Service: Organization: Business Address: Phone Number: [employer] [address], [address] Discharge Options Discussed with Patient : Discharge transportation, DME, Home Health Barriers to Discharge Identified : None identified Barriers to Discharge Unresolved : All resolved Patient Discharge Goal : Home health care Patient Offered Choice/Affiliations Explained : Yes Designation of Choice Signed : Yes List/Info Provided Pt/Fam/Support Person : Durable medical equipment, Home health Were Referrals Sent to Post Acute Providers : Yes [facility] Quality Web Info Shared w Pt/Fam : Yes Does the Patient have a Floor to SNF Benefit? : No Is the Patient Meeting Medical Necessity : Yes Physician Agreeable to Move Forward with D/C Plan? : Yes Did you Attend Multidisciplinary Rounds? : No AMADO MELISSA RN - 04/14/2021 16:31 EDT Narrative Progress Note Narrative Progress Note : 71 y/o female s/p RTK per Dr. Reynoso. Met with patient at bedside to discuss disharge needs and verify demographics. RRS: low 29 BOOST: 2 STATUS: Patient lives with her . she is iADLS. PLAN: Home with Outpatient. Patient is pre set up with [facility]. Aisha notified of patient being discharged today. DME: patient needs a front rolling walker and bedside commode. Referral sent via [employer] to Óscar and Em[facility] notified. CM: no further CM needs identified. TRANS: family will transport patient home. DOC: Designation of choice signed and placed in chart. AMADO MELISSA RN - 04/14/2021 16:31 EDT documented in this encounter Plan of Treatment Not on file documented as of this encounter Visit Diagnoses Not on filedocumented in this encounter
--- OUTSIDE RECORDS SUMMARY | 2025-06-10 10:17 | XMS_ITS | Encounter Summary ---
Author Organization [employer] ([place], [place], [place], [place]) Address [address] [place] [address] Care Team Providers Care Block Breaker Operator Name Role Phone Unavailable Primary Care Provider Unavailabl e Encounter Details Date Type Department Care Team (Late st Contact Info) Description 04/14/2021 Transcribed Document [facility] [place] Family [place] [facility] [place] [address] ProviderMicky MD [address] [place] [address] [phone] Social History Tobacco Use Types Packs/Day Years [...] Conversion Note - Micky ProviderMD - 04/14/2021 4:34 PM CDT Final Discharge Planning Entered On: 04/14/2021 16:35 EDT Performed On: 04/14/2021 16:34 EDT by AMADO MLEISSA RN Final Discharge Planning Discharge Arrangements : Patient Post-Acute Information Patient Name: ANTONIA WHITE SAUL Gender: Female : [birth year] Age: 71 Years [place] Referral(s): Service: Organization: Business Address: Phone Number: [employer] [address], [address] Patient Offered Choice/Affiliations Explained : Yes Designation of Choice Signed : Yes Important Medicare Message Reviewed With : Other: na Important Medicare Message Reviewed D/T : 04/14/2021 16:34 EDT Transportation Needs : Family/Friend Follow Up Appointment Scheduled : Yes Is Patient High/Moderate Readmission Risk? : No Patient/Family Notified of Plan : Yes Support Person/Pt Rep Notified of Plan : Yes Is Patient Ready for Discharge? : Yes Physician Notified Patient is Ready for Discharge? : Yes Discharge To Care Management : Home Health Services (Related/SOC within 3 days)-06 AMADO MELISSA RN - 04/14/2021 16:34 EDT Final Narrative Note Final Narrative Note : Patient discharging home. Patient will be using [facility] for outpatient PT. No further CM needs identified. AMADO MELISSA RN - 04/14/2021 16:34 EDT documented in this encounter Plan of Treatment Not on file documented as of this encounter Visit Diagnoses Not on filedocumented in this encounter
--- OUTSIDE RECORDS SUMMARY | 2025-06-10 10:17 | XMS_ITS | Encounter Summary ---
Author Organization [facility] ([place], [place], [place], [place]) Address [address] [place] [address] Care Team Providers Care Drying Oven Attendant Name Role Phone Unavailable Primary Care Provider Unavailabl e Encounter Details Date Type Department Care Team (Late st Contact Info) Description 04/14/2021 Transcribed Document [facility] [place] [address] ProviderMicky MD [address] [place] [address] [phone] Social History Tobacco Use Types Packs/Day Years [...] Historical ProviderMD - 04/14/2021 12:57 PM CDT [facility] IntraOp Summary Primary Physician: MARGO MAZA JR, JR, MD-ORT Finalized Date/Time: 04/14/21 14:20:14 Pt. Name: ANTONIA OCONNELL /Sex: 1950 Female Med Rec #: [id number] Physician: MARGO MAZA JR, JR, MD-ORT Financial #: [id number] Pt. Type: O Room/Bed: [facility]/ Admit/Disch: 04/14/21 05:08:00 - Institution: [facility] IntraOp Case Attendance Entry 1 Entry 2 Entry 3 Case Attendee MARGO MAZA JR, JR, Juan Daniel Pennington, Sindy Sarkar, Scrhyun DASHORMorales Basilio Role Performed Surgeon/Proceduralist, VANDA Bran, Second First Time In 04/14/21 12:33:00 04/14/21 12:33:00 04/14/21 12:33:00 Time Out 04/14/21 14:16:00 04/14/21 14:16:00 04/14/21 14:16:00 Procedure Knee Total Joint Knee Total Joint Knee Total Joint Replacement Replacement Replacement Other Attendee Superficial Wound Closed By: Last Modified By: Waqar Narvaez Shaffer, Andrea L, Waqar Narvaez, Rn-Traveler 04/14/21 Rn-Traveler 04/14/21 Rn-Traveler 04/14/21 14:15:20 14:15:20 14:15:20 Entry 4 Entry 5 Entry 6 Case Attendee OTHER, ATTENDEE #2 RAJI CYR, THREAD ROLLER OTHER, ATTENDEE #1 Role Performed Vendor THREAD ROLLER/Nurse Forensics Analyst Scrub, First Time In 04/14/21 12:33:00 04/14/21 12:33:00 04/14/21 12:33:00 Time Out 04/14/21 14:16:00 04/14/21 14:16:00 04/14/21 14:16:00 Procedure Knee Total Joint Knee Total Joint Knee Total Joint Replacement Replacement Replacement Other Attendee [facility] Superficial Wound Closed By: Last Modified By: Waqar Narvaez Shaffer, Andrea L, Waqar Narvaez Rn-Traveler 04/14/21 Rn-Traveler 04/14/21 Rn-Traveler 04/14/21 14:15:20 14:15:20 14:15:20 Entry 7 Case Attendee Waqar Narvaez Rn-Traveler Role Performed Facing Slitter, First Time In 04/14/21 12:33:00 Time Out 04/14/21 14:16:00 Procedure Knee Total Joint Replacement Other Attendee Superficial Wound Closed By: Last Modified By: Waqar Narvaez Rn-Traveler 04/14/21 14:15:20 [facility] IntraOp Case Attendance Audit 04/14/21 14:15:20 Condenser Cleaner: [id number] Modifier: [id number] <+> Time In 1 <+> Time Out 1 <*> Procedure Knee Total Joint Replacement 2 <+> Time In 2 <+> Time Out 2 <*> Procedure Knee Total Joint Replacement 3 <+> Time In 3 <+> Time Out 3 <*> Procedure Knee Total Joint Replacement 4 <+> Time In 4 <+> Time Out 4 <*> Procedure Knee Total Joint Replacement 5 <+> Time In 5 <+> Time Out 5 <*> Procedure Knee Total Joint Replacement 6 <+> Time In 6 <+> Time Out 6 <*> Procedure Knee Total Joint Replacement 7 <+> Time In 7 <+> Time Out 7 <*> Procedure Knee Total Joint Replacement 04/14/21 13:04:52 Condenser Cleaner: [id number] Modifier: [id number] <+> Case Attendee 5 <*> Procedure Knee Total Joint Replacement [facility] IntraOp Case Times Entry 1 Patient In Room Time 04/14/21 12:33:00 Out Room Time 04/14/21 14:16:00 Anesthesia Start Time 04/14/21 12:33:00 Stop Time 04/14/21 14:16:00 Anesthesia Ready 04/14/21 12:33:00 Surgery / Procedure Times Start Time 04/14/21 12:57:00 Stop Time 04/14/21 14:13:00 Last Modified By: Waqar Narvaez Rn-Traveler 04/14/21 14:15:18 [facility] IntraOp Case Times Audit 04/14/21 14:15:18 Condenser Cleaner: [id number] Modifier: [id number] <+> 1 Out Room Time <+> 1 Stop Time 04/14/21 14:11:21 Condenser Cleaner: [id number] Modifier: [id number] <+> 1 Stop Time [facility] IntraOp Cautery Entry 1 ESU Identification Cautery Type Monopolar ESU ID Number [id number] ID Type Hospital Number Cautery Settings Cut Setting 70 Coag Setting 70 ESU Grounding Pad Ground Pad Type Adult Grounding Pad Site Left thigh Grounding Pad Waqar Narvaez, Applied By Rn-Traveler Grounding Pad Site Intact Skin Condition Before Cautery Grounding Pad Site Unchanged Skin Condition After Cautery Last Modified By: Waqar Narvaez Rn-Traveler 04/14/21 13:09:33 [facility] IntraOp Communication Entry 1 Communication To Family/Significant other Communication By MARGO MAZA JR, JR, MD-ORT Last Modified By: Waqar Narvaez Rn-Traveler 04/14/21 13:09:44 [facility] IntraOp Counts Verification Entry 1 Procedure Knee Total Joint Replacement Count Info Count Type Sponge, Sharps Counts Verification Baseline/pre-procedure Sequence Count Results Not Applicable Counts Performed By Count Performed By RAJI CYR CRNA (Scrub) Count Performed By Waqar Narvaez (RN) Rn-Traveler Last Modified By: Waqar Narvaez Rn-Traveler 04/14/21 13:09:59 [facility] IntraOp Counts Final Entry 1 Procedure Knee Total Joint Replacement Final Count Info Count Type Sponge, Sharps Counts Verification Skin Closure/end of Sequence procedure Count Results Correct, surgeon notified Counts Performed By Count Performed By OTHER, ATTENDEE #1 (Scrub) Count Performed By Waqar Narvaez (RN) Rn-Traveler Last Modified By: Waqar Narvaez Rn-Traveler 04/14/21 13:51:47 [facility] IntraOp Counts Final Audit 04/14/21 13:51:47 Condenser Cleaner: [id number] Modifier: [id number] Entry 1 was deleted. Higher numbered entries shifted one position to fill the gap. <-> 1 Procedure Knee Total Joint Replacement <-> 1 Count Type Sponge, Sharps <-> 1 Count Results Correct, surgeon notified <-> 1 Count Performed By (Scrub) OTHER, ATTENDEE #1 <-> 1 Count Performed By (RN) Waqar Narvaez Rn-Traveler <-> 1 Counts Verification Sequence 04/14/21 13:51:38 Condenser Cleaner: [id number] Modifier: [id number] <+> 2 Procedure <+> 2 Count Type <+> 2 Count Results <+> 2 Count Performed By (Scrub) <+> 2 Count Performed By (RN) <+> 2 Counts Verification Sequence [facility] IntraOp Cultures and Spec Summary Entry 1 Cultrures and Specimens Specimen Ordered: Yes Test(s) Gross Analysis/Path-Lab Requested/Final Disposition Last Modified By: Waqar Narvaez Rn-Traveler 04/14/21 13:10:25 [facility] IntraOp Departure from OR Entry 1 Integumentary Assessment Integumentary WDL Assessment WDL Transfer/Handoff Transfer to PACU Phase I Handoff Method Bedside/Face to face Post-op Transport Bed (including Via specialty) Patient Transport Waqar Narvaez, Accompanied by Rn-Traveler, RAJI CYR CRNA Last Modified By: Waqar Narvaez Rn-Traveler 04/14/21 13:10:38 [facility] IntraOp Dressing and Packing Entry 1 Type Dressing Location RIGHT KNEE Wound Dressing Item Terrance, Webril, 4x4's Supplemental Limb immobilizer, Cold Applications pack Applied By Juan Daniel Pennington RNFA Other Comments DERMABOND PRINEO Last Modified By: Waqar Narvaez Rn-Traveler 04/14/21 13:10:57 [facility] IntraOp Fire Risk Assessment Entry 1 Fire Info Surgical Site or 0- No Incision Above the Xyphoid Open O2 Source 0- No (Mask or Cannula) Available Ignition 1- Yes (ESU, Laser, Light Source) Fire Risk 1 Assessment Score Fire Score Fire Risk Yes Assessment Complete Fire Risk Waqar Narvaez, Assessment Verified Rn-Traveler By Fire Risk 04/14/21 12:56:00 Assessment Verified Date/Time Fire Risk Standard Fire Yes Safety Precautions Followed Last Modified By: Waqar Narvaez Rn-Traveler 04/14/21 13:11:06 [facility] IntraOp General Case Math Coach 1 Case Information OR OR 05 S[facility] Case Level 1 Room Verified Yes Wound Class I - Clean Specialty Orthopedic Anesthesia Type General ASA Class 3 Diagnosis Preop Diagnosis OSTEOARTHRITS, RIGHT KNEE Postop Same As Preop No Postop Diagnosis SEE SURGEON'S OPERATIVE NOTE Last Modified By: Waqar Narvaez Rn-Traveler 04/14/21 13:12:12 [facility] IntraOp Implant Log Entry 1 Entry 2 Entry 3 Type Implant (Synthetic) Implant (Synthetic) Implant (Synthetic) Implant Log Implant Type Bone Cement Hardware Hardware Tissue Implant Type Implant CEMENT BONE SURG SMPLX IMP CR FEM ITOTAL ID TY CR TIB ITOTAL ID Identification P [id number] [id number] Description Implant Quantity 2 1 1 Implant Site RIGHT KNEE RIGHT KNEE RIGHT KNEE Implant Identification Model Number Implant [id number] Identification Serial Number Implant [id number] Identification Lot Number Implant [place]:Ivon Conformis Conformis Identification Orthopaedics Mud Analysis Supervisor Name: Implant [id number] Identification Catalog Number Implant Size Implant Has an Yes Yes Yes Expiration Date Implant Expiration 05/18/22 04/17/22 04/17/22 Date Wasted Radioactive Material Time Implanted Tissue Implant Continue for Tissue Implant Documentation Tissue Identification Number Graft Prep Per Mud Analysis Supervisor Instructions: Tissue Preparation Method: Reconstitution Solution: Reconstitution Solution Lot Number Reconstitution Solution Expiration Date: Thawing Solution Thawing Solution Lot Number Thawing Solution Expiration Date Preparation Materials, Other Preparation Materials, Other Lot Number Preparation Materials, Other Expiration Date Tissue Prepared/Processed By Mud Analysis Supervisor Paperwork Completed Implant Type Comment Last Modified By: Waqar Narvaez Shaffer, Andrea L, Waqar Narvaez, Rn-Traveler 04/14/21 Rn-Traveler 04/14/21 Rn-Traveler 04/14/21 13:28:02 13:28:02 13:28:02 Entry 4 Entry 5 Type Implant (Synthetic) Implant (Synthetic) Implant Log Implant Type Hardware Hardware Tissue Implant Type Implant KT CR FULL ITOTAL ID IMP PATELLA ITOTAL Identification [id number] Description Implant Quantity 1 1 Implant Site RIGHT KNEE RIGHT KNEE Implant Identification Model Number Implant [id number] Identification Serial Number Implant [id number] Identification Lot Number Implant Conformis Conformis Identification Mud Analysis Supervisor Name: Implant [id number] Identification Catalog Number Implant Size Implant Has an No Yes Expiration Date Implant Expiration 01/15/23 Date Wasted Radioactive Material Time Implanted Tissue Implant Continue for Tissue Implant Documentation Tissue Identification Number Graft Prep Per Mud Analysis Supervisor Instructions: Tissue Preparation Method: Reconstitution Solution: Reconstitution Solution Lot Number Reconstitution Solution Expiration Date: Thawing Solution Thawing Solution Lot Number Thawing Solution Expiration Date Preparation Materials, Other Preparation Materials, Other Lot Number Preparation Materials, Other Expiration Date Tissue Prepared/Processed By Mud Analysis Supervisor Paperwork Completed Implant Type Comment Last Modified By: Waqar Narvaez Shaffer, Andrea L, Rn-Traveler 04/14/21 Rn-Traveler 04/14/21 13:28:02 13:38:19 [facility] IntraOp Implant Log Audit 04/14/21 13:38:19 Condenser Cleaner: [id number] Modifier: [id number] <+> 5 Implant Identification Description <+> 5 Implant Identification Lot Number <+> 5 Implant Identification Mud Analysis Supervisor Name: <+> 5 Implant Expiration Date <+> 5 Implant Site <+> 5 Implant Quantity <+> 5 Implant Identification Catalog Number <+> 5 Implant Type <+> 5 Implant Has an Expiration Date <+> 5 Type [facility] IntraOp Intraoperative Assessment Entry 1 Handoff Method Bedside/Face to face Valid History / Yes Physical in Chart Preoperative Yes Checklist Reviewed/Evaluated Allergies Reviewed Yes Patient is Latex No Sensitive Isolation Not applicable Precautions Noted Level of WDL Consciousness (WDL = Alert, Oriented to Person, Place, and Time) Skin Assessment Yes Verified Present Upon IVs Arrival to OR Last Modified By: Waqar Narvaez Rn-Traveler 04/14/21 13:12:17 [facility] IntraOp Intraoperative Equipment Entry 1 Type Equipment Equipment Intraop Monitoring Electrocardiogram Three lead placement (ECG) Electrode Placement Blood Pressure Non-Invasive BP Device Source Antiembolic Devices Antiembolic Devices Foot pumps Antiembolic Device Left Location Scopes Photo/Video Documentation Last Modified By: Waqar Narvaez Rn-Travelrenetta 04/14/21 13:13:22 [facility] IntraOp Medication Admin Entry 1 Medication/Irrigant ANESTHETIC COCKTAIL-SHAUNNA Dose Unit of Measure ml Volume 50 Administered By Juan Daniel Pennington RNFA Procedure Irrigation Last Modified By: Waqar Narvaez Rn-Traveler 04/14/21 13:13:43 [facility] IntraOp Patient Positioning Entry 1 Procedure Knee Total Joint Replacement Body Position Supine Left Arm Position Secured on padded arm board Right Arm Position Secured on padded arm board Left Leg Position Uncrossed, parallel Right Leg Position Uncrossed, parallel Feet Uncrossed Yes Pressure Points Yes Checked Positioning Devices Arm Board, Pillows, Foot Rest, Safety Strap, Arm(s) Device Position LATERAL POST TO OPERATIVE THIGH, PICKET FENCE FOR PREP. Positioned By MARGO MAZA JR, JR, MD-SERGIO, RAJI CYR CRNA, Juan Daniel Pennington RNFA Position Verified Positioning Yes Verified by Anesthesia Positioning Yes Verified by Surgeon Last Modified By: Waqar Narvaez Rn-Traveler 04/14/21 13:14:06 [facility] IntraOp Sign In Entry 1 Patient, Site, Yes Procedure Identified Surgical Consent Yes Confirmed Relevant Surgical Yes Documents Available Surgical Site Yes Marked by person performing procedure Anesthesia Machine Yes Check Completed Medication Checks Yes Completed Allergies Yes Airway Difficult No Airway/Aspiration Risk Difficult Yes Airway/Aspiration Intervention Equipment Available Blood Loss Risk No Blood Loss No Intervention Equipment Prepared and Ready Blood Identifiers Not applicable Verified Per Policy Hypothermia Risk Yes Warming Measures Yes Taken Last Modified By: Waqar Narvaez Rn-Traveler 04/14/21 13:14:24 [facility] IntraOp Sign In Audit 04/14/21 13:14:24 Condenser Cleaner: [id number] Modifier: [id number] <+> 1 Medication Checks Completed <+> 1 Allergies <+> 1 Difficult Airway/Aspiration Risk <+> 1 Difficult Airway/Aspiration Intervention Equipment Available <+> 1 Blood Loss Risk <+> 1 Blood Loss Intervention Equipment Prepared and Ready <+> 1 Hypothermia Risk <+> 1 Warming Measures Taken <+> 1 Blood Identifiers Verified Per Policy [facility] Intra Op Sign Out Entry 1 RN Confirmation Surgical Yes Procedure(s) Identified Instrument, Sponge Yes and Sharps Counts Correct/Documented Equipment Problems N/A Documented Specimen Labeled Yes Correctly Urinary Catheter N/A Documented in IView Verma Patient Yes Recovery Concerns Reviewed with Anesthesia Provider, Surgeon and RN Verma Patient Yes Management Concerns Reviewed with Anesthesia Provider, Surgeon and RN Safety Checklist Yes Elements Complete? RN Sign Out Waqar Narvaez, Signature Rn-Traveler RN Sign Out 04/14/21 14:11:00 Signature Date/Time Plan of Care Outcome - [...] related to extraneous objects Last Modified By: Waqar Narvaez Rn-Traveler 04/14/21 14:11:30 [facility] Intra Op Sign Out Audit 04/14/21 14:11:30 Condenser Cleaner: [id number] Modifier: [id number] <+> 1 RN Sign Out Signature Date/Time [facility] IntraOp Skin Prep Entry 1 Procedure Knee Total Joint Replacement Prescribed Yes Pre-Surgical Prep Completed Prep Area CIRCUMFRENTIAL PREP FROM BELOW TOURNIQUET DOWN TO AND INCLUDING THE FOOT Intraop Prep Integumentary WDL Assessment WDL Prep Agents Chloraprep Prep by Waqar Narvaez Rn-Traveler Hair Removal Last Modified By: Waqar Narvaez Rn-Traveler 04/14/21 13:14:57 [facility] IntraOp Surgical Procedures Entry 1 Procedure Knee Total Joint Replacement Additional RIGHT TOTAL KNEE Procedure REPLACEMENT Description Primary Procedure Yes Primary Surgeon MARGO MAZA JR, JR, MD-ORT Start 04/14/21 12:57:00 Stop 04/14/21 14:13:00 Anesthesia Type General Specialty Orthopedic Wound Class I - Clean Last Modified By: Waqar Narvaez Rn-Traveler 04/14/21 14:11:15 [facility] IntraOp Surgical Procedures Audit 04/14/21 14:11:15 Condenser Cleaner: [id number] Modifier: [id number] <*> Procedure Knee Total Joint Replacement 1 <+> Stop [facility] IntraOp Temp Regulation Devices Entry 1 Temp Regulation Temperature Warm blankets Regulation Device Temperature Upper body Regulation Site Temperature RAJI CYR CRNA Regulation Device Applied by Last Modified By: Waqar Narvaez Rn-Traveler 04/14/21 13:15:08 [facility] IntraOp Time Out Entry 1 Procedure to be Knee Total Joint Performed Replacement Time Out Time Out Pause Time 04/14/21 12:56:00 All activity Yes suspended (unless life threatening [...] present, Performed in location of procedure after prepped/draped Time Out Comment ANCEF 2GM Antibiotic Yes Prophylaxis Administered Or In Progress Within the Last 60 Minutes Beta Santosh N/A Administered Venous Yes Thromboembolism Prophylaxis Required Anticipated Critical Events Surgeon None expected Anesthesia Provider None expected Nursing Assures Sterility of instruments, Equipment concerns or issues, Implant Availability Essential Imaging Yes Labeled and Displayed Last Modified By: Waqar Narvaez Rn-Traveler 04/14/21 13:11:37 [facility] IntraOp Tourniquet Entry 1 Type Pneumatic Setting 250 mmHg Pheumatic Yes Tourniquet Checked Per Protocol Size 34 inches Placement Thigh, right upper Skin Protection - Yes Padded Under Cuff Applied By Juan Daniel Pennington RNFA Removed By Juan Daniel Pennington RNFA Times Start Time 04/14/21 12:56:00 Stop Time 04/14/21 13:42:00 Last Modified By: Waqar Narvaez Rn-Traveler 04/14/21 14:07:39 [facility] IntraOp Tourniquet Audit 04/14/21 14:07:39 Condenser Cleaner: [id number] Modifier: [id number] <+> 1 Stop Time Case Comments <None> Finalized By: Waqar Narvaez Rn-Traveler Document Signatures Signed By: Waqar Narvaez Rn-Traveler 04/14/21 14:20 Electronically signed by Delmis Caldera Conversion Inspector Government Property Cerner at 01/03/2023 9:21 PM CDT documented in this encounter Plan of Treatment Not on file documented as of this encounter Visit Diagnoses Not on filedocumented in this encounter
--- OUTSIDE RECORDS SUMMARY | 2025-06-10 10:17 | XMS_ITS | Encounter Summary ---
Author Organization [employer] ([place], [place], [place], [place]) Address [address] [place] [address] Care Team Providers Care Instrumentation Technologist Name Role Phone Unavailable Primary Care Provider Unavailabl e Encounter Details Date Type Department Care Team (Late st Contact Info) Description 07/14/2021 Transcribed Document [facility] [place] [facility] [address] ProviderMicky MD [address] [place] [phone] Social History Tobacco Use Types Packs/Day Years [...] Conversion Note - Historical ProviderMD - 07/14/2021 11:20 AM CDT Evaluation, Physical Therapy Entered On: 07/14/2021 14:19 EDT Performed On: 07/14/2021 13:33 EDT by JACQUELYN SIMPSON, PT General Information, PT Visit Type, PT : Initial evaluation Patient Orders : Order Date Order Ordering 07/14/2021 11:20 PT Evaluation and Treatment Ordered By: MARGO MAZA JR, JR, MD-ORT 07/14/2021 11:20 PT Treatment Instructions Ordered By: MARGO MAZA JR, JR, MD-ORT 07/14/2021 11:20 PT Treatment Instructions Ordered By: MARGO MAZA JR, JR, MD-ORT 07/14/2021 11:20 PT Treatment Instructions Ordered By: MARGO MAZA JR, JR, MD-ORT 07/14/2021 11:20 PT Treatment Instructions Ordered By: MARGO MAZA JR, JR, MD-ORT 07/14/2021 11:20 PT Treatment Instructions Ordered By: MARGO MAZA JR, JR, MD-ORT 07/14/2021 11:20 PT Treatment Instructions Ordered By: MARGO MAZA JR, JR, MD-ORT Active Diagnoses : No Qualifying Diagnoses Therapy Diagnosis, PT : aftercare following LTKA Admission Date : 07/14/2021 04:19 Assisted by, PT : Occupational Therapist Personal Devices : Personal Devices No Devices Recorded Assistive Devices : Assistive Devices No Devices Recorded JACQUELYN SIMPSON, PT - 07/14/2021 14:05 EDT General Status Patient Received Status : Supine in bed, Other: in post op Treatment Start Time : 07/14/2021 13:33 EDT Patient Left Status : Up in chair, RN/PCT informed, Family/Visitors at bedside, All needs met and within reach, Other: in post op RN/PCT Informed Comment : Yes, RN approved pt for PT eval and pt agreeable Treatment End Time : 07/14/2021 13:56 EDT Treatment Time : 23 Minute(s) JACQUELYN SIMPSON, PT - 07/14/2021 14:05 EDT History and Environment Living Situation, Therapy : Home Patient Lives With : Spouse Persons Assisting Patient at Home : Spouse Professional Skilled Services : None Persons Providing Information : Patient, Spouse Home Equipment Therapy, PT : Commode, Shower Equipment, Walker Walker : Walker, front wheel Home Setup : One story Stairs : Yes Stair Location(s) : Outside Outside Stairs, Number of Steps : 1 Outside Stairs Comment : 1 platform step Railing Outside : No JACQUELYN SIMPSON, PT - 07/14/2021 14:05 EDT Prior Level of Function PT GRID Prior LOF Ambulation, Household : Independent Prior LOF Ambulation, Community : Independent Prior LOF Bed Mobility : Independent Prior LOF Toileting : Independent Prior LOF Transfer : Independent JACQUELYN SIMPSON PT - 07/14/2021 14:05 EDT Upper Extremity Upper Extremity Dominance : Right Right UE Active ROM : WFL Right UE Strength : WFL Left UE Active ROM : WFL Left UE Strength : WFL JACQUELYN SIMPSON, PT - 07/14/2021 14:05 EDT Lower Extremity RLE Active ROM : WFL Right LE Strength : WFL LLE Active ROM : Impaired Left LE Active Assist ROM : Impaired LLE Passive ROM : Impaired Left LE Strength : Impaired Lower Extremity Comment : LLE is impaired secondary to surgery. KI on LLE at this time so no formal ROM or strength assessment is performed JACQUELYN SIMPSON, PT - 07/14/2021 14:05 EDT Functional Mobility Mobility Grid Bed Scooting : Supervision/set-up Supine to Sit : Supervision/set-up Sit to Stand : Supervision/set-up Bed to Chair : Supervision/set-up Stand to Sit : Supervision/set-up JACQUELYN SIMPSON, PT - 07/14/2021 14:05 EDT Gait Training/Assessment, PT Weight Bearing Status : As tolerated Gait Assistance Level : Supervision Walking Distance : 65 feet with RWX, CGAx1, KI on LLE, verbal cues for correct gait sequence and for safety with RWX. Pt able to perform reciprocal gait pattern Ambulatory Devices : Gait belt, Walker, front wheel Gait Deviations : Yes Gait Training Comment : see above Stair(s) Ascend/Descend Training : No Stair Training Comment : Pt verbalized correct gait sequence for ascending a single platform step with the RWX. Pt is familiar with technique from previous surgery JACQUELYN SIMPSON, PT - 07/14/2021 14:05 EDT Neuromuscular Reeducation, PT Balance Comment : good sitting and standing JACQUELYN SIMPSON, PT - 07/14/2021 14:05 EDT Neurological/Sensory Overall Sensory Response : Intact Response to Pain : Intact JACQUELYN SIMPSON, PT - 07/14/2021 14:05 EDT Activity Tolerance, PT Activity Comment : good JACQUELYN SIMPSON, PT - 07/14/2021 14:05 EDT Cognition Assessment, PT Orientation : Oriented x 4 Attention Assessment : Present JACQUELYN SIMPSON, PT - 07/14/2021 14:05 EDT Edu Topics Physical Therapy Education Grid Bed Mobility Training : Verbalizes understanding, Returns demonstration Gait Training : Verbalizes understanding, Returns demonstration Home Program/Exercises : Verbalizes understanding Safety : Verbalizes understanding, Returns demonstration Stair Training : Verbalizes understanding Transfer Training : Verbalizes understanding, Returns demonstration Use of Assistive Device : Verbalizes understanding, Returns demonstration JACQUELYN SIMPSON, PT - 07/14/2021 14:05 EDT Indication Assesessment, PT Physical Therapy Indicated : No Physical Therapy Not Indicated : Other: Pt does not require further skilled PT services in the acute care setting beyond this initial evaluation and education Interdisciplinary Consultation(s) Needed : No Potential Barriers To Therapy : None evident Rehabilitation Potential : Good JACQUELYN SIMPSON, PT - 07/14/2021 14:05 EDT Plan of Care, PT PT Tx Plan/Goals Established w Patient : No Reason Tx/Plan Not Established W/ Pt PT : Pt does not require further skilled PT services in the acute care setting beyond this initial evaluation and education PT Frequency Rehab : Other: eval only Other PT Treatment Provided This Date : gait PT Duration Rehab : Other: eval only PT Treatments Planned : Other: eval only Plan of Care Comment, PT : eval only JACQUELYN SIMPSON, PT - 07/14/2021 14:05 EDT Treatment Note Subjective Comment : agreeable Patient's Response to Treatment : good Additional Objective Information : see eval Educated about use of KI on day 0 for weight bearing activities and to sleep in KI x 7 days post-operatively. Issued and reviewed HEP for TKA. Educated patient on use of Zero Knee extension pillow for passisve knee extension. Assessment : Pt does not require further skilled PT services in the acute care setting beyond this initial evaluation and education. Pt is safe to discharge home with spouse Plan for Treatment : eval only JACQUELYN SIMPSON, PT - 07/14/2021 14:05 EDT Pain Assessment Pain Scaled Used : 0-10 Pain scale Pain Score Pre-Intervention : 4 Pain Score Post-Intervention. : 4 JACQUELYN SIMPSON, PT - 07/14/2021 14:05 EDT Image 1 - Images currently included in the form version of this document have not been included in the text rendition version of the form. Anticipated Discharge Needs, OT/PT Anticipated Discharge to : Home, with home health JACQUELYN SIMPSON, PT - 07/14/2021 14:05 EDT [place] PT Charges Gait Training Each 15 Min : 1 PT Eval Low Complexity : 1 JACQUELYN SIMPSON, PT - 07/14/2021 14:05 EDT Electronically signed by [facility], [facility] Conversion Elevated Motorman Cerner at 01/03/2023 9:22 PM CDT documented in this encounter Plan of Treatment Not on file documented as of this encounter Visit Diagnoses Not on filedocumented in this encounter
--- OUTSIDE RECORDS SUMMARY | 2025-06-10 10:17 | XMS_ITS | Encounter Summary ---
Author Organization [employer] ([place], [place], [place], [place]) Address [address] [place] [address] Care Team Providers Care Customer Accounts Advisor Name Role Phone Unavailable Primary Care Provider Unavailabl e Encounter Details Date Type Department Care Team (Late st Contact Info) Description 04/14/2021 Transcribed Document [facility] [place] Family Medicine [address] [place] [address] ProviderMicky MD [address] [place], [place] [phone] Social History Tobacco Use Types Packs/Day Years [...] Conversion Note - Historical ProviderMD - 04/14/2021 4:22 PM CDT Initial Discharge Planning Entered On: 04/14/2021 16:31 EDT Performed On: 04/14/2021 16:22 EDT by AMADO MELISSA RN Initial Assessment [...] . Emergency Contact #2 Relationship : . Enter Doctors Name : Frank Osuna Does Patient have PCP Listed? : Yes Legal Guardian : No AMADO MELISSA RN - 04/14/2021 16:22 EDT Initial Assessment II Sensory and Motor Deficits : None Current Home Treatments and Equipment : None Services and Community Resources : Other: na Does the Patient have a Floor to SNF Benefit? : No AMADO MELISSA RN - 04/14/2021 16:22 EDT Discharge Needs I Anticipated Discharge Date : 04/14/2021 EDT Anticipated Discharge To, CM : Home with home health Current Home Treatment/Equipment : Current Home Treatment/Equipment No qualifying data available. Post Acute/Home Treatments : Bedside commode, Walker Documentation Status Complete : Yes AMADO MELISSA RN - 04/14/2021 16:22 EDT Discharge Needs II Professional Skilled Services : Professional Skilled Services No qualifying data available. Services and Community Resources : Home Health Needs Assistance with Transportation : No Discharge Options Discussed with Patient : Discharge transportation, DME, Home Health Patient Discharge Goal : Home health care AMADO MELISSA RN - 04/14/2021 16:22 EDT Narrative Note Narrative Note : 71 y/o female s/p RTK per Dr. Reynoso. Met with patient at bedside to discuss disharge needs and verify demographics. RRS: low 29 BOOST: 2 STATUS: Patient lives with her . she is iADLS. PLAN: Home with Outpatient. Patient is pre set up with [facility]. Leonard notified of patient being discharged today. DME: patient needs a front rolling walker and bedside commode. Referral sent via [employer] to Óscar and Emeterio notified. CM: no further CM needs identified. TRANS: family will transport patient home. DOC: Designation of choice signed and placed in chart. AMADO MELISSA RN - 04/14/2021 16:22 EDT documented in this encounter Plan of Treatment Not on file documented as of this encounter Visit Diagnoses Not on filedocumented in this encounter
--- OUTSIDE RECORDS SUMMARY | 2025-06-10 10:17 | XMS_ITS | Encounter Summary ---
Author Organization [employer] ([place], [place], [place], [place]) Address [address] [place] [address] Care Team Providers Care Cooker Syrup Name Role Phone Unavailable Primary Care Provider Unavailabl e Encounter Details Date Type Department Care Team (Late st Contact Info) Description 04/14/2021 Transcribed Document [facility] [place] [facility] [place] [address] ProviderMicky MD [address] [place] [id number] Social History Tobacco Use Types Packs/Day Years [...] Conversion Note - Historical ProviderMD - 04/14/2021 5:32 PM CDT Treatment Intervention, OT Entered On: 04/15/2021 9:42 EDT Performed On: 04/15/2021 9:37 EDT by DAYLIN NAIK OTR/L General Information, OT Visit Type, OT : Treatment Note Patient Orders : Order Date Order Ordering 04/14/2021 14:57 OT Evaluation and Treatment Ordered By: MARGO MAZA JR, JR, MD-ORT 04/14/2021 14:57 OT Treatment Instructions Ordered By: MARGO MAZA JR, JR, MD-ORT 04/14/2021 17:32 OT Additional Treatment Ordered By: 04/14/2021 18:50 OT Evaluation and Treatment Ordered By: MARGO MAZA JR, JR, MD-ORT Active Diagnoses : 04/14/2021 12:00 Dizziness and giddiness 04/14/2021 12:00 Essential (primary) hypertension 04/14/2021 12:00 Gastro-esophageal reflux disease without esophagitis 04/14/2021 12:00 Nonrheumatic mitral (valve) insufficiency 04/14/2021 12:00 Other specified personal risk factors, not elsewhere classified 04/14/2021 12:00 Pain in right knee 04/14/2021 12:00 Presence of right artificial knee joint 04/14/2021 12:00 Pure hypercholesterolemia, unspecified 04/14/2021 12:00 Unilateral primary osteoarthritis, right knee 04/14/2021 12:00 Unspecified fall, initial encounter 04/14/2021 12:00 Unsteadiness on feet Therapy Diagnosis, OT : aftercare following joint replacement surgery Admission Date : 04/14/2021 05:08 Assisted by, OT : legal assistant (BATTERY WRECKER OPERATOR) Personal Devices : Personal Devices No Devices Recorded Assistive Devices : Assistive Devices No Devices Recorded DAYLIN NAIK OTR/Beth - 04/15/2021 9:37 EDT General Status Patient Received Status : Supine in bed, Bed alarm activated, Other: scds, on q pump Treatment Start Time : 04/15/2021 9:09 EDT Patient Left Status : Up in chair, RN/PCT informed, All needs met and within reach, Other: pt left with BATTERY WRECKER OPERATOR, on q pump RN/PCT Informed Comment : RN ok'd to tx, ID and verified Treatment End Time : 04/15/2021 9:32 EDT Treatment Time : 23 Minute(s) DAYLIN NAIK OTR/Beth - 04/15/2021 9:37 EDT Self Care/Home Management, OT Upper Body Dressing Assist Level, OT : Independent, complete Upper Body Dressing Device Comment, OT : seated Lower Body Dressing Assist Level, OT : Supervision or set-up Lower Body Dressing Device Comment, OT : pt education on LB dressing technique /safety to complete Toileting Assist Level : Supervision or set-up Toileting Device : Commode, bedside Toileting Assist Device Comment : BSC over toilet Toilet Transfer Assist Level : Supervision or set-up Toilet Transfer Device : Belt, gait, Commode, bedside, Walker, rolling Toilet Transfer Device Comment : BSC over toilet, cues safety with rw Bed/Chair/WC Transfer Assist Level : Supervision or set-up Bed/Chair/WC Transfer Device : Belt, gait, Walker, front wheel Bed/Chair/WC Device Comment : cues for safety with rw and hand placement transfer to chair DAYLIN NAIK OTR/L - 04/15/2021 9:37 EDT Mobility Device/Prosthesis/Wt Bearing Weight Bearing Status Maintained : Yes Weight Bearing Status : As tolerated Functional Mobility Device : Gait belt, Walker, front wheel Functional Mobility with Brace/Splint : No DAYLIN NAIK OTR/L - 04/15/2021 9:37 EDT Functional Mobility Mobility Grid Supine to Sit : Rehab Modified independence Sit to Stand : Supervision/set-up Bed to Chair : Supervision/set-up Stand to Sit : Supervision/set-up DAYLIN NAIK OTR/L - 04/15/2021 9:37 EDT Functional MobilityComment : gait belt donned, pt completes functional mobility using rw with SBA/S cues for safety, assist BATTERY WRECKER OPERATOR with mgt of step to simulate safe entry into home. pt returns to room and transfer to chair SBA/S DAYLIN NAIK OTR/L - 04/15/2021 9:37 EDT Education OT Occupational Therapy Education Grid Activity of Daily Living Training : Verbalizes understanding, Returns demonstration Functional Mobility Training : Verbalizes understanding, Returns demonstration Home Safety : Verbalizes understanding (Comment: handout/pt education [DAYLIN NAIK OTR/L - 04/15/2021 9:37 EDT] ) DAYLIN NAIK OTR/L - 04/15/2021 9:37 EDT Plan of Care, OT OT Tx Plan/Goals Established w Patient : No Reason OT Treatment/Plan Not Established : goals met DAYLIN NAIK OTR/L - 04/15/2021 9:37 EDT Correctional Treatment Specialist Goals, OT Other LTG Grid Goal #1 Goal #2 Goal #3 Goal : Client will complete transfers for ADLs with CGA Client will complete LB ADLs with min A Client will verbalize understanding of car transfer, fall prevention Date to Meet : 04/21/2021 EDT 04/21/2021 EDT 04/21/2021 EDT Goal Status : Goal met Goal met Goal met Date Met : 04/15/2021 EDT 04/15/2021 EDT 04/15/2021 EDT DAYLIN NAIK OTR/L - 04/15/2021 9:37 EDT DAYLIN NAIK OTR/L - 04/15/2021 9:37 EDT DAYLIN NAIK OTR/L - 04/15/2021 9:37 EDT Treatment Note Subjective Comment : pt agrees to tx Additional Objective Information : ADL Assessment : pt met goals per eval Plan for Treatment : pt will be discharging home today with and plans to go to outpt rehab DAYLIN NAIK OTR/L - 04/15/2021 9:37 EDT Pain Assessment Pain Scaled Used : 0-10 Pain scale Pain Score Pre-Intervention : 2 Location : Leg, right DAYLIN NAIK OTR/L - 04/15/2021 9:37 EDT Image 1 - Images currently included in the form version of this document have not been included in the text rendition version of the form. [facility] OT Charges OT Selfcare/Hm Mgmt Ea 15 Min : 2 DAYLIN NAIK OTR/L - 04/15/2021 9:37 EDT Electronically signed by Delmis Caldera Conversion Food And Beverage Controller Darion at 01/03/2023 9:11 PM CDT documented in this encounter Plan of Treatment Not on file documented as of this encounter Visit Diagnoses Not on filedocumented in this encounter
--- OUTSIDE RECORDS SUMMARY | 2025-06-10 10:17 | XMS_ITS | Encounter Summary ---
Author Organization [employer] ([place], [place], [place], [place]) Address [address] [place] [address] Care Team Providers Care Parts Cataloger Name Role Phone Unavailable Primary Care Provider Unavailabl e Encounter Details Date Type Department Care Team (Late st Contact Info) Description 04/14/2021 Transcribed Document [facility] [place] [address] [place] [address] ProvideriMcky MD [address] [place], [place] [phone] Social History Tobacco Use Types Packs/Day Years [...] Conversion Note - Historical ProviderMD - 04/14/2021 5:12 PM CDT Event Note Entered On: 04/14/2021 17:14 EDT Performed On: 04/14/2021 17:12 EDT by KENTON BAILEY, RN Event Note Event Date/Time : 04/14/2021 17:00 EDT Description of Event : Pt failed PT. Dr Hughes/Dr Reynoso notified. Family updated with plan of care. KENTON BAILEY, RN - 04/14/2021 17:12 EDT Electronically signed by Veren[facility] Conversion Compensation Consultant Cerner at 01/03/2023 9:27 PM CDT documented in this encounter Plan of Treatment Not on file documented as of this encounter Visit Diagnoses Not on filedocumented in this encounter
--- OUTSIDE RECORDS SUMMARY | 2025-06-10 10:17 | XMS_ITS | Encounter Summary ---
Author Organization [employer] ([place], [place], [place], [place]) Address [address] [place] [address] Care Team Providers Care Cooker Helper Name Role Phone Unavailable Primary Care Provider Unavailabl e Encounter Details Date Type Department Care Team (Late st Contact Info) Description 04/15/2021 Transcribed Document [facility] [place] [facility] [place] [address] ProviderMicky MD [address] [place] [phone] Social History Tobacco Use Types Packs/Day Years Used Date Smoking Tobacco: Never Assessed Comments Unknown Sex and Gender Information Value Date Recorded Sex Assigned at Female 03/15/2022 8:51 PM CDT Legal Sex Female 8:51 PM CDT Gender Identity Female 03/15/2022 8:51 PM CDT Sexual Orientation Not on file documented as of this encounter Miscellaneous Notes * Cerner Conversion Note - Micky ProviderMD - 04/15/2021 1:48 PM CDT Nursing Discharge Summary Entered On: 04/15/2021 13:50 EDT Performed On: 04/15/2021 13:48 EDT by Tree Patrick RN-PATIENT CARE BEDSIDE NON-EXEMPT Discharge Documentation Discharge Date/Time : 04/15/2021 13:46 EDT Transporter Signature : Tree Patrick RN-PATIENT CARE BEDSIDE NON-EXEMPT Patient Disposition, General : Discharge Discharge To : Home with ambulatory/outpatient follow-up Mode Of Departure, General Discharge : Private vehicle Accompanied By, Discharge : Spouse IV Discontinued : Yes Personal Belongings With Patient : Yes Pt's Own Supply of Medications Returned : No patient supply of medications to return Prescriptions Given to Patient : Other: Meds to bed Medications Given to Patient : No Teaching Method : Explanation, Printed materials Teaching Evaluation : Verbalizes understanding Tree Patrick RN-PATIENT CARE BEDSIDE NON-EXEMPT - 04/15/2021 13:48 EDT documented in this encounter Plan of Treatment Not on file documented as of this encounter Visit Diagnoses Not on filedocumented in this encounter
--- OUTSIDE RECORDS SUMMARY | 2025-06-10 10:17 | XMS_ITS | Encounter Summary ---
Author Organization [employer] ([place], [place], [place], [place]) Address [address] [place] [address] Care Team Providers Care Firewood Cutter Name Role Phone Unavailable Primary Care Provider Unavailabl e Encounter Details Date Type Department Care Team (Late st Contact Info) Description 04/15/2021 Transcribed Document [facility] [place] [address] ProviderMicky MD [address] [place], [place] [address] Social History Tobacco Use Types Packs/Day Years Used Date Smoking Tobacco: Never Assessed Comments Unknown Sex and Gender Information Value Date Recorded Sex Assigned at Female 03/15/2022 8:51 PM CDT Legal Sex Female 8:51 PM CDT Gender Identity Female 03/15/2022 8:51 PM CDT Sexual Orientation Not on file documented as of this encounter Miscellaneous Notes * Cerner Conversion Note - Historical ProviderMD - 04/15/2021 9:48 AM CDT Discharge Summary, OT Entered On: 04/15/2021 9:48 EDT Performed On: 04/15/2021 9:48 EDT by DAYLIN NAIK OTR/Beth Discharge Summary, OT Reason for Discharge : All goals met Discharge Summary Comment, OT : acute care OT goals met, likely to discharge home today with and outpt rehab DAYLIN NAIK OTR/Beth - 04/15/2021 9:48 EDT Electronically signed by Verenice [facility] Conversion Mother Repairer Cerner at 01/03/2023 9:07 PM CDT documented in this encounter Plan of Treatment Not on file documented as of this encounter Visit Diagnoses Not on filedocumented in this encounter
--- OUTSIDE RECORDS SUMMARY | 2025-06-10 10:17 | XMS_ITS | Encounter Summary ---
Author Organization [employer] ([place], [place], [place], [place]) Address [address] [place] [address] Care Team Providers Care Staff Air Defense Officer Name Role Phone Unavailable Primary Care Provider Unavailabl e Encounter Details Date Type Department Care Team (Late st Contact Info) Description 04/15/2021 Transcribed Document [facility] [place] Family Medicine [address] [place] [address] ProviderMicky MD [address] [place] [phone] Social History Tobacco Use Types Packs/Day Years [...] Conversion Note - Historical ProviderMD - 04/15/2021 6:00 PM CDT Discharge Summary, PT Entered On: 04/19/2021 9:56 EDT Performed On: 04/15/2021 18:00 EDT by JACQUELYN SIMPSON, PT Discharge Summary Reason for Discharge : Discharged from hospital, All goals met Discharge Summary Comment, PT : At time of discharge from hospital, pt had met 3/3 acute care goals and was discharged home with outpatient PT planned. At time of last PT treatment session, pt's functional status was documented as follows: Patient was up in restroom upon arrival with OT present. She was [place]GA[place]SBA [place] [facility] Noted patient to pull up/hold to RWx with sit<=>stand transfers with cues on proper hand placement for safety. Stand<=>sit from edge of bed/ stand-sit on recliner chair SBA. In standing, she maintained balance with SBA while pulling pants up. Gait training ~120' with RWx CGA. She demonstrated a slow pace, decreased step length, step to pattern, and right flat foot. Educated on gait sequence (RWx, RLE, then LLE), increase step length, reciprocal pattern, and heel strike to right foot with returned demonstration. Educated on ascending/descending a platform step (Up with the good- LLE/ down with the bad- RLE) with verbalized understanding and returned demonstration. She ascended/descended the platform step once with RWx CGA. Issued TKA HEP and educated over with returned demonstration and verbalized understanding. She performed x15: AROM- seated heel slides, long arc quads, ankle pumps, quad sets, gluteal squeezes, short arc quads, and straight leg raises; AAROM- heel slides with BLEs elevated. Right knee ROM: Flexion 100 degrees AAROM; extension 8 degrees from 0 with AROM, patient okay'd slight over pressure and achieved 0 degrees with AAROM. She was educated on Zero knee 3x/day for 30 minutes with verbalized understanding. She was up in chair following session with needs in reach and chair alarm activated. JACQUELYN SIMPSON, PT - 04/19/2021 9:57 EDT Blindstitch Lining Feller Goals Other PT LTG Grid Goal #1 Goal #2 Goal #3 Other : Pt will be able to ascend and descend a platform step with RWX, min assist x1 in order for her to safely gain entry into her home JACQUELYN SIMPSON, PT - 04/19/2021 9:57 EDT Pt will be able to ambulate 100 feet or greater with RWX, min assist x1 in order for her to safely navigate her home JACQUELYN SIMPSON, PT - 04/19/2021 9:57 EDT Pt will participate in therapeutic exercise training and be issued a written HEP in order to increase strength for improved gait and to provide carryover into the home environment. JACQUELYN SIMPSON, PT - 04/19/2021 9:57 EDT Date to Meet : 04/17/2021 EDT JACQUELYN SIMPSON, PT - 04/19/2021 9:57 EDT 04/17/2021 EDT JACQUELYN SIMPSON, PT - 04/19/2021 9:57 EDT 04/17/2021 EDT JACQUELYN SIMPSON, PT - 04/19/2021 9:57 EDT Goal Status : Goal met JACQUELYN SIMPSON, PT - 04/19/2021 9:57 EDT Goal met JACQUELYN SIMPSON, PT - 04/19/2021 9:57 EDT Goal met JACQUELYN SIMPSON, PT - 04/19/2021 9:57 EDT Date Met : 04/15/2021 EDT JACQUELYN SIMPSON, PT - 04/19/2021 9:57 EDT 04/15/2021 EDT JACQUELYN SIMPSON, PT - 04/19/2021 9:57 EDT 04/15/2021 EDT JACQUELYN SIMPSON, PT - 04/19/2021 9:57 EDT JACQUELYN SIMPSON, PT - 04/19/2021 9:55 EDT JACQUELYN SIMPSON, PT - 04/19/2021 9:55 EDT JACQUELYN SIMPSON, PT - 04/19/2021 9:55 EDT documented in this encounter Plan of Treatment Not on file documented as of this encounter Visit Diagnoses Not on filedocumented in this encounter
--- OUTSIDE RECORDS SUMMARY | 2025-06-10 10:17 | XMS_ITS | Encounter Summary ---
Author Organization [employer] ([place], [place], [place], [place]) Address [address] [place] [place] [address] Care Team Providers Care Disk Sander Name Role Phone Unavailable Primary Care Provider Unavailabl e Encounter Details Date Type Department Care Team (Late st Contact Info) Description 04/14/2021 Transcribed Document [facility] [place] Medicine [facility] [place] [address] ProviderMicky MD [address], [place] [phone] Social History Tobacco Use Types Packs/Day Years [...] Conversion Note - Historical ProviderMD - 04/14/2021 2:00 PM CDT Spiritual Care Short Form Entered On: 04/15/2021 7:31 EDT Performed On: 04/14/2021 14:00 EDT by JUANA WHARTON Chaplain General Information, Spiritual Care Spiritual Care Referred by : Wheel Of Fortune Dealer initiated Reason for Visit : Initial Ministry Provided to : Patient Intervention/Comment/Summary Points : Pt visited by Communion volunteer Thong Dhaliwal, who provided communion to patient JUANA WHARTON Chaplain - 04/15/2021 7:31 EDT documented in this encounter Plan of Treatment Not on file documented as of this encounter Visit Diagnoses Not on filedocumented in this encounter
--- OUTSIDE RECORDS SUMMARY | 2025-06-10 10:17 | XMS_ITS | Encounter Summary ---
Author Organization [employer] ([place], [place], [place], [place]) Address [address] [place] [address] Care Team Providers Care Inter Fold Roll Cutter Name Role Phone Unavailable Primary Care Provider Unavailabl e Encounter Details Date Type Department Care Team (Late st Contact Info) Description 04/14/2021 Transcribed Document [facility] Family Medicine [address] [place] [address] ProviderMicky MD [address] [place] [phone] Social History Tobacco Use Types Packs/Day Years [...] Conversion Note - Micky ProviderMD - 04/14/2021 3:43 PM CDT DATE OF PROCEDURE: 04/14/2021 SURGEON: Geo Reynoso Jr, MD PREOPERATIVE DIAGNOSIS: Osteoarthritis, right knee. POSTOPERATIVE DIAGNOSIS: Osteoarthritis, right knee. PROCEDURE PERFORMED: Right total knee replacement. ANESTHESIA: General plus regional plus local. COMPLICATIONS: None. BLOOD LOSS: Minimal. TOURNIQUET TIME: 40 minutes. COMPONENTS USED: Patient-specific femur and tibia with 32 patella, 6A tibial poly, and CR Conformis cemented knee components, patient-specific femur and tibia. DESCRIPTION OF PROCEDURE: The patient was taken to the operating room in supine position, where general anesthesia obtained. After regional block, sterile prep and drape, time-out observed, IV antibiotics given, anteromedial incision after elevation of tourniquet following administration of 1 g TXA, mid vastus arthrotomy and subperiosteal dissection back to the posteromedial corner of the tibia was carried out. We removed the menisci and ACL, retained the PCL. We made the patient-specific cuts with the proper guides, then trialed after removing all osteophytes from the femur showing good full extension and flexion to 130 with good stability throughout the arc of motion. Patella resection 8 mm, 32, 3 peg jig placed superomedial on the cut surface. Three drill holes were made and then the trial showed good tracking throughout the full range of motion with good stability. Irrigation of bony surfaces, dried carefully cementation of the final components, excess cement was carefully removed and then after releasing the tourniquet, all bleeding points were controlled, irrigation, layered closure, sterile dressing, ice pack, and transferred the patient to the recovery room in good condition. /[id number] MD DAE Nguyễn Jr/EPI / DAE / MODL /[id number] documented in this encounter Plan of Treatment Not on file documented as of this encounter Visit Diagnoses Not on filedocumented in this encounter
--- OUTSIDE RECORDS SUMMARY | 2025-06-10 10:17 | XMS_ITS | Encounter Summary ---
Author Organization [employer] ([place], [place], [place], [place]) Address [address] [place] [address] Care Team Providers Care Lens Hardener Name Role Phone Unavailable Primary Care Provider Unavailabl e Encounter Details Date Type Department Care Team (Late st Contact Info) Description 04/14/2021 Transcribed Document [facility] [place] [address] [place] [address] ProviderMicky MD [address] [place] [address] [phone] Social History Tobacco Use Types Packs/Day Years [...] Conversion Note - Micky ProviderMD - 04/14/2021 6:50 PM CDT Consult Phone Call Documentation Entered On: 04/14/2021 21:47 EDT Performed On: 04/14/2021 18:50 EDT by LM SAXENA Phone Call for Consults Consult Phone Call/Page Attempt : First call Consult Reason : medical management Physician Requesting Consult : MARGO MAZA JR, JR, MD-ORT Physician Requested for Consult : TENNILLE ANTHONY MD-INT Provider Service Notified Name : Internal medicine Physician Covering for Consult : TENNILLE ANTHONY MD-INT Date and Time Call Returned : 04/14/2021 17:50 EDT Physician Returning Call : TENNILLE ANTHONY MD-INT FISHER, REGINA - 04/14/2021 21:46 EDT Electronically signed by Delmis Caldera Conversion Board Certified Behavioral Analyst Cerner at 01/03/2023 9:13 PM CDT documented in this encounter Plan of Treatment Not on file documented as of this encounter Visit Diagnoses Not on filedocumented in this encounter
--- OUTSIDE RECORDS SUMMARY | 2025-06-10 10:17 | XMS_ITS | Encounter Summary ---
Author Organization [employer] ([place], [place], [place], [place]) Address [address] [place] [address] Care Team Providers Care Performing Arts Road Manager Name Role Phone Unavailable Primary Care Provider Unavailabl e Encounter Details Date Type Department Care Team (Late st Contact Info) Description 04/15/2021 Transcribed Document [facility] [place] [address] [place] [address] ProviderMicky MD [address] [place], [place] [phone] Social History Tobacco Use Types Packs/Day Years [...] Conversion Note - Historical ProviderMD - 04/15/2021 1:15 PM CDT Stroke/Warfarin Instructions Entered On: 04/15/2021 13:15 EDT Performed On: 04/15/2021 13:15 EDT by Tree Patrick RN-PATIENT CARE BEDSIDE NON-EXEMPT Stroke/Warfarin Instructions Stroke/TIA Discharge Ins : N/A Warfarin Discharge Ins : N/A Tree Patrick RN-PATIENT CARE BEDSIDE NON-EXEMPT - 04/15/2021 13:15 EDT documented in this encounter Plan of Treatment Not on file documented as of this encounter Visit Diagnoses Not on filedocumented in this encounter
--- OUTSIDE RECORDS SUMMARY | 2025-06-10 10:17 | XMS_ITS | Encounter Summary ---
Author Organization [employer] ([place], [place], [place], [place]) Address [address] [place] [address] Care Team Providers Care Sewer Head Name Role Phone Unavailable Primary Care Provider Unavailabl e Encounter Details Date Type Department Care Team (Late st Contact Info) Description 04/14/2021 Transcribed Document [facility] [place] [facility] [place] [address] ProviderMicky MD [address] [place] [phone] Social History Tobacco Use Types Packs/Day Years [...] Historical ProviderMD - 04/14/2021 2:57 PM CDT Evaluation, Physical Therapy Entered On: 04/14/2021 18:29 EDT Performed On: 04/14/2021 16:47 EDT by JACQUELYN SIMPSON, PT General Information, PT Visit Type, PT : Initial evaluation Patient Orders : Order Date Order Ordering 04/14/2021 14:57 PT Evaluation and Treatment Ordered By: MARGO MAZA JR, JR, MD-ORT 04/14/2021 14:57 PT Treatment Instructions Ordered By: MARGO MAZA JR, JR, MD-ORT 04/14/2021 14:57 PT Treatment Instructions Ordered By: MARGO MAZA JR, JR, MD-ORT 04/14/2021 14:57 PT Treatment Instructions Ordered By: MARGO MAZA JR, JR, MD-ORT 04/14/2021 14:57 PT Treatment Instructions Ordered By: MARGO MAZA JR, JR, MD-ORT 04/14/2021 14:57 PT Treatment Instructions Ordered By: MARGO MAZA JR, JR, MD-ORT 04/14/2021 14:57 PT Treatment Instructions Ordered By: MARGO MAZA [...] 04/14/2021 12:00 Unsteadiness on feet Therapy Diagnosis, PT : aftercare following RTKA Admission Date : 04/14/2021 05:08 Assisted by, PT : Occupational Therapist Personal Devices : Personal Devices No Devices Recorded Assistive Devices : Assistive Devices No Devices Recorded JACQUELYN SIMPSON, PT - 04/14/2021 18:12 EDT General Status Patient Received Status : Supine in bed, Other: in post op Treatment Start Time : 04/14/2021 16:47 EDT Patient Left Status : Long sitting in bed, RN/PCT informed, Family/Visitors at bedside, All needs met and within reach, Other: in post op RN/PCT Informed Comment : Yes, RN approved pt for PT eval and pt agreeable to try Treatment End Time : 04/14/2021 17:06 EDT Treatment Time : 19 Minute(s) JACQUELYN SIMPSON, PT - 04/14/2021 18:12 EDT History and Environment Living Situation, Therapy : Home Patient Lives With : Spouse Persons Assisting Patient at Home : Spouse Professional Skilled Services : None Persons Providing Information : Patient, Spouse Home Equipment Therapy, PT : Commode, Walker Home Setup : One story Stairs : Yes Stair Location(s) : Outside Outside Stairs, Number of Steps : 1 JACQUELYN SIMPSON, PT - 04/14/2021 18:12 EDT Prior Level of Function PT GRID Prior LOF Ambulation, Household : Independent Prior LOF Ambulation, Community : Independent Prior LOF Bed Mobility : Independent Prior LOF Toileting : Independent Prior LOF Transfer : Independent JACQUELYN SIMPSON, PT - 04/14/2021 18:12 EDT Upper Extremity Upper Extremity Dominance : Right Right UE Active ROM : WFL Right UE Strength : WFL Left UE Active ROM : WFL Left UE Strength : WFL JACQUELYN SIMPSON, PT - 04/14/2021 18:12 EDT Lower Extremity RLE Active ROM : Impaired Right LE Active Assist ROM : Impaired RLE Passive ROM : Impaired Right LE Strength : Impaired LLE Active ROM : WFL Left LE Strength : WFL Lower Extremity Comment : RLE is impaired secondary to surgery. Pt is in a KI at this time so no formal ROM or strength testing is performed JACQUELYN SIMPSON, PT - 04/14/2021 18:12 EDT Functional Mobility Mobility Grid Bed Scooting : Rehab Minimal assistance Supine to Sit : Rehab Minimal assistance Sit to Stand : Rehab Minimal assistance (Comment: x2 [JACQUELYN SIMPSON, PT - 04/14/2021 18:12 EDT] ) Stand to Sit : Rehab Minimal assistance (Comment: x2 [JACQUELYN SIMPSON, PT - 04/14/2021 18:12 EDT] ) Sit to Supine : Rehab Minimal assistance (Comment: x2 [JACQUELYN SIMPSON, PT - 04/14/2021 18:12 EDT] ) JACQUELYN SIMPSON, PT - 04/14/2021 18:12 EDT Gait Training/Assessment, PT Gait Assistance Level : Assist, minimal Walking Distance : Pt took 3 side steps to head of stretcher with min assist x2, RWX, WBAT, KI on RLE Ambulatory Devices : Gait belt, Walker, front wheel Gait Deviations : Yes Gait Training Comment : see above Stair(s) Ascend/Descend Training : No JACQUELYN SIMPSON, PT - 04/14/2021 18:12 EDT Neuromuscular Reeducation, PT Balance Comment : fair sitting and standing due to grogginess and nausea JACQUELYN SIMPSON, PT - 04/14/2021 18:12 EDT Neurological/Sensory Overall Sensory Response : Intact Response to Pain : Intact JACQUELYN SIMPSON, PT - 04/14/2021 18:12 EDT Activity Tolerance, PT Activity Comment : fair JACQUELYN SIMPSON, PT - 04/14/2021 18:12 EDT Cognition Assessment, PT Orientation : Oriented x 4 Attention Assessment : Other: pt very groggy and nauseated JACQUELYN SIMPSON, PT - 04/14/2021 18:12 EDT Edu Topics Physical Therapy Education Grid Bed Mobility Training : Verbalizes understanding, Needs further teaching Gait Training : Verbalizes understanding, Needs further teaching Transfer Training : Verbalizes understanding, Needs further teaching Use of Assistive Device : Verbalizes understanding, Needs further teaching JACQUELYN SIMPSON, PT - 04/14/2021 18:12 EDT Indication Assesessment, PT Physical Therapy Indicated : Yes Interdisciplinary Consultation(s) Needed : Yes Interdisciplinary Consult : Occupational Therapy PT Problem List : Impaired, bed mobility, Impaired, gait, Impaired, stair mobility, Impaired, strength, Impaired, transfers Potential Barriers To Therapy : Acuity of Illness Rehabilitation Potential : Good JACQUELYN SIMPSON, PT - 04/14/2021 18:12 EDT Plan of Care, PT PT Tx Plan/Goals Established w Patient : Yes PT Frequency Rehab : Daily, twice (bid) Other PT Treatment Provided This Date : ther act PT Duration Rehab : Seven Days PT Treatments Planned : Bed mobility training, Gait training, Safety education, Stair training, Therapeutic exercises, Transfer training Plan of Care Comment, PT : see above JACQUELYN SIMPSON, PT - 04/14/2021 18:12 EDT Arboriculture Teacher Goals Other PT LTG Grid Goal #1 Goal #2 Goal #3 Other : Pt will be able to ascend and descend a platform step with RWX, min assist x1 in order for her to safely gain entry into her home Pt will be able to ambulate 100 feet or greater with RWX, min assist x1 in order for her to safely navigate her home Pt will participate in therapeutic exercise training and be issued a written HEP in order to increase strength for improved gait and to provide carryover into the home environment. Date to Meet : 04/17/2021 EDT 04/17/2021 EDT 04/17/2021 EDT Goal Status : Initial goal Initial goal Initial goal JACQUELYN SIMPSON, PT - 04/14/2021 18:12 EDT JACQUELYN SIMPSON, PT - 04/14/2021 18:12 EDT JACQUELYN SIMPSON, PT - 04/14/2021 18:12 EDT Treatment Note Subjective Comment : agreeable Patient's Response to Treatment : good Additional Objective Information : see eval Assessment : Pt would benefit from continued skilled PT services in the acute care setting to improve her level of mobility and assist her to return to her PLOF Pt was not able to medically clear for same day discharge. Pt's vomiting, dizziness and nausea did not allow her to be able to safely participate in all of the necessary PT activity to allow for her to clear from a mobility standpoint. Dr. Hughes wants to admit pt Plan for Treatment : continue per eval POC JACQUELYN SIMPSON, PT - 04/14/2021 18:12 EDT Pain Assessment Pain Scaled Used : 0-10 Pain scale Pain Score Pre-Intervention : 4 Pain Score Post-Intervention. : 4 JACQUELYN SIMPSON, PT - 04/14/2021 18:12 EDT Image 1 - Images currently included in the form version of this document have not been included in the text rendition version of the form. Anticipated Discharge Needs, OT/PT Anticipated Discharge to : Home, with home health JACQUELYN SIMPSON, PT - 04/14/2021 18:12 EDT [place] PT Charges PT Ther Activities Ea 15 Min : 1 PT Eval Low Complexity : 1 JACQUELYN SIMPSON, PT - 04/14/2021 18:12 EDT documented in this encounter Plan of Treatment Not on file documented as of this encounter Visit Diagnoses Not on filedocumented in this encounter
--- OUTSIDE RECORDS SUMMARY | 2025-06-10 10:17 | XMS_ITS | Encounter Summary ---
Author Organization [employer] ([place], [place], [place], [place]) Address [address] [facility] [place] [address] Care Team Providers Care Technical Advisor Name Role Phone Unavailable Primary Care Provider Unavailabl e Encounter Details Date Type Department Care Team (Late st Contact Info) Description 04/14/2021 Transcribed Document [facility] [place] [facility] [place] [address] ProviderMicky MD [address] [place] [phone] Social History Tobacco Use Types Packs/Day Years [...] Conversion Note - Historical ProviderMD - 04/14/2021 5:08 AM CDT Admission History, Adult Entered On: 04/14/2021 22:01 EDT Performed On: 04/14/2021 22:00 EDT by Darline Knight Rn Advance Directive Patient has Advance Directive *Q : Yes, Advance Directive not with the patient Advance Directive Type : Living will Copy Advance Directive Verified/on Chart : No Darline Knight Rn - 04/14/2021 22:00 EDT Anesthesia/Transfusion History Family History of Anesthesia Reaction : No prior transfusion(s) Transfusion History : Prior anesthesia without reaction Family History of Anesthesia Reaction : Other: mother hard to wake up Darline Knight Rn - 04/14/2021 22:00 EDT Functional Assessment Current Home Treatments : None Darline Knight Rn - 04/15/2021 1:30 EDT Living Situation : Home Patient Lives With : Spouse Persons Assisting Patient at Home : Spouse Professional Skilled Services : None Darline Knight Rn - 04/14/2021 22:00 EDT General Info Preferred Name : Megan Arrived From : Home Mode of Arrival on Unit : Ambulatory Legal Guardian : Spouse Legal Guardian : No Want Family/Rep/Phys Notified of Admit : No Emergency Contact #1 : Junior Emergency Contact #1 Emergency Contact #1 Relationship : Emergency Contact #2 : . Emergency Contact #2 Phone Number : . Emergency Contact #2 Relationship : . Information Obtained From : Patient Primary Language : Estonian Preferred Communication Mode : Verbal Communication Barrier : None Profile Grinder Needed : No Objects to Sharing Info w Family : No Currently Lactating : No Status : N/A Darline Knight Rn - 04/14/2021 22:00 EDT Fall Risk Scales ABCs Fall Injury Risk Identification : Bones, Surgery ABC Fall Injury Risk : Moderate to high injury risk CANALES Hx Falls Immediate/Within 3 Months : No [place] Secondary Diagnosis : Yes CANALES Use of Ambulatory Aid : Crutches/Cane/Walker CANALES IV Therapy or IV Access : Yes [place] Gait/Transferring : Weak [place] Mental Status : Oriented to own ability [place] Fall Risk Score : 60 CANALES Fall Scale Risk Level : 46 or > High Risk [place] Fall Interventions : Adequate lighting, Assistive devices within reach, Bed in low position, Call device within reach, Hourly comfort/safety rounds, Non-slip footwear, Personal items within reach, Reinforced to call for assistance before getting out of bed, Room free of clutter/spills, Upper side-rails up, Wheels locked, Wires/Cords secured Fall Moderate to High Risk Interventions : Bed alarm on, Transport methods appropriate to patient Barriers to Learning : None evident Learning Style Preferences Family : Printed materials, Verbal explanation Learning Style Preferences Patient : Printed materials, Verbal explanation Fall Risk Scale Calc Temp : 0 Darline Knight Rn - 04/14/2021 22:00 EDT Health Histories Smoking Status : Never (less than 100 in lifetime; none in last 30 days) Smokeless Tobacco Status : Never Knuckles, Draline R, Rn - 04/14/2021 22:00 EDT Social History (As Of: 04/14/2021 22:01:49 EDT) Tobacco: Never (less than 100 in [...] 04/01/2021 11:33:57 EDT by Olimpia Tapia Rn) Height and Weight, Clinical Dosing Height Source : Stated Height Entry Format : [place] Height, Feet : 5 ft(Converted to: 152 cm, 60 Inch) Height, Inches : 4 Inch(Converted to: 0 ft 4 Inch, 10.16 cm) Clinical Height : 162.56 cm Weight Source : Standing scale Weight Entry Format : [place] Clinical Dosing Weight : 65.91 kg Weight, Pounds : 145 lb Body Surface Area (BSA) : 1.71 m2 Body Mass Index : 24.9 kg/m2 (HI) [place] Body Weight : 54 kg Darline Knight Rn - 04/14/2021 22:00 EDT Infectious Disease History Has the patient ever been tested for COVID-19? : Yes, Patient stated results Negative Where was the COVID-19 Testing completed? : [facility] Where are the test results? : In EMR Results Date of COVID-19 test known? : No Does patient have symptoms of COVID-19? : No COVID19 Screening : No Experiencing Infectious Disease Symptoms : No symptoms Physical contact outside [place] in the last 30 days : No Infectious Disease History : Chicken pox/Shingles, Herpes, Influenza, Measles, Mumps, Rubella, Scarlet fever Childhood Vaccinations Up to Date : N/A Exposure to Contagious Illness : No Tuberculosis Symptoms : None Darline Knight Rn - 04/14/2021 22:00 EDT Influenza Vaccine Asmt, Adult Previous Vaccines from Immunization Schedule : No qualifying data available. Influenza Immunization, Current Season : Outside of influenza season Darline Knight Rn - 04/14/2021 22:00 EDT Pneumococcal Vaccine Pneumonia Immunization Received : No Pneumococcal Risk Assessment < Age 65 : N/A- Patient 65 years of age or older Pneumococcal Vaccine Contraindications : No contraindications to pneumococcal vaccine Transplant Workup/Recent Transplant : No Order for Pneumococcal Vaccine : Declined Vaccination Darline Knight Rn - 04/15/2021 1:30 EDT Previous Vaccines from Immunization Schedule : No qualifying data available. Darline Knight Rn - 04/14/2021 22:00 EDT Order Details Transport Mode Order Detail : Bed (including specialty) Order Detail : N/A IV Order Detail : 1 Oxygen Order Detail : 0 Nurse Collect Order Detail : 0 Lift/Transfer : Moderate assist Central Line Order Detail : No Room Service : Not Appropriate Arterial Line : No Patient Needs Meds Crushed/Liquid : No Darline Knight Rn - 04/14/2021 22:00 EDT Nutrition History Eating Poorly Due to Decreased Appetite : No Unplanned Weight Loss in Past 3-6 Months : No Malnutrition Screening Tool Total(mal) : 0 Malnutrition Screening Tool Risk Level : Patient not at risk Darline Knight Rn - 04/14/2021 22:00 EDT [place] Suicide Severity Rating Scale (C-SSRS) CSSRS Past Month Wish to be : No CSSRS Past Month Suicidal Thoughts : No CSSRS Lifetime Suicide Behavior : No Suicide Severity Rating Score : 0 Suicide Severity Rating : No Additional Care Required at this time Darline Knight Rn - 04/14/2021 22:00 EDT Psychosocial History Do You Have a History of the Following? : Patient denies history Currently in Unsafe Situation : No Darline Knight Rn - 04/14/2021 22:00 EDT Sleep Apnea Risk Assmt Hx of [...] Sleep Apnea Risk Level Score : 2 Darline Knight Rn - 04/14/2021 22:00 EDT Valuables and Belongings Valuables and Belongings : Clothing, Personal items Clothing : Common streetwear Clothing Disposition : With patient Personal Items : Cell phone Personal Items Disposition : With patient Darline Knight Rn - 04/14/2021 22:00 EDT documented in this encounter Plan of Treatment Not on file documented as of this encounter Visit Diagnoses Not on filedocumented in this encounter
--- OUTSIDE RECORDS SUMMARY | 2025-06-10 10:18 | XMS_ITS | Encounter Summary ---
Author Organization [employer] ([place], [place], [place], [place]) Address [address] [place] [address] Care Team Providers Care Explosives Worker Name Role Phone Unavailable Primary Care Provider Unavailabl e Encounter Details Date Type Department Care Team (Late st Contact Info) Description 04/14/2021 Transcribed Document [facility] [place] Family Medicine [facility] [place] [address] ProviderMicky MD [address] [place], [place] [phone] Social History Tobacco Use Types Packs/Day Years [...] Conversion Note - Historical ProviderMD - 04/14/2021 9:42 AM CDT PAT Adult Entered On: 04/14/2021 9:43 EDT Performed On: 04/14/2021 9:42 EDT by Galilea Hein RN Vital Measurements Temperature Source : Temporal artery scanning Temperature Mode : Fahrenheit Temperature, Fahrenheit : 97.6 Deg F Clinical Temperature, C : 36.4 Deg C Pulse Method : Pulse Oximetry Peripheral Pulse Rate : 70 bpm Pulse Rhythm : Regular Respiratory Rate : 16 Breaths/Min Blood Pressure Location : Arm, left upper Blood Pressure Source : Non-Invasive BP Device Blood Pressure Position : Sitting Systolic Blood Pressure : 167 mmHg (HI) Diastolic Blood Pressure : 83 mmHg Oxygen Saturation : 98 % Oxygen Therapy Mode : Room air Galilea Hein RN - 04/14/2021 10:15 EDT Pain Assessment Pain Assessment : Initial assessment Pain Scale Goal : 4 Pain Scale Used : 0-10 Scale Galilea Hein RN - 04/14/2021 9:42 EDT Height and Weight, Clinical Dosing Height Source : Stated Height Entry Format : [place] Height, Feet : 5 ft(Converted to: 152 cm, 60 Inch) Height, Inches : 4 Inch(Converted to: 0 ft 4 Inch, 10.16 cm) Clinical Height : 162.56 cm Weight Source : Standing scale Weight Entry Format : [place] Clinical Dosing Weight : 65.91 kg Weight, Pounds : 145 lb Body Surface Area (BSA) : 1.71 m2 Body Mass Index : 24.9 kg/m2 (HI) [place] Body Weight : 54 kg Galilea Hein RN - 04/14/2021 9:42 EDT Health Histories Smoking Status : Never (less than 100 in lifetime; none in last 30 days) Smokeless Tobacco Status : Never Galilea Hein RN - 04/14/2021 9:42 EDT Social History (As Of: 04/14/2021 10:25:29 EDT) Tobacco: Never (less than 100 in [...] by Olimpia Tapia, Rn) Infectious Disease History Where was the COVID-19 Testing completed? : [facility] Where are the test results? : In EMR Results Active Surveillance Screen Assessment : Patient does not meet any of above criteria Childhood Vaccinations Up to Date : N/A Exposure to Contagious Illness : No Galilea Hein RN - 04/14/2021 10:15 EDT Has the patient ever been tested for COVID-19? : Yes, Patient stated results Negative Date of COVID-19 test known? : Yes Date of COVID-19 Test : 04/12/2021 EDT Does patient have symptoms of COVID-19? : No COVID19 Screening : No Experiencing Infectious Disease Symptoms : No symptoms Physical contact outside US in the last 30 days : No Infectious Disease History : Chicken pox/Shingles, Herpes, Influenza, Measles, Mumps, Rubella, Scarlet fever Tuberculosis Symptoms : None Galilea Hein RN - 04/14/2021 9:42 EDT COVID19 PreProcedure Screening Is this an Emergent or Add on Procedure? : No Date PreProcedure COVID-19 test known? : Yes Date of PreProcedure COVID-19 : 04/12/2021 EDT Has patient been isolated since the test : Yes Exposed to COVID19 symptoms since test? : No Galilea Hein RN - 04/14/2021 10:15 EDT Anesthesia/Transfusion History Family History of Anesthesia Reaction : No prior transfusion(s) Transfusion History : Prior anesthesia without reaction Family History of Anesthesia Reaction : Other: mother hard to wake up Galilea Hein RN - 04/14/2021 9:42 EDT Functional Assessment Functional ADL Evaluation Index EBN Bathing : Independent (2) Dressing : Independent (2) Toileting : Independent (2) Transferring Bed or Chair : Independent (2) Continence : Independent (2) Feeding : Independent (2) Galilea Hein RN - 04/14/2021 10:15 EDT ADL Index Score : 12 Galilea Hein RN - 04/14/2021 10:15 EDT Advance Directive Patient has Advance Directive *Q : Yes, Advance Directive not with the patient Advance Directive Type : Living will Copy Advance Directive Verified/on Chart : No Galilea Hein RN - 04/14/2021 9:42 EDT Spiritual/Cultural Needs Any Spiritual/Cultural Needs or Requests : No Galilea Hein RN - 04/14/2021 10:15 EDT [place] Suicide Severity Rating Scale (C-SSRS) Thoughts of Harming/Killing Others : No Galilea Hein RN - 04/14/2021 10:15 EDT CSSRS Past Month Wish to be : No CSSRS Past Month Suicidal Thoughts : No CSSRS Lifetime Suicide Behavior : No Suicide Severity Rating Score : 0 Suicide Severity Rating : No Additional Care Required at this time Galilea Hein RN - 04/14/2021 9:42 EDT Psychosocial History Do You Have a History of the Following? : Patient denies history Currently in Unsafe Situation : Galilea Fonseca RN - 04/14/2021 9:42 EDT Teaching/Learning Assessment Barriers To Learning : None evident Individuals Taught : Patient, Spouse Readiness to Learn : Cooperative Baseline Knowledge of Topic : Good Readiness to Learn : Explanation Learning Style Preferences Patient : Printed materials, Verbal explanation Learning Style Preferences Family : Printed materials, Verbal explanation Galilea Hein RN - 04/14/2021 10:15 EDT General Info Preferred Name : Megan Patient Arrival Date/Time : 04/14/2021 8:45 EDT Objects to Sharing Info w Family : No Currently Lactating : No Status : N/A Clinical Trials Participant *Q : None Galilea Hein RN - 04/14/2021 10:25 EDT Arrived From : Home Mode of Arrival on Unit : Ambulatory Galilea Hein RN - 04/14/2021 9:42 EDT Legal Guardian : Spouse Galilea Hein RN - 04/14/2021 10:25 EDT Want Family/Rep/Phys Notified of Admit : No Emergency Contact #1 : Junior Emergency Contact #1 Emergency Contact #1 Relationship : Emergency Contact #2 : . Emergency Contact #2 Phone Number : . Emergency Contact #2 Relationship : . Information Obtained From : Patient Primary Language : Malawian Preferred Communication Mode : Verbal Communication Barrier : None Inspector And Tester Needed : Galilea Fonseca RN - 04/14/2021 9:42 EDT Aaron Scale Aaron Sensory Perception : No impairment Aaron Moisture : Rarely moist Aaron Activity : Walks frequently Aaron Mobility : No limitation Aaron Nutrition : Adequate Aaron Friction and Shear : No apparent problem Aaron Score : 22 Galilea Hein RN - 04/14/2021 10:25 EDT Sleep Apnea Risk Assmt Hx of [...] Sleep Apnea Risk Level Score : 2 Galilea Hein RN - 04/14/2021 9:42 EDT Pain Scale Intensity : 0 Galilea Hein RN - 04/14/2021 9:42 EDT Image 4 - Images currently included in the form version of this document have not been included in the text rendition version of the form. documented in this encounter Plan of Treatment Not on file documented as of this encounter Visit Diagnoses Not on filedocumented in this encounter
--- OUTSIDE RECORDS SUMMARY | 2025-06-10 10:18 | XMS_ITS | Encounter Summary ---
Author Organization [employer] ([place], [place], [place], [place]) Address [address] [place] [address] Care Team Providers Care Production Cost Estimator Name Role Phone Unavailable Primary Care Provider Unavailabl e Encounter Details Date Type Department Care Team (Late st Contact Info) Description 04/15/[address] [facility] [place] Family Medicine [address] [place] [address] ProviderMicky MD [address] [place], [place] [phone] Social History Tobacco Use Types Packs/Day Years [...] Conversion Note - Historical ProviderMD - 04/15/2021 5:00 AM CDT Chart Check - Review Order Profile Entered On: 04/15/2021 4:15 EDT Performed On: 04/15/2021 5:00 EDT by Darline Knight Rn Chart Check Powerplans Initiated/Discontinued as Appropriate : Yes All Active Orders Reviewed : Yes Darline Knight Rn - 04/15/2021 4:15 EDT documented in this encounter Plan of Treatment Not on file documented as of this encounter Visit Diagnoses Not on filedocumented in this encounter
--- OUTSIDE RECORDS SUMMARY | 2025-06-10 10:18 | XMS_ITS | Encounter Summary ---
Author Organization [employer] ([place], [place], [place], [place]) Address [address] [place] [address] Care Team Providers Care Glass Silverer Name Role Phone Unavailable Primary Care Provider Unavailabl e Encounter Details Date Type Department Care Team (Late st Contact Info) Description 04/14/2021 Transcribed Document [facility] [place] [address] [place] [address] ProviderMicky MD [address] [place], [place] [phone] Social History Tobacco Use Types Packs/Day Years [...] Conversion Note - Historical ProviderMD - 04/14/2021 5:11 PM CDT Event Note Entered On: 04/14/2021 17:12 EDT Performed On: 04/14/2021 17:11 EDT by KENTON BAILEY, RN Event Note Event Date/Time : 04/14/2021 16:30 EDT Description of Event : Dr Hughes notified of pt with increased nausea/vomiting. Orders received initiated. KENTON BAILEY, RN - 04/14/2021 17:11 EDT Electronically signed by Verenice [facility] Conversion Pulley Maintainer Cerner at 01/03/2023 9:28 PM CDT documented in this encounter Plan of Treatment Not on file documented as of this encounter Visit Diagnoses Not on filedocumented in this encounter
--- OUTSIDE RECORDS SUMMARY | 2025-06-10 10:18 | XMS_ITS | Patient Health Record ---
Author [facility] [place] Address [address] [facility] [address] [place] [id number] Care Team Providers Care Tankage Grinder Name Role Phone Justin Penn Primary Care Provider [phone] Darlin Tate Unavailable [phone] Aleksander Osuna Unavailable [phone] Allergies Allergen (clinical drug ingredient) Drug/Non Drug [...] - 38 plat 190 100 - 400 Glucose (In-House) Reviewed date:05/14/2025 08:40:45 AM Interpretation:82 Normal Performing Lab: Notes/Report: 82 Normal blood glucose 82 74 - 106 mg/dL Glycohemoglobin A1c (in hous e) Reviewed date:05/14/2025 08:40:45 AM Interpretation:5.3 Normal Performing Lab: Notes/Report: 5.3 Normal glycohemoglobin 5.3% 5 - 6.5 % P-Comprehensive Metabolic Pa leo (CMP) Reviewed date:05/14/2025 08:40:44 AM Interpretation:Normal Performing Lab: Notes/Report: Test performed by [facility] [address] [place] [address] , [address], [place] [address] Jared Cantor MD, Academic Coach CLIA: [id number] Sodium 139 135-145 mmol/L Potassium 4.1 3.5-5.3 [...] 134 Performing Lab: Notes/Report: Test performed by [facility] [address] [place] [address] , [address], [place] [address] Jared Cantor MD, Academic Coach CLIA: [id number] Cholesterol 201 <200 mg/dL Triglycerides 133 <150 [...] Results: 188 Units: mg/dL % Change: - ------- Test Date: 09/04/2024 LDL Results: 124 Units: mg/dL % Change: -34% ------- Test Date: 05/13/2025 LDL Results: 107 Units: mg/dL % Change: -13% P-Vitamin D 25-Hydroxy Reviewed date:05/14/2025 08:40:44 AM Interpretation:47.1 Performing Lab: Notes/Report: Test performed by [facility] [address] [place] [address] [address], [place] [address] Jared Cantor MD, Academic Coach CLIA: [id number] Vitamin D 25-Hydroxy 47.1 30.0-100.0 ng/mL Interpretation of Vitamin D 25 OH: < 20 ng/mL - Deficiency 20 - 29 ng/mL - Insufficiency 30 - 100 ng/mL - Sufficiency > 100 ng/mL - Super-therapeutic- toxicity may occur above this level. Clinical correlation required. Urinalysis - Inhouse Reviewed date:05/27/2025 11:41:46 AM Interpretation:Normal Performing Lab: Notes/Report: Normal Color/Clarity yellow/clear Leuk Neg Nitrite Neg Urobili 3.2 Protein Neg pH 5.5 Blood Neg Sp. Gr. <=1.005 Ketone Neg Bili Neg Gluc Neg P-Comprehensive Metabolic Pa leo (CMP) Reviewed date:09/05/2024 10:34:37 AM Interpretation:Cr 1.06, gfr 55 Performing Lab: Notes/Report: Test performed by [facility] [address] [place], [place] [address] [facility] [place] , [address], [place] [address] Jared Cantor MD, Academic Coach CLIA: [id number] Sodium 140 135-145 mmol/L Potassium 4.3 3.5-5.3 mmol/L Chloride 101 97-108 mmol/L CO2 24 22-32 mmol/L Glucose 93 65-99 mg/dL BUN 21 8-23 mg/dL Creatinine 1.06 0.50-1.00 mg/dL Calcium 9.8 8.6-10.4 mg/dL eGFR by Creatinine 55 >59 mL/min/1.73m2 Protein 7.3 6.0-8.3 g/dL Albumin 4.6 3.5-5.3 g/dL Alkaline Phosphatase 76 35-121 IU/L ALT (SGPT) 19 <5-47 IU/L AST (SGOT) 17 <5-40 IU/L Bilirubin, Total 0.3 <0.2-1.2 mg/dL A/G Ratio 1.7 1.1-2.5 P-Lipid Panel Reviewed date:09/05/2024 10:34:37 AM Interpretation:chol 224, trigs 180, non-hdl 160 Performing Lab: Notes/Report: Test performed by [facility] [address] [place], [place] [address] [place] , [address], [place] [address] Jared Cantor MD, Academic Coach CLIA: [id number] Cholesterol 224 <200 mg/dL Triglycerides 180 <150 mg/dL HDL Cholesterol 64 >39 mg/dL Cholesterol / HDL Ratio 3.50 0.00-4.44 Ratio Non-HDL Cholesterol 160 <130 mg/dL LDL Cholesterol (Calculation) 124 <130 mg/dL LDL Cholesterol Levels* Less than 100 mg/dL Optimal 100 to 129 mg/dL Near Optimal/ Above Optimal 130 to 159 mg/dL Borderline High 160 to 189 mg/dL High 190 mg/dL and above Very High * Categories as recommended by the 2004 ATPIII guidelines LDL/HDL Ratio 1.9 <3.3 Ratio LDL Cholesterol Patient History Test Date: 05/07/2024 LDL Results: 188 Units: mg/dL % Change: - ------- Test Date: 09/04/2024 LDL Results: 124 Units: mg/dL % Change: -34% P-Uric Acid Reviewed date:09/05/2024 10:34:37 AM Interpretation:8.2 Performing Lab: Notes/Report: Test performed by [facility] [address] [place] [address] [address] , [place] [address] Jared Cantor MD, Academic Coach CLIA: [id number] Uric Acid 8.2 2.4-7.0 mg/dL P-Vitamin D 25-Hydroxy Reviewed date:09/05/2024 10:34:37 AM Interpretation:43.1 Performing Lab: Notes/Report: Test performed by [facility] [address] [place] [address] , [address], [place] [address] Jared Cantor MD, Academic Coach CLIA: [id number] Vitamin D 25-Hydroxy 43.1 30.0-100.0 ng/mL Interpretation of Vitamin D 25 OH: < 20 ng/mL - Deficiency 20 - 29 ng/mL - Insufficiency 30 - 100 ng/mL - Sufficiency > 100 ng/mL - Super-therapeutic- toxicity may occur above this level. Clinical correlation required. Ultrasound : Mass, back Reviewed date:01/14/2025 09:34:59 AM Interpretation:probable lipoma Performing Lab: Notes/Report: probable lipoma P-Basic Metabolic Panel (BMP ) Reviewed date:06/02/2025 05:35:20 PM Interpretation:Normal Performing Lab: Notes/Report: Test performed by [facility] [address] [place] [address] , [address], [place] [address] Jared Cantor MD, Academic Coach CLIA: [id number] Sodium 139 135-145 mmol/L Potassium 4.1 3.5-5.3 mmol/L Chloride 101 97-108 mmol/L CO2 27 20-32 mmol/L Glucose 91 65-99 mg/dL BUN 20 8-23 mg/dL Creatinine 0.96 0.50-1.00 mg/dL Calcium 9.5 8.6-10.4 mg/dL eGFR by Creatinine 62 >59 mL/min/1.73m2 Urinalysis - Inhouse Reviewed date:05/28/2025 04:07:35 PM Interpretation:see duplicate order Performing Lab: Notes/Report: see duplicate order Mammogram Reviewed date:11/22/2024 12:33:55 PM Interpretation:Negative, annual f/u Performing Lab: Notes/Report: Negative, annual f/u result Negative, annual f/u Medications Medication SIG (Take, Route, Frequency, Duration) [...] tab(s) orally bonilla ry 6 hours Active Immunizations Vaccine Route Administration Date Status Comme nts Fluzone High Dose (65yr and older) IM Intramuscular 08/04/2015 Administered Fluzone High Dose (65yr and older) IM Intramuscular 06/06/2016 Administered Fluzone High Dose (65yr and older) IM Intramuscular 07/11/2017 Administered Fluzone High Dose (65yr and older) Unknown 07/07/2020 Administered Fluzone High Dose (65yr and older) IM Intramuscular 07/01/2021 Administered Fluzone High Dose (65yr and older) IM Intramuscular 05/25/2023 Administered Fluzone Quad (6months&older) IM Intramuscular 07/15/2022 Administered Hepatitis A (adult) Unknown 09/01/2018 Administered Hepatitis A (adult) Unknown 06/06/2019 Administered PNEUMOVAX 23 VACCINE IM Intramuscular 06/02/2011 Administe red PNEUMOVAX 23 VACCINE IM Intramuscular 08/08/2011 Administe red PNEUMOVAX 23 VACCINE IM Intramuscular 02/03/2018 Administe red Prevnar (PCV13) IM Intramuscular 07/05/2016 Administered Prevnar (PCV20) IM Intramuscular 05/25/2023 Administered Tetanus Tdap-Adacel (over 7yrs) IM Intramuscular 01/15/2010 Administered xAdministration of injection SC Subcutaneous 08/08/2011 Administered xFlu shot-36 months and older IM Intramuscular 08/04/2006 Administered xFlu shot-36 months and older IM Intramuscular 07/19/2007 Administered xFlu shot-36 months and older IM Intramuscular 07/31/2008 Administered xFlu shot-36 months and older IM Intramuscular 08/20/2009 Administered xFlu shot-36 months and older IM Intramuscular 07/31/2010 Administered xFlu shot-36 months and older IM Intramuscular 06/02/2011 Administered xFluzone (6mos and older)-trivalent IM Intramuscular 08/01/2013 Administered xFluzone (6mos and older)-trivalent IM Intramuscular 07/01/2014 Administered xFluzone High Dose-private (65yr&older) Unknown 05/30/2018 Administered xFluzone High Dose-private (65yr&older) Unknown 06/06/2019 Administered xFluzone Intradermal (18-64yrs)-trivalent IM Intramuscular 06/14/2012 Administered Problems Problem Type SNOMED Code ICD Code Onset Dates Problem Status W/U Status Risk Notes Problem Vitamin D deficiency (39449525) Vitamin D deficiency (E55.9) Active confirmed Problem Essential hypertension (52462840) Essential hypertension (I10) Active confirmed Problem Hypertriglyceridemia (504199976) Hypertriglyceridemia (E78.1) Active confirmed Problem Memory loss (77648453) Memory loss (R41.3) Active confirmed Problem Impaired fasting glucose (814511352) Impaired fasting glucose (R73.01) Active confirmed Problem Mixed hyperlipidemia (010800252) Mixed hyperlipidemia (E78.2) Active confirmed Problem Gastroesophageal reflux disease (538210031) Gastroesophageal reflux disease, esophagitis presence not specified (K21.9) Active confirmed Problem Allergic rhinitis (06735007) Allergic rhinitis (J30.9) Active confirmed Problem 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) PVC (premature ventricular contraction) (I49.3) Active confirmed Problem Mitral valve disorde r (18009678) Mitral valve insufficiency, unspecified etiology (I34.0) Active confirmed Problem Arthritis of right knee (9005693721241291) Arthritis of right knee (M17.11) Active confirmed Problem Arthritis of left knee (3375100106013303) Arthritis of left knee (M17.12) Active confirmed Problem Primary osteoarthritis (378025549) Primary localized osteoarthrosis of right lower leg (M17.11) Active confirmed Problem Chronic kidney disease stage 3A (disorder) (619186078) Chronic kidney disease, stage 3a (N18.31) Active confirmed Vital Signs Heart Rate 64 /min 05/24/2025 Blood pressure diastolic 70 mm Hg 05/24/2025 Height 63.50 in 05/24/2025 Blood pressure systolic 110 mm Hg 05/24/2025 Weight 146.6 lbs 05/24/2025 BMI 25.56 kg/m2 05/24/2025 Encounters Encounter Location Date Provider Diagnosis [facility] [address] [place], [place] [id number] 09/04/2024 Aleksander Peach Orchard Mixed hyperlipidemia E78.2 ; Vitamin D deficiency E55.9 ; Renal insufficiency N28.9 ; Hyperuricemia E79.0 and 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 [facility] [address] [place], [place] [id number] 11/19/2024 Aleksander [place]chard LAD (lymphadenopathy ), cervical R59.0 [facility] [address] [place], [place] [id number] 05/13/2025 Aleksander [place] Essential hypertensi on I10 ; Mixed hyperlipidemia E78.2 ; Hypertriglyceridemia E78.1 ; Impaired fasting glucose R73.01 ; Vitamin D deficiency E55.9 ; Osteoporosis screening Z13.820 ; Colon cancer screening Z12.11 ; 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 ; Chronic kidney disease, stage 3a N18.31 and BMI 25.0-25.9,adult Z68.25 [facility] [address] [place], [place] [id number] 05/24/2025 Aleksander [place] Frequent urination R 35.0 and Essential hypertension I10 [facility] [address] [place], [place] [id number] 05/26/2025 Aleksander [place] Frequent urination R 35.0 [facility] [address] [place], [place] [id number] 09/05/2024 Aleksander [place] [facility] [address] [place], [place] [id number] 11/07/2024 Justin Penn Mixed hyperlipidemia E78.2 [facility] [address] [place], [place] [id number] 01/02/2025 Aleksander [place] 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 [facility] [address] [place], [place] [id number] 01/14/2025 Aleksander [place] [facility] [address] [place], [place] [id number] 01/24/2025 Aleksander [place] [facility] [address] [place], [place] [id number] 05/14/2025 Aleksander [place] [facility] [address] [place], [place] [id number] 05/23/2025 Aleksander [place] [facility] [address] [place], [place] [id number] 06/02/2025 Justin Scott Fili [facility] [address] [place], [place] [id number] 03/25/2025 Darlin Tate Assessments Encounter Date Diagnosis (ICD Code) Assessment Notes Treatment Notes Treatment Clinical Notes Section Notes 09/04/2024 Vitamin D deficiency (ICD-10 - E55.9) 09/04/2024 Mixed hyperlipidemia (ICD-10 - E78.2) 11/19/2024 LAD (lymphadenopathy ), cervical (ICD-10 - R59.0) Clinically resolved 01/02/2025 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) 05/13/2025 Essential hypertensi on (ICD-10 - I10) Blood pressure journal 05/13/2025 Mixed hyperlipidemia (ICD-10 - E78.2) 05/24/2025 Essential hypertensi on (ICD-10 - I10) 05/24/2025 Frequent urination (ICD-10 - R35.0) 05/26/2025 Frequent urination (ICD-10 - R35.0) 11/07/2024 Mixed hyperlipidemia (ICD-10 - E78.2) 05/13/2025 Hypertriglyceridemia (ICD-10 - E78.1) 09/04/2024 Renal insufficiency (ICD-10 - N28.9) 09/04/2024 Hyperuricemia (ICD-1 0 - E79.0) 05/13/2025 Impaired fasting glu cose (ICD-10 - R73.01) 05/13/2025 Vitamin D deficiency (ICD-10 - E55.9) 09/04/2024 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) 05/13/2025 Chronic kidney disea se, stage 3a (ICD-10 - N18.31) 05/13/2025 BMI 25.0-25.9,adult (ICD-10 - Z68.25) Plan Of Treatment Pending Test Test Name Order Date colonoscopy 05/13/2025 DEXA Hip and Spine 05/13/2025 Insurance Providers Payer Name Payer Address Payer Phone Subscriber Number Group Number Insured Name Patient Relationship to Insured Coverage Start Date Coverage End Date MEDICARE PART B [address] [address] [place] [address] [id number] ANTONIA OCONNELL Self - patient is the insured [facility] [address] [place] [address] [id number] ANTONIA OCONNELL Self - patient is the insured Medical (General) History Medical History History ICD Code Hyperlipidemia Hypertension Rosacea Allergic Rhinitis Rheumatic Fever 1970 Normal Cardiac Stress Test 2006 Mitral Valve Regurgitation, Echo 2007 PVCs, Dx: 2007 [facility] - Dr. Unger Knee Pain RT Knee Arthritis Onychomycosis, toe nails Melanoma, 2022, s/p primary excisio n Surgical History Surgery Date(Month/Year) Total Hysterectomy Tonsillectomy Bladder Repair, Dr. Unger 09/25/2007 RT Knee Replacement 04/14/2021 Melonoma 08/2023 Spot Removal From Head- Squamous Cell colonoscopy 2009
--- OUTSIDE RECORDS SUMMARY | 2025-06-10 10:18 | XMS_ITS | Encounter Summary ---
Author Organization [facility] ([place], [place], [place], [place]) Address [address] [facility] [address] Care Team Providers Care Physician Chief Of Pathology Name Role Phone Unavailable Primary Care Provider Unavailabl e Encounter Details Date Type Department Care Team (Late st Contact Info) Description 06/25/2021 Transcribed Document [facility] [place] [address] ProviderMicky MD [address] [place], [place] [id number] Social History Tobacco Use Types Packs/Day Years Used Date Smoking Tobacco: Never Assessed Comments Unknown Sex and Gender Information Value Date Recorded Sex Assigned at Female 03/15/2022 8:51 PM CDT Legal Sex Female 8:51 PM CDT Gender Identity Female 03/15/2022 8:51 PM CDT Sexual Orientation Not on file documented as of this encounter Miscellaneous Notes * Cerner Conversion Note - Historical ProviderMD - 06/25/2021 2:01 PM CDT PAT Adult Entered On: 06/25/2021 14:06 EDT Performed On: 06/25/2021 14:01 EDT by [facility]ST PIM[facility] RN Vital Measurements Temperature Source : Temporal artery scanning Temperature Mode : Fahrenheit Temperature, Fahrenheit : 98.1 Deg F Clinical Temperature, C : 36.7 Deg C Peripheral Pulse Rate : 84 bpm Respiratory Rate : 18 Breaths/Min Systolic Blood Pressure : 132 mmHg Diastolic Blood Pressure : 70 mmHg Oxygen Saturation : 95 % Oxygen Therapy Mode : Room air WEST PIMENTEL RN - 06/25/2021 14:01 EDT Height and Weight, Clinical Dosing Height Source : Stated Height Entry Format : [place] Height, Feet : 5 ft(Converted to: 152 cm, 60 Inch) Height, Inches : 3.5 Inch(Converted to: 0 ft 4 Inch, 8.89 cm) Clinical Height : 161.29 cm Weight Source : Standing scale Weight Entry Format : [place] Clinical Dosing Weight : 64.55 kg Weight, Pounds : 142 lb Body Surface Area (BSA) : 1.68 m2 Body Mass Index : 24.8 kg/m2 (HI) [place] Body Weight : 53 kg WEST PIM[facility] RN - 06/25/2021 14:01 EDT Health Histories Smoking Status : Never (less than 100 in lifetime; none in last 30 days) Smokeless Tobacco Status : Never [facility] PIM[facility] RN - 06/25/2021 14:01 EDT Social History (As Of: 06/25/2021 14:07:01 EDT) Tobacco: Never (less than 100 in [...] Patient Vaccinated for COVID-19 : Fully vaccinated [facility] RN - 06/25/2021 14:01 EDT Infectious Disease Risk Screening Grid Cough < 2 wks of unknown origin : NO Cough > 2 weeks : NO Blood in Sputum : NO Fever or self-reported Fever : NO Rash of unknown origin : NO Headache : NO Stiff neck : NO Night Sweats : NO Unexplained Weight Loss : NO Diarrhea (3 episode per day) : NO WE[facility] RN - 06/25/2021 14:01 EDT Patient Masked? : Yes Physical contact outside [place] in the last 30 days : No Hospitalized in Foreign Country : No Infectious Disease History : Chicken pox/Shingles, Influenza, Measles, Mumps, Rubella, Scarlet fever INF Disease TB Screening Calc : 0 INF Disease Recent Travel Calc : 0 WEST PIM[facility]EL RN - 06/25/2021 14:01 EDT COVID19 PreProcedure Screening Is this an Emergent or Add on Procedure? : No Date PreProcedure COVID-19 test known? : No Has patient been isolated since the test : N/A - PreProcedure, in-person visit Exposed to COVID19 symptoms since test? : N/A - PreProcedure, in-person visit WE[facility] PIM[facility] RN - 06/25/2021 14:01 EDT Anesthesia/Transfusion History Family History of Anesthesia Reaction : No prior transfusion(s) Transfusion History : Prior anesthesia without reaction Family History of Anesthesia Reaction : Other: mother hard to wake up WEST PIMENTEL RN - 06/25/2021 14:01 EDT Functional Assessment Functional ADL Evaluation Index EBN Bathing : Independent (2) Dressing : Independent (2) Toileting : Independent (2) Transferring Bed or Chair : Independent (2) Continence : Independent (2) Feeding : Independent (2) WEST PIMENTEL RN - 06/25/2021 14:01 EDT ADL Index Score : 12 WE[facility] RN - 06/25/2021 14:01 EDT Advance Directive Patient has Advance Directive *Q : No, patient refuses Advance Directive information WEST PIMENTEL RN - 06/25/2021 14:01 EDT [place] Suicide Severity Rating Scale (C-SSRS) CSSRS Past Month Wish to be : No CSSRS Past Month Suicidal Thoughts : No CSSRS Lifetime Suicide Behavior : No Suicide Severity Rating Score : 0 Suicide Severity Rating : No Additional Care Required at this time WEST PIM[facility] RN - 06/25/2021 14:01 EDT Psychosocial History Do You Have a History of the Following? : Patient denies history Currently in Unsafe Situation : No WEST P[facility] RN - 06/25/2021 14:01 EDT Teaching/Learning Assessment Barriers To Learning : None evident Individuals Taught : Patient Readiness to Learn : Cooperative Readiness to Learn : Explanation, Printed materials WEST PIMENTEL RN - 06/25/2021 14:01 EDT Education Topics, Periop Preadmission Perioperative Education Grid Arrival Time/Place : Verbalizes understanding CHG Preoperative Bathing/Cloths : Verbalizes understanding Infection Control : Verbalizes understanding NPO Status/Directions : Verbalizes understanding Preprocedure Preparations : Verbalizes understanding Preprocedure Tests/Labs : Verbalizes understanding Remove Body Piercings : Verbalizes understanding Responsible Adult : Verbalizes understanding Take/Hold Medications Pre-Procedure : Verbalizes understanding WEST PIM[facility]EL RN - 06/25/2021 14:01 EDT General Info Preferred Name : Megan Legal Guardian : No Want Family/Rep/Phys Notified of Admit : No Emergency Contact #1 : Junior Emergency Contact #1 Emergency Contact #1 Relationship : spouse Emergency Contact #2 : - Emergency Contact #2 Phone Number : - Emergency Contact #2 Relationship : - Primary Language : Khmer Preferred Communication Mode : Verbal Communication Barrier : None Sales Secretary Needed : No WEST P[facility] RN - 06/25/2021 14:01 EDT Aaron Scale Aaron Sensory Perception : No impairment Aaron Moisture : Rarely moist Aaron Activity : Walks frequently Aaron Mobility : No limitation Aaron Nutrition : Excellent Aaron Friction and Shear : No apparent problem Aaron Score : 23 WEST PIM[facility]EL RN - 06/25/2021 14:01 EDT Sleep Apnea Risk Assmt Hx of [...] Sleep Apnea Risk Level Score : 2 WEST PIMENTEL RN - 06/25/2021 14:01 EDT documented in this encounter Plan of Treatment Not on file documented as of this encounter Visit Diagnoses Not on filedocumented in this encounter
--- OUTSIDE RECORDS SUMMARY | 2025-06-10 10:18 | XMS_ITS | Encounter Summary ---
Author Organization [facility] Address [address] [place] [address] Care Team Providers Care Lifter Name Role Phone Aleksander Osuna MD Primary Care Provider [phone] Encounter Details Date Type Department Care Team (Late st Contact Info) Description 08/28/2023 Outside Procedure External Location [address] [place] [address] Gera Bowie MD [address] [place] [address] Social History Tobacco Use Types Packs/Day Years Used Date Smoking Tobacco: Never Smokeless Tobacco: Never Alcohol Use Standard Drinks/Week Comments Never 0 (1 standard drink = 0.6 oz pur e alcohol) Comments Unknown Sex and Gender Information Value Date Recorded Sex Assigned at Not on file Legal Sex Female 6:07 PM EDT Gender Identity Not on file Sexual Orientation Not on file documented as of this encounter Plan of Treatment Not on file documented as of this encounter Procedures Procedure Name Priority Date/Time Associated Diagnosis Comments MAMMOGRAPHY BREAST SCREENING TOMOSYNTHESIS BILATERAL 08/28/2023 9:28 AM EST documented in this encounter Results * Mammography Breast Screening Tomosynthesis Bilateral (08/28/2023 9:28 AM EST) Anatomical Region Laterality Modality Breast Bilateral Mammography 08/28/2023 9:28 AM EST Narrative 08/29/2023 6:25 PM EST [id number] [place] [address] Name: ANTONIA OCONNELL Exam Date: 08/28/2023 : 1950 Age 73 Gender: F Physician: GERA BOWIE Facility: [facility] Facility HSV: Outpatient Exam: TROY SCRN MAMMO W/CAD BILAT MAMMOGRAM SCREENING BILATERAL HISTORY: Routine screening exam COMPARISON: August 04, 2022 TECHNIQUE: Standard digital 2-D views with 3-D tomosynthesis DENSITY: Breasts are heterogeneously dense, which can obscure nodules. FINDINGS: Benign calcifications. Scattered areas of focal asymmetry are noted. No new suspicious mass, suspicious calcifications or architectural distortion is present. IMPRESSION: No mammographic evidence of malignancy BI-RADS 2: Benign finding RECOMMENDATION: Annual mammography CAD was utilized during interpretation. The patient will be sent a letter from the mammography department with their mammography results. Dictated By: Verónica Knight Transcribed By: Verónica Martin Transcribed On: 08/29/2023 6:10 PM Electronically signed by: Verónica Knight 08/29/2023 Thank you for referring ANTONIA OCONNELL to [facility]. Legally authenticated by [employer] PER[employer]A 2023-08-29 18:10:52 Procedure Note Provider, Tatiana [facility] - 08/29/[address] [address] Name: ANTONIA OCONNELL Exam Date: 08/28/2023 : 1950 Age 73 Gender: F Physician: GERA BOWIE Facility: [facility] Facility HSV: Outpatient Exam: TROY SCRN MAMMO W/CAD BILAT MAMMOGRAM SCREENING BILATERAL HISTORY: Routine screening exam COMPARISON: August 04, 2022 TECHNIQUE: Standard digital 2-D views with 3-D tomosynthesis DENSITY: Breasts are heterogeneously dense, which can obscure nodules. FINDINGS: Benign calcifications. Scattered areas of focal asymmetry arenoted. No new suspicious mass, suspicious calcifications or architecturaldistortion is present. IMPRESSION: No mammographic evidence of malignancy BI-RADS 2: Benign finding RECOMMENDATION: Annual mammography CAD was utilized during interpretation. The patient will be sent a letter from the mammography department withtheir mammography results. Dictated By: Verónica Knight Transcribed By: Verónica Martin Transcribed On: 08/29/2023 6:10 PM Electronically signed by: Verónica Knight 08/29/2023 Thank you for referring ANTONIA OCONNELL to [facility]. Legally authenticated by [employer] 2023-08-29 18:10:52 us Gera Bowie MD IMG BI PROCEDURES Final Result documented in this encounter Visit Diagnoses Not on filedocumented in this encounter Additional Health Concerns Assessment Noted Time A Body Mass Index follow-up plan has been documented for the patient 05/31/2023 12:40 PM EDT documented as of this encounter Care Teams Lifter Relationship Specialty Start Date End Date Aleksander Osuna MD [address] [place] [address] PCP - General 01/29/21 documented as of this encounter
--- OUTSIDE RECORDS SUMMARY | 2025-06-10 10:18 | XMS_ITS | Encounter Summary ---
Author Organization [employer] ([place], [place], [place], [place]) Address [address] [place] [address] Care Team Providers Care Asbestos Cement Sheet Supervisor Name Role Phone Unavailable Primary Care Provider Unavailabl e Encounter Details Date Type Department Care Team (Late st Contact Info) Description 04/15/2021 Transcribed Document [facility] Family Medicine [facility] [place] [address] ProviderMicky MD [address] [place] [id number] Social History Tobacco Use Types Packs/Day Years [...] Conversion Note - Micky ProviderMD - 04/15/2021 11:24 AM CDT Final Discharge Planning Entered On: 04/15/2021 11:27 EDT Performed On: 04/15/2021 11:24 EDT by AMADO MELISSA RN Final Discharge Planning Discharge Arrangements : Patient Post-Acute Information Patient Name: ANTONIA WHITE SAUL Gender: Female : [birth year] Age: 71 Years [place] Referral(s): Service: Organization: Business Address: Phone Number: [employer] [address], [address] Patient Offered Choice/Affiliations Explained : [...] : Yes Discharge To Care Management : Home/Residential/Long Term or Self Care -01 AMADO MELISSA RN - 04/15/2021 11:24 EDT Final Narrative Note Final Narrative Note : Patient was admitted overnight for nausea. Patient feeling much better today.Patient will discharge home with Outpatient therapy with [facility]. she has an appointment on monday. No further CM needs identified. Historical Narrative Note : Patient discharging home. Patient will be using [facility] for outpatient PT. No further CM needs identified. AMADO MELISSA RN - 04/14/21 16:35:22 AMADO MELISSA RN - 04/15/2021 11:24 EDT documented in this encounter Plan of Treatment Not on file documented as of this encounter Visit Diagnoses Not on filedocumented in this encounter
--- OUTSIDE RECORDS SUMMARY | 2025-06-10 10:18 | XMS_ITS | Encounter Summary ---
Author Organization [employer] ([place], [place], [place], [place]) Address [address] [place] [address] Care Team Providers Care Social Studies Teacher Name Role Phone Unavailable Primary Care Provider Unavailabl e Encounter Details Date Type Department Care Team (Late st Contact Info) Description 04/15/2021 Transcribed Document [facility] Family Medicine [facility] [place] [address] ProviderMicky MD [address] [place] [phone] Social History Tobacco Use Types Packs/Day Years [...] Conversion Note - Micky ProviderMD - 04/15/2021 12:55 PM CDT Patient Education Materials Follows: What to expect after the Procedure: After the procedure, it is common to have: ?? Pain and swelling. ?? A small amount of blood or clear fluid coming from your incision for up to 7 days. ?? It is normal to have a moderate amount of bleeding from the site of the drain that was pulled on the morning after surgery. You can hold pressure on the area for 3-5 minutes and cover with a bandage as needed. Diet: ?? Resume usual diet ?? No [...] the walker Other: ?? Use ice therapy for 20-30 minutes at a time and leave off for 20-30 minutes at a time. Always keep a towel or cloth between the ice pack and your skin ?? Continue to use Incentive Spirometer 10 times an hour while awake for one month to help prevent pneumonia ?? Leave Mepilex on until follow up appointment. ?? ASA 81mg twice a day for 30 days. Contact a health care provider if: [...] Barley. Bulgur wheat. Millet. Bran muffins. Popcorn. [place] wafer crackers. ?? Vegetables Sweet potatoes. Spinach. Kale. Artichokes. Cabbage. Broccoli. Green peas. Carrots. Squash. ?? Fruits Berries. Pears. Apples. Oranges. Avocados. Prunes and raisins. Dried figs. ?? Meats and Other Protein Sources Shokan, kidney, hallman, and soy beans. Split peas. [...] pollo has 11 g of protein. ?? Bailey seeds ??? 1 oz has 5.5 g [...] floor. ?? Place frequently used items in [id number] places ?? Keep electrical cables out of [...] ? Using the bathroom. ? Using household intelligence chief or toxic chemicals. ? Touching or taking [...] your foot or ankle. ? Increased pain. documented in this encounter Plan of Treatment Not on file documented as of this encounter Visit Diagnoses Not on filedocumented in this encounter
--- OUTSIDE RECORDS SUMMARY | 2025-06-10 10:18 | XMS_ITS | Encounter Summary ---
Author Organization [facility] Address [address] [place] [address] Care Team Providers Care Rn Physician Office Name Role Phone Aleksander Osuna MD Primary Care Provider [phone] Encounter Details Date Type Department Care Team (Late st Contact Info) Description 04/26/2023 Outside Procedure External Location [address] [place] [address] Gera Bowie MD [address] [place] [address] Social History Tobacco Use Types [...] Procedure Name Priority Date/Time Associated Diagnosis Comments XR CHEST 2 VIEWS 04/26/2023 1:06 PM EDT documented in this encounter Results * XR Chest 2 Views (04/26/2023 1:06 PM EDT) Anatomical Region Laterality Modality Chest Digital Radiogra phy 04/26/2023 1:06 PM EDT Narrative 04/26/2023 2:06 PM EDT [address] [place] [address] Name: ANTONIA OCONNELL Exam Date: 04/26/2023 : 1950 Age 73 Gender: F Physician: GERA BOWIE Facility: [facility] Facility HSV: Outpatient Exam: CHEST 2 VIEWS CHEST, 2 views HISTORY: Preoperative exam for respiratory clearance. COMPARISON: None. FINDINGS: The lungs are clear. There is no evidence of effusion or other pleural disease. The mediastinum has a normal appearance. The cardiac silhouette is unremarkable. IMPRESSION: Unremarkable chest exam. Dictated By: CRISTOFER LOERA Transcribed By: Jason Loera Transcribed On: 04/26/2023 1:53 PM Electronically signed by: CRISTOFER LOERA 04/26/2023 Thank you for referring ANTONIA OCONNELL to [facility]. Legally authenticated by LUZ MARIA CANELA 2023-04-26 13:53:34 Procedure Note Provider, [facility] - 04/26/2023 [place] [address] Name: ANTONIA OCONNELL Exam Date: 04/26/2023 : 1950 Age 73 Gender: F Physician: GERA BOWIE Facility: [facility] Facility HSV: Outpatient Exam: CHEST 2 VIEWS CHEST, 2 views HISTORY: Preoperative exam for respiratory clearance. COMPARISON: None. FINDINGS: The lungs are clear. There is no evidence of effusion or other pleural disease. The mediastinumhas a normal appearance. The cardiac silhouette is unremarkable. IMPRESSION: Unremarkable chest exam. Dictated By: CRISTOFER LOERA Transcribed By: Jason Loera Transcribed On: 04/26/2023 1:53 PM Electronically signed by: CRISTOFER LOERA 04/26/2023 Thank you for referring ANTONIA OCONNELL to [facility]. Legally authenticated by LUZ MARIA CANELA 2023-04-26 13:53:34 us Gera Bowie MD IMG XR PROCEDURES Final Result documented in this encounter Visit Diagnoses Not on filedocumented in this encounter Additional Health Concerns Assessment Noted Time A Body Mass Index follow-up plan has been documented for the patient 04/26/2023 12:20 PM EDT documented as of this encounter Care Teams Rn Physician Office Relationship Specialty Start Date End Date Aleksander Osuna MD [address] [place] [address] PCP - General 01/29/21 documented as of this encounter
--- OUTSIDE RECORDS SUMMARY | 2025-06-10 10:18 | XMS_ITS | Clinical Summary ---
Author Organization [facility] Address [address] [place] [address] Care Team Providers Care Electric Fork Operator Name Role Phone Aleksander Osuna MD Primary Care Provider [phone] Allergies No known active allergies Medications diclofenac (Voltaren) 1 % topical gel use as directed 2 Active doxycycline (Periostat) 20 MG tablet Take 20 mg by mouth. 3 Active Premarin 0.3 MG tablet 3 Active famotidine (Pepcid) 40 MG tablet 3 Active hydroCHLOROthia zide (Microzide) 12.5 MG capsule Take 12.5 mg by mouth 1 (one) time each day. Active losartan (Cozaar) 50 MG tablet Take 50 mg by mouth. 3 Active rosuvastatin (Crestor) 10 MG tablet Take 10 mg by mouth 1 (one) time each day. 2 Active solifenacin (VESIcare) 10 MG tablet Take 10 mg by mouth 1 (one) time each day. 3 Active triamcinolone (Kenalog) 0.1 % cream APPLY CREAM EXTERNALLY TO LEFT ANTERIOR LOWER LEG TWICE DAILY 2 Active triamterene-hyd rochlorothiazid e (Maxzide-25) 37.5-25 MG tablet Take 1 tablet by mouth 1 (one) time each day. 3 Active alpha tocopherol (Vitamin E) 1000 units capsule Take 2,000 Units by mouth 1 (one) time each day. Active estrogens, conjugated, (Premarin) 0.3 MG tablet Take 1 tablet (0.3 mg) by mouth 1 (one) time each day. 90 tablet 3 3 Active estradiol (Estrace) 0.1 MG/GM vaginal cream INSERT 2 GRAM INTO THE VAGINA 2 TIMES A WEEK 43 g 3 Active Active Problems Problem Noted Date Diagnosed Date Frequency of urination 12/06/2022 Overview (01/06/2023): Last Assessment & Plan: Assessment = patient with increased frequency and urgency. Patient has not tried anything to make things better. Minimal to no urge incontinence. Plan = we will prescribe for her Solifenacin 10 mg 1 p.o. daily dispense 90 with no refills. This is for a trial basis. She will return back in approximately 75 days for further evaluation of this. Vaginal prolapse 12/06/2022 Overview (01/06/2023): Last Assessment & Plan: Assessment = patient questioning whether she might have a vaginal prolapse or even a cystocele. Patient did have bladder sling performed in 2007 after hysterectomy in the . Plan = we have agreed upon that she will find an SAFETY COORDINATOR that will have better evaluation for her. [place] and was evaluated from that standpoint. Social History Tobacco Use Types Packs/Day Years Used Date Smoking Tobacco: Never Smokeless Tobacco: Never Tobacco Cessation:Counseling Given: Not Answered Alcohol Use Standard Drinks/Week Comments Never 0 (1 standard drink = 0.6 oz pur e alcohol) Comments Unknown Sex and Gender Information Value Date Recorded Sex Assigned at Not on file Legal Sex Female 6:07 PM EDT Gender Identity Not on file Sexual Orientation Not on file Last Filed Vital Signs Vital Sign Reading Time Taken Comments Blood Pressure 138/76 04/26/2023 11:51 AM EDT Pulse 80 01/06/2023 9:10 AM EDT Temperature - - Respiratory Rate 18 01/06/2023 9:10 AM EDT Oxygen Saturation 99% 01/06/2023 9:10 AM EDT Inhaled Oxygen Concentration - - Weight 68 kg (149 lb 14.6 oz) 04/26/2023 11:51 A M EDT Height 162.6 cm (5' 4 ) 01/06/2023 9:10 AM EDT Body Mass Index 25.73 01/06/2023 9:10 AM EDT Plan of Treatment Health Maintenance Due Date Last Done Comments [facility]-Bone Density Scan 1950 [facility]-Depression Screening 1950 [facility]-Hepatitis C Screening 1950 [facility]-Medicare Annual Wellness (AWV) 1950 [facility]-/Child/Adol SDOH Screenings 1950 [facility]- SDOH Screenings 01/28/1968 [facility]-Adult SDOH Screenings 01/28/1968 [facility]-DTaP,Tdap,and Td Vaccine s (1 - Tdap) 1969 CT Colonography 1995 Colonoscopy 1995 FIT-DNA 1995 FIT 1995 FOBT 1995 Sigmoidoscopy 1995 [facility]-Colorectal Cancer Screening 1995 [facility]-Zoster Vaccines (1 of 2) 01/28/2000 [facility]-RSV Vaccine: 60+ Years o r (1 - 1-dose 75+ series) 2025 [facility]HA-OJRFN-25 Vaccine (1 - 2023- season) 2025 [facility]-Influenza Vaccine (#1) 05/19/202507/15, 07/01/2021, 07/07/2020 [facility]-Hepatitis A Vaccines Aged Out 019, 09/01/2018 No longer eligible based on patient's age to complete this topic [facility]-Pneumococcal Vaccine: 50 + Years Completed 05/25/2023, 02/03/2018 [facility]-Obesity Intervention Completed 023, 04/26/2023, 01/06/2023 [facility]-Breast Cancer Screening Discontinued 08/28/2023 HPV Vaccines Aged Out No longer eligi ble based on patient's age to complete this topic [facility]-HIB Vaccines Aged Out No longer e ligible based on patient's age to complete this topic [facility]-IPV Vaccines Aged Out No longer e ligible based on patient's age to complete this topic [facility]-Rotavirus Vaccines Aged Out No lo nger eligible based on patient's age to complete this topic Procedures Procedure Name Priority Date/Time Associated Diagnosis Comments MAMMOGRAPHY BREAST SCREENING TOMOSYNTHESIS BILATERAL 08/28/2023 9:28 AM EST from Last 3 Months or Most Recently Relevant to Health Maintenance Results * Mammography Breast Screening Tomosynthesis Bilateral (08/28/2023 9:28 AM EST) Anatomical Region Laterality Modality Breast Bilateral Mammography 08/28/2023 9:28 AM EST Narrative 08/29/2023 6:25 [place] [address] Name: ANTONIA OCONNELL Exam Date: 08/28/2023 : 1950 Age 73 Gender: F Physician: DANII BOWIE Facility: [facility] Facility HSV: Outpatient Exam: TROY SCRN MAMMO [...] Thank you for referring ANTONIA OCONNELL to [facility]. Legally authenticated by [employer] 2023-08-29 18:10:52 Procedure Note Provider, [facility] - 08/29/2023 [place] [address] Name: ANTONIA OCONNELL Exam Date: 08/28/2023 : 1950 Age 73 Gender: F Physician: DANII BOWIE Facility: [facility] Facility HSV: Outpatient Exam: TROY SCRN MAMMO [...] Verónica Knight 08/29/2023 Thank you for referring OCONNELL ANTONIA to [facility]. Legally authenticated by [employer] 2023-08-29 18:10:52 Danii Bowie MD IMG BI PROCEDURES Final Result from Last 3 Months or Most Recently Relevant to Health Maintenance Insurance MEDICARE [facility] Care Teams Electric Fork Operator Relationship Specialty Start Date End Date Aleksander Osuna MD [address] [place] [address] PCP - General 01/29/21
--- OUTSIDE RECORDS SUMMARY | 2025-06-10 10:18 | XMS_ITS | Encounter Summary ---
Author Organization [employer] ([place], [place], [place], [place]) Address [address] [place] [address] Care Team Providers Care Board Certified Family Physician Name Role Phone Unavailable Primary Care Provider Unavailabl e Encounter Details Date Type Department Care Team (Late st Contact Info) Description 04/15/2021 Transcribed Document [facility] Family [facility] [place] [address] ProviderMicky MD [address] [place] [address] [phone] Social History Tobacco Use Types Packs/Day Years [...] Conversion Note - Micky ProviderMD - 04/15/2021 1:15 [place] [address] ANTONIA OCONNELL SAUL :1950 Visit Time:04/14/2021 Your Visit Summary Your Care Team Admitting Physician - MARGO MAZA JR, JR, MD-SERGIO Attending Physician - MARGO MAZA JR, JR, MD-ORT Primary Care Physician - ESTELA, NOT LISTED Referring Physician - MARGO MAZA JR, JR, MD-ORT Your Diagnosis At risk for sleep apnea Dizziness, postop GERD (gastroesophageal reflux disease) High cholesterol High fall risk Hypertension Mitral valve regurgitation Right knee pain Status post total knee replacement, right Unilateral primary osteoarthritis, right knee, Unilateral primary osteoarthritis, right knee, Unilateral primary osteoarthritis, right knee Unsteadiness These Are Your Goals to go home Patient Discharge Goal Patient Discharge Goal: Home health care Discharge Vitals Temperature 36.5 ??C Heart Rate (Monitored) 63 Respiratory Rate 18 Blood Pressure 120/55 What to do next Instructions From Your Care Team Refer to handouts provided to you by physical therapy You must use a walker x 2weeks minimum You may shower on Monday. Remove Terrance bandage and cover knee with Glad Press and Seal. Dry wrapping after showering before you remove it to keep incisions dry. You will cover incision with Press and Seal for 1 month. You may remove the waterproof dressing on day 14. Monitor incision for signs of infection. will be post op day 1. If dressing shows drainage beyond day 10, please call Dr Maza''s office. Use the Qingguo machine (blue ice box) continuously x 48 hours and then several times per day 20 minutes on and 40 minutes off. REMOVE THE ICE 1 HOUR PRIOR TO EXERCISING Use the incentive spirometer 10 times per hour while awake to prevent pneumonia You will be discharge with the following meds: Tylenol 500mg - 2 tablets every 8 hours x 30 days Colace 100mg - 1-2 tablets daily for constipation Mobic 15 mg - 1 tablet daily Oxycodone 5mg - 1-2 tablets every 4-6 hours as needed for pain Tramadol 50mg 1-2 tablets every 6 hours as needed for pain Keflex 500mg - 1 capsule every 6 hours x 3 days Zofran 4mg- 1 tablet every 4-6 hours for nausea Sleep in immobilizer for 10 days Community Services:[facility] Medical Equipment for Home Use: NextPotential for bedside commode and front rolling walker. Transportation: family to transport patient home. Discharge Follow Up Instructions: Follow-up with Dr. Vasquez as scheduled, Order Comment: Follow-up with PCP as scheduled or PRN Activity: As per Dr. Vasquez recommendations, Discharge Activity: Other (use Special Instructions) Diet: Discharge Diet: Resume usual diet as tolerated Follow-Up Appointments Follow Up with MARGO MAZA JR, JR, MD-ORT When 04/28/2021 10:15 AM EDT Where: [address] [facility] [address] [place] [address]- Medications What How Much When Instructions Next Dose doxycycline 40 Milligram(s) Oral Every Day as needed for Arthritis Tomorrow Morning metroNIDAZOLE topical (metroNIDAZOLE 0.75% topical cream) 1 Application(s) Topical Two Times A Day as needed for Arthritis Tonight at bedtime acetaminophen (acetaminophen 500 mg oral tablet) 2 Tablet(s) Oral Three Times A Day Duration: 30 Day(s) Anytime ascorbic acid (Vitamin C) 1,000 Milligram(s) Oral Every Day Tomorrow morning aspirin (aspirin 81 mg oral delayed release tablet) 1 Tablet(s) Oral Two Times A Day Tonight at bedtime cefadroxil (cefadroxil 500 mg oral capsule) 1 Capsule(s) Oral Every 12 hours Duration: 3 Day(s) Tonight at bedtime cholecalciferol (Vitamin D3) 2,000 Milligram(s) Oral Every Day Tomorrow morning docusate (docusate sodium 100 mg oral tablet) 1 Tablet(s) Oral Two Times A Day as needed for for constipation Pickup at [facility] Today meloxicam (Mobic 15 mg oral tablet) 1 Tablet(s) Oral Every Day Today multivitamin (Vitamin B Complex 100) 1 Tablet(s) Oral Every Day Tomorrow morning multivitamin with minerals (Calcium, Magnesium and Zinc oral tablet) 1 Tablet(s) Oral Every Day Tomorrow morning ondansetron (ondansetron 4 mg oral tablet) 1 Tablet(s) Oral Every 8 Hours Anytime oxyCODONE (oxyCODONE 5 mg oral tablet) See instructions Take 1-2 tablets by mouth every 4-6 hours as needed for severe pain 2 tabs at 7 p.m. rosuvastatin 10 Milligram(s) Oral Every Day At bedtime traMADol (traMADol 50 mg oral tablet) See instructions Take 1-2 tablets by mouth every 6 hours as needed for moderate pain Anytime ubiquinone (CoQ10) 300 Milligram(s) Oral Every Day Tomorrow morning Pharmacy Information [facility]: [address] [address] [phone] Take your medications faithfully. Do NOT skip [...] Please dispose of unused and medications per your retail pharmacy guidance. Allergies Mangos No Known Medication Allergies Education Materials What to expect after the Procedure: After the procedure, it is common to have: ??? Pain and swelling. ??? A small amount of blood or clear fluid coming from your incision for up to 7 days. ??? It is normal to have a moderate amount of bleeding from the site of the drain that was pulled on the morning after surgery. You can hold pressure on the area for 3-5 minutes and cover with a bandage as needed. Diet: ??? Resume usual diet ??? No [...] the walker Other: ??? Use ice therapy for 20-30 minutes at a time and leave off for 20-30 minutes at a time. Always keep a towel or cloth between the ice pack and your skin ??? Continue to use Incentive Spirometer 10 times an hour while awake for one month to help prevent pneumonia ??? Leave Mepilex on until follow up appointment. ??? ASA 81mg twice a day for 30 [...] Barley. Bulgur wheat. Millet. Bran muffins. Popcorn. [place]rop wafer crackers. ??? Vegetables Sweet potatoes. Spinach. Kale. Artichokes. Cabbage. Broccoli. Green peas. Carrots. Squash. ??? Fruits Berries. Pears. Apples. Oranges. Avocados. Prunes and raisins. Dried figs. ??? Meats and Other Protein Sources [place], kidney, hallman, and soy beans. Split peas. [...] pollo has 11 g of protein. ??? Antrim seeds ??? 1 oz has 5.5 g [...] floor. ??? Place frequently used items in krqi-dj-vxftt places ??? Keep electrical cables out of [...] ? Using the bathroom. ? Using household bilingual interpreter or toxic chemicals. ? Touching or taking [...] your foot or ankle. ? Increased pain. aspirin (oral) ( pir in) Arthritis Pain, Aspi-Cor, Aspir-Low, Melina Plus, Durlaza, Ecotrin, Miniprin, Vazalore What is the most important information I should know about aspirin? Aspirin can cause Jack's syndrome, a serious and sometimes fatal condition in children. What is aspirin? Aspirin is a salicylate (xh-UAP-nr-ate) that is used to treat pain, and reduce fever or inflammation. Aspirin is sometimes used to treat or prevent heart attacks, strokes, and chest pain (angina). Aspirin should be used for these conditions only under the supervision of a doctor. Aspirin may also be used for purposes not listed in this medication guide. What should I discuss with my healthcare provider before taking aspirin? Using aspirin in a child or teenager with flu symptoms or chickenpox can cause a serious or fatal condition called Jack's syndrome. You should not use aspirin if you are allergic to it, or if you have: ?? a recent history of stomach or intestinal bleeding; ?? a bleeding disorder such as hemophilia; or ?? if you have ever had an asthma attack or severe allergic reaction after taking aspirin or an NSAID (non-steroidal anti-inflammatory drug). Tell your doctor if you have ever had: ?? asthma or seasonal allergies; ?? stomach ulcers; ?? liver disease; ?? kidney disease; ?? a bleeding or blood clotting disorder; ?? gout; or ?? heart disease, high blood pressure, or congestive heart failure. Taking aspirin during late may cause bleeding in the mother or the baby during delivery. Tell your doctor if you are or plan to become . You should not breastfeed while using this medicine. How should I take aspirin? Use exactly as directed on the label, or as prescribed by your doctor. Always follow directions on the medicine label about giving aspirin to a child. Take with food if aspirin upsets your stomach. You must chew the chewable tablet before you swallow it. Do not crush, chew, break, or open an enteric-coated or delayed/extended-release pill. Swallow it whole. Tell your doctor if you have a planned surgery. Store at room temperature away from moisture and heat. Do not use aspirin if you smell a strong vinegar odor in the aspirin bottle. The medicine may no longer be effective. What happens if I miss a dose? Aspirin is used when needed. If you are on a dosing schedule, skip any missed dose. Do not use two doses at one time. What happens if I overdose? Seek emergency medical attention or call the Poison Help line at . Overdose may cause stomach pain, vomiting, diarrhea, vision or hearing problems, fast or slow breathing, or confusion. What should I avoid while taking aspirin? Avoid alcohol. Heavy drinking can increase your risk of stomach bleeding. Avoid taking ibuprofen if you take aspirin to prevent stroke or heart attack. Ibuprofen can make aspirin less effective in protecting your heart and blood vessels. Ask your doctor how far apart your doses should be. Ask a doctor or pharmacist before using other medicines for pain, fever, swelling, or cold/flu symptoms. They may contain ingredients similar to aspirin (such as magnesium salicylate, ibuprofen, ketoprofen, or naproxen). What are the possible side effects of aspirin? Get emergency medical help if you have signs of an allergic reaction: hives; difficult breathing; swelling of your face, lips, tongue, or throat. Stop using aspirin and call your doctor at once if you have: ?? ringing in your ears, confusion, hallucinations, rapid breathing, seizure (convulsions); ?? severe nausea, vomiting, or stomach pain; ?? bloody or tarry stools, coughing up blood or vomit that looks like coffee grounds; ?? fever lasting longer than 3 days; or ?? swelling, or pain lasting longer than 10 days. Common side effects may include: ?? upset stomach, heartburn; ?? drowsiness; or ?? mild headache. This is not a complete list of side effects and others may occur. Call your doctor for medical advice about side effects. You may report side effects to FDA at 1-653-OHO-3941. What other drugs will affect aspirin? Ask your doctor before using aspirin if you take an antidepressant. Taking certain antidepressants with aspirin may cause you to bruise or bleed easily. Ask a doctor or pharmacist before using aspirin with any other medications, especially: ?? a blood thinner (warfarin, Coumadin, Jantoven), or other medication used to prevent blood clots; or ?? other salicylates such as Nuprin Backache Caplet, Kaopectate, KneeRelief, Pamprin Cramp Formula, Pepto-Bismol, Tricosal, Trilisate, and others. This list is not complete. Other drugs may affect aspirin, including prescription and lngd-ngi-xhcotaj medicines, vitamins, and herbal products. Not all possible drug interactions are listed here. Where can I get more information? Your pharmacist can provide more information about aspirin. Remember, keep this and all other medicines out of the reach of children, never share your medicines with others, and use this medication only for the indication prescribed. Every effort has been made to ensure that the information provided by [employer]. [employer]') is accurate, up-to-date, and complete, but no guarantee is made to that effect. Drug information contained herein may be time sensitive. [employer] information has been compiled for use by healthcare practitioners and consumers in the [place] and therefore [employer] does not warrant that uses outside of the [place] are appropriate, unless specifically indicated otherwise. [employer] drug information does not endorse drugs, diagnose patients or recommend therapy. [employer] drug information is an informational resource designed to assist licensed healthcare practitioners in caring for their patients and/or to serve consumers viewing this service as a supplement to, and not a substitute for, the expertise, skill, knowledge and judgment of healthcare practitioners. The absence of a warning for a given drug or drug combination in no way should be construed to indicate that the drug or drug combination is safe, effective or appropriate for any given patient. [employer] does not assume any responsibility for any aspect of healthcare administered with the aid of information [employer] provides. The information contained herein is not intended to cover all possible uses, directions, precautions, warnings, drug interactions, allergic reactions, or adverse effects. If you have questions about the drugs you are taking, check with your doctor, nurse or pharmacist. Copyright 7727-6227 [facility] Version: 16.03. Revision Date: 03/15/2021. docusate (oral/rectal) (DOK ue sate) Colace, Diocto, Doc-Q-Lace, Docu, Doculase, Docusil, Docusoft S, DocuSol, Dulcolax Stool Softener, Enemeez Mini, Gerson-Tin, Pedia-Lax Stool Softener, Chowdhury Stool Softener, Promolaxin, Silace, Surfak Stool Softener, Jack-Q-Lax What is the most important information I should know about docusate? You should not use docusate if you also use mineral oil, unless your doctor tells you to. What is docusate? Docusate is a stool softener that makes bowel movements softer and easier to pass. Docusate is used to relieve occasional constipation (irregularity). There are many brands and forms of docusate available. Not all brands are listed on this leaflet. Docusate may also be used for purposes not listed in this medication guide. What should I discuss with my healthcare provider before using docusate? You should not use docusate if you are allergic to it. Ask a doctor or pharmacist if this medicine is safe to use if you have: ?? stomach pain; ?? nausea; ?? vomiting; or ?? a sudden change in bowel habits that lasts over 2 weeks. Ask a doctor before using this medicine if you are or . Do not give this medicine to a child without medical advice. How should I use docusate? Use exactly as directed on the label, or as prescribed by your doctor. Drink plenty of liquids while you are using docusate. Measure liquid medicine carefully. Use the dosing syringe provided, or use a medicine dose-measuring device (not a kitchen spoon). Do not take the rectal enema by mouth. Rectal medicine is for use only in the rectum. Wash your hands before and after using the enema. To use the enema, lie on your left side with your left leg extended and your right leg slightly bent. Remove the cap from the applicator tip and gently insert the tip into your rectum. Slowly squeeze the bottle to empty the contents into the rectum. After using the enema, lie down on your left side for at least 30 minutes to allow the liquid to distribute throughout your intestines. Avoid using the bathroom, and hold in the enema at least 1 hour, or all night if possible. Read and carefully follow any Instructions for Use provided with your medicine. Ask your doctor or pharmacist if you do not understand these instructions. Docusate generally produces bowel movement in 12 to 72 hours. Call your doctor if your symptoms do not improve after 72 hours. You should not use docusate for longer than 1 week, unless your doctor tells you to. Store at room temperature away from moisture and heat. Do not freeze liquid medicine. What happens if I miss a dose? Since docusate is used when needed, you may not be on a dosing schedule. Skip any missed dose if it's almost time for your next dose. Do not use two doses at one time. What happens if I overdose? Seek emergency medical attention or call the Poison Help line at . What should I avoid while using docusate? Avoid using mineral oil, unless told to do so by a doctor. What are the possible side effects of docusate? Get emergency medical help if you have signs of an allergic reaction: hives; difficult breathing; swelling of your face, lips, tongue, or throat. Stop using docusate and call your doctor at once if you have: ?? rectal bleeding or irritation; or ?? no bowel movement after 72 hours. Less serious side effects may be more likely, and you may have none at all. This is not a complete list of side effects and others may occur. Call your doctor for medical advice about side effects. You may report side effects to FDA at 1-852-OKD-4293. What other drugs will affect docusate? Other drugs may affect docusate, including prescription and cxbr-dze-jddbmuo medicines, vitamins, and herbal products. Tell your doctor about all your current medicines and any medicine you start or stop using. Where can I get more information? Your pharmacist can provide more information about docusate. Remember, keep this and all other medicines out of the reach of children, never share your medicines with others, and use this medication only for the indication prescribed. Every effort has been made to ensure that the information provided by [employer]') is accurate, up-to-date, and complete, but no guarantee is made to that effect. Drug information contained herein may be time sensitive. [employer] information has been compiled for use by healthcare practitioners and consumers in the [place] and therefore [employer] does not warrant that uses outside of the [place] are appropriate, unless specifically indicated otherwise. [employer] drug information does not endorse drugs, diagnose patients or recommend therapy. [employer] drug information is an informational resource designed to assist licensed healthcare practitioners in caring for their patients and/or to serve consumers viewing this service as a supplement to, and not a substitute for, the expertise, skill, knowledge and judgment of healthcare practitioners. The absence of a warning for a given drug or drug combination in no way should be construed to indicate that the drug or drug combination is safe, effective or appropriate for any given patient. [employer] does not assume any responsibility for any aspect of healthcare administered with the aid of information [employer] provides. The information contained herein is not intended to cover all possible uses, directions, precautions, warnings, drug interactions, allergic reactions, or adverse effects. If you have questions about the drugs you are taking, check with your doctor, nurse or pharmacist. Copyright 5376-7811 [employer]. Version: 4.01. Revision Date: 03/25/2019. cephalexin (sef a NALDO in) Keflex What is the most important information I should know about cephalexin? You should not use this medicine if you are allergic to cephalexin or to similar antibiotics, such as Ceftin, Cefzil, Omnicef, and others. Tell your doctor if you are allergic to any drugs, especially penicillins or other antibiotics. What is cephalexin? Cephalexin is a cephalosporin (SEF a low spor in) antibiotic that is used to treat bacterial infections of the lungs, ear, skin, bones, bladder, and kidneys. Cephalexin is used to treat infections in adults and children who are at least 1 year old. Cephalexin may also be used for purposes not listed in this medication guide. What should I discuss with my healthcare provider before taking cephalexin? You should not use this medicine if you are allergic to cephalexin or any other cephalosporin antibiotic (cefdinir, cefadroxil, cefoxitin, cefprozil, ceftriaxone, cefuroxime, Omnicef, and others). Tell your doctor if you have ever had: ?? an allergy to any drug (especially penicillin); ?? liver or kidney disease; or ?? intestinal problems, such as colitis. The liquid form of cephalexin may contain sugar. This may affect you if you have diabetes. Tell your doctor if you are or breast-feeding. How should I take cephalexin? Follow all directions on your prescription label and read all medication guides or instruction sheets. Use the medicine exactly as directed. Do not use cephalexin to treat any condition that has not been checked by your doctor. Measure liquid medicine carefully. Use the dosing syringe provided, or use a medicine dose-measuring device (not a kitchen spoon). Use this medicine for the full prescribed length of time, even if your symptoms quickly improve. Skipping doses can increase your risk of infection that is resistant to medication. Cephalexin will not treat a viral infection such as the flu or a common cold. Do not share cephalexin with another person, even if they have the same symptoms you have. This medicine can affect the results of certain medical tests. Tell any doctor who treats you that you are using cephalexin. Store the tablets and capsules at room temperature away from moisture, heat, and light. Store the liquid medicine in the refrigerator. Throw away any unused liquid after 14 days. What happens if I miss a dose? Take the medicine as soon as you can, but skip the missed dose if it is almost time for your next dose. Do not take two doses at one time. What happens if I overdose? Seek emergency medical attention or call the Poison Help line at . Overdose symptoms may include nausea, vomiting, stomach pain, diarrhea, and blood in your urine. What should I avoid while taking cephalexin? Antibiotic medicines can cause diarrhea, which may be a sign of a new infection. If you have diarrhea that is watery or bloody, call your doctor before using anti-diarrhea medicine. What are the possible side effects of cephalexin? Get emergency medical help if you have signs of an allergic reaction (hives, difficult breathing, swelling in your face or throat) or a severe skin reaction (fever, sore throat, burning eyes, skin pain, red or purple skin rash with blistering and peeling). Call your doctor at once if you have: ?? severe stomach pain, diarrhea that is watery or bloody (even if it occurs months after your last dose); ?? unusual tiredness, feeling light-headed or short of breath; ?? easy bruising, unusual bleeding, purple or red spots under your skin; ?? a seizure; ?? pale skin, cold hands and feet; ?? yellowed skin, dark colored urine; ?? fever, weakness; or ?? pain in your side or lower back, painful urination. Common side effects may include: ?? diarrhea; ?? nausea, vomiting; ?? indigestion, stomach pain; or ?? vaginal itching or discharge. This is not a complete list of side effects and others may occur. Call your doctor for medical advice about side effects. You may report side effects to FDA at 8-552-VYJ-3044. What other drugs will affect cephalexin? Tell your doctor about all your other medicines, especially: ?? metformin; or ?? probenecid. This list is not complete. Other drugs may affect cephalexin, including prescription and zjta-kah-setcbti medicines, vitamins, and herbal products. Not all possible drug interactions are listed here. Where can I get more information? Your pharmacist can provide more information about cephalexin. Remember, keep this and all other medicines out of the reach of children, never share your medicines with others, and use this medication only for the indication prescribed. Every effort has been made to ensure that the information provided by [employer]') is accurate, up-to-date, and complete, but no guarantee is made to that effect. Drug information contained herein may be time sensitive. [employer] information has been compiled for use by healthcare practitioners and consumers in the [place] and therefore [employer] does not warrant that uses outside of the [place] are appropriate, unless specifically indicated otherwise. [facility] drug information does not endorse drugs, diagnose patients or recommend therapy. [employer] drug information is an informational resource designed to assist licensed healthcare practitioners in caring for their patients and/or to serve consumers viewing this service as a supplement to, and not a substitute for, the expertise, skill, knowledge and judgment of healthcare practitioners. The absence of a warning for a given drug or drug combination in no way should be construed to indicate that the drug or drug combination is safe, effective or appropriate for any given patient. [employer] does not assume any responsibility for any aspect of healthcare administered with the aid of information [employer] provides. The information contained herein is not intended to cover all possible uses, directions, precautions, warnings, drug interactions, allergic reactions, or adverse effects. If you have questions about the drugs you are taking, check with your doctor, nurse or pharmacist. Copyright 5289-2515 [employer]. Version: 10.. Revision Date: 09/21/2020. oxycodone (ox i KOE done) Oxaydo, OxyCONTIN, Oxyfast, OxyIR, Roxicodone, Xtampza ER What is the most important information I should know about oxycodone? MISUSE OF OPIOID MEDICINE CAN CAUSE ADDICTION, OVERDOSE, OR . Keep the medication in a place where others cannot get to it. Taking opioid medicine during may cause life-threatening withdrawal symptoms in the . Fatal side effects can occur if you use opioid medicine with alcohol, or with other drugs that cause drowsiness or slow your breathing. What is oxycodone? Oxycodone is an opioid pain medication used to treat moderate to severe pain. The extended-release form of oxycodone is for sfqxvo-scq-bglay treatment of pain and should not be used on an as-needed basis for pain. Oxycodone may also be used for purposes not listed in this medication guide. What should I discuss with my healthcare provider before using oxycodone? You should not use oxycodone if you are allergic to it, or if you have: ?? severe asthma or breathing problems; or ?? a blockage in your stomach or intestines. You should not use oxycodone unless you are already using a similar opioid medicine and are tolerant to it. Most brands of oxycodone are not approved for use in people under 18. OxyContin should not be given to a child younger than 11 years old. Tell your doctor if you have ever had: ?? breathing problems, sleep apnea; ?? a head injury, or seizures; ?? drug or alcohol addiction, or mental illness; ?? liver or kidney disease; ?? urination problems; or ?? problems with your gallbladder, pancreas, or thyroid. If you use opioid medicine while you are , your baby could become dependent on the drug. This can cause life-threatening withdrawal symptoms in the baby after it is born. Babies born dependent on opioids may need medical treatment for several weeks. Ask a doctor before using opioid medicine if you are . Tell your doctor if you notice severe drowsiness or slow breathing in the nursing baby. How should I use oxycodone? Follow the directions on your prescription label and read all medication guides. Never use oxycodone in larger amounts, or for longer than prescribed. Tell your doctor if you feel an increased urge to take more of this medicine. Never share opioid medicine with another person, especially someone with a history of drug abuse or addiction. MISUSE CAN CAUSE ADDICTION, OVERDOSE, OR . Keep the medication in a place where others cannot get to it. Selling or giving away opioid medicine is against the law. Stop taking all other dgeybq-ovc-oezse opioid pain medicines when you start taking extended-release oxycodone. Take oxycodone with food. Swallow the capsule or tablet whole to avoid exposure to a potentially fatal overdose. Do not crush, chew, break, open, or dissolve. If you cannot swallow a capsule whole, open it and sprinkle the medicine into a spoonful of pudding or applesauce. Swallow the mixture right away without chewing. Do not save it for later use. Never crush or break an oxycodone pill to inhale the powder or mix it into a liquid to inject the drug into your vein. This can cause in . Measure liquid medicine carefully. Use the dosing syringe provided, or use a medicine dose-measuring device (not a kitchen spoon). You should not stop using oxycodone suddenly. Follow your doctor's instructions about tapering your dose. Store at room temperature, away from heat, moisture, and light. Keep track of your medicine. Oxycodone is a drug of abuse and you should be aware if anyone is using your medicine improperly or without a prescription. Do not keep leftover opioid medication. Just one dose can cause in someone using this medicine accidentally or improperly. Ask your pharmacist where to locate a drug take-back disposal program. If there is no take-back program, flush the unused medicine down the toilet. What happens if I miss a dose? Since oxycodone is used for pain, you are not likely to miss a dose. Skip any missed dose if it is almost time for your next dose. Do not use two doses at one time. What happens if I overdose? Seek emergency medical attention or call the Poison Help line at . An opioid overdose can be fatal, especially in a child or other person using the medicine without a prescription. Overdose symptoms may include severe drowsiness, pinpoint pupils, slow breathing, or no breathing. Your doctor may recommend you get naloxone (a medicine to reverse an opioid overdose) and keep it with you at all times. A person caring for you can give the naloxone if you stop breathing or don't wake up. Your caregiver must still get emergency medical help and may need to perform CPR (cardiopulmonary resuscitation) on you while waiting for help to arrive. Anyone can buy naloxone from a pharmacy or local health department. Make sure any person caring for you knows where you keep naloxone and how to use it. What should I avoid while using oxycodone? Do not drink alcohol. Dangerous side effects or could occur. Avoid driving or operating machinery until you know how oxycodone will affect you. Dizziness or severe drowsiness can cause falls or other accidents. Avoid medication errors. Always check the brand and strength of oxycodone you get from the pharmacy. What are the possible side effects of oxycodone? Get emergency medical help if you have signs of an allergic reaction: hives; difficult breathing; swelling of your face, lips, tongue, or throat. Opioid medicine can slow or stop your breathing, and may occur. A person caring for you should give naloxone and/or seek emergency medical attention if you have slow breathing with long pauses, blue colored lips, or if you are hard to wake up. Call your doctor at once if you have: ?? noisy breathing, sighing, shallow breathing, breathing that stops during sleep; ?? a slow heart rate or weak pulse; ?? a light-headed feeling, like you might pass out; ?? confusion, unusual thoughts or behavior; ?? seizure (convulsions); ?? low cortisol levels-- nausea, vomiting, loss of appetite, dizziness, worsening tiredness or weakness; or ?? high levels of serotonin in the body--agitation, hallucinations, fever, sweating, shivering, fast heart rate, muscle stiffness, twitching, loss of coordination, nausea, vomiting, diarrhea. Serious breathing problems may be more likely in older adults and in those who are debilitated or have wasting syndrome or chronic breathing disorders. Common side effects may include: ?? drowsiness, headache, dizziness, tiredness; or ?? constipation, stomach pain, nausea, vomiting. This is not a complete list of side effects and others may occur. Call your doctor for medical advice about side effects. You may report side effects to FDA at 3-648-YJI-7956. What other drugs will affect oxycodone? You may have breathing problems or withdrawal symptoms if you start or stop taking certain other medicines. Tell your doctor if you also use an antibiotic, antifungal medication, heart or blood pressure medication, seizure medication, or medicine to treat HIV or hepatitis C. Opioid medication can interact with many other drugs and cause dangerous side effects or . Be sure your doctor knows if you also use: ?? cold or allergy medicines, bronchodilator asthma/COPD medication, or a diuretic ('water pill'); ?? medicines for motion sickness, irritable bowel syndrome, or overactive bladder; ?? other opioids--opioid pain medicine or prescription cough medicine; ?? a sedative like Valium--diazepam, alprazolam, lorazepam, Xanax, Klonopin, Versed, and others; ?? drugs that make you sleepy or slow your breathing--a sleeping pill, muscle relaxer, medicine to treat mood disorders or mental illness; or ?? drugs that affect serotonin levels in your body--a stimulant, or medicine for depression, Parkinson's disease, migraine headaches, serious infections, or nausea and vomiting. This list is not complete and many other drugs may affect oxycodone. This includes prescription and oarw-dyo-gcrzyke medicines, vitamins, and herbal products. Not all possible drug interactions are listed here. Where can I get more information? Your pharmacist can provide more information about oxycodone. Remember, keep this and all other medicines out of the reach of children, never share your medicines with others, and use this medication only for the indication prescribed. Every effort has been made to ensure that the information provided by [employer]. [employer]') is accurate, up-to-date, and complete, but no guarantee is made to that effect. Drug information contained herein may be time sensitive. [employer] information has been compiled for use by healthcare practitioners and consumers in the [place] and therefore [employer] does not warrant that uses outside of the [place] are appropriate, unless specifically indicated otherwise. [employer] drug information does not endorse drugs, diagnose patients or recommend therapy. [employer] drug information is an informational resource designed to assist licensed healthcare practitioners in caring for their patients and/or to serve consumers viewing this service as a supplement to, and not a substitute for, the expertise, skill, knowledge and judgment of healthcare practitioners. The absence of a warning for a given drug or drug combination in no way should be construed to indicate that the drug or drug combination is safe, effective or appropriate for any given patient. [employer] does not assume any responsibility for any aspect of healthcare administered with the aid of information [employer] provides. The information contained herein is not intended to cover all possible uses, directions, precautions, warnings, drug interactions, allergic reactions, or adverse effects. If you have questions about the drugs you are taking, check with your doctor, nurse or pharmacist. Copyright 8400-1856 [employer]. Version: 14.02. Revision Date: 10/15/2020. acetaminophen (oral) (a SEET a MIN oh fen) Actamin, Anacin AF, Aurophen, Bromo Starbuck, Children's Tylenol, Mapap, M-Pap, Pharbetol, Silapap Childrens, Tactinal, Tempra Quicklets, Tycolene, Tylenol, Vitapap What is the most important information I should know about acetaminophen? You should not use acetaminophen if you have severe liver disease. Use this medicine exactly as directed on the label, or as prescribed by your doctor. An overdose of acetaminophen can damage your liver or cause . Avoid also using other medicines that contain acetaminophen (sometimes abbreviated as APAP), or you could have a fatal overdose. Call your doctor at once if you have nausea, pain in your upper stomach, itching, loss of appetite, dark urine, nirali-colored stools, or jaundice (yellowing of your skin or eyes). Stop taking this medicine and call your doctor right away if you have skin redness or a rash that spreads and causes blistering and peeling. What is acetaminophen? Acetaminophen is a pain reliever and a fever double reamer operator. There are many brands and forms of acetaminophen available. Not all brands are listed on this leaflet. Acetaminophen is used to treat pain or fever caused by many conditions such as headache, muscle aches, arthritis, backache, toothaches, sore throat, colds, and flu. Acetaminophen may also be used for purposes not listed in this medication guide. What should I discuss with my healthcare provider before taking acetaminophen? You should not take acetaminophen if you are allergic to it, or if you have severe liver disease. Do not take acetaminophen without a doctor's advice if you have ever had alcoholic liver disease (cirrhosis) or if you drink more than 3 alcoholic beverages per day. Ask a doctor before using this medicine if you are or . Do not give this medicine to a child younger than 12 years old without the advice of a doctor. Extra-strength acetaminophen is not for use in a child younger than 6 years old. How should I take acetaminophen? Use exactly as directed on the label, or as prescribed by your doctor. Do not take more than your recommended dose. An overdose of acetaminophen can damage your liver or cause . ?? Adults and teenagers who weigh at least 110 pounds (50 kilograms): Do not take more than 1000 milligrams (mg) at one time. Do not take more than 4000 mg in 24 hours. ?? Children younger than 12 years old: Do not take more than 5 doses of acetaminophen in 24 hours. Use only the number of milligrams per dose that is recommended for the child's weight and age. Use exactly as directed on the label. ?? Avoid also using other medicines that contain acetaminophen, or you could have a fatal overdose. If you are treating a child, use a pediatric form of acetaminophen. Use only the special dose-measuring dropper or oral syringe that comes with the specific pediatric form you are using. Carefully follow the dosing directions on the medicine label. Measure liquid medicine carefully. Use the dosing syringe provided, or use a medicine dose-measuring device (not a kitchen spoon). Acetaminophen made for infants is available in two different dose concentrations, and each concentration comes with its own medicine dropper or oral syringe. Using the wrong device may cause you to give your child an overdose of acetaminophen. Never mix and match dosing devices between infant formulations of acetaminophen. You may need to shake the liquid before each use. Follow the directions on the medicine label. The chewable tablet must be chewed thoroughly before you swallow it. The oral powder should be placed directly on the tongue and swallowed. Make sure your hands are dry when handling a disintegrating tablet. Place the tablet on your tongue and allow it to dissolve, without chewing. Do not swallow the tablet whole. Allow it to dissolve in your mouth without chewing. To use the effervescent granules, dissolve one packet of the granules in at least 4 ounces of water. Stir and drink this mixture right away. Add a little more water to the glass, swirl gently and drink right away. Stop taking acetaminophen and call your doctor if: ?? you still have a sore throat after 2 days of use; ?? you still have a fever after 3 days of use; ?? you still have pain after 7 days of use (or 5 days if treating a child); ?? you have a skin rash, ongoing headache, nausea, vomiting, redness or swelling; or ?? if your symptoms get worse, or if you have any new symptoms. This medicine can affect the results of certain lab tests for glucose (sugar) in the urine. Tell any doctor who treats you that you are using acetaminophen. Store at room temperature away from heat and moisture. What happens if I miss a dose? Since acetaminophen is used when needed, you may not be on a dosing schedule. Skip any missed dose if it's almost time for your next dose. Do not use two doses at one time. What happens if I overdose? Seek emergency medical attention or call the Poison Help line at . An overdose of acetaminophen can damage your liver or cause . Early signs of acetaminophen overdose include loss of appetite, nausea, vomiting, sweating, or weakness. Later symptoms may include upper stomach pain, dark urine, and yellowing of your skin or eyes. What should I avoid while taking acetaminophen? Ask a doctor or pharmacist before using any other medicine that may contain acetaminophen (sometimes abbreviated as APAP). Taking too much acetaminophen can lead to a fatal overdose. Avoid drinking alcohol. It may increase your risk of liver damage. What are the possible side effects of acetaminophen? Get emergency medical help if you have signs of an allergic reaction: hives; difficulty breathing; swelling of your face, lips, tongue, or throat. In rare cases, acetaminophen may cause a severe skin reaction that can be fatal. This could occur even if you have taken acetaminophen in the past and had no reaction. Stop taking this medicine and call your doctor right away if you have skin redness or a rash that spreads and causes blistering and peeling. If you have this type of reaction, you should never again take any medicine that contains acetaminophen. Stop taking acetaminophen and call your doctor at once if you have signs of liver problems: loss of appetite, stomach pain (upper right side), tiredness, itching, dark urine, nirali-colored stools, jaundice (yellowing of the skin or eyes). Less serious side effects may be more likely, and you may have none at all. This is not a complete list of side effects and others may occur. Call your doctor for medical advice about side effects. You may report side effects to FDA at 4-522-GKZ-9981. What other drugs will affect acetaminophen? Other drugs may affect acetaminophen, including prescription and jgor-lif-twlhypx medicines, vitamins, and herbal products. Tell your doctor about all your current medicines and any medicine you start or stop using. Where can I get more information? Your pharmacist can provide more information about acetaminophen. Remember, keep this and all other medicines out of the reach of children, never share your medicines with others, and use this medication only for the indication prescribed. Every effort has been made to ensure that the information provided by [employer]. [employer]') is accurate, up-to-date, and complete, but no guarantee is made to that effect. Drug information contained herein may be time sensitive. [employer] information has been compiled for use by healthcare practitioners and consumers in the [place] and therefore [employer] does not warrant that uses outside of the [place] are appropriate, unless specifically indicated otherwise. [employer] drug information does not endorse drugs, diagnose patients or recommend therapy. [employer] drug information is an informational resource designed to assist licensed healthcare practitioners in caring for their patients and/or to serve consumers viewing this service as a supplement to, and not a substitute for, the expertise, skill, knowledge and judgment of healthcare practitioners. The absence of a warning for a given drug or drug combination in no way should be construed to indicate that the drug or drug combination is safe, effective or appropriate for any given patient. [facility] does not assume any responsibility for any aspect of healthcare administered with the aid of information [employer] provides. The information contained herein is not intended to cover all possible uses, directions, precautions, warnings, drug interactions, allergic reactions, or adverse effects. If you have questions about the drugs you are taking, check with your doctor, nurse or pharmacist. Copyright 5649-5136 [employer]. Version: 21.04. Revision Date: 04/24/2020. ondansetron (oral) (on COLIN se doris) Tabitha Lu [employer] What is the most important information I should know about ondansetron? You should not use ondansetron if you are also using apomorphine (Apokyn). What is ondansetron? Ondansetron blocks the actions of chemicals in the body that can trigger nausea and vomiting. Ondansetron is used to prevent nausea and vomiting that may be caused by surgery, cancer chemotherapy, or radiation treatment. Ondansetron may be used for purposes not listed in this medication guide. What should I discuss with my health care provider before taking ondansetron? You should not use ondansetron if: ?? you are also using apomorphine (Apokyn); or ?? you are allergic to ondansetron or similar medicines (dolasetron, granisetron, palonosetron). To make sure ondansetron is safe for you, tell your doctor if you have: ?? liver disease; ?? an electrolyte imbalance (such as low levels of potassium or magnesium in your blood); ?? congestive heart failure, slow heartbeats; ?? a personal or family history of long QT syndrome; or ?? a blockage in your digestive tract (stomach or intestines). Ondansetron is not expected to harm an unborn baby. Tell your doctor if you are . It is not known whether ondansetron passes into breast milk or if it could harm a nursing baby. Tell your doctor if you are breast-feeding a baby. Ondansetron is not approved for use by anyone younger than 4 years old. Ondansetron orally disintegrating tablets may contain phenylalanine. Tell your doctor if you have phenylketonuria (PKU). How should I take ondansetron? Follow all directions on your prescription label. Do not take this medicine in larger or smaller amounts or for longer than recommended. Ondansetron can be taken with or without food. The first dose of ondansetron is usually taken before the start of your surgery, chemotherapy, or radiation treatment. Follow your doctor's dosing instructions very carefully. Take the ondansetron regular tablet with a full glass of water. To take the orally disintegrating tablet (Zofran ODT): ?? Keep the tablet in its blister pack until you are ready to take it. Open the package and peel back the foil. Do not push a tablet through the foil or you may damage the tablet. ?? Use dry hands to remove the tablet and place it in your mouth. ?? Do not swallow the tablet whole. Allow it to dissolve in your mouth without chewing. ?? Swallow several times as the tablet dissolves. To use ondansetron oral soluble film (strip) (Zuplenz): ?? Keep the strip in the foil pouch until you are ready to use the medicine. ?? Using dry hands, remove the strip and place it on your tongue. It will begin to dissolve right away. ?? Do not swallow the strip whole. Allow it to dissolve in your mouth without chewing. ?? Swallow several times after the strip dissolves. If desired, you may drink liquid to help swallow the dissolved strip. ?? Wash your hands after using Zuplenz. Measure liquid medicine with the dosing syringe provided, or with a special dose-measuring spoon or medicine cup. If you do not have a dose-measuring device, ask your pharmacist for one. Store at room temperature away from moisture, heat, and light. Store liquid medicine in an upright position. What happens if I miss a dose? Take the missed dose as soon as you remember. Skip the missed dose if it is almost time for your next scheduled dose. Do not take extra medicine to make up the missed dose. What happens if I overdose? Seek emergency medical attention or call the Poison Help line at . Overdose symptoms may include sudden loss of vision, severe constipation, feeling light-headed, or fainting. What should I avoid while taking ondansetron? documented in this encounter Plan of Treatment Not on file documented as of this encounter Visit Diagnoses Not on filedocumented in this encounter
--- OUTSIDE RECORDS SUMMARY | 2025-06-10 10:18 | XMS_ITS | Encounter Summary ---
Author Organization [employer] ([place], [place], [place], [place]) Address [address] [place] [address] Care Team Providers Care Product Mgmt Dev Manager Name Role Phone Unavailable Primary Care Provider Unavailabl e Encounter Details Date Type Department Care Team (Late st Contact Info) Description 07/14/2021 Transcribed Document [facility] [place] [facility] [place] [address] ProviderMicky MD [address] [place] [phone] Social History Tobacco Use Types Packs/Day Years [...] ProviderMD - 07/14/2021 11:20 AM CDT Evaluation, Occupational Therapy Entered On: 07/14/2021 14:17 EDT Performed On: 07/14/2021 13:57 EDT by DAYLIN NAIK OTR/Beth General Information, OT Visit Type, OT : Initial evaluation Patient Orders : Order Date Order Ordering 07/14/2021 11:20 OT Evaluation and Treatment Ordered By: MARGO MAZA JR, JR, MD-ORT 07/14/2021 11:20 OT Treatment Instructions Ordered By: MARGO MAZA JR, JR, MD-ORT Active Diagnoses : No Qualifying Diagnoses Therapy Diagnosis, OT : aftercare following L TKA Admission Date : 07/14/2021 04:19 Assisted by, OT : Physical Therapist Personal Devices : Personal Devices No Devices Recorded Assistive Devices : Assistive Devices No Devices Recorded Precautions in Place : Fall prevention measures General Information Comment, OT : pt is a pleasant 71 y.o. female seen in post op s/p L TKA performed by Dr Maza, pt had R TKA ~3 months ago DAYLIN NAIK OTR/Beth - 07/14/2021 13:57 EDT General Status Patient Received Status : Long sitting in bed, Other: KI, martell care, present Treatment Start Time : 07/14/2021 13:33 EDT Patient Left Status : Up in chair, RN/PCT informed, Family/Visitors at bedside, All needs met and within reach, Other: LAURITA, [facility] nereida RN/PCT Informed Comment : RN ok'd to tx, ID and verified Treatment End Time : 07/14/2021 13:56 EDT Treatment Time : 23 Minute(s) DAYLIN NAIK OTR/Beth - 07/14/2021 13:57 EDT History and Environment, OT Living Situation, Therapy : Home Patient Lives With : Spouse Persons Providing Information : Patient Home Equipment, Therapy : Commode, Walker Commode : Commode, bedside Walker : Walker, front wheel Home Setup : One story Stairs : Yes Stair Location(s) : Outside Outside Stairs, Number of Steps : 1 DAYLIN NAIK OTR/Beth - 07/14/2021 13:57 EDT Prior LOF Bathing, OT : Independent Prior LOF Bed Mobility : Independent Prior LOF Upper Body Dressing, OT : Independent Prior LOF Lower Body Dressing, OT : Independent Prior LOF Toileting : Independent Prior LOF Transfer : Independent Prior LOF Grooming, OT : Independent Prior LOF for IADLs, OT : Independent DAYLIN NAIK OTR/Beth - 07/14/2021 13:57 EDT Upper Extremity Right UE Active ROM : WFL Right UE Strength : WFL Left UE Active ROM : WFL Left UE Strength : WFL DAYLIN NAIK OTR/Beth - 07/14/2021 13:57 EDT Self Care/Home Management, OT Upper Body Dressing Assist Level, OT : Independent, complete Upper Body Dressing Device Comment, OT : seated Lower Body Dressing Assist Level, OT : Assist, minimal Lower Body Dressing Device Comment, OT : pt education on LB dressing technique/safety to don pants/underwear . increased difficulty secondary KI donned Toileting Assist Level : Assist, minimal Toileting Device : Grab bars Toileting Comment : cues safety Toilet Transfer Assist Level : Assist, minimal Toilet Transfer Device : Belt, gait, Commode, bedside, Walker, rolling Toilet Transfer Device Comment : CGA and cues safety Bed/Chair/WC Transfer Assist Level : Assist, minimal Bed/Chair/WC Transfer Device : Belt, gait, Walker, front wheel Bed/Chair/WC Device Comment : CGA and cues safety DAYLIN NAIK OTR/L - 07/14/2021 13:57 EDT Mobility Device/Prosthesis/Wt Bearing Weight Bearing Status Maintained : Yes Weight Bearing Status : As tolerated Functional Mobility Device : Gait belt, Walker, front wheel Mobility Device/Prosthesis/Wt Bearing Cmnt : KI donned to day to prevent knee buckling LLE DAYLIN NAIK OTR/Beth - 07/14/2021 13:57 EDT Functional Mobility Mobility Grid Supine to Sit : Supervision/set-up Sit to Stand : Rehab Minimal assistance (Comment: CGA [DAYLIN NAIK OTR/Beth - 07/14/2021 13:57 EDT] ) Bed to Chair : Rehab Minimal assistance (Comment: CGA [DAYLIN NAIK OTR/Beth - 07/14/2021 13:57 EDT] ) Stand to Sit : Rehab Minimal assistance (Comment: CGA [DAYLIN NAIK OTR/Beth - 07/14/2021 13:57 EDT] ) DAYLIN NAIK OTR/Beth - 07/14/2021 13:57 EDT Functional MobilityComment : gait belt, using rw pt completes functional mobility to bathroom CGA/min assist, toilet transfer and walks back to recliner min/CGA . cues for safety DAYLIN NAIK OTR/Beth - 07/14/2021 13:57 EDT Activity Tolerance, OT Activity Comment : fair+ DAYLIN NAIK OTR/Beth - 07/14/2021 13:57 EDT Neurological/Sensory Overall Sensory Response : Intact DAYLIN NAIK OTR/Beth - 07/14/2021 13:57 EDT Cognition Assessment, OT Orientation : Oriented x 4 DAYLIN NAIK OTR/Beth - 07/14/2021 13:57 EDT Education OT Occupational Therapy Education Grid Activity of Daily Living Training : Verbalizes understanding, Returns demonstration Functional Mobility Training : Verbalizes understanding, Returns demonstration Home Safety : Verbalizes understanding DAYLIN NAIKASHLEY/Beth - 07/14/2021 13:57 EDT Indication Assessment, OT Occupational Therapy Indicated : No Occupational Therapy Not Indicated : No skilled services indicated, Other: pt scheduled for discharge home as fast track HEENAGUERO RAYASHLEY VIZCAINO/Beth - 07/14/2021 13:57 EDT Plan of Care, OT OT Tx Plan/Goals Established w Patient : No Reason OT Treatment/Plan Not Established : no further acute care OT needs Other OT Treatment Provided This Date : eval 8 minutes ADl 15 minutes - ADL training , functional mobility /transfers , pt education DAYLIN NAIKASHLEY/Beth - 07/14/2021 13:57 EDT Treatment Note Subjective Comment : pt agrees to tx Additional Objective Information : eval ADl Assessment : no further acute care OT needs Plan for Treatment : pt scheduled to discharge home as a fast track with her and f/u with outpt rehab GUERO NAIKASHLEY VIZCAINO/Beth - 07/14/2021 13:57 EDT Pain Assessment Pain Scaled Used : 0-10 Pain scale Pain Score Pre-Intervention : 0 HEENA ASHLEY MAO/Beth - 07/14/2021 13:57 EDT Image 1 - Images currently included in the form version of this document have not been included in the text rendition version of the form. [facility] OT Charges OT Selfcare/Hm Mgmt Ea 15 Min : 1 OT Eval Low Complexity : 1 HEENADAYLIN RAY OTR/Beth - 07/14/2021 13:57 EDT documented in this encounter Plan of Treatment Not on file documented as of this encounter Visit Diagnoses Not on filedocumented in this encounter
--- OUTSIDE RECORDS SUMMARY | 2025-06-10 10:18 | XMS_ITS | Encounter Summary ---
Author Organization [employer] ([place], [place], [place], [place]) Address [address] [place] [address] Care Team Providers Care Lane Attendant Name Role Phone Unavailable Primary Care Provider Unavailabl e Encounter Details Date Type Department Care Team (Late st Contact Info) Description 04/15/2021 Transcribed Document [facility] [place] Family Medicine [address] [place] [address] ProviderMicky MD [address] [place], [place] [phone] Social History Tobacco Use Types Packs/Day Years [...] Conversion Note - Micky ProviderMD - 04/15/2021 1:03 PM CDT Patient: OCONNELLIRISYonas HUGHES Age: 71 years Sex: Female : 1950 Associated Diagnoses: Unilateral primary osteoarthritis, right knee; Status post total knee replacement, right; Right knee pain; Dizziness, postop; Unsteadiness; High fall risk; Mitral valve regurgitation; Hypertension; High cholesterol; GERD (gastroesophageal reflux disease); At risk for sleep apnea Author: TENNILLE ANTHONY MD-INT 04/15/2021 Hospitalist medicine consult, discharge, progress, sign off note, internal medicine, Tennille Martin MD Basic Information ???Seen and examined ???Doing well ???Had a good night last night ???Awake alert cooperative responsive under no acute distress ???Pain well controlled ???High spirit ???Eager to go home ???No chest pain or trouble breathing ???Participating well with PT/OT ???No headache or dizziness when he got up with PT/OT ???No soreness after PT/OT ???Released by PT/OT to go home ???Tolerating well oral p.o. intake ???No nausea or vomiting ???No BM but passing gas ???No trouble with urination ???Urine output is adequate ???Vitals reviewed ???Labs reviewed ???Lab results discussed with the patient ???Released by Dr. Vasquez to go home ???Discharge medications seen, reviewed and reconciled ???DVT prophylaxis and anticoagulation as per Dr Vasquez protocol ???Patient wants and excited to be discharged home ???Patient is medically stable Review of Systems Constitutional: No weakness, No fatigue. Eye: No recent visual problem, No double vision, No visual disturbances. Ear/Nose/Mouth/Throat: No nasal congestion, No sore throat. Respiratory: No shortness of breath, No cough, No wheezing. Cardiovascular: No chest pain, No tachycardia. Gastrointestinal: No nausea, No vomiting. Genitourinary: Negative. Musculoskeletal: Negative. Integumentary: No rash, No pruritus. Neurologic: Alert and oriented X4, no dizziness. Health Status Allergies: Allergies (2) Active Reaction Mangos None Documented No Known Medication Allergies None Documented Current medications: (Selected) Inpatient Medications Ordered Benadryl: 25 mg, Oral, Tab, On-CALL, PRN for Other (See Comment), Routine, Start 04/14/21 18:16:00 EDT, 04/14/21 18:16:00 EDT Chloraseptic Menthol 1.4% topical spray: 5 Orleans, Oral, Orleans, Q2H, PRN for Sore Throat, Routine, Start 04/14/21 18:16:00 EDT Coenzyme Q10: 300 mg, Oral, Cap, Daily, Start 04/15/21 9:00:00 EDT Dextrose 5% in Lactated Ringers intravenous solution 1,000 mL: 1,000 mL, Bag Volume (mL) = 1,000, IntraVENous, start date 04/14/21 19:20:00 EDT, Routine, mL/Hr100, 1.73, m2 Dulcolax Laxative: 10 mg, Rectal, Supp, Daily, PRN for Constipation, Routine, Start 04/14/21 18:16:00 EDT, 04/14/21 18:16:00 EDT DuoNeb 0.5 mg-2.5 mg/3 mL inhalation solution: 3 mL, Nebulized Inhalation, Inh, Q4H, PRN for Wheezing, Routine, Start 04/14/21 18:16:00 EDT Flexeril: 10 mg, Oral, Tab, TID, PRN for Muscle Spasms, Start 04/14/21 18:27:00 EDT HYDROmorphone: 0.5 mg, IV Push, Inj, Q3H, PRN for Pain (Severe 7-10), Routine, Start 04/14/21 19:20:00 EDT, 04/14/21 19:20:00 EDT Keflex: 500 mg, Oral, Cap, Q6H, order duration: 3 Day(s), Routine, Start 04/15/21 0:00:00 EDT, Stop 04/17/21 23:59:00 EDT, Indication: Surgical Prophylaxis Milk of Magnesia 8% oral suspension: 15 mL, Oral, Liquid, Q6H, PRN for Constipation, Routine, Start 04/14/21 18:16:00 EDT Mylanta: 30 mL, Oral, Liquid, Q6H, PRN for Indigestion, Routine, Start 04/14/21 18:16:00 EDT Normal Saline Flush: 10 mL, IV Push, Inj, Q12H, Routine, Start 04/14/21 21:00:00 EDT Normal Saline Flush: 10 mL, IV Push, Inj, See Comment, PRN for Other (See Comment), Routine, Start 04/14/21 19:20:00 EDT Phenergan: 12.5 mg, IV Push, Inj, Q6H, PRN for Nausea, Routine, Start 04/14/21 18:16:00 EDT, 04/14/21 18:16:00 EDT Phenergan: 12.5 mg, Oral, Tab, Q6H, PRN for Nausea, Routine, Start 04/14/21 18:16:00 EDT, 04/14/21 18:16:00 EDT Vitamin C: 1,000 mg, Oral, Tab, Daily, Routine, Start 04/15/21 9:00:00 EDT, 04/14/21 18:18:00 EDT Vitamin D3: 2,000 mg, Oral, Tab, Daily, Routine, Start 04/15/21 9:00:00 EDT, 04/14/21 18:18:00 EDT Zofran: 4 mg, IV Push, Inj, Q4H, PRN for Nausea, Routine, Start 04/14/21 18:16:00 EDT, 04/14/21 18:16:00 EDT acetaminophen: 500 mg, Oral, Tab, Q6H, PRN for Pain (Mild 1-3), Routine, Start 04/14/21 19:20:00 EDT, 04/14/21 19:20:00 EDT aspirin: 81 mg, Oral, EC Tab, BID, Routine, Start 04/14/21 21:00:00 EDT, 04/14/21 19:20:00 EDT calium, magnesium and zinc OTC tab (pt's own home med): calium, magnesium and zinc OTC tab (pt's own home med), Oral, MISC, Daily, Start 04/15/21 9:00:00 EDT docusate calcium: 240 mg, Oral, Cap, Daily, PRN for Constipation, Routine, Start 04/14/21 18:16:00 EDT, 04/14/21 18:16:00 EDT gabapentin: 300 mg, Oral, Cap, At Bedtime, Routine, Start 04/14/21 21:00:00 EDT, 04/14/21 19:20:00 EDT ketorolac: IntraLesional, Soln, 1-Time, Start 04/14/21 14:00:00 EDT, Stop 04/14/21 14:00:00 EDT, 3000 mL/Hr, Infuse Over: 1 Minute(s) losartan: 50 mg, Oral, Tab, Daily, STAT, Start 04/14/21 14:45:00 EDT, 04/14/21 14:45:00 EDT ondansetron: 4 mg, Oral, Tab, Q6H, PRN for Nausea/Vomiting, Routine, Start 04/14/21 19:20:00 EDT, 04/14/21 19:20:00 EDT oxyCODONE: 10 mg, Oral, Tab, Q4H, PRN for Pain (Severe 7-10), Routine, Start 04/14/21 19:20:00 EDT, 04/14/21 19:20:00 EDT oxyCODONE: 5 mg, Oral, Tab, Q4H, PRN for Pain (Moderate 4-6), Routine, Start 04/14/21 19:20:00 EDT, 04/14/21 19:20:00 EDT promethazine: 12.5 mg, IV Push, Inj, Q6H, PRN for Nausea/Vomiting, Routine, Start 04/14/21 19:20:00 EDT, 04/14/21 19:20:00 EDT rosuvastatin: 10 mg, Oral, Tab, At Bedtime, Routine, Start 04/14/21 21:00:00 EDT, 04/14/21 18:18:00 EDT traZODone: 50 mg, Oral, Tab, At Bedtime, PRN for Insomnia, Routine, Start 04/14/21 18:16:00 EDT, 04/14/21 18:16:00 EDT vitamin b complex (patient's own home med): vitamin b complex (patient's own home med), Oral, MISC, Daily, Start 04/15/21 9:00:00 EDT Pending Complete tranexamic acid + Dextrose [...] constipation, # 60 Tab, 0 Refill(s), Pharmacy: [id number], 162.56, cm, 04/14/21 9:42:00 [...] mg, Oral, Daily, PRN Arthritis, 0 Refill(s) metroNIDAZOLE 0.75% topical cream: 1 Application, Topical, Cream, BID, PRN Arthritis, # 45 Gram, 0 Refill(s) rosuvastatin: 10 mg, Oral, Daily, 0 Refill(s), Medications (32) Active Scheduled: (12) #NaCl 0.9% *FLUSH* inj 10 mL 10 mL, IV Push, Q12H ascorbic acid 500 mg tab 1,000 mg 2 Tab, Oral, Daily aspirin EC 81 mg tab 81 mg 1 Tab, Oral, BID calium, magnesium and zinc OTC tab (pt's own home med) 1 Tab, Oral, Daily cephalexin 250 mg cap 500 mg 2 Cap, Oral, Q6H cholecalciferol 1,000 unit tab 2,000 mg, Oral, Daily gabapentin 300 mg cap 300 mg 1 Cap, Oral, At Bedtime ketorolac 30 mg 1 mL, IntraLesional, 1-Time losartan 50 mg tab 50 mg 1 Tab, Oral, Daily rosuvastatin 10 mg tab 10 mg 1 Tab, Oral, At Bedtime ubiquinone 50 mg Cap 300 mg 6 Cap, Oral, Daily vitamin b complex (patient's own home med) 1 Tab, Oral, Daily Continuous: (1) D5/LR 1,000 mL 1,000 mL, IntraVENous PRN: (19) #NaCl 0.9% *FLUSH* inj 10 mL 10 mL, IV Push, See Comment acetaminophen 500 mg tab 500 mg 1 Tab, Oral, Q6H al hydrox/mag hydrox/simeth 30 mL liq 30 mL, Oral, Q6H albuterol-ipratropium inh 3 mL 3 mL, Nebulized Inhalation, Q4H bisacodyl 10 mg supp 10 mg 1 Supp, Rectal, Daily cyclobenzaprine 10 mg tab 10 mg 1 Tab, Oral, TID diphenhydrAMINE 25 mg tab 25 mg 1 Tab, Oral, On-CALL docusate calcium 240 mg cap 240 mg 1 Cap, Oral, Daily HYDROmorphone 1 mg/1 mL inj 0.5 mg 0.5 mL, IV Push, Q3H magnesium hydroxide 8% liq 30 mL 15 mL, Oral, Q6H ondansetron 4 mg tab 4 mg 1 Tab, Oral, Q6H ondansetron 4 mg/2 mL inj 4 mg 2 mL, IV Push, Q4H oxyCODONE 5 mg tab 5 mg 1 Tab, Oral, Q4H oxyCODONE 5 mg tab 10 mg 2 Tab, Oral, Q4H phenol 1.4% throat spray 5 Orleans, Oral, Q2H promethazine 25 mg tab 12.5 mg 0.5 Tab, Oral, Q6H promethazine 25 mg/1 mL inj 12.5 mg 0.5 mL, IV Push, Q6H promethazine 25 mg/1 mL inj 12.5 mg 0.5 mL, IV Push, Q6H traZODone 50 mg tab 50 mg 1 Tab, Oral, At Bedtime Problem list: Active Problems (11) At risk for sleep apnea GERD (gastroesophageal reflux disease) High cholesterol Hormone replacement therapy Hypertension Mitral valve regurgitation Osteoarthritis Psoriasis PVC's (premature ventricular contractions) occasionally Rosacea Vitamin D deficiency Physical Examination VS/Measurements Vital Measurements 04/15/2021 9:40 EDT Systolic Blood Pressure 120 mmHg Diastolic Blood Pressure 55 mmHg LOW Mean Arterial Pressure (MAP)-BMDI 72 Temperature Source Oral Temperature Mode Fahrenheit Temperature, Fahrenheit 97.7 Deg F Clinical Temperature, C 36.5 Deg C Heart Rate Monitored 63 bpm Respiratory Rate 18 Breaths/Min Oxygen Saturation 97 % Oxygen Therapy Mode Nasal cannula Oxygen Flow Rate 2 Liter/Min General: Alert and oriented, No acute distress. Eye: Pupils are equal, round and reactive to light, Extraocular movements are intact. HENT: Oral mucosa is moist. Neck: Supple, No carotid bruit, No jugular venous distention, No lymphadenopathy, No thyromegaly. Respiratory: Lungs are clear to auscultation, Breath sounds are equal. Cardiovascular: Normal rate, Regular rhythm, No murmur. Gastrointestinal: Soft, Non-tender, Normal bowel sounds, No organomegaly. Genitourinary: No costovertebral angle tenderness, No inguinal tenderness. Lymphatics: No lymphadenopathy neck, axilla, groin. Musculoskeletal: Normal strength, No swelling. Integumentary: Warm, Intact, No rash, WOUND STABLE. Neurologic: Alert, Oriented, No focal deficits. Psychiatric: Cooperative, Appropriate mood & affect. Review / Management Results review: All Results 04/15/2021 4:11 EDT Sodium Level 139 mmol/L Potassium Level 4.9 mmol/L Chloride Level 105 mmol/L Carbon Dioxide Level 28 mmol/L Anion Gap 11 Glucose Level 120 mg/dL HI Blood Urea Nitrogen 11 mg/dL Creatinine Level 0.65 mg/dL eGFR >60 mL/min/1.73m2 eGFR NonAfrican >60 mL/min/1.73m2 Bun/Creatinine 16.9 Calcium Level 8.7 mg/dL Hgb 11.6 Gram/dL Hct 34.2 % . Condition: Stable. Discharge Plan Discharge Summary Plan Discharge Status: stable. Orders Order Profile (Selected) Inpatient Orders Ordered Discharge Notification Pharmacy: Start: 04/15/21 13:07:52 EDT Discharge: Start: 04/15/21 13:07:00 EDT, Discharge to: Home, Other DC instructions: Okay to DC home as per Dr. Cano PT/OT recommendations. Nursing staff and case management to follow-up on Dr. Cano PT/OT instructions and DVT prophylaxis. Diagnosis Unilateral primary osteoarthritis, right knee - [...] risk for sleep apnea - Discharge, Medical. Course Improving. Stable. Plan/ pt is HD & CLINICALLY STABLE AFEBRILE OK TO D/C HOME ALL CONSULTANTS AGREE FOR HER D/C HOME ON HH / OUTPT.REHAB. . Orders Order Profile (Selected) Prescriptions Prescribed Mobic 15 mg oral tablet: [...] constipation, # 60 Tab, 0 Refill(s), Pharmacy: [id number], 162.56, cm, 04/14/21 9:42:00 [...] mg, Oral, Daily, PRN Arthritis, 0 Refill(s) metroNIDAZOLE 0.75% topical cream: 1 Application, Topical, Cream, BID, PRN Arthritis, # 45 Gram, 0 Refill(s) rosuvastatin: 10 mg, Oral, Daily, 0 Refill(s). Impression and Plan twt 47 mn patient seen and examined, medical record reviewed, labs reviewed, vitals reviewed, medications reviewed and reconciled, discussed with Pharm.D., discussed with the patient, discussed with the staff, discussed with PT/OT, discharge orders placed, discharge summary note dictated. documented in this encounter Plan of Treatment Not on file documented as of this encounter Visit Diagnoses Not on filedocumented in this encounter
--- OUTSIDE RECORDS SUMMARY | 2025-06-10 10:18 | XMS_ITS | Encounter Summary ---
Author Organization [employer] ([place], [place], [place], [place]) Address [address] [place] [address] Care Team Providers Care Cylinder Inspector And Tester Name Role Phone Unavailable Primary Care Provider Unavailabl e Encounter Details Date Type Department Care Team (Late st Contact Info) Description 06/25/2021 Transcribed Document [facility] [place] [facility] [place] [address] ProviderMicky MD [address] [place] [phone] Social History Tobacco Use Types Packs/Day Years [...] Conversion Note - Historical ProviderMD - 06/25/2021 1:36 PM CDT Patient: IRIS OCONNELLYonas HUGHES Age: 71 Years Sex: Female : 1950 Chief Complaint Left Knee Pain Primary Care Provider KENNETH REYES (REF)[facility] History of Present Illness This patient is a pleasant 71 yo WF who presents with left knee pain. The pain has been going on for 5 years but has gotten progressively worse. She describes it as a sharp pain. It is now to the point that it is affecting her ADLs. She has tried NSAIDs and injections without relief of her pain. She has not fallen. She has not used an assistive device. She was seen at Dr Reynoso's office and evaluated and it was determined that she has severe DJD affecting the left knee. Pt was offered a Left Total Knee Arthroplasty and agreed to the procedure. Pt denies a h/o DVT/PE. She has been difficult to wake as well as had N/V with anesthesia in the past. No respiratory conditions including COPD/PETAR/asthma. Review of Systems Constitutional: Neg for fevers or chills. Eyes: Neg for blurry vision or change in vision. ENT: Neg for sore throat, ear pain, or dizziness. Cardiac: Neg for chest pain or dyspnea on exertion. Respiratory: Neg for shortness of breath. Gastrointestinal: Neg for nausea, vomiting, diarrhea, or constipation. Musculoskeletal: Pos for left knee pain. Neurologic: Neg for headaches or seizures. Psychiatric: Neg for anxiety and depression. Integumentary: Neg for rash. Vital Signs Oxygen Settings (Last) Oxygen Therapy Mode: Room air (06/25/21 14:01:00) Physical Exam Constitutional: This is a pleasant [...] preoperative laboratory workup and diagnostic studies. 2. Hypertension- Continue Losartan. 3. Hyperlipidemia- Continue Rosuvastatin. 4. HRT- Pt advised to hold HRT 7 days prior to surgery. 5. GERD- Continue Famotidine. 6. Left Knee Pain secondary to DJD- Proceed with surgery as scheduled with Dr Reynoso on 07/14/2021. BASED ON THIS INFORMATION, I FEEL THAT [...] deficiency Procedure/Surgical History bladder repair, Colonoscopy, Hysterectomy, right total knee replacment, Tonsillectomy, Tubal ligation. Home Medications (11) Active Calcium, Magnesium and [...] with Pancreatic Cancer. Diagnostic Results EKG- NSR, 87 CXR- NAD Lab Results WBCs- 8.8 Hbg- 14.0 Hct- 41.8 Plts- 280 Glucose- 127 Na- 139 K- 5.1 BUN- 14 Cr- 1.0 GFR- 54 Albumin- 3.7 Hbg A1C- 5.3 UA- neg nitrites, neg LE documented in this encounter Plan of Treatment Not on file documented as of this encounter Visit Diagnoses Not on filedocumented in this encounter
--- OUTSIDE RECORDS SUMMARY | 2025-06-10 10:18 | XMS_ITS | Encounter Summary ---
Author Organization [employer] ([place], [place], [place], [place]) Address [address] [place] [address] Care Team Providers Care Bag Sewer Name Role Phone Unavailable Primary Care Provider Unavailabl e Encounter Details Date Type Department Care Team (Late st Contact Info) Description 04/14/2021 Transcribed Document [facility] [place] [address] ProviderMicky MD [address] [place] [phone] Social History Tobacco Use Types Packs/Day Years [...] Conversion Note - Micky ProviderMD - 04/14/2021 11:36 AM CDT Time Out Documentation Entered On: 04/14/2021 11:37 EDT Performed On: 04/14/2021 11:36 EDT by Galilea Hein RN Time Out Documentation Procedure to be Performed : right adductor canal block with OnQ catheter placement Time Out Pause Time : 04/14/2021 11:36 EDT All Activity Suspended : Yes Team Verbally Confirms Information : Correct patient identity, Correct side and site are marked, Consent form is present and accurate, Agreement on the procedure to be done, Correct patient position, Confirm the skin prep has dried, Performed in location of procedure after prepped/draped, Reconcile problems if responses among team members differ Galilea Hein RN - 04/14/2021 11:36 EDT Electronically signed by Verenice, [facility] Conversion Director Of Nuclear Medicine Cerner at 01/03/2023 9:29 PM CDT documented in this encounter Plan of Treatment Not on file documented as of this encounter Visit Diagnoses Not on filedocumented in this encounter
--- OUTSIDE RECORDS SUMMARY | 2025-06-10 10:18 | XMS_ITS | Encounter Summary ---
Author Organization [employer] ([place], [place], [place], [place]) Address [address] [place] [address] Care Team Providers Care Shirt Sewer Name Role Phone Unavailable Primary Care Provider Unavailabl e Encounter Details Date Type Department Care Team (Late st Contact Info) Description 07/14/2021 Transcribed Document [facility] [place] [address] [place] [address] ProviderMicky MD [address] [place], [place] [id number] Social History Tobacco Use Types Packs/Day Years [...] Conversion Note - Historical ProviderMD - 07/14/2021 5:16 PM CDT Event Note Entered On: 07/14/2021 17:16 EDT Performed On: 07/14/2021 17:16 EDT by Emeli Ibarra RN Event Note Event Date/Time : 07/14/2021 15:23 EDT Description of Event : pt ambulating with in attempt to stimulate bladder Emeli Ibarra RN - 07/14/2021 17:16 EDT documented in this encounter Plan of Treatment Not on file documented as of this encounter Visit Diagnoses Not on filedocumented in this encounter
--- OUTSIDE RECORDS SUMMARY | 2025-06-10 10:18 | XMS_ITS | Encounter Summary ---
Author Organization [employer] ([place], [place], [place], [place]) Address [address] [place] [address] Care Team Providers Care Belt Cleaner Name Role Phone Unavailable Primary Care Provider Unavailabl e Encounter Details Date Type Department Care Team (Late st Contact Info) Description 07/14/2021 Transcribed Document [facility] [place] [facility] [place] [address] ProviderMicky MD [address] [place] [phone] Social History Tobacco Use Types Packs/Day Years [...] Conversion Note - Micky ProviderMD - 07/14/2021 9:02 AM CDT Peripheral Nerve Block Entered On: 07/14/2021 9:14 EDT Performed On: 07/14/2021 9:02 EDT by AMINTA HALL, ROSSANA Peripheral Nerve Block Peripheral Nerve Block Start Date/Time : 07/14/2021 9:12 EDT Verbally Confirm Pt, Site, and Procedure : Yes Time Out Pause Time : 07/14/2021 9:02 EDT Site Marked and Visible : Yes Site Preparation : Chlorhexidine (Hibiclens) Peripheral Nerve Block : Adductor Canal Laterality : Left Peripheral Nerve Block Performed by : YUSEF LONGORIA MD Medication Delivery Method : Single Shot Peripheral Nerve Block Assisted by : LESLIE FUENTES RN Peripheral Nerve Block Assisted by 2 : AMINTA HALL, RN Ultra sound used during insertion : Yes Catheter Dressing : Occlusive, Tape Continuous Catheter Secured with : Tape Nerve Block Activity, Patient Tolerance : Good Peripheral Nerve Block End Date/Time : 07/14/2021 9:12 EDT AMINTA HALL RN - 07/14/2021 9:02 EDT Electronically signed by [facility] Conversion Perinatal Instructor Cerner at 01/03/2023 9:02 PM CDT documented in this encounter Plan of Treatment Not on file documented as of this encounter Visit Diagnoses Not on filedocumented in this encounter
--- OUTSIDE RECORDS SUMMARY | 2025-06-10 10:18 | XMS_ITS | Encounter Summary ---
Author Organization [employer] ([place], [place]) Address [address] [facility] [address] Care Team Providers Care Hand Decorator Name Role Phone Unavailable Primary Care Provider Unavailabl e Encounter Details Date Type Department Care Team (Late st Contact Info) Description 04/14/2021 Transcribed Document [facility] [place] [facility] [place] [address] ProviderMicky MD [address] [place] [phone] Social History Tobacco Use Types Packs/Day Years Used Date Smoking Tobacco: Never Assessed Comments Unknown Sex and Gender Information Value Date Recorded Sex Assigned at Female 03/15/2022 8:51 PM CDT Legal Sex Female 8:51 PM CDT Gender Identity Female 03/15/2022 8:51 PM CDT Sexual Orientation Not on file documented as of this encounter Miscellaneous Notes * Cerner Conversion Note - Historical Provider, - 04/14/2021 6:30 PM CDT Treatment Intervention, PT Entered On: 04/15/2021 12:31 EDT Performed On: 04/15/2021 9:14 EDT by ALEX LOZA PTA General Information, PT Visit Type, PT : Treatment Note Patient Orders : Order [...] By: MARGO MAZA JR, JR, MD-ORT 04/14/2021 18:30 PT Additional Treatment Ordered By: JACQUELYN SIMPSON, PT 04/14/2021 18:50 PT Evaluation and Treatment Ordered By: MARGO [...] Unsteadiness on feet Therapy Diagnosis, PT : Aftercare following RTKA Admission Date : 04/14/2021 05:08 Assisted by, PT : Occupational Therapist Personal Devices : Personal Devices No Devices Recorded Assistive Devices : Assistive Devices No Devices Recorded General Information Comment, PT : WBAT ALEX LOZA PTA - 04/15/2021 12:01 EDT General Status Patient Received Status : Up in restroom, Other: Needs in reach, OT present with patient in bathroom, KI, On-Q pump Treatment Start Time : 04/15/2021 9:14 EDT Patient Left Status : Up in chair, Chair alarm activated, RN/PCT informed, Communication board completed, All needs met and within reach, Other: Polar care to right knee (informed to remove after 15 minutes following session), On-Q pump, Zero knee to right heel RN/PCT Informed Comment : RN blairay'd physical therapy. Treatment End Time : 04/15/2021 10:08 EDT Treatment Time : 54 Minute(s) ALEX LOZALAN - 04/15/2021 12:01 EDT Edu Topics Physical Therapy Education Grid Gait Training : Returns demonstration, Needs further teaching, Verbalizes understanding Safety : Returns demonstration Stair Training : Returns demonstration, Verbalizes understanding Therapeutic Exercises : Returns demonstration, Verbalizes understanding, Needs further teaching Transfer Training : Returns demonstration Use of Assistive Device : Returns demonstration ALEX LOZA, MEAL COOKER - 04/15/2021 12:01 EDT Plan of Care, PT PT Tx Plan/Goals Established w Patient : Yes ALEX LOZA, MEAL COOKER - 04/15/2021 12:01 EDT Half-Way Goals Other PT LTG Grid Goal #1 [...] 04/17/2021 EDT 04/17/2021 EDT Goal Status : Goal met Goal met Goal met Date Met : 04/15/2021 EDT 04/15/2021 EDT 04/15/2021 EDT ALEX LOZA, [employer] - 04/15/2021 12:01 EDT ALEX LOZA, [facility] - 04/15/2021 12:01 EDT ALEX LOZA, [facility] - 04/15/2021 12:01 EDT Treatment Note Subjective Comment : Patient was agreeable to physical therapy. Patient's Response to Treatment : Good Additional Objective Information : Patient was up in restroom upon arrival with OT present. She was CGA/SBA with sit-stand from [facility] over commode. Noted patient to pull up/hold [...] needs in reach and chair alarm activated. (therapeutic activity 8 mins; gait training 15 mins; therapeutic exercise 31 mins) Assessment : Patient was willing to participate in therapy. She met LTG's #1, #2, and #3 this day. Plan for Treatment : Ensure safe carry over with gait and HEP if patient does not discharge to home. ALEX LOZA PTA - 04/15/2021 12:01 EDT Pain Assessment Pain Scaled Used : 0-10 Pain scale Pain Score Pre-Intervention : 2-3 Pain Comment : 2-3/10 in right knee. ALEX LOZA PTA - 04/15/2021 12:01 EDT Image 1 - Images currently included in the form version of this document have not been included in the text rendition version of the form. [place] PT Charges MEAL COOKER PT Therap. Exercise 15 min-MEAL COOKER : 3 PT Ther Activities Ea 15 Min-MEAL COOKER : 1 Gait Training Each 15 Min-MEAL COOKER : 1 ALEX LOZA PTA - 04/15/2021 12:01 EDT documented in this encounter Plan of Treatment Not on file documented as of this encounter Visit Diagnoses Not on filedocumented in this encounter
--- OUTSIDE RECORDS SUMMARY | 2025-06-10 10:18 | XMS_ITS | Encounter Summary ---
Author Organization [employer] ([place], [place], [place], [place]) Address [address] [place] [address] Care Team Providers Care Behavioral Health Tech Name Role Phone Unavailable Primary Care Provider Unavailabl e Encounter Details Date Type Department Care Team (Late st Contact Info) Description 04/15/2021 Transcribed Document [facility] [place] [facility] [place] [address] ProviderMicky MD [address] [place] [phone] Social History Tobacco Use Types Packs/Day Years [...] Conversion Note - Historical ProviderMD - 04/15/2021 1:07 PM CDT GUILLERMO Entered On: 04/15/2021 13:08 EDT Performed On: 04/15/2021 13:07 EDT by TENNILLE ANTHONY MD-INT GUILLERMO Indication [...] GUILLERMO : . TENNILLE ANTHONY MD-INT - 04/15/2021 13:07 EDT Electronically signed by Verenice [facility] Conversion Funeral Arrangement Director Cerner at 01/03/2023 9:07 PM CDT documented in this encounter Plan of Treatment Not on file documented as of this encounter Visit Diagnoses Not on filedocumented in this encounter
--- OUTSIDE RECORDS SUMMARY | 2025-06-10 10:18 | XMS_ITS | Encounter Summary ---
Author Organization [employer] ([place], [place], [place], [place]) Address [address] [place] [address] Care Team Providers Care Weatherseal Technician Name Role Phone Unavailable Primary Care Provider Unavailabl e Encounter Details Date Type Department Care Team (Late st Contact Info) Description 04/14/2021 Transcribed Document [facility] [place] [address] [place] [address] ProviderMicky MD [address] [place] [phone] Social History Tobacco Use Types Packs/Day Years [...] Conversion Note - Historical Provider, - 04/14/2021 2:57 PM CDT Evaluation, Occupational Therapy Entered On: 04/14/2021 17:32 EDT Performed On: 04/14/2021 16:47 EDT by KEO WHITFIELD OTR/Beth General Information, OT Visit Type, OT : Initial evaluation Patient Orders : Order Date Order Ordering 04/14/2021 14:57 OT Evaluation and Treatment Ordered By: MARGO MAZA JR, JR, MD-ORT 04/14/2021 14:57 OT Treatment Instructions Ordered By: MARGO MAZA JR, JR, MD-ORT Active Diagnoses : No Qualifying Diagnoses Therapy Diagnosis, OT : aftercare following joint replacement surgery Onset of Problem, OT : 04/14/2021 EDT Admission Date : 04/14/2021 05:08 Personal Devices : Personal Devices No Devices Recorded Assistive Devices : Assistive Devices No Devices Recorded KEO WHITFIELD OTR/L - 04/14/2021 17:23 EDT General Status Patient Received Status : Long sitting in bed Treatment Start Time : 04/14/2021 16:47 EDT Patient Left Status : Long sitting in bed, RN/PCT informed, Family/Visitors at bedside, All needs met and within reach RN/PCT Informed Comment : RN ok'ed. Client agrees to tx. Treatment End Time : 04/14/2021 17:00 EDT Treatment Time : 13 Minute(s) Actual Treatment Time : 13 Minute(s) KEO WHITFIELD OTR/L - 04/14/2021 17:23 EDT History and Environment, OT Living Situation, Therapy : Home Patient Lives With : Spouse Home Equipment, Therapy : Commode, Walker Stairs : Yes Stair Location(s) : Outside Outside Stairs, Number of Steps : 1 KEO WHITFIELD OTR/L - 04/14/2021 17:23 EDT Prior LOF Bathing, OT : Independent Prior LOF Bed Mobility : Independent Prior LOF Upper Body Dressing, OT : Independent Prior LOF Lower Body Dressing, OT : Independent Prior LOF Toileting : Independent Prior LOF Transfer : Independent Prior LOF Grooming, OT : Independent Prior LOF for IADLs, OT : Independent KEO HWITFIELD OTR/L - 04/14/2021 17:23 EDT Upper Extremity Upper Extremity Dominance : Right Right UE Active ROM : WFL Right UE Strength : WFL Left UE Active ROM : WFL Left UE Strength : WFL KEO WHITFIELD OTR/L - 04/14/2021 17:23 EDT Self Care/Home Management, OT Self Care/Home Management Comment, OT : max A with socks due to nausea, dizziness KEO WHITFIELD OTR/L - 04/14/2021 17:23 EDT Functional Mobility Mobility Grid Supine to Sit : Rehab Minimal assistance Sit to Stand : Rehab Minimal assistance (Comment: x2 for safety [KEO WHITFIELD OTR/L - 04/14/2021 17:23 EDT] ) KEO WHITFIELD OTR/L - 04/14/2021 17:23 EDT Functional MobilityComment : Client sat up, stood at bedside and took steps towards the head of the bed. KEO WHITFIELDASHLEY/Beth - 04/14/2021 17:23 EDT Cognition Assessment, OT Orientation : Oriented x 4 KEO WHTIFIELD ASHLEY/Beth - 04/14/2021 17:23 EDT Indication Assessment, OT Occupational Therapy Indicated : Yes Problem List, OT : Impaired, activities daily living, Impaired, endurance tolerance, Impaired functional mobility, Impaired, transfers KEO WHITFIELD ASHLEY/Beth - 04/14/2021 17:23 EDT Plan of Care, OT OT Tx Plan/Goals Established w Patient : Yes OT Frequency Rehab : Three days per week OT Duration Rehab : Seven Days OT Treatments Planned : Activities of daily living, Functional mobility training, Therapeutic activities, Therapeutic exercises KEO WHITFIELD ASHLEY/Beth - 04/14/2021 17:23 EDT Geospatial Scientist Goals, OT Other LTG Grid Goal #1 Goal #2 Goal #3 Goal : Client will complete transfers for ADLs with CGA Client will complete LB ADLs with min A Client will verbalize understanding of car transfer, fall prevention Date to Meet : 04/21/2021 EDT 04/21/2021 EDT 04/21/2021 EDT Goal Status : Initial goal Initial goal Initial goal KEO WHITFIELD ASHLEY/Beth - 04/14/2021 17:23 EDT KEO WHITFIELDASHLEY/Beth - 04/14/2021 17:23 EDT KEO WHITFIELDASHLEY/Beth - 04/14/2021 17:23 EDT Treatment Note Patient's Response to Treatment : Client actively vomiting with every change of position during evaluation. Agreeable to therapy, but dizzy in addition to nausea. Nsg notified and working on medical management of nausea. Additional Objective Information : see self-care and fx mobility Assessment : Client may benefit from OT services while inpatient to increase participation and safety with ADLs, fx mobility. Will likely d/c home with family and home health. DANNI WHITFIELDASHLEY CORBETT/Beth - 04/14/2021 17:23 EDT Pain Assessment Pain Scaled Used : 0-10 Pain scale Pain Score Pre-Intervention : 4 KEO WHITFIELD, OTR/L - 04/14/2021 17:23 EDT Image 1 - Images currently included in the form version of this document have not been included in the text rendition version of the form. [facility] OT Charges OT Selfcare/Hm Mgmt Ea 15 Min : 1 OT Eval Low Complexity : 1 KEO WHITFIELD OTR/L - 04/14/2021 17:23 EDT Electronically signed by Delmis Caldera Conversion Bar Machine Operator Multiple Spindle Cerner at 01/03/2023 9:29 PM CDT documented in this encounter Plan of Treatment Not on file documented as of this encounter Visit Diagnoses Not on filedocumented in this encounter
--- OUTSIDE RECORDS SUMMARY | 2025-06-10 10:18 | XMS_ITS | Encounter Summary ---
Author Organization [employer] ([place], [place], [place], [place]) Address [address] [place] [address] Care Team Providers Care Threading Machine Feeder Automatic Name Role Phone Unavailable Primary Care Provider Unavailabl e Encounter Details Date Type Department Care Team (Late st Contact Info) Description 07/14/2021 Transcribed Document [facility] [place] [facility] [place] [address] ProviderMicky MD [address] [place] [phone] Social History Tobacco Use Types Packs/Day Years [...] Conversion Note - Micky ProviderMD - 07/14/2021 3:00 PM CDT Final Discharge Planning Entered On: 07/14/2021 15:00 EDT Performed On: 07/14/2021 15:00 EDT by AMADO MELISSA RN Final Discharge Planning Discharge Arrangements : Patient Post-Acute Information Patient Name: ANTONIA WHITE SAUL Gender: Female : 50 Age: 71 Years No Post-Acute Placement(s) Listed No Post-Acute Service(s) Listed No [place] Referral(s) Listed Patient Offered Choice/Affiliations Explained : Yes Designation of Choice Signed : Yes Important Medicare Message Reviewed With : Other: outpatient Important Medicare Message Reviewed D/T : 07/14/2021 15:00 EDT Transportation Needs : Family/Friend Follow Up [...] within 3 days)-06 AMADO MELISSA RN - 07/14/2021 15:00 EDT Final Narrative Note Final Narrative Note : Patient discharging home will use [facility] for outpatient PT. No further CM needs identified AMADO MELISSA RN - 07/14/2021 15:00 EDT documented in this encounter Plan of Treatment Not on file documented as of this encounter Visit Diagnoses Not on filedocumented in this encounter
--- OUTSIDE RECORDS SUMMARY | 2025-06-10 10:18 | XMS_ITS | Encounter Summary ---
Author Organization [employer] ([place], [place], [place], [place]) Address [address] [place] [address] Care Team Providers Care Electric Trucker Name Role Phone Unavailable Primary Care Provider Unavailabl e Encounter Details Date Type Department Care Team (Late st Contact Info) Description 04/15/2021 Transcribed Document [facility] [place] [facility] [place] [address] ProviderMicky MD [address] [place] [phone] Social History Tobacco Use Types Packs/Day Years [...] Conversion Note - Historical ProviderMD - 04/15/2021 2:00 AM CDT Environmental Property Assessor Details Entered On: 04/15/2021 1:28 EDT Performed On: 04/15/2021 2:00 EDT by Darline Knight Rn Order Details Transport Mode Order Detail : Bed (including specialty) Order Detail : N/A IV Order Detail : 1 Oxygen Order Detail : 0 Nurse Collect Order Detail : 0 Lift/Transfer : Moderate assist Central Line Order Detail : No Room Service : Not Appropriate Arterial Line : No Patient Needs Meds Crushed/Liquid : No Darline Knight Rn - 04/15/2021 1:28 EDT documented in this encounter Plan of Treatment Not on file documented as of this encounter Visit Diagnoses Not on filedocumented in this encounter
--- NOTE | 2025-06-10 10:33 | ECG_ITS ---
APPROVED REPORT Exam: Resting ECG HR:57 bpm ECG Measurements Heart Rate 57 AXES MS 146 P 53 QRSd 86 QRS 66 QT 405 T 53 QTc 399 Conclusion SINUS BRADYCARDIA LOW QRS VOLTAGE IN PRECORDIAL LEADS [QRS DEFLECTION < 1.0 mV IN CHEST LEADS] BORDERLINE ECG UNCONFIRMED REPORT Electronically signed by : Juan Daniel Jules MD 06/10/2025 20:26:03
[2025-06-10 10:58] LABS: Hematocrit 38.8 % (37.0-47.0); Hemoglobin 13.5 g/dL (12.2-16.2); Immature Granulocytes % 0.3 %; Mean Corpuscular HGB Conc 34.8 g/dL (31.8-35.4); Mean Corpuscular Hemoglobin 31.5 pg (27.0-31.2); Mean Corpuscular Volume 90.4 fl (81-99); Nucleated Red Blood Cells % 0 %; Platelet Count 242 K/mm3 (142-424); Red Blood Count 4.29 M/mm3 (4.20-5.40); Red Cell Distribution Width-SD 38.8 fL; White Blood Count 6.5 K/mm3 (4.8-10.8)
[2025-06-10 11:01] LABS: Chloride 99 mmol/L (98-107)
[2025-06-10 11:02] LABS: Potassium 4.0 mmoL/L (3.5-5.1); Sodium 138 mmol/L (136-145)
[2025-06-10 11:04] LABS: Blood Urea Nitrogen 17 mg/dl (7-17); Creatinine Clearance Estimated 50 mL/min (50-200); Creatinine,Serum 1.00 mg/dl (0.52-1.04); Estimated Glomerular Filt Rate 54 ml/min (>60); GFR (African American) 65 ML/MIN (>60)
[2025-06-10 11:05] LABS: Anion Gap 13.0 mEq/L (5-15); Calcium 9.6 mg/dl (8.4-10.2); Carbon Dioxide 30 mmol/L (22.0-30.0); Glucose 96 mg/dl (74-100)
== END 2025-06-10 23:59 | disposition home or self-care (01) ==
LOC: PREOP 10:06
PROVIDERS: Nurse Anesthetist, Certified Registered; PCP Family Medicine; Visit Provider Surgery
DX: Z01.810 Encounter for preprocedural cardiovascular examination (principal); Z01.812 Encounter for preprocedural laboratory examination; Z01.818 Encounter for other preprocedural examination; R00.1 Bradycardia, unspecified; R94.31 Abnormal electrocardiogram [ECG] [EKG]
CPT/HCPCS: 80048; 85025; 93005

== ENCOUNTER 2025-06-16 06:05 | Day surgery (SDC) | payer MEDICARE, BC, SELFPAY ==
[2025-06-10 12:51] VITALS: BMI 25.4
[2025-06-16] VITALS (9 sets, daily range): BP systolic 111–128; BP diastolic 55–71; PULSE 58–84; RESP 14–18; TEMP -13.8–36.3; O2SAT 95–100
[2025-06-16] MEDS: LACTATED RINGERS 1000ML 1,000 ML 25 ML IV (06:34)
[2025-06-16] MEDS: CEFAZOLIN SODIUM 1GM ADV 1 GM IV (07:10)
[2025-06-16] MEDS: LIDOCAINE 1% 20ML MDV 20 ML (07:35)
--- NOTE | 2025-06-16 07:40 | P.OP_ITS ---
Date of procedure: 06/16/25 Pre-op Diagnosis:: Left hip lipoma Post-op Diagnosis:: Same Procedure performed:: Excision of lipoma, left hip area, excision length 3.5 cm with intermediate complexity closure Surgeon:: Colin Petty MD SECURITY NURSE:: Panda Dawn Anesthesia: LMA Estimated blood loss (mL): 3 Operative findings:: Consistent with benign subcutaneous lipoma Operative note:: Consent was obtained patient was taken the operating room. She was positioned in supine position. Anesthesia was induced via LMA. The left hip was elevated with a bump to allow for positioning. The area was prepped and draped in the standard surgical fashion. Boundaries of the palpable lesion were marked with a skin marker. Skin was marked the skin marked for planned incision. Incision was made with scalpel. Dissection was carried down through full-thickness of the skin with electrocautery. Underlying well-circumscribed fatty tissue was encountered consistent with a benign lipoma. This was dissected free using some blunt dissection with some scissor dissection and delivered through the wound. Remaining attachments were incised with Metzenbaum dissection. It was sent off as a specimen. There was good hemostasis with limited use of electrocautery. Local anesthetic was infiltrated. Subdermal tissues were reapproximated with interrupted 3-0 Vicryl. Skin was closed with 4-0 Monocryl in a subcuticular fashion. Dermabond and dressing was applied. Condition: stable Disposition: PACU Complications:: None immediately apparent
--- NOTE | 2025-06-16 07:57 | EXP.ANES.CKL ---
[facility] Disclaimer: The information contained in this section may have been updated after the patient was seen, as this information can be updated by other users. Medical History (Updated 06/16/25 @ 06:27 by Mya Lewis RN) Melanoma HLD (hyperlipidemia) HTN (hypertension) Surgical History History of abdominal surgery History of knee replacement History of hysterectomy Family History Other Family history of diabetes mellitus Social History (Updated 06/16/25 @ 06:23 by Mya Lewis RN) Smoking Status: Never smoker alcohol intake: never substance use type: denies use current occupational status: retired Travel in the last 8 weeks?: None Have you lived/traveled outside US in past 30 days?: No Contact w/someone who lives/traveled outside US past 30 days?: No Exposure to someone with infectious disease in past 14 days?: No Do you have a fever (greater than 100.4 F or 38 C)?: No Have you tested positive for COVID-19?: No Exposed to someone with COVID-19 in past 14 days?: No Do you have a sore throat?: No Do you have a cough?: No Do you have any weakness?: No Are you experiencing any nausea/vomitting?: No Do you have any diarrhea?: No Are you experiencing any unusual bleeding?: No Do you have any muscle aches/pain?: No Do you have any abdominal pain?: No Are you experiencing loss of taste or smell?: No [facility] Anesthesia Checklist Patient Identification Patient Identification: Arm Band and Family Structural Data Admitted From: Home Planned Operative Procedure/s: Excision lipoma left hip. Consent for Planned Operative Procedure(s) Verified: Yes Verified Documents: Surgical Consent and History and Physical NPO Status Verified Time NPO: 00:00 Additional verifications Anesthesia Reactions: Yes (pt's reports hard to wake up after surgery , nausea / vomiting) Hx Blood Transfusions: No Blood Transfusion Reaction: No Cephalosporin Allergy: No Previous Colonoscopy: Yes Airway Assessment Mallampati Score:: Class II C-Spine Mobility Assessed: Yes TMJ Mobility Assessed: Yes Neurological Assessment Level of Consciousness: Awake, Alert, Appropriate and Follows Commands Hx Seizures: No Numbness or tingling in extremities: No Anesthesia Plan Anesthesia Risk discussed: Yes ASA Class: II Anesthesia Type: General Preoperative Comments Pre-Operative Comments: PONV, HTN, pvs
--- NOTE | 2025-06-16 07:59 | P.PNANES_ITS ---
[facility] Anesthesia Record Part I Anesthesia Record I Intake, IV Amount: 650 Hydration: Adequate Estimated blood loss (mL): 3 Urine output (mL): 0 Blood Products used (#): none Blood Pressure: 128/70 SaO2: 96 Pulse Rate: 84 Airway Patency: Patent Respiratory Rate: 14 Temperature: 7.2 F Patient is:: Drowsy and Stable Stable to PACU at:: 07:51
--- NOTE | 2025-06-16 12:27 | EXP.ANES.II ---
[facility] Anesthesia Record Part II Anesthesia Record Part II Discharge Time: 08:21 Destination: Surgical Day Care (OP Surgery) PACU nurse assessment reviewed?: Yes Patient Condition:: Good Anesthesia Complications:: None Swallowing reflex intact?: Yes Airway Patency: Patent Cyanosis?: No Blood Pressure: 123/55 SaO2: 98 Respiratory Rate: 16 Pulse Rate: 69 Temperature: 97.2 F Mental Status: Alert & Oriented Pain level:: 0 Nausea and/or vomitting:: None Intake, IV Amount: 0 Hydration: Adequate
== END 2025-06-16 08:52 | disposition home or self-care (01) ==
PROVIDERS: PCP Family Medicine; Visit Provider Surgery
PROC: (CPT 27047; principal; 2025-06-16 07:30)
DX: D17.24 Benign lipomatous neoplasm of skin and subcutaneous tissue of left leg (principal); Z85.820 Personal history of malignant melanoma of skin; I10 Essential (primary) hypertension; E78.5 Hyperlipidemia, unspecified; Z79.899 Other long term (current) drug therapy
CPT/HCPCS: 27047; 96374; J0690; J1100; J2003; J2250; J2405; J2704; J2795; J3010; J7120